=== PATIENT | male | born 1985 | race Caucasian/White ===

== ENCOUNTER 2017-01-14 19:19 | Emergency (ER) | payer OTHER ==
--- NOTE | 2017-01-14 19:32 | ED ---
General Adult HPI - General Chief complaint: Abdominal Pain Stated complaint: abdominal pain Time Seen by Provider: 01/14/17 19:27 Source: patient, family, RN notes reviewed, old records reviewed Mode of arrival: ambulatory Limitations: no limitations - History of Present Illness Initial comments: This is a 31-year-old male to the ER for evaluation. Patient is safe for evaluation of abdominal pain through epigastric right upper quadrant without pain worse with eating. Patient has history of gallbladder surgery. Denies drugs or alcohol. No fevers. No diarrhea. Patient is unable to attribute pain to any specific foods. Patient denies any significant weight the weight loss is severe pain after eating. Patient is that he was taking Tums for quite some time and that was helping but at this time is getting no relief - Related Data Previous Rx's Medication Instructions Recorded Amoxicillin 500 mg PO Q8H #42 capsule 01/14/17 Clarithromycin [Biaxin] 500 mg PO Q12HR #28 tablet 01/14/17 Famotidine [Pepcid] 20 mg PO BID #30 tablet 01/14/17 Omeprazole [PriLOSEC] 20 mg PO AC-BID #60 cap 01/14/17 Allergies Allergy/AdvReac Type Severity Reaction Status Date / Time No Known Allergies Allergy Verified 01/14/17 19:38 Review of Systems ROS Statement: Those systems with pertinent positive or pertinent negative responses have been documented in the HPI. ROS Other: All systems not noted in ROS Statement are negative. Past Medical History Past Medical History: No Reported History, Skin Disorder Additional Past Medical History / Comment(s): WAS BORN PREMATURE NOT SURE HOW EARLY, UTI, PSORIASES ON SCALP. History of Any Multi-Drug Resistant Organisms: None Reported Past Surgical History: Hernia Repair, Orthopedic Surgery Additional Past Surgical History / Comment(s): RT INGUINAL HERNIA SX INFANT, CUT TENDON /MUSCLE LT HAND HAD SX TO REPAIR, RT WRIST SX FOR ABCESS i&D. DENIES MRSA OR VRE Past Anesthesia/Blood Transfusion Reactions: No Reported Reaction Past Psychological History: No Psychological Hx Reported Smoking Status: Current some day smoker Past Alcohol Use History: Occasional Past Drug Use History: None Reported - Past Family History Father Family Medical History: Unable to Obtain Mother Family Medical History: Unable to Obtain General Exam Limitations: no limitations General appearance: alert, in no apparent distress Head exam: Present: atraumatic, normocephalic, normal inspection Eye exam: Present: normal appearance, PERRL, EOMI. Absent: scleral icterus, conjunctival injection, periorbital swelling ENT exam: Present: normal exam, mucous membranes moist Neck exam: Present: normal inspection. Absent: tenderness, meningismus, lymphadenopathy Respiratory exam: Present: normal lung sounds bilaterally. Absent: respiratory distress, wheezes, rales, rhonchi, stridor Cardiovascular Exam: Present: regular rate, normal rhythm, normal heart sounds. Absent: systolic murmur, diastolic murmur, rubs, gallop, clicks GI/Abdominal exam: Present: soft, normal bowel sounds. Absent: distended, tenderness, guarding, rebound, rigid Extremities exam: Present: normal inspection, full ROM, normal capillary refill. Absent: tenderness, pedal edema, joint swelling, calf tenderness Back exam: Present: normal inspection Neurological exam: Present: alert, oriented X3, CN II-XII intact Psychiatric exam: Present: normal affect, normal mood Skin exam: Present: warm, dry, intact, normal color. Absent: rash Course Vital Signs 01/14/17 01/14/17 01/14/17 19:20 20:58 21:34 Temperature 98 F 98.0 F Pulse Rate 90 80 85 Respiratory 18 16 18 Rate Blood Pressure 140/86 132/70 152/89 O2 Sat by Pulse 98 99 97 Oximetry Medical Decision Making - Medical Decision Making 31 male ER for evaluation. Patient's is here today for evaluation of abdominal pain. Pain occurs after Eating, likely also, CT and pelvis level within normal. Patient will be discharged home - Lab Data Result diagrams: 01/14/17 20:10 01/14/17 20:10 Lab Results 01/14/17 01/14/17 01/14/17 Range/Units 20:10 20:10 20:10 WBC (3.8-10.6) k/uL RBC (4.30-5.90) m/uL Hgb (13.0-17.5) gm/dL Hct (39.0-53.0) % MCV (80.0-100.0) fL MCH (25.0-35.0) pg MCHC (31.0-37.0) g/dL RDW (11.5-15.5) % Plt Count (150-450) k/uL Neutrophils % % Lymphocytes % % Monocytes % % Eosinophils % % Basophils % % Neutrophils # (1.3-7.7) k/uL Lymphocytes # (1.0-4.8) k/uL Monocytes # (0-1.0) k/uL Eosinophils # (0-0.7) k/uL Basophils # (0-0.2) k/uL Sodium 141 (137-145) mmol/L Potassium 3.9 (3.5-5.1) mmol/L Chloride 107 (98-107) mmol/L Carbon Dioxide 23 (22-30) mmol/L Anion Gap 11 mmol/L BUN 17 (9-20) mg/dL Creatinine 0.96 (0.66-1.25) mg/dL Est GFR (MDRD) Af Amer >60 (>60 ml/min/1.73 sqM) Est GFR (MDRD) Non-Af >60 (>60 ml/min/1.73 sqM) Glucose 108 H (74-99) mg/dL Plasma Lactic Acid [place] 1.4 (0.7-2.0) mmol/L Calcium 9.4 (8.4-10.2) mg/dL Total Bilirubin 0.4 (0.2-1.3) mg/dL AST 45 (17-59) U/L ALT 82 H (21-72) U/L Alkaline Phosphatase 86 (38-126) U/L Total Creatine Kinase 206 H (55-170) U/L CK-MB (CK-2) 0.8 (0.0-2.4) ng/mL CK-MB (CK-2) Rel Index 0.4 Total Protein 7.3 (6.3-8.2) g/dL Albumin 4.6 (3.5-5.0) g/dL Amylase 46 (30-110) U/L Lipase 159 (23-300) U/L 01/14/17 Range/Units 20:10 WBC 10.6 (3.8-10.6) k/uL RBC 4.79 (4.30-5.90) m/uL Hgb 15.1 (13.0-17.5) gm/dL Hct 42.6 (39.0-53.0) % MCV 88.9 (80.0-100.0) fL MCH 31.6 (25.0-35.0) pg MCHC 35.5 (31.0-37.0) g/dL RDW 12.9 (11.5-15.5) % Plt Count 244 (150-450) k/uL Neutrophils % 71 % Lymphocytes % 20 % Monocytes % 5 % Eosinophils % 2 % Basophils % 0 % Neutrophils # 7.6 (1.3-7.7) k/uL Lymphocytes # 2.1 (1.0-4.8) k/uL Monocytes # 0.5 (0-1.0) k/uL Eosinophils # 0.2 (0-0.7) k/uL Basophils # 0.0 (0-0.2) k/uL Sodium (137-145) mmol/L Potassium (3.5-5.1) mmol/L Chloride (98-107) mmol/L Carbon Dioxide (22-30) mmol/L Anion Gap mmol/L BUN (9-20) mg/dL Creatinine (0.66-1.25) mg/dL Est GFR (MDRD) Af Amer (>60 ml/min/1.73 sqM) Est GFR (MDRD) Non-Af (>60 ml/min/1.73 sqM) Glucose (74-99) mg/dL Plasma Lactic Acid Eugene (0.7-2.0) mmol/L Calcium (8.4-10.2) mg/dL Total Bilirubin (0.2-1.3) mg/dL AST (17-59) U/L ALT (21-72) U/L Alkaline Phosphatase (38-126) U/L Total Creatine Kinase (55-170) U/L CK-MB (CK-2) (0.0-2.4) ng/mL CK-MB (CK-2) Rel Index Total Protein (6.3-8.2) g/dL Albumin (3.5-5.0) g/dL Amylase (30-110) U/L Lipase (23-300) U/L - Radiology Data Radiology results: report reviewed (CT abdomen and pelvis is negative for acute disease), image reviewed Disposition Clinical Impression: Abdominal pain, GERD (gastroesophageal reflux disease), Ulcer Disposition: HOME SELF-CARE Condition: Good Instructions: Peptic Ulcer (ED), Gastritis (ED) Prescriptions: Amoxicillin 500 mg PO Q8H #42 capsule Clarithromycin [Biaxin] 500 mg PO Q12HR #28 tablet Famotidine [Pepcid] 20 mg PO BID #30 tablet Omeprazole [PriLOSEC] 20 mg PO AC-BID #60 cap Referrals: None,Stated [Primary Care Provider] - 1-2 days
[2017-01-14] MEDS ORDERED: PANTOPRAZOLE 40 MG/10 ML VIAL IVP STA (19:37)
[2017-01-14] MEDS ORDERED: SODIUM CHLORIDE 0.9% 1,000 ML IV STA ×2 (19:37)
[2017-01-14] MEDS ORDERED: DICYCLOMINE 10 MG/ML 2 ML AMP IM STA (19:37)
[2017-01-14] MEDS ORDERED: MORPHINE SULFATE 4 MG/ML SYRINGE IV STA (19:37)
[2017-01-14] MEDS ORDERED: ONDANSETRON 4 MG/2 ML VIAL IVP STA (19:37)
[2017-01-14] MEDS ORDERED: RX INFO: IV CONTRAST WAS GIVEN 1 EACH MISC MISCELLANE PRN (19:37)
[2017-01-14 20:22] LABS: Basophils % (A) 0 %; CH 31.7; CHCM 35.7; Eosinophils # (A) 0.2 k/uL (0-0.7); Eosinophils % (A) 2 %; HCT 42.6 % (39.0-53.0); HDW 2.63; HGB 15.1 gm/dL (13.0-17.5); Luc # (Auto) 0.23; Luc % (Auto) 2; Lymphocytes # (A) 2.1 k/uL (1.0-4.8); Lymphocytes % (A) 20 %; MCH 31.6 pg (25.0-35.0); MCHC 35.5 g/dL (31.0-37.0); MCV 88.9 fL (80.0-100.0); Mean Platelet Volume 7.1; Monocytes # (A) 0.5 k/uL (0-1.0); Monocytes % (A) 5 %; Neutrophils # (A) 7.6 k/uL (1.3-7.7); Neutrophils % (A) 71 %; RBC 4.79 m/uL (4.30-5.90); RDW 12.9 % (11.5-15.5); WBC 10.6 k/uL (3.8-10.6); WBC (Perox) 10.12
[2017-01-14 20:40] LABS: ALT 82 U/L (21-72); AST 45 U/L (17-59); Alkaline Phosphatase 86 U/L (38-126); Amylase 46 U/L (30-110); Anion Gap 11 mmol/L; Blood Urea Nitrogen 17 mg/dL (9-20); Calcium 9.4 mg/dL (8.4-10.2); Carbon Dioxide 23 mmol/L (22-30); Chloride 107 mmol/L (98-107); Glucose 108 mg/dL (74-99); Non-African American GFR(MDRD) >60 (>60 ml/min/1.73 sqM); Potassium 3.9 mmol/L (3.5-5.1); Sodium 141 mmol/L (137-145); Total Bilirubin 0.4 mg/dL (0.2-1.3); Total Protein 7.3 g/dL (6.3-8.2)
--- NOTE | 2017-01-14 20:42 | CT ---
EXAMINATION TYPE: CT abdomen pelvis w con DATE OF EXAM: 01/14/2017 COMPARISON: NONE HISTORY: Mid to right upper quadrant pain after eating x months with nausea and vomiting. CT DLP: 923.10 mGycm Automated exposure control for dose reduction was used. TECHNIQUE: Helical acquisition of images was performed from the lung bases through the pelvis. CONTRAST: Performed without Oral Contrast and with IV Contrast, patient injected with 100 mL of Omnipaque 300. FINDINGS: The lung bases are clear. There is no pleural effusion. Heart size is normal. spleen pancreas appear normal. There are clips from cholecystectomy. Bile ducts are not dilated. The re is no adrenal mass. There is a 3 cm area of enhancement in the lateral right lobe of the liver con sistent with hemangioma. There is no adrenal mass. Kidneys show satisfactory contrast opacification. There is no hydronephrosi s. There is a possible 3 mm calcification in the left kidney. There is no retroperitoneal adenopathy. There is no ascites. I see no intestinal wall thickening. There are no dilated loops. Appendix appea rs normal. Bladder distends smoothly. There is no sign of a pelvic mass. Bony structures are intact. IMPRESSION: SMALL HEMANGIOMA IN THE LIVER. THERE IS PROBABLY A SMALL LEFT RENAL NONOBSTRUCTING CALCULUS. NO SIGN OF ACUTE ABDOMEN AND PELVIS.
[2017-01-14 20:57] LABS: Creatine Kinase MB 0.8 ng/mL (0.0-2.4)
[2017-01-14] MEDS ORDERED: MAG HYDROX/AL HYDROX/SIMETH 30 ML, HYOSCYAMINE ELIXIR 10 ML, CIMETIDINE HCL 300 MG, LID... PO STA ×4 (20:57)
[2017-01-14 21:35] VITALS: BP 152/89; PULSE 85; RESP 18; TEMP 98
== END 2017-01-14 21:35 | disposition home or self-care (01) ==
LOC: EC 19:19
DX: K21.9 Gastro-esophageal reflux disease without esophagitis (principal); K25.9 Gastric ulcer, unspecified as acute or chronic, without hemorrhage or perforation; F17.200 Nicotine dependence, unspecified, uncomplicated
CPT/HCPCS: 36415; 80053; 82150; 82550; 82553; 83605; 83690; 85025; 74177; 99284; 96374; 96375 ×2; 96361 ×2; 96372; J2270; J0500; J2405; Q9967; C9113

== ENCOUNTER 2018-04-14 15:39 | Emergency (ER) | payer OTHER ==
[2018-04-14 16:12] VITALS: RESP 18
[2018-04-14 16:38] LABS: Basophils % (A) 1 %; Eosinophils # (A) 0.1 k/uL (0-0.7); Eosinophils % (A) 2 %; HCT 45.7 % (39.0-53.0); HGB 15.6 gm/dL (13.0-17.5); Lymphocytes # (A) 1.9 k/uL (1.0-4.8); Lymphocytes % (A) 26 %; MCH 30.6 pg (25.0-35.0); MCHC 34.2 g/dL (31.0-37.0); MCV 89.5 fL (80.0-100.0); Mean Platelet Volume 7.1; Monocytes # (A) 0.4 k/uL (0-1.0); Monocytes % (A) 5 %; Neutrophils # (A) 4.8 k/uL (1.3-7.7); Neutrophils % (A) 65 %; Platelet Count 224 k/uL (150-450); RDW 12.7 % (11.5-15.5); WBC 7.4 k/uL (3.8-10.6)
[2018-04-14 16:38] LABS: Appearance,Urine Clear (Clear); Bilirubin,Urine Negative (Negative); Blood,Urine Negative (Negative); Color,Urine Yellow; Glucose,Urine (UA) Negative (Negative); Ketones,Urine 1+ (Negative); Leukocyte Esterase,Urine Negative (Negative); Nitrite,Urine Negative (Negative); Protein,Urine Negative (Negative); Specific Gravity,Urine 1.013 (1.001-1.035); Urobilinogen,Urine <2.0 mg/dL (<2.0)
[2018-04-14] MEDS ORDERED: MAG HYDROX/AL HYDROX/SIMETH 30 ML, HYOSCYAMINE ELIXIR 10 ML, CIMETIDINE HCL 300 MG, LID... PO STA ×4 (16:51)
[2018-04-14 16:56] LABS: ALT 70 U/L (21-72); AST 49 U/L (17-59); Albumin 4.8 g/dL (3.5-5.0); Alkaline Phosphatase 71 U/L (38-126); Amylase 75 U/L (30-110); Anion Gap 11 mmol/L; Blood Urea Nitrogen 16 mg/dL (9-20); Calcium 10.6 mg/dL (8.4-10.2); Carbon Dioxide 23 mmol/L (22-30); Chloride 107 mmol/L (98-107); Glucose 96 mg/dL (74-99); Lipase 235 U/L (23-300); Potassium 4.2 mmol/L (3.5-5.1); Sodium 141 mmol/L (137-145); Total Bilirubin 0.4 mg/dL (0.2-1.3); Total Protein 7.8 g/dL (6.3-8.2)
--- NOTE | 2018-04-14 16:57 | ED ---
General Adult HPI - General Chief complaint: Abdominal Pain Stated complaint: Abd Pain Time Seen by Provider: 04/14/18 16:40 Source: patient, RN notes reviewed Mode of arrival: ambulatory Limitations: no limitations - History of Present Illness Initial comments: 32-year-old male presented to the emergency room today with chief complaint abdominal pain. Patient states that he's been having symptoms for the past few years. He states anytime he eats or drinks he gets abdominal pain. He states at times he becomes nauseated and has vomiting. Other times he has diarrhea. Patient states that symptoms seem to be getting worse. He states to come to the hospital once approximate year ago believes he had a CAT scan. Patient states never followed up. He states he does take Tums occasionally but they do not seem to help his symptoms. Patient denies any other complaints or symptoms. Patient denies any recent fever, chills, shortness of breath, chest pain, back pain, numbness or tingling, dysuria or hematuria, constipation, headaches or visual changes, or any other complaints. - Related Data Previous Rx's Medication Instructions Recorded Omeprazole [PriLOSEC] 20 mg PO AC-BRKFST 14 Days cap 04/14/18 Ondansetron Odt [Zofran ODT] 4 mg PO Q8HR PRN #20 tab 04/14/18 Allergies Allergy/AdvReac Type Severity Reaction Status Date / Time No Known Allergies Allergy Verified 04/14/18 17:01 Review of Systems ROS Statement: Those systems with pertinent positive or pertinent negative responses have been documented in the HPI. ROS Other: All systems not noted in ROS Statement are negative. Past Medical History Past Medical History: No Reported History, Skin Disorder Additional Past Medical History / Comment(s): WAS BORN PREMATURE NOT SURE HOW EARLY, UTI, PSORIASES ON SCALP. History of Any Multi-Drug Resistant Organisms: None Reported Past Surgical History: Cholecystectomy, Hernia Repair, Orthopedic Surgery Additional Past Surgical History / Comment(s): RT INGUINAL HERNIA SX INFANT, CUT TENDON /MUSCLE LT HAND HAD SX TO REPAIR, RT WRIST SX FOR ABCESS i&D. DENIES MRSA OR VRE Past Anesthesia/Blood Transfusion Reactions: No Reported Reaction Past Psychological History: No Psychological Hx Reported Smoking Status: Current some day smoker Past Alcohol Use History: Occasional Past Drug Use History: None Reported - Past Family History Father Family Medical History: Unable to Obtain Mother Family Medical History: Unable to Obtain General Exam - General Exam Comments Initial Comments: General: The patient is awake and alert, in no distress, and does not appear acutely ill. Eye: Pupils are equal, round and reactive to light. Extra-ocular movements are intact. No nystagmus. There is normal conjunctiva bilaterally. No signs of icterus. Ears, nose, mouth and throat: There are moist mucous membranes and no oral lesions. Neck: The neck is supple, there is no tenderness or JVD. Cardiovascular: There is a regular rate and rhythm. No murmur, rub or gallop is appreciated. Respiratory: Lungs are clear to auscultation, respirations are non-labored, breath sounds are equal. No wheezes, stridor, rales, or rhonchi. Gastrointestinal: Soft on palpation. Patient does have mild tenderness in the upper quadrants and epigastric. No rebound, guarding or CVA tenderness. Musculoskeletal: Normal ROM, no tenderness. Sensation intact. Strength 5/5. Pulses equal bilaterally 2+. Neurological: A&O x 3. CN II-XII intact, There are no obvious motor or sensory deficits. Coordination appears grossly intact. Speech is normal. Skin: Skin is warm and dry and no rashes or lesions are noted. Psychiatric: Cooperative, appropriate mood & affect, normal judgment. Limitations: no limitations Course Vital Signs 04/14/18 16:09 Temperature 98.5 F Pulse Rate 93 Respiratory 18 Rate Blood Pressure 136/84 O2 Sat by Pulse 95 Oximetry Medical Decision Making - Medical Decision Making Patient reexamined at this time shows no signs of chest was given GI cocktail which he does state did help his symptoms but he did become nauseous. Given nausea medication here in emergency room. His labs been reviewed are unremarkable. Patient was seen here in the emergency room in January 2017. Patient had a CT of the abdomen and pelvis performed at that time which was unremarkable. He states these are the same symptoms that he's been dealing with for the last several years. At this time is felt the patient may be discharged to follow-up with GI. His abdomen soft on palpation. Was discussed about CT risk and benefits at this time. He will be given nausea medication along with Prilosec for his symptoms. He is advised trying follow-up over the next 2 days returning if symptoms increase worsen. He states understanding and is in agreement with this plan. - Lab Data Result diagrams: 04/14/18 16:20 04/14/18 16:20 Lab Results 04/14/18 04/14/18 04/14/18 Range/Units 16:13 16:20 16:20 WBC 7.4 (3.8-10.6) k/uL RBC 5.10 (4.30-5.90) m/uL Hgb 15.6 (13.0-17.5) gm/dL Hct 45.7 (39.0-53.0) % MCV 89.5 (80.0-100.0) fL MCH 30.6 (25.0-35.0) pg MCHC 34.2 (31.0-37.0) g/dL RDW 12.7 (11.5-15.5) % Plt Count 224 (150-450) k/uL Neutrophils % 65 % Lymphocytes % 26 % Monocytes % 5 % Eosinophils % 2 % Basophils % 1 % Neutrophils # 4.8 (1.3-7.7) k/uL Lymphocytes # 1.9 (1.0-4.8) k/uL Monocytes # 0.4 (0-1.0) k/uL Eosinophils # 0.1 (0-0.7) k/uL Basophils # 0.0 (0-0.2) k/uL Sodium 141 (137-145) mmol/L Potassium 4.2 (3.5-5.1) mmol/L Chloride 107 (98-107) mmol/L Carbon Dioxide 23 (22-30) mmol/L Anion Gap 11 mmol/L BUN 16 (9-20) mg/dL Creatinine 0.73 (0.66-1.25) mg/dL Est GFR (CKD-EPI)AfAm >90 (>60 ml/min/1.73 sqM) Est GFR (CKD-EPI)NonAf >90 (>60 ml/min/1.73 sqM) Glucose 96 (74-99) mg/dL Calcium 10.6 H (8.4-10.2) mg/dL Total Bilirubin 0.4 (0.2-1.3) mg/dL AST 49 (17-59) U/L ALT 70 (21-72) U/L Alkaline Phosphatase 71 (38-126) U/L Total Protein 7.8 (6.3-8.2) g/dL Albumin 4.8 (3.5-5.0) g/dL Amylase 75 (30-110) U/L Lipase 235 (23-300) U/L Urine Color Yellow Urine Appearance Clear (Clear) Urine pH 7.0 (5.0-8.0) Ur Specific [place] 1.013 (1.001-1.035) Urine Protein Negative (Negative) Urine Glucose (UA) Negative (Negative) Urine Ketones 1+ H (Negative) Urine Blood Negative (Negative) Urine Nitrite Negative (Negative) Urine Bilirubin Negative (Negative) Urine Urobilinogen <2.0 (<2.0) mg/dL Ur Leukocyte Esterase Negative (Negative) Disposition Clinical Impression: Abdominal pain Disposition: HOME SELF-CARE Condition: Good Instructions: Abdominal Pain (ED) Additional Instructions: Please use medication as discussed. Please follow-up with gastrointestinal doctor as discussed. Please return to emergency room if the symptoms increase or worsen or for any other concerns. Prescriptions: Omeprazole [PriLOSEC] 20 mg PO AC-BRKFST 14 Days cap Ondansetron Odt [Zofran ODT] 4 mg PO Q8HR PRN #20 tab PRN Reason: Nausea Is patient prescribed a controlled substance at d/c from ED?: No Referrals: None,Stated [Primary Care Provider] - 1-2 days Elisha Whatley MD [STAFF PHYSICIAN] - 1-2 days Tyrone Scott MD [STAFF PHYSICIAN] - 1-2 days Time of Disposition: 17:38
[2018-04-14] MEDS ORDERED: ONDANSETRON ODT 4 MG TAB PO STA (17:28)
[2018-04-14 17:54] VITALS: BP 137/92; PULSE 62; TEMP 98.1
== END 2018-04-14 17:51 | disposition home or self-care (01) ==
LOC: EC 15:39
DX: R10.9 Unspecified abdominal pain (principal); R11.2 Nausea with vomiting, unspecified; R19.7 Diarrhea, unspecified; F17.200 Nicotine dependence, unspecified, uncomplicated; Z87.19 Personal history of other diseases of the digestive system; Z90.49 Acquired absence of other specified parts of digestive tract; Z98.890 Other specified postprocedural states
CPT/HCPCS: 36415; 80053; 81003; 82150; 83690; 85025; 99284

== ENCOUNTER 2018-05-13 09:08 | Day surgery (SDC) | payer OTHER ==
[2018-05-10 15:16] VITALS: BMI 28.0
[~2018-05-13 09:08] MED LIST: LACTATED RINGERS 1,000 ML IV SCH
[2018-05-13 09:53] VITALS: RESP 16; TEMP 97.3
[2018-05-13] MEDS ORDERED: ONDANSETRON 4 MG/2 ML VIAL IVP STA (10:00)
[2018-05-13] MEDS ORDERED: LIDOCAINE 1% INJ 10MG/ML (20 ML MDV) ONE (10:12)
[2018-05-13] MEDS ORDERED: PROPOFOL 10 MG/ML 20 ML VIAL IV ONE (10:12)
--- NOTE | 2018-05-13 11:00 | P.PCN ---
Date of Procedure: 05/13/18 Procedure(s) Performed: Procedures: 1. Esophagogastroduodenoscopy and biopsy. 2. Total colonoscopy and biopsy. Preoperative diagnosis: Abdominal pain, nausea and vomiting. Postoperative diagnosis: 1. Small sliding hiatal hernia with no obvious esophagitis or complicated reflux disease. 2. Mild gastritis with no ulcers or active bleeding. 3. Biopsies obtained from the duodenum, antrum and esophagus. 4. Colon exam essentially within normal limits. 5. Biopsies obtained from the right colon and then biopsy was obtained from the terminal ileum. Preparation: HalfLytely prep. Sedation: Was provided by anesthesia. Brief clinical history: The patient is a 32-year-old male who is scheduled for this evaluation because of history of abdominal pain, nausea and vomiting. The symptoms are chronic and they may have started following his gallbladder surgery around 3 years ago. He was in the emergency room around 1 month ago. He was scheduled for this evaluation following failure of a trial with antispasmodics. The purposes to rule out peptic ulcer disease, complicated reflux disease, celiac disease or inflammatory bowel disease or other pathology.. Procedure: With the patient on his left lateral decubitus position and after informed consent and adequate sedation, I passed the Olympus-GIF 160 video upper endoscope through the cricopharyngeus down the esophagus. GE junction was around 40-41 cm from the incisors and there was a small sliding hiatal hernia with no obvious esophagitis or complicated reflux disease. The endoscope was then passed into the stomach which was insufflated with air and inspected in detail including the retroflex view in the cardia. There was some erythema and mottling most obvious in the antrum and prepyloric area. There were no ulcers or active bleeding. Pyloric channel did not show any ulcers. Duodenal bulb, post bulbar area and descending duodenum appeared within normal limits. I obtained biopsies from the duodenum, antrum and esophagus then the endoscope was withdrawn and I proceeded with the colonoscopy. Perianal area did not show any fissures or fistulas. There were no masses felt on digital rectal examination. The Olympus CFQ 160L video colonoscope was then inserted in the rectum in the usual fashion and advanced to the cecum. I was not able to intubate the ileocecal valve to examine the terminal ileum, however , I was able to obtain colorblind biopsies from the terminal ileum. The colon appeared healthy. I obtained a right colon biopsies then I retroflexed endoscope in the rectum before the endoscope was withdrawn. The patient tolerated the procedure well. Plan: The patient was reassured. I will see him in follow-up and make further plans based on his course and biopsy results.
[2018-05-13 11:06] VITALS: BP 128/62; PULSE 76
== END 2018-05-13 11:19 | disposition home or self-care (01) ==
LOC: ORWHC2ENDO 09:08
DX: K29.50 Unspecified chronic gastritis without bleeding (principal); K44.9 Diaphragmatic hernia without obstruction or gangrene; K21.0 Gastro-esophageal reflux disease with esophagitis; Z79.899 Other long term (current) drug therapy
CPT/HCPCS: 88305; 45380; 43239; J2405; J2001; J2704

== ENCOUNTER 2018-10-23 18:03 | Emergency (ER) | payer OTHER ==
[2018-10-23] MEDS ORDERED: ONDANSETRON 4 MG/2 ML VIAL IVP STA (18:17)
[2018-10-23] MEDS ORDERED: SODIUM CHLORIDE 0.9% 2,000 ML IV STA (18:17)
[2018-10-23 18:40] LABS: Basophils % (A) 1 %; Eosinophils # (A) 0.1 k/uL (0-0.7); Eosinophils % (A) 1 %; HCT 50.1 % (39.0-53.0); HGB 16.5 gm/dL (13.0-17.5); Lymphocytes # (A) 1.2 k/uL (1.0-4.8); Lymphocytes % (A) 19 %; MCH 32.2 pg (25.0-35.0); MCHC 32.9 g/dL (31.0-37.0); MCV 97.8 fL (80.0-100.0); Mean Platelet Volume 6.6; Monocytes # (A) 0.4 k/uL (0-1.0); Monocytes % (A) 6 %; Neutrophils # (A) 4.5 k/uL (1.3-7.7); Neutrophils % (A) 72 %; Platelet Count 222 k/uL (150-450); RBC 5.12 m/uL (4.30-5.90); RDW 12.3 % (11.5-15.5); WBC 6.2 k/uL (3.8-10.6)
[2018-10-23] MEDS ORDERED: PANTOPRAZOLE 40 MG/10 ML VIAL IVP STA (18:53)
[2018-10-23] MEDS ORDERED: KETOROLAC 30 MG/ML 1 ML VIAL IVP STA (18:53)
[2018-10-23 18:54] LABS: Appearance,Urine Clear (Clear); Bilirubin,Urine Negative (Negative); Blood,Urine Negative (Negative); Color,Urine Yellow; Glucose,Urine (UA) Negative (Negative); Hyaline Casts,Urine 1 /lpf (0-2); Ketones,Urine 1+ (Negative); Leukocyte Esterase,Urine Moderate (Negative); Mucus,Urine Many /hpf; Nitrite,Urine Negative (Negative); PH, Urine 6.5 (5.0-8.0); Protein,Urine 1+ (Negative); Specific Gravity,Urine 1.028 (1.001-1.035); Urobilinogen,Urine <2.0 mg/dL (<2.0); WBC,Urine 16 /hpf (0-5)
[2018-10-23 19:05] LABS: ALT 254 U/L (21-72); AST 281 U/L (17-59); Albumin 5.3 g/dL (3.5-5.0); Alkaline Phosphatase 105 U/L (38-126); Amylase 56 U/L (30-110); Anion Gap 15 mmol/L; Blood Urea Nitrogen 15 mg/dL (9-20); Calcium 10.1 mg/dL (8.4-10.2); Carbon Dioxide 21 mmol/L (22-30); Chloride 104 mmol/L (98-107); Glucose 111 mg/dL (74-99); Lipase 203 U/L (23-300); Potassium 4.2 mmol/L (3.5-5.1); Sodium 140 mmol/L (137-145); Total Bilirubin 1.2 mg/dL (0.2-1.3); Total Protein 8.1 g/dL (6.3-8.2)
--- NOTE | 2018-10-23 19:07 | ED ---
Nausea/Vomiting/Diarrhea HPI - General Source: patient, RN notes reviewed, old records reviewed Mode of arrival: ambulatory Limitations: no limitations <Marilia Tay - Last Filed: 10/23/18 19:56> <Jennifer Bojorquez - Last Filed: 10/23/18 21:24> - General Chief complaint: Nausea/Vomiting/Diarrhea Stated complaint: vomiting/not able to eat Time Seen by Provider: 10/23/18 18:16 - History of Present Illness Initial comments: This Patient is a 33-year-old male presents emergency department today complaints of 3 days of nausea and vomiting. He complains of epigastric and right-sided abdominal pain. Patient states that he hasn't told he has had ulcers before. 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 He denies any history of sick contacts. Patient states he's had no diarrhea. Denies any change in urination or bowel habits. (Marilia Tay) - Related Data Previous Rx's Medication Instructions Recorded Famotidine [Pepcid] 20 mg PO BID #30 tablet 10/23/18 Ondansetron Odt [Zofran Odt] 4 mg PO Q8HR PRN #20 tab 10/23/18 Allergies Allergy/AdvReac Type Severity Reaction Status Date / Time No Known Allergies Allergy Verified 10/23/18 18:16 Review of Systems ROS Other: All systems not noted in ROS Statement are negative. <Marilia Tay - Last Filed: 10/23/18 19:56> ROS Other: All systems not noted in ROS Statement are negative. <Jennifer Bojorquez P - Last Filed: 10/23/18 21:24> ROS Statement: Those systems with pertinent positive or pertinent negative responses have been documented in the HPI. Past Medical History Past Medical History: No Reported History Additional Past Medical History / Comment(s): abd. pain, N/V History of Any Multi-Drug Resistant Organisms: None Reported Past Surgical History: Cholecystectomy, Hernia Repair, Orthopedic Surgery Additional Past Surgical History / Comment(s): INGUINAL HERNIA ;tendon in wrist; RT WRIST SX FOR ABCESS; EGD/Colonoscopy 08/2018 Past Anesthesia/Blood Transfusion Reactions: No Reported Reaction Past Psychological History: No Psychological Hx Reported Smoking Status: Never smoker - Past Family History Father Family Medical History: Unable to Obtain Mother Family Medical History: No Reported History <MaggiMarilia - Last Filed: 10/23/18 19:56> General Exam Limitations: no limitations General appearance: alert, in no apparent distress Head exam: Present: atraumatic, normocephalic, normal inspection Eye exam: Present: normal appearance, PERRL, EOMI. Absent: scleral icterus, conjunctival injection, periorbital swelling ENT exam: Present: normal exam, mucous membranes moist Neck exam: Present: normal inspection. Absent: tenderness, meningismus, lymphadenopathy Respiratory exam: Present: normal lung sounds bilaterally. Absent: respiratory distress, wheezes, rales, rhonchi, stridor Cardiovascular Exam: Present: regular rate, normal rhythm, normal heart sounds. Absent: systolic murmur, diastolic murmur, rubs, gallop, clicks GI/Abdominal exam: Present: soft, tenderness (Epigastric and right upper quadrant tenderness.), normal bowel sounds. Absent: distended, guarding, rebound, rigid Extremities exam: Present: normal inspection, full ROM, normal capillary refill. Absent: tenderness, pedal edema, joint swelling, calf tenderness Back exam: Present: normal inspection Neurological exam: Present: alert, oriented X3, CN II-XII intact Psychiatric exam: Present: normal affect, normal mood Skin exam: Present: warm, dry, intact, normal color. Absent: rash <Sissy Tayily - Last Filed: 10/23/18 19:56> - General Exam Comments Initial Comments: 33-year-old male. Alert and oriented. No significant distress. (Marilia Tay) Course Vital Signs 10/23/18 10/23/18 10/23/18 18:08 19:44 20:32 Temperature 98.5 F 98.3 F Pulse Rate 107 H 84 78 Respiratory 20 18 18 Rate Blood Pressure 140/99 132/82 127/82 O2 Sat by Pulse 97 95 96 Oximetry Medical Decision Making - Lab Data Result diagrams: 10/23/18 18:30 10/23/18 18:30 - Radiology Data Radiology results: report reviewed <Marilia Tay - Last Filed: 10/23/18 19:56> - Lab Data Result diagrams: 10/23/18 18:30 10/23/18 18:30 <Jennifer Bojorquez - Last Filed: 10/23/18 21:24> - Medical Decision Making 33-year-old male presents or his partner today for nausea and vomiting for the past 3 days. At this time Patient had no vomiting. Complains of some epiga stric and right upper quadrant tenderness. This time is admission on IV fluids labwork obtained. Patient urinalysis does show 14 white blood cells. On questioning he denies any concern for STDs and denies any symptoms of UTI. Urine culture will be completed. Patient's liver enzymes are markedly elevated from all of his previous lab work. He has history of cholecystectomy. I did add labs concerned for acute hepatitis. Due to patient's current continued tenderness CT abdomen and pelvis was ordered. CT report will be completed and shows evidence of fatty infiltrate of the liver. This time Patient be started on Pepcid and Zofran for possible get of gastritis. Discussed that he needs to decrease alcohol intake and fatty food intake. All questions answered return parameters were discussed. (Marilia Tay) I was available for consultation in the emergency department. The history and physical exam were done by the midlevel provider. I was consulted for this patient's care. I reviewed the case with the midlevel provider and based on their presentation of the patient, I agree with the assessment, medical decision making and plan of care as documented. (Jennifer Bojorquez) - Lab Data Lab Results 10/23/18 10/23/18 10/23/18 Range/Units 18:30 18:30 18:30 WBC 6.2 (3.8-10.6) k/uL RBC 5.12 (4.30-5.90) m/uL Hgb 16.5 (13.0-17.5) gm/dL Hct 50.1 (39.0-53.0) % MCV 97.8 (80.0-100.0) fL MCH 32.2 (25.0-35.0) pg MCHC 32.9 (31.0-37.0) g/dL RDW 12.3 (11.5-15.5) % Plt Count 222 (150-450) k/uL Neutrophils % 72 % Lymphocytes % 19 % Monocytes % 6 % Eosinophils % 1 % Basophils % 1 % Neutrophils # 4.5 (1.3-7.7) k/uL Lymphocytes # 1.2 (1.0-4.8) k/uL Monocytes # 0.4 (0-1.0) k/uL Eosinophils # 0.1 (0-0.7) k/uL Basophils # 0.0 (0-0.2) k/uL Sodium 140 (137-145) mmol/L Potassium 4.2 (3.5-5.1) mmol/L Chloride 104 (98-107) mmol/L Carbon Dioxide 21 L (22-30) mmol/L Anion Gap 15 mmol/L BUN 15 (9-20) mg/dL Creatinine 0.83 (0.66-1.25) mg/dL Est GFR (CKD-EPI)AfAm >90 (>60 ml/min/1.73 sqM) Est GFR (CKD-EPI)NonAf >90 (>60 ml/min/1.73 sqM) Glucose 111 H (74-99) mg/dL Calcium 10.1 (8.4-10.2) mg/dL Total Bilirubin 1.2 (0.2-1.3) mg/dL AST 281 H (17-59) U/L ALT 254 H (21-72) U/L Alkaline Phosphatase 105 (38-126) U/L Total Protein 8.1 (6.3-8.2) g/dL Albumin 5.3 H (3.5-5.0) g/dL Amylase 56 (30-110) U/L Lipase 203 (23-300) U/L Urine Color Yellow Urine Appearance Clear (Clear) Urine pH 6.5 (5.0-8.0) Ur Specific [place] 1.028 (1.001-1.035) Urine Protein 1+ H (Negative) Urine Glucose (UA) Negative (Negative) Urine Ketones 1+ H (Negative) Urine Blood Negative (Negative) Urine Nitrite Negative (Negative) Urine Bilirubin Negative (Negative) Urine Urobilinogen <2.0 (<2.0) mg/dL Ur Leukocyte Esterase Moderate H (Negative) Urine WBC 16 H (0-5) /hpf Hyaline Casts 1 (0-2) /lpf Urine Mucus Many H (None) /hpf Hepatitis A IgM Ab 10/23/18 Range/Units 19:33 WBC (3.8-10.6) k/uL RBC (4.30-5.90) m/uL Hgb (13.0-17.5) gm/dL Hct (39.0-53.0) % MCV (80.0-100.0) fL MCH (25.0-35.0) pg MCHC (31.0-37.0) g/dL RDW (11.5-15.5) % Plt Count (150-450) k/uL Neutrophils % % Lymphocytes % % Monocytes % % Eosinophils % % Basophils % % Neutrophils # (1.3-7.7) k/uL Lymphocytes # (1.0-4.8) k/uL Monocytes # (0-1.0) k/uL Eosinophils # (0-0.7) k/uL Basophils # (0-0.2) k/uL Sodium (137-145) mmol/L Potassium (3.5-5.1) mmol/L Chloride (98-107) mmol/L Carbon Dioxide (22-30) mmol/L Anion Gap mmol/L BUN (9-20) mg/dL Creatinine (0.66-1.25) mg/dL Est GFR (CKD-EPI)AfAm (>60 ml/min/1.73 sqM) Est GFR (CKD-EPI)NonAf (>60 ml/min/1.73 sqM) Glucose (74-99) mg/dL Calcium (8.4-10.2) mg/dL Total Bilirubin (0.2-1.3) mg/dL AST (17-59) U/L ALT (21-72) U/L Alkaline Phosphatase (38-126) U/L Total Protein (6.3-8.2) g/dL Albumin (3.5-5.0) g/dL Amylase (30-110) U/L Lipase (23-300) U/L Urine Color Urine Appearance (Clear) Urine pH (5.0-8.0) Ur Specific [place] (1.001-1.035) Urine Protein (Negative) Urine Glucose (UA) (Negative) Urine Ketones (Negative) Urine Blood (Negative) Urine Nitrite (Negative) Urine Bilirubin (Negative) Urine Urobilinogen (<2.0) mg/dL Ur Leukocyte Esterase (Negative) Urine WBC (0-5) /hpf Hyaline Casts (0-2) /lpf Urine Mucus (None) /hpf Hepatitis A IgM Ab NEGATIVE - Radiology Data CT on pelvis shows evidence of fatty infiltrate of the liver new compared old exam. (Marilia Tay) Disposition Is patient prescribed a controlled substance at d/c from ED?: No Time of Disposition: 20:00 <Marilia Tay - Last Filed: 10/23/18 19:56> <Jennifer Bojorquez - Last Filed: 10/23/18 21:24> Clinical Impression: Nausea & vomiting, Elevated liver enzymes, Fatty infiltration of liver Disposition: HOME SELF-CARE Condition: Good Instructions (If sedation given, give patient instructions): Acute Nausea and Vomiting (ED) Additional Instructions: Patient advised to take medication as prescribed. Follow-up with PCP. Return to emergency department if any alarming signs or symptoms occur. Clear liquid diet. Prescriptions: Famotidine [Pepcid] 20 mg PO BID #30 tablet Ondansetron Odt [Zofran Odt] 4 mg PO Q8HR PRN #20 tab PRN Reason: Nausea Referrals: None,Stated [Primary Care Provider] - 1-2 days Mikel Green MD [STAFF PHYSICIAN] - 1-2 days
[2018-10-23 19:45] VITALS: RESP 18
--- NOTE | 2018-10-23 19:54 | CT ---
EXAMINATION TYPE: CT abdomen pelvis w con DATE OF EXAM: 10/23/2018 COMPARISON: 01/14/2017 HISTORY: Vomiting x3 days. Hx inguinal hernia, sx hx juma/hernia repair CT DLP: 966.7 mGycm Automated exposure control for dose reduction was used. TECHNIQUE: Helical acquisition of images was performed from the lung bases through the pelvis. CONTRAST: Performed without Oral Contrast and with IV Contrast, patient injected with 100 mL of Isovue 300. FINDINGS: Lung bases are clear but there is no pleural effusion. There is decreased density throughout the live r related to fatty infiltration. There are clips from cholecystectomy. Bile ducts are not dilated. St omach appears normal. Spleen appears normal. There is no pancreatic mass. There is no adrenal mass. There is 2 cm triangular-shaped area of enhancement lateral right lobe of t he liver consistent with hemangioma. Kidneys show satisfactory contrast opacification. There is no hydronephrosis. Bladder distends smooth ly. There is no inguinal hernia. There is no free fluid in the pelvis. There is no evidence of a karla l obstruction. There is no free air. Appendix appears normal. There is no mesenteric edema. There is no free air. There is no ascites. Bony structures are intact. IMPRESSION: THERE IS DIFFUSE FATTY INFILTRATION OF THE LIVER THAT IS A SIGNIFICANT CHANGE COMPARED TO OLD EXAM. HEMANGIOMA RIGHT LOBE OF THE LIVER UNCHANGED. NO ACUTE ABNORMALITY.
[2018-10-23] MEDS ORDERED: AZITHROMYCIN 500 MG TAB PO STA (19:58)
[2018-10-23] MEDS ORDERED: cefTRIAXone 250 MG VIAL IM STA (19:58)
[2018-10-23 20:24] LABS: Hepatitis A AB IgM Index 0.02; Hepatitis A Antibody IgM NEGATIVE
[2018-10-23 20:33] VITALS: BP 127/82; PULSE 78; TEMP 98.3
[2018-10-25 11:05] LABS: Hepatitis B Core IgM Non-Reactive (Non-Reactive)
== END 2018-10-23 20:32 | disposition home or self-care (01) ==
LOC: EC 18:03
DX: K76.0 Fatty (change of) liver, not elsewhere classified (principal); R74.8 Abnormal levels of other serum enzymes; R11.2 Nausea with vomiting, unspecified; Z90.49 Acquired absence of other specified parts of digestive tract
CPT/HCPCS: 36415; 80053; 80074; 82150; 83690; 85025; 81001; 87086; 74177; 99285; 96374; 96375 ×2; 96361 ×2; 96372; J2405; J0696; J1885; C9113; Q9967; 87661

== ENCOUNTER 2019-01-21 22:37 | Inpatient (IN) | payer OTHER ==
[2019-01-21 23:18] LABS: Basophils % (A) 0 %; Eosinophils # (A) 0.1 k/uL (0-0.7); Eosinophils % (A) 1 %; HCT 53.6 % (39.0-53.0); HGB 18.7 gm/dL (13.0-17.5); Lymphocytes # (A) 1.2 k/uL (1.0-4.8); Lymphocytes % (A) 7 %; MCH 33.6 pg (25.0-35.0); MCV 96.1 fL (80.0-100.0); Mean Platelet Volume 6.7; Monocytes # (A) 0.6 k/uL (0-1.0); Monocytes % (A) 4 %; Neutrophils # (A) 15.1 k/uL (1.3-7.7); Neutrophils % (A) 88 %; Platelet Count 296 k/uL (150-450); RBC 5.58 m/uL (4.30-5.90); RDW 12.4 % (11.5-15.5); WBC 17.2 k/uL (3.8-10.6)
[2019-01-21 23:34] LABS: African American GFR (CKD) >90 (>60 ml/min/1.73 sqM); Albumin 5.6 g/dL (3.5-5.0); Amylase 112 U/L (30-110); Anion Gap 23 mmol/L; Blood Urea Nitrogen 19 mg/dL (9-20); Calcium 9.9 mg/dL (8.4-10.2); Carbon Dioxide 18 mmol/L (22-30); Chloride 100 mmol/L (98-107); Glucose 123 mg/dL (74-99); Lipase 1730 U/L (23-300); Sodium 141 mmol/L (137-145); Total Bilirubin 1.1 mg/dL (0.2-1.3); Total Protein 8.9 g/dL (6.3-8.2)
[2019-01-21 23:35] LABS: Appearance,Urine Clear (Clear); Bilirubin,Urine Negative (Negative); Blood,Urine Negative (Negative); Color,Urine Yellow; Glucose,Urine (UA) Negative (Negative); Hyaline Casts,Urine 11 /lpf (0-2); INR 1.1 (<1.2); Ketones,Urine 2+ (Negative); Leukocyte Esterase,Urine Negative (Negative); Mucus,Urine Many /hpf; Nitrite,Urine Negative (Negative); PH, Urine 5.5 (5.0-8.0); Partial Thromboplastin Time 22.9 sec (22.0-30.0); Protein,Urine 2+ (Negative); Prothrombin Time 11.2 sec (9.0-12.0); RBC,Urine 3 /hpf (0-5); Specific Gravity,Urine 1.038 (1.001-1.035); Urobilinogen,Urine <2.0 mg/dL (<2.0); WBC,Urine 4 /hpf (0-5)
[2019-01-21 23:43] LABS: D-Dimer 0.93 mg/L FEU (<0.60)
[2019-01-21 23:46] LABS: ALT 212 U/L (21-72); AST 306 U/L (17-59); Alkaline Phosphatase 126 U/L (38-126); Potassium 4.9 mmol/L (3.5-5.1)
[2019-01-21] MEDS ORDERED: ONDANSETRON 4 MG/2 ML VIAL IVP STA (23:53)
[2019-01-21] MEDS ORDERED: HYDROmorphone 1 MG/ML 1 ML SYRINGE IVP STA (23:53)
[2019-01-21] MEDS ORDERED: SODIUM CHLORIDE 0.9% 1,000 ML IV STA (23:55)
[2019-01-21] MEDS ORDERED: cefTRIAXone IN SWFI 1,000 MG/10 ML SYRINGE IVP STA (23:56)
[2019-01-21] MEDS: SODIUM CHLORIDE 0.9% 1,000 ML IV STA (23:58)
[2019-01-22] MEDS: SODIUM CHLORIDE 0.9% 1,000 ML IV STA (00:42)
[2019-01-22] MEDS ORDERED: HYDROmorphone 1 MG/ML 1 ML SYRINGE IVP STA (00:55)
--- NOTE | 2019-01-22 01:05 | CT ---
EXAM: CT Angiography Chest With Intravenous Contrast CLINICAL HISTORY: Pain TECHNIQUE: Axial computed tomographic angiography images of the chest with intravenous contrast using pulmonary embolism protocol. CTDI is 0.242, 0. 242, 3.9 3.9, 3.9, 93, 9 mGy and DLP is 1363.4 mGy-cm. This CT exam was performed using one or more of the following dose reduction techniques: automated exposure control, adjustment of the mA and/or kV according to patient size, and/or use of iterative reconstruction technique. MIP reconstructed images were created and reviewed. COMPARISON: No relevant prior studies available. FINDINGS: Pulmonary arteries: No evidence of pulmonary embolus. Aorta: No thoracic aortic dissection or aneurysm. Lungs: Unremarkable. No mass. No consolidation. Pleural space: Unremarkable. No significant effusion. No pneumothorax. Heart: Unremarkable. No cardiomegaly. No significant pericardial effusion. No evidence of RV dysfunction. Bones/joints: No acute fracture. No dislocation. Soft tissues: Unremarkable. Lymph nodes: Unremarkable. No enlarged lymph nodes. IMPRESSION: No evidence of pulmonary embolus.
--- NOTE | 2019-01-22 01:07 | CT ---
EXAM: CT Abdomen and Pelvis With Intravenous Contrast CLINICAL HISTORY: Pain TECHNIQUE: Axial computed tomography images of the abdomen and pelvis with intravenous contrast. CTDI is 0.242, 0.242, 3.9 3.9, 3.9, 93, 9 mGy and DLP is 1363.4 mGy-cm. This CT exam was performed using one or more of the following dose reduction techniques: automated exposure control, adjustment of the mA and/or kV according to patient size, and/or use of iterative reconstruction technique. COMPARISON: No relevant prior studies available. FINDINGS: Lung bases: Unremarkable. No mass. No consolidation. ABDOMEN: Liver: Decreased attenuation of the liver suggesting hepatic steatosis. Question flash filling hemangioma within the right hepatic lobe. Liver is enlarged measuring 23.3 simmers suggesting hepatomegaly. Gallbladder and bile ducts: Gallbladder is surgically absent. Pancreas: Stranding noted about the uncinate process and head of the pancreas suggesting acute pancreatitis. Spleen: Unremarkable. Adrenals: Unremarkable. Kidneys and ureters: Unremarkable. Stomach and bowel: Unremarkable. PELVIS: Appendix: Appendix is unremarkable. Bladder: Unremarkable. Reproductive: Unremarkable as visualized. ABDOMEN and PELVIS: Intraperitoneal space: Unremarkable. Bones/joints: No acute fracture. No dislocation. Soft tissues: Unremarkable. Vasculature: Unremarkable. No abdominal aortic aneurysm. Lymph nodes: Unremarkable. IMPRESSION: Stranding noted about the uncinate process and head of the pancreas suggesting acute pancreatitis. Correlate with serum amylase and lipase.
--- NOTE | 2019-01-22 01:13 | ED ---
Back Pain HPI - General Chief Complaint: Back Pain/Injury Stated Complaint: Back Pain, vomiting Time Seen by Provider: 01/21/19 23:37 Source: patient, RN notes reviewed, old records reviewed Limitations: no limitations - History of Present Illness Initial Comments: Patient is a 33-year-old male with past medical history of cholecystectomy. He presents today with complaints of back pain, multiple episodes of vomiting, episodes of diarrhea and shortness of breath. Patient reports that he's been having fever and chills and complaining of severe pain. Patient states that he had a surgery done by Dr. Mcguire. Patient reports he is a daily alcohol use - Related Data Home Medications Medication Instructions Recorded Confirmed No Known Home Medications 01/21/19 01/21/19 Allergies Allergy/AdvReac Type Severity Reaction Status Date / Time No Known Allergies Allergy Verified 01/21/19 23:18 Review of Systems ROS Statement: Those systems with pertinent positive or pertinent negative responses have been documented in the HPI. ROS Other: All systems not noted in ROS Statement are negative. Past Medical History Past Medical History: No Reported History Additional Past Medical History / Comment(s): abd. pain, N/V History of Any Multi-Drug Resistant Organisms: None Reported Past Surgical History: Cholecystectomy, Hernia Repair, Orthopedic Surgery Additional Past Surgical History / Comment(s): INGUINAL HERNIA ;tendon in wrist; RT WRIST SX FOR ABCESS; EGD/Colonoscopy 08/2018, Past Anesthesia/Blood Transfusion Reactions: No Reported Reaction Past Psychological History: No Psychological Hx Reported Smoking Status: Never smoker Past Alcohol Use History: Daily Past Drug Use History: None Reported - Past Family History Father Family Medical History: Unable to Obtain Mother Family Medical History: No Reported History General Exam - General Exam Comments Initial Comments: This is a 33-year-old female. Alert and oriented. No significant distress. Limitations: no limitations General appearance: alert, in no apparent distress Head exam: Present: atraumatic, normocephalic, normal inspection Eye exam: Present: normal appearance, PERRL, EOMI. Absent: scleral icterus, conjunctival injection, periorbital swelling ENT exam: Present: normal exam, mucous membranes moist Neck exam: Present: normal inspection. Absent: tenderness, meningismus, lymphadenopathy Respiratory exam: Present: normal lung sounds bilaterally. Absent: respiratory distress, wheezes, rales, rhonchi, stridor Cardiovascular Exam: Present: regular rate, normal rhythm, normal heart sounds. Absent: systolic murmur, diastolic murmur, rubs, gallop, clicks GI/Abdominal exam: Present: soft, tenderness (Diffuse tenderness.), normal bowel sounds. Absent: distended, guarding, rebound, rigid Extremities exam: Present: normal inspection, full ROM, normal capillary refill. Absent: tenderness, pedal edema, joint swelling, calf tenderness Back exam: Present: normal inspection Neurological exam: Present: alert, oriented X3, CN II-XII intact Psychiatric exam: Present: normal affect, normal mood Skin exam: Present: warm, dry, intact, normal color. Absent: rash Course Vital Signs 01/21/19 01/21/19 01/22/19 22:42 23:35 00:03 Temperature 98.7 F Pulse Rate 156 H 125 H 129 H Respiratory 18 16 21 Rate Blood Pressure 139/92 142/95 159/106 O2 Sat by Pulse 95 97 97 Oximetry 01/22/19 01/22/19 01/22/19 01:09 03:00 03:28 Temperature 98.5 F 98.3 F Pulse Rate 118 H 112 H 111 H Respiratory 16 16 15 Rate Blood Pressure 145/92 131/78 131/78 O2 Sat by Pulse 98 96 96 Oximetry Medical Decision Making - Medical Decision Making Patient is a 33-year-old male with a history of daily alcohol use presents rinse from today with diffuse abdominal pain, vomiting, episodes of diarrhea. He also complains some chest pain. Blood work was reviewed. Patient had a elevated d- dimer and blood work shows significant elevation of amylase and lipase as well as his liver enzymes. He has had some chronic elevation of his liver enzymes left him he was seen. Months ago. At this time CT abdomen and pelvis and CT angios chest is completed. There is evidence of trauma pancreas. Patient's CT injury chest is negative for PE. Patient's case discussed with Dr. Bojorquez discusses Dr. Morejon. Patient will be written for acute pancreatitis. He has a significant elevated lactic acid of 6.4 likely due to nausea and dehydration. His leukocytosis is noted as well which is likely inflammatory response. We did obtain blood cultures and Patient was given 2 g of Rocephin initially. - Lab Data Result diagrams: 01/22/19 03:18 01/21/19 23:04 Lab Results 01/21/19 01/21/19 01/21/19 Range/Units 23:04 23:04 23:04 WBC 17.2 H (3.8-10.6) k/uL RBC 5.58 (4.30-5.90) m/uL Hgb 18.7 H (13.0-17.5) gm/dL Hct 53.6 H (39.0-53.0) % MCV 96.1 (80.0-100.0) fL MCH 33.6 (25.0-35.0) pg MCHC 35.0 (31.0-37.0) g/dL RDW 12.4 (11.5-15.5) % Plt Count 296 (150-450) k/uL Neutrophils % 88 % Lymphocytes % 7 % Monocytes % 4 % Eosinophils % 1 % Basophils % 0 % Neutrophils # 15.1 H (1.3-7.7) k/uL Lymphocytes # 1.2 (1.0-4.8) k/uL Monocytes # 0.6 (0-1.0) k/uL Eosinophils # 0.1 (0-0.7) k/uL Basophils # 0.0 (0-0.2) k/uL PT 11.2 (9.0-12.0) sec INR 1.1 (<1.2) APTT 22.9 (22.0-30.0) sec D-Dimer 0.93 H (<0.60) mg/L FEU Sodium 141 (137-145) mmol/L Potassium 4.9 (3.5-5.1) mmol/L Chloride 100 (98-107) mmol/L Carbon Dioxide 18 L (22-30) mmol/L Anion Gap 23 mmol/L BUN 19 (9-20) mg/dL Creatinine 0.86 (0.66-1.25) mg/dL Est GFR (CKD-EPI)AfAm >90 (>60 ml/min/1.73 sqM) Est GFR (CKD-EPI)NonAf >90 (>60 ml/min/1.73 sqM) Glucose 123 H (74-99) mg/dL Lactic Ac Sepsis Rflx Plasma Lactic Acid [place] (0.7-2.0) mmol/L Calcium 9.9 (8.4-10.2) mg/dL Total Bilirubin 1.1 (0.2-1.3) mg/dL AST 306 H (17-59) U/L ALT 212 H (21-72) U/L Alkaline Phosphatase 126 (38-126) U/L Total Protein 8.9 H (6.3-8.2) g/dL Albumin 5.6 H (3.5-5.0) g/dL Amylase 112 H (30-110) U/L Lipase 1730 H (23-300) U/L Urine Color Urine Appearance (Clear) Urine pH (5.0-8.0) Ur Specific [place] (1.001-1.035) Urine Protein (Negative) Urine Glucose (UA) (Negative) Urine Ketones (Negative) Urine Blood (Negative) Urine Nitrite (Negative) Urine Bilirubin (Negative) Urine Urobilinogen (<2.0) mg/dL Ur Leukocyte Esterase (Negative) Urine RBC (0-5) /hpf Urine WBC (0-5) /hpf Hyaline Casts (0-2) /lpf Urine Mucus (None) /hpf 01/21/19 01/21/19 01/21/19 Range/Units 23:04 23:04 23:48 WBC (3.8-10.6) k/uL RBC (4.30-5.90) m/uL Hgb (13.0-17.5) gm/dL Hct (39.0-53.0) % MCV (80.0-100.0) fL MCH (25.0-35.0) pg MCHC (31.0-37.0) g/dL RDW (11.5-15.5) % Plt Count (150-450) k/uL Neutrophils % % Lymphocytes % % Monocytes % % Eosinophils % % Basophils % % Neutrophils # (1.3-7.7) k/uL Lymphocytes # (1.0-4.8) k/uL Monocytes # (0-1.0) k/uL Eosinophils # (0-0.7) k/uL Basophils # (0-0.2) k/uL PT (9.0-12.0) sec INR (<1.2) APTT (22.0-30.0) sec D-Dimer (<0.60) mg/L FEU Sodium (137-145) mmol/L Potassium (3.5-5.1) mmol/L Chloride (98-107) mmol/L Carbon Dioxide (22-30) mmol/L Anion Gap mmol/L BUN (9-20) mg/dL Creatinine (0.66-1.25) mg/dL Est GFR (CKD-EPI)AfAm (>60 ml/min/1.73 sqM) Est GFR (CKD-EPI)NonAf (>60 ml/min/1.73 sqM) Glucose (74-99) mg/dL Lactic Ac Sepsis Rflx Y Plasma Lactic Acid [place] 6.1 H* (0.7-2.0) mmol/L Calcium (8.4-10.2) mg/dL Total Bilirubin (0.2-1.3) mg/dL AST (17-59) U/L ALT (21-72) U/L Alkaline Phosphatase (38-126) U/L Total Protein (6.3-8.2) g/dL Albumin (3.5-5.0) g/dL Amylase (30-110) U/L Lipase (23-300) U/L Urine Color Yellow Urine Appearance Clear (Clear) Urine pH 5.5 (5.0-8.0) Ur Specific [place] 1.038 H (1.001-1.035) Urine Protein 2+ H (Negative) Urine Glucose (UA) Negative (Negative) Urine Ketones 2+ H (Negative) Urine Blood Negative (Negative) Urine Nitrite Negative (Negative) Urine Bilirubin Negative (Negative) Urine Urobilinogen <2.0 (<2.0) mg/dL Ur Leukocyte Esterase Negative (Negative) Urine RBC 3 (0-5) /hpf Urine WBC 4 (0-5) /hpf Hyaline Casts 11 H (0-2) /lpf Urine Mucus Many H (None) /hpf 01/22/19 03:45 EKG performed at 2300 shows sinus tachycardia, nonspecific ST abnormality. Ventricular rate of 142 bpm. Was 1:30 milliseconds. QRS yazdanism 78 ms. QT QTc is 276/424 ms. - Radiology Data Radiology results: report reviewed Stranding noted at the unicarte process and had a pancreas suggesting acute pancreatitis. Correlating with amylase and lipase. TMJ chest is negative for PE. Disposition Clinical Impression: Pancreatitis, Dehydration, Lactic acidosis Disposition: ADMITTED IP TO THIS HOSP Condition: Stable Is patient prescribed a controlled substance at d/c from ED?: No Time of Disposition: 02:21
[2019-01-22] MEDS ORDERED: SODIUM CHLORIDE 0.9% 1,000 ML IV ONE (01:33)
[2019-01-22] MEDS ORDERED: NALOXONE 0.4 MG/ML 1 ML VIAL IV PRN (01:49)
[2019-01-22] MEDS: SODIUM CHLORIDE 0.9% 1,000 ML IV SCH ×7 (02:15→23:23)
[2019-01-22] MEDS ORDERED: HYDROmorphone 1 MG/ML 1 ML SYRINGE IVP PRN (03:06)
[2019-01-22] MEDS ORDERED: LORazepam 2 MG/ML INJ IV PRN (03:10)
--- NOTE | 2019-01-22 03:10 | P.HPIM ---
History of Present Illness H&P Date: 01/22/19 The patient is a 33 yo M with no significant PMH who presented to the ED for pain and shakiness. The patient notes that he woke up this morning with abdominal and back pain with nausea and vomiting. He has never had this before. 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 He drinks upwards of 1-2 pints of hard liquor daily though never had any problems up until now. He states having numerous episodes of non-bloody non- billious vomiting earlier today and being unable to keep anything down. At time of interview, he notes that his pain is a 7/10, in the abdomen w/ radiation to the back. He endorsed feeling shaky, which is also something new for him. Denied chest pain, or SOB. Denied fever, chills, diarrhea, or headaches. Underwent an extensive evaluation in the ED w/ CT Abd/Pelvis which revealed findings suspicious for pancreatitis. CTA Chest was negative for PE. Laboratory evaluation revealed WBC 17.2, Hgb 18.7, platelets 296, Lipase 1730, AST 306, and ALT 212. He was admitted to the medicine service for acute pancreatitis. Review of Systems Pertinent positives and negatives as discussed in HPI, a complete review of sys tems was performed and all other systems are negative. Past Medical History Past Medical History: No Reported History Additional Past Medical History / Comment(s): abd. pain, N/V History of Any Multi-Drug Resistant Organisms: None Reported Past Surgical History: Cholecystectomy, Hernia Repair, Orthopedic Surgery Additional Past Surgical History / Comment(s): INGUINAL HERNIA ;tendon in wrist; RT WRIST SX FOR ABCESS; EGD/Colonoscopy 08/2018, Past Anesthesia/Blood Transfusion Reactions: No Reported Reaction Past Psychological History: No Psychological Hx Reported Smoking Status: Never smoker Past Alcohol Use History: Daily Past Drug Use History: None Reported - Past Family History Father Family Medical History: Unable to Obtain Mother Family Medical History: No Reported History, Hyperlipidemia Medications and Allergies Home Medications Medication Instructions Recorded Confirmed Type No Known Home Medications 01/21/19 01/21/19 History Allergies Allergy/AdvReac Type Severity Reaction Status Date / Time No Known Allergies Allergy Verified 01/21/19 23:18 Physical Exam Vitals: Vital Signs Temp Pulse Resp BP Pulse Ox 01/22/19 01:09 98.5 F 118 H 16 145/92 98 01/22/19 00:03 129 H 21 159/106 97 01/21/19 23:35 125 H 16 142/95 97 01/21/19 22:42 98.7 F 156 H 18 139/92 95 Intake and Output 01/21/19 01/21/19 01/22/19 14:59 22:59 06:59 Other: Weight 90.718 kg General: Tremulous M, no distress, appears at stated age, overweight Derm: no unusual rashes/lesions no unusual ecchymoses, warm, dry Head: atraumatic, normocephalic, symmetric Eyes: EOMI, no lid lag, anicteric sclera, pupils equal round reactive to light ENT: Nose and ears atraumatic, no thrush, no pharyngeal erythema Neck: No thyromegaly, no cervical lymphadenopathy, trachea midline, supple Mouth: no lip lesion, mucus membranes moist Cardiovascular: S1S2 reg, tachycardic, no murmur, positive posterior tibial pulse bilateral, no edema, capillary refill less than 2 seconds Lungs: CTA bilateral, no rhonchi, no rales , no accessory muscle use Abdominal: soft, epigastric tenderness to palpation, no guarding, no appreciable organomegaly, normal bowel sounds Ext: no gross muscle atrophy, muscle strength 5 out of 5 in all 4 extremities grossly, no contractures, outstretched hand tremors, tongue fasciculations Neuro: CN II-XI grossly intact, light touch intact all 4 extremities Psych: Alert, oriented, appropriate affect Results CBC & Chem 7: 01/21/19 23:04 01/21/19 23:04 Labs: Abnormal Lab Results - Last 24 Hours (Table) 01/21/19 01/21/19 01/21/19 Range/Units 23:04 23:04 23:04 WBC 17.2 H (3.8-10.6) k/uL Hgb 18.7 H (13.0-17.5) gm/dL Hct 53.6 H (39.0-53.0) % Neutrophils # 15.1 H (1.3-7.7) k/uL D-Dimer 0.93 H (<0.60) mg/L FEU Carbon Dioxide 18 L (22-30) mmol/L Glucose 123 H (74-99) mg/dL Plasma Lactic Acid [place] (0.7-2.0) mmol/L AST 306 H (17-59) U/L ALT 212 H (21-72) U/L Total Protein 8.9 H (6.3-8.2) g/dL Albumin 5.6 H (3.5-5.0) g/dL Amylase 112 H (30-110) U/L Lipase 1730 H (23-300) U/L Ur Specific [place] (1.001-1.035) Urine Protein (Negative) Urine Ketones (Negative) Hyaline Casts (0-2) /lpf Urine Mucus (None) /hpf 01/21/19 01/21/19 Range/Units 23:04 23:04 WBC (3.8-10.6) k/uL Hgb (13.0-17.5) gm/dL Hct (39.0-53.0) % Neutrophils # (1.3-7.7) k/uL D-Dimer (<0.60) mg/L FEU Carbon Dioxide (22-30) mmol/L Glucose (74-99) mg/dL Plasma Lactic Acid [place] 6.1 H* (0.7-2.0) mmol/L AST (17-59) U/L ALT (21-72) U/L Total Protein (6.3-8.2) g/dL Albumin (3.5-5.0) g/dL Amylase (30-110) U/L Lipase (23-300) U/L Ur Specific [place] 1.038 H (1.001-1.035) Urine Protein 2+ H (Negative) Urine Ketones 2+ H (Negative) Hyaline Casts 11 H (0-2) /lpf Urine Mucus Many H (None) /hpf Assessment and Plan Plan: Acute alcoholic pancreatitis -C/w IVFs -Pain control w/ Dilaudid -Monitor lipase -NPO for now Lactic acidosis -Secondary to pancreatitis and EtOH withdrawal -C/w IVFs and monitor to resolution Alcohol abuse w/ withdrawal -Advised on importance of cessation from alcohol -CIWA protocol -Thiamine, Folate -Seizure, aspiration, fall precautions -Monitor electrolytes and replace accordingly -Cardiac monitoring Leukocytosis, Hyperalbuminemia -Secondary to dehydration -Monitor for now -No signs of infection DVT prophylaxis -Heparin The patient is admitted with an anticipated greater than 2 midnight stay for evaluation of pancreatitis. CODE STATUS:Full Code Discussed with: Patient Anticipated discharge date: 01/25/[address]: Home A total of 45 minutes was spent on the care of this complex patient more than 50% of the time was spent in counseling and care coordination.
[2019-01-22] MEDS ORDERED: THIAMINE 100 MG/ML 2 ML VIAL IM ONE (03:30)
[2019-01-22 03:41] LABS: HCT 47.2 % (39.0-53.0); HGB 16.3 gm/dL (13.0-17.5); MCH 33.6 pg (25.0-35.0); MCHC 34.5 g/dL (31.0-37.0); MCV 97.5 fL (80.0-100.0); Mean Platelet Volume 6.5; Platelet Count 200 k/uL (150-450); RBC 4.84 m/uL (4.30-5.90); RDW 12.5 % (11.5-15.5); WBC 15.7 k/uL (3.8-10.6)
[2019-01-22 03:57] LABS: ALT 161 U/L (21-72); AST 203 U/L (17-59); African American GFR (CKD) >90 (>60 ml/min/1.73 sqM); Albumin 4.4 g/dL (3.5-5.0); Alkaline Phosphatase 97 U/L (38-126); Anion Gap 16 mmol/L; Blood Urea Nitrogen 15 mg/dL (9-20); Calcium 7.8 mg/dL (8.4-10.2); Carbon Dioxide 19 mmol/L (22-30); Chloride 104 mmol/L (98-107); Glucose 107 mg/dL (74-99); Lipase 1526 U/L (23-300); Potassium 3.8 mmol/L (3.5-5.1); Sodium 139 mmol/L (137-145); Total Protein 6.9 g/dL (6.3-8.2)
[2019-01-22] MEDS: LORazepam 2 MG/ML INJ IV PRN ×4 (04:57→21:51)
[2019-01-22] MEDS: HEPARIN SODIUM,PORCINE 5,000 UNIT/ML 1 ML VIAL SQ SCH ×3 (08:36→21:43)
[2019-01-22] MEDS: FOLIC ACID 1 MG TAB PO SCH (08:36)
[2019-01-22] MEDS: THIAMINE 100 MG TAB PO SCH (08:36)
[2019-01-22 10:22] VITALS: BMI 28.8
[2019-01-22] MEDS: ONDANSETRON 4 MG/2 ML VIAL IVP PRN ×3 (10:31→21:42)
[2019-01-22] MEDS: HYDROmorphone 1 MG/ML 1 ML SYRINGE IVP PRN ×4 (10:32→23:49)
--- NOTE | 2019-01-22 12:46 | P.PN ---
Subjective Progress Note Date: 01/22/19 Patient is seen and examined at bedside. Complaining of abdominal pain and Dilaudid 1 mg working but not for very long also reporting some nausea. Reports history of a pint of liquor daily for the last 6 months. Last drink was yesterday morning. Patient continues to be tachycardic and afebrile white count is down lipase trending down slightly to 1526. Objective - Vital Signs Vital signs: Vital Signs Temp 98.2 F 01/22/19 12:21 Pulse 114 H 01/22/19 12:21 Resp 18 01/22/19 12:21 BP 148/94 01/22/19 12:21 Pulse Ox 92 L 01/22/19 12:21 Intake & Output 01/21/19 01/22/19 01/22/19 18:59 06:59 18:59 Weight 90.718 kg - Exam Constitutional: Mild distress secondary to pain, conversant, pleasant Eyes: Anicteric sclerae, moist conjunctiva, no lid-lag, PERRLA ENMT: NC/AT,Oropharynx clear, no erythema, exudates Neck:Supple, FROM, no masses, or JVD, No carotid bruits; No thyromegaly Lungs: Clear to auscultation, Clear to percussion, Normal respiratory effort, no accessory muscle use Cardiovascular: Tachycardic, No murmurs, gallops, or rubs no peripheral edema Abdominal: Soft tender to palpation, no distended, hypoactive bowel sounds Skin: Normal temperature, tone, texture, turgor, No induration No subcutaneous nodules, No rash, lesions, No ulcers Extremities:No digital cyanosis No clubbing, Pedal pulses intact and symmetrical Radial pulses intact and symmetrical Normal gait and station, No calf tenderness Psychiatric: Alert and oriented to person, place and time, Appropriate affect Intact judgement Neuro: Muscles Strength 5/5 in all 4 extremities, Sensation to light touch grossly present throughout, Cranial nerves II-XII grossly intact. No focal sensory deficits - Labs CBC & Chem 7: 01/22/19 03:18 01/22/19 03:18 Labs: Abnormal Lab Results - Last 24 Hours (Table) 01/21/19 01/21/19 01/21/19 Range/Units 23:04 23:04 23:04 WBC 17.2 H (3.8-10.6) k/uL Hgb 18.7 H (13.0-17.5) gm/dL Hct 53.6 H (39.0-53.0) % Neutrophils # 15.1 H (1.3-7.7) k/uL D-Dimer 0.93 H (<0.60) mg/L FEU Carbon Dioxide 18 L (22-30) mmol/L Creatinine (0.66-1.25) mg/dL Glucose 123 H (74-99) mg/dL Plasma Lactic Acid [place] (0.7-2.0) mmol/L Calcium (8.4-10.2) mg/dL AST 306 H (17-59) U/L ALT 212 H (21-72) U/L Total Protein 8.9 H (6.3-8.2) g/dL Albumin 5.6 H (3.5-5.0) g/dL Amylase 112 H (30-110) U/L Lipase 1730 H (23-300) U/L Ur Specific [place] (1.001-1.035) Urine Protein (Negative) Urine Ketones (Negative) Hyaline Casts (0-2) /lpf Urine Mucus (None) /hpf 01/21/19 01/21/19 01/22/19 Range/Units 23:04 23:04 03:18 WBC (3.8-10.6) k/uL Hgb (13.0-17.5) gm/dL Hct (39.0-53.0) % Neutrophils # (1.3-7.7) k/uL D-Dimer (<0.60) mg/L FEU Carbon Dioxide 19 L (22-30) mmol/L Creatinine 0.65 L (0.66-1.25) mg/dL Glucose 107 H (74-99) mg/dL Plasma Lactic Acid [place] 6.1 H* (0.7-2.0) mmol/L Calcium 7.8 L (8.4-10.2) mg/dL AST 203 H (17-59) U/L ALT 161 H (21-72) U/L Total Protein (6.3-8.2) g/dL Albumin (3.5-5.0) g/dL Amylase (30-110) U/L Lipase 1526 H (23-300) U/L Ur Specific [place] 1.038 H (1.001-1.035) Urine Protein 2+ H (Negative) Urine Ketones 2+ H (Negative) Hyaline Casts 11 H (0-2) /lpf Urine Mucus Many H (None) /hpf 01/22/19 Range/Units 03:18 WBC 15.7 H (3.8-10.6) k/uL Hgb (13.0-17.5) gm/dL Hct (39.0-53.0) % Neutrophils # (1.3-7.7) k/uL D-Dimer (<0.60) mg/L FEU Carbon Dioxide (22-30) mmol/L Creatinine (0.66-1.25) mg/dL Glucose (74-99) mg/dL Plasma Lactic Acid [place] (0.7-2.0) mmol/L Calcium (8.4-10.2) mg/dL AST (17-59) U/L ALT (21-72) U/L Total Protein (6.3-8.2) g/dL Albumin (3.5-5.0) g/dL Amylase (30-110) U/L Lipase (23-300) U/L Ur Specific [place] (1.001-1.035) Urine Protein (Negative) Urine Ketones (Negative) Hyaline Casts (0-2) /lpf Urine Mucus (None) /hpf Assessment and Plan (1) Alcohol-induced pancreatitis Narrative/Plan: * CT abdomen and pelvis consistent with acute pancreatitis showing stranding in the head of the pancreas and uncinate process * Lipase slightly down to 1576 * Continue IV fluids normal saline at 300 mL an hour, continue supportive therapy patient resumed on Zofran, increase Dilaudid to 2 mg IV every 4 hours when necessary * Continue to follow electrolytes and labs Current Visit: Yes Status: Acute Code(s): K85.20 - ALCOHOL INDUCED ACUTE PANCREATITIS WITHOUT NECROSIS OR INFCT SNOMED Code(s): 820903956 (2) Leukocytosis Narrative/Plan: * Patient afebrile * Secondary to acute pancreatitis * Urinalysis negative blood cultures are pending, CTA was negative for PE Current Visit: Yes Status: Acute Code(s): D72.829 - ELEVATED WHITE BLOOD CELL COUNT, UNSPECIFIED SNOMED Code(s): 586815924 (3) Chronic alcohol dependence, continuous Narrative/Plan: * Continue with alcohol symptom triggered withdrawal protocol CIWA Current Visit: Yes Status: Acute Code(s): F10.20 - ALCOHOL DEPENDENCE, UNCOMPLICATED SNOMED Code(s): 163512701 Plan: * Patient with sirs secondary to severe pancreatitis * Continue to monitor closely * Repeat chest x-ray in the a.m. initiated on heparin/ scds for DVT prophylaxis
[2019-01-23] MEDS: SODIUM CHLORIDE 0.9% 1,000 ML IV SCH ×7 (01:07→21:44)
[2019-01-23] MEDS: HYDROmorphone 1 MG/ML 1 ML SYRINGE IVP PRN ×4 (04:39→19:55)
[2019-01-23] MEDS: ONDANSETRON 4 MG/2 ML VIAL IVP PRN ×3 (07:52→23:08)
[2019-01-23] MEDS: LORazepam 2 MG/ML INJ IV PRN ×4 (07:53→23:20)
[2019-01-23] MEDS: THIAMINE 100 MG TAB PO SCH (07:53)
[2019-01-23] MEDS: HEPARIN SODIUM,PORCINE 5,000 UNIT/ML 1 ML VIAL SQ SCH ×3 (07:53→15:51)
[2019-01-23] MEDS: FOLIC ACID 1 MG TAB PO SCH (07:53)
[2019-01-23 08:29] LABS: Basophils % (A) 0 %; Eosinophils # (A) 0.2 k/uL (0-0.7); Eosinophils % (A) 2 %; HCT 41.2 % (39.0-53.0); HGB 13.6 gm/dL (13.0-17.5); Lymphocytes # (A) 0.8 k/uL (1.0-4.8); Lymphocytes % (A) 10 %; MCH 33.3 pg (25.0-35.0); MCHC 33.1 g/dL (31.0-37.0); MCV 100.5 fL (80.0-100.0); Mean Platelet Volume 6.8; Monocytes # (A) 0.4 k/uL (0-1.0); Monocytes % (A) 5 %; Neutrophils # (A) 6.4 k/uL (1.3-7.7); Neutrophils % (A) 81 %; Platelet Count 145 k/uL (150-450); RDW 12.4 % (11.5-15.5); WBC 7.9 k/uL (3.8-10.6)
[2019-01-23 08:42] LABS: African American GFR (CKD) >90 (>60 ml/min/1.73 sqM); Albumin 3.7 g/dL (3.5-5.0); Anion Gap 12 mmol/L; Blood Urea Nitrogen 4 mg/dL (9-20); Calcium 7.1 mg/dL (8.4-10.2); Carbon Dioxide 21 mmol/L (22-30); Chloride 105 mmol/L (98-107); Glucose 94 mg/dL (74-99); Lipase 606 U/L (23-300); Sodium 138 mmol/L (137-145); Total Bilirubin 1.1 mg/dL (0.2-1.3); Total Protein 6.1 g/dL (6.3-8.2)
--- NOTE | 2019-01-23 08:42 | XR ---
EXAMINATION TYPE: XR chest 2V DATE OF EXAM: 01/23/2019 COMPARISON: None INDICATION: Pancreatitis, SIRS TECHNIQUE: Frontal and lateral views of the chest are obtained. FINDINGS: The heart size is normal. The pulmonary vasculature is normal. Minimal linear opacities at the left base likely some plate atelectasis. Lungs otherwise are clear. IMPRESSION: 1. Minimal plate atelectasis left lung base
[2019-01-23 08:46] LABS: ALT 96 U/L (21-72); AST 119 U/L (17-59); Alkaline Phosphatase 79 U/L (38-126); Potassium 3.9 mmol/L (3.5-5.1)
--- NOTE | 2019-01-23 10:35 | P.PN ---
Subjective Progress Note Date: 01/23/19 the patient doing a little bit better today reports that his pain is still present but is controlled with current analgesic regimen, still having nausea at times but that too has improved. Lipase down to 606 from 1526, patient denies any shortness of breath and reports good urine output. Patient's blood pressure is elevated likely secondary to pain and continues to be tachycardic, patient is afebrile and his leukocytosis has resolved Objective - Vital Signs Vital signs: Vital Signs Temp 98.2 F 01/23/19 05:00 Pulse 112 H 01/23/19 05:00 Resp 18 01/23/19 05:00 BP 148/98 01/23/19 05:00 Pulse Ox 92 L 01/23/19 05:00 Intake & Output 01/22/19 01/23/19 01/23/19 18:59 06:59 18:59 Intake Total 2400 2700 Balance 2400 2700 Intake: Intake, IV Titration 2400 2700 Amount Sodium Chloride 0.9% 1, 2400 2700 000 ml @ 300 mls/hr IV . Q3H20M [facility] Rx#:[id number] Oral 0 Other: # Voids 4 - Exam Constitutional: Mild distress secondary to pain, conversant, pleasant Eyes: Anicteric sclerae, moist conjunctiva, no lid-lag, PERRLA ENMT: NC/AT,Oropharynx clear, no erythema, exudates Neck:Supple, FROM, no masses, or JVD, No carotid bruits; No thyromegaly Lungs: Clear to auscultation, Clear to percussion, Normal respiratory effort, no accessory muscle use Cardiovascular: Tachycardic, No murmurs, gallops, or rubs no peripheral edema Abdominal: Soft tender to palpation, no distended, hypoactive bowel sounds Skin: Normal temperature, tone, texture, turgor, No induration No subcutaneous nodules, No rash, lesions, No ulcers Extremities:No digital cyanosis No clubbing, Pedal pulses intact and symmetrical Radial pulses intact and symmetrical Normal gait and station, No calf tenderness Psychiatric: Alert and oriented to person, place and time, Appropriate affect Intact judgement Neuro: Muscles Strength 5/5 in all 4 extremities, Sensation to light touch grossly present throughout, Cranial nerves II-XII grossly intact. No focal sensory deficits - Labs CBC & Chem 7: 01/23/19 07:49 01/23/19 07:49 Labs: Abnormal Lab Results - Last 24 Hours (Table) 01/23/19 01/23/19 Range/Units 07:49 07:49 RBC 4.10 L (4.30-5.90) m/uL MCV 100.5 H (80.0-100.0) fL Plt Count 145 L (150-450) k/uL Lymphocytes # 0.8 L (1.0-4.8) k/uL Carbon Dioxide 21 L (22-30) mmol/L BUN 4 L (9-20) mg/dL Creatinine 0.57 L (0.66-1.25) mg/dL Calcium 7.1 L (8.4-10.2) mg/dL AST 119 H (17-59) U/L ALT 96 H (21-72) U/L Total Protein 6.1 L (6.3-8.2) g/dL Lipase 606 H (23-300) U/L Microbiology - Last 24 Hours (Table) 01/22/19 00:51 Blood Culture - Preliminary Blood No Growth after 24 hours Assessment and Plan (1) Alcohol-induced pancreatitis Narrative/Plan: * CT abdomen and pelvis consistent with acute pancreatitis showing stranding in the head of the pancreas and uncinate process * Lipase slightly down to 606 from 1576 * Continue IV fluids normal saline at 300 mL an hour, continue supportive ther apy patient resumed on Zofran, continue Dilaudid to 2 mg IV every 4 hours when necessary * Continue to follow electrolytes and labs Current Visit: Yes Status: Acute Code(s): K85.20 - ALCOHOL INDUCED ACUTE PANCREATITIS WITHOUT NECROSIS OR INFCT SNOMED Code(s): 630181793 (2) Leukocytosis Narrative/Plan: * Patient afebrile * Secondary to acute pancreatitis * Urinalysis negative blood cultures are pending, CTA was negative for PE Current Visit: Yes Status: Resolved Code(s): D72.829 - ELEVATED WHITE BLOOD CELL COUNT, UNSPECIFIED SNOMED Code(s): 334536012 (3) Chronic alcohol dependence, continuous Narrative/Plan: * Continue with alcohol symptom triggered withdrawal protocol CIWA Current Visit: Yes Status: Acute Code(s): F10.20 - ALCOHOL DEPENDENCE, UNCOMPLICATED SNOMED Code(s): 534216051 (4) Alcoholic hepatitis Narrative/Plan: * Transaminitis improving with IV fluids * CT abdomen and pelvis suggesting hepatic steatosis alcohol-induced fatty liver Current Visit: Yes Status: Acute Code(s): K70.10 - ALCOHOLIC HEPATITIS WITHOUT ASCITES SNOMED Code(s): 279014679 Plan: * Patient with sirs secondary to severe pancreatitis * Continue to monitor closely * Repeat chest x-ray in the a.m. initiated on heparin/ scds for DVT prophylaxis
[2019-01-24] MEDS: HYDROmorphone 1 MG/ML 1 ML SYRINGE IVP PRN ×5 (00:05→19:42)
[2019-01-24] MEDS: HEPARIN SODIUM,PORCINE 5,000 UNIT/ML 1 ML VIAL SQ SCH ×3 (01:56→16:31)
[2019-01-24] MEDS: SODIUM CHLORIDE 0.9% 1,000 ML IV SCH ×7 (03:39→22:45)
[2019-01-24] MEDS: LORazepam 2 MG/ML INJ IV PRN ×3 (03:40→16:32)
[2019-01-24] MEDS: FOLIC ACID 1 MG TAB PO SCH (07:54)
[2019-01-24] MEDS: THIAMINE 100 MG TAB PO SCH (07:54)
[2019-01-24 09:56] LABS: Basophils % (A) 0 %; Eosinophils # (A) 0.2 k/uL (0-0.7); Eosinophils % (A) 2 %; HGB 13.8 gm/dL (13.0-17.5); Lymphocytes # (A) 0.9 k/uL (1.0-4.8); Lymphocytes % (A) 11 %; MCH 32.8 pg (25.0-35.0); MCHC 32.8 g/dL (31.0-37.0); Mean Platelet Volume 6.9; Monocytes # (A) 0.4 k/uL (0-1.0); Monocytes % (A) 5 %; Neutrophils # (A) 6.3 k/uL (1.3-7.7); Neutrophils % (A) 79 %; Platelet Count 161 k/uL (150-450); RDW 12.3 % (11.5-15.5)
[2019-01-24 10:13] LABS: ALT 74 U/L (21-72); AST 88 U/L (17-59); African American GFR (CKD) >90 (>60 ml/min/1.73 sqM); Alkaline Phosphatase 101 U/L (38-126); Anion Gap 14 mmol/L; Blood Urea Nitrogen 4 mg/dL (9-20); Calcium 7.4 mg/dL (8.4-10.2); Carbon Dioxide 21 mmol/L (22-30); Chloride 105 mmol/L (98-107); Glucose 76 mg/dL (74-99); Lipase 896 U/L (23-300); Potassium 3.7 mmol/L (3.5-5.1); Sodium 140 mmol/L (137-145); Total Protein 6.4 g/dL (6.3-8.2)
[2019-01-24] MEDS: ONDANSETRON 4 MG/2 ML VIAL IVP PRN ×2 (12:24→19:44)
--- NOTE | 2019-01-24 18:40 | P.PN ---
Subjective Progress Note Date: 01/24/19 Principal diagnosis: Pancreatitis Patient was seen and examined. No acute events overnight. Patient reports improvement in his abdominal pain well-controlled with IV Dilaudid. He complains of some nausea but no vomiting. States that he is hungry, wanting to eat. He denies any fever or chills. He denies any chest pain, shortness of breath or palpitations. Objective - Vital Signs Vital signs: Vital Signs Temp 98.2 F 01/24/19 11:18 Pulse 102 H 01/24/19 11:18 Resp 18 01/24/19 11:18 BP 155/93 01/24/19 11:18 Pulse Ox 92 L 01/24/19 11:18 Intake & Output 01/23/19 01/24/19 01/24/19 18:59 06:59 18:59 Intake Total 3450 2400 Output Total 1 Balance -1 3450 2400 Intake: Intake, IV Titration 3450 2400 Amount Sodium Chloride 0.9% 1, 3450 2400 000 ml @ 300 mls/hr IV . Q3H20M [facility] Rx#:[id number] Output: Emesis 1 Other: Voiding Method Toilet Toilet Toilet # Voids 2 - Exam General: [non toxic], [no distress], [appears at stated age] Derm: [warm], [dry] Head: [atraumatic], [normocephalic], [symmetric] Eyes: [EOMI], [no lid lag], [anicteric sclera] Mouth: [no lip lesion], [mucus membranes moist] Cardiovascular: [S1S2 reg], [tachycardia], [positive posterior tibial pulse bilateral], Lungs: [CTA bilateral], [no rhonchi, no rales] , [no accessory muscle use] Abdominal: [soft], [tenderness to deep palpation in the umbilical area], [no guarding], [no appreciable organomegaly] Ext: [no gross muscle atrophy], [no edema], [no contractures] Neuro: [ CN II-XI grossly intact], [no focal neuro deficits] Psych: [Alert], [oriented], [appropriate affect] - Labs CBC & Chem 7: 01/24/19 08:53 01/24/19 08:53 Labs: Abnormal Lab Results - Last 24 Hours (Table) 01/24/19 01/24/19 Range/Units 08:53 08:53 RBC 4.20 L (4.30-5.90) m/uL Lymphocytes # 0.9 L (1.0-4.8) k/uL Carbon Dioxide 21 L (22-30) mmol/L BUN 4 L (9-20) mg/dL Creatinine 0.56 L (0.66-1.25) mg/dL Calcium 7.4 L (8.4-10.2) mg/dL AST 88 H (17-59) U/L ALT 74 H (21-72) U/L Lipase 896 H (23-300) U/L Microbiology - Last 24 Hours (Table) 01/22/19 00:51 Blood Culture - Preliminary Blood No Growth after 48 hours Assessment and Plan Assessment: Acute pancreatitis Leukocytosis Alcohol abuse Transaminitis Lactic acidosis with metabolic acidosis non-anion gap Elevated d-dimer Lipase 896, improved from [address] of the abdomen and pelvis shows finding suggestive of acute pancreatitis. Plans: Pain management with Dilaudid. Clear liquid diet and advance. Continue normal saline at 100 mL per hour. Zofran as needed for nausea or vomiting. Leukocytosis on admission, resolved now. No signs of infection. Plans: Daily CBC. Plans: Ativan as needed for alcohol withdrawal. Continue folic acid and thiamine. Seizure precautions. Aspiration precautions. Telemetry monitoring. Likely related to alcohol abuse. Plans: Daily CMP. Lactic acid 6.12 within normal limits. Bicarb slowly improving from 18-21. Likely secondary to dehydration. Plans: Continue IVF CTA PE negative for PE.
[2019-01-25] MEDS: HEPARIN SODIUM,PORCINE 5,000 UNIT/ML 1 ML VIAL SQ SCH ×4 (00:23→21:48)
[2019-01-25] MEDS: HYDROmorphone 1 MG/ML 1 ML SYRINGE IVP PRN ×2 (01:54→08:45)
[2019-01-25] MEDS: LORazepam 2 MG/ML INJ IV PRN ×2 (04:14→10:44)
[2019-01-25 08:19] LABS: Basophils % (A) 0 %; Eosinophils # (A) 0.3 k/uL (0-0.7); Eosinophils % (A) 3 %; HCT 43.4 % (39.0-53.0); HGB 14.8 gm/dL (13.0-17.5); Lymphocytes # (A) 1.3 k/uL (1.0-4.8); Lymphocytes % (A) 14 %; MCH 33.8 pg (25.0-35.0); MCHC 34.2 g/dL (31.0-37.0); Mean Platelet Volume 6.7; Monocytes # (A) 0.5 k/uL (0-1.0); Monocytes % (A) 5 %; Neutrophils # (A) 7.1 k/uL (1.3-7.7); Neutrophils % (A) 76 %; Platelet Count 200 k/uL (150-450); RBC 4.39 m/uL (4.30-5.90); RDW 12.3 % (11.5-15.5); WBC 9.3 k/uL (3.8-10.6)
[2019-01-25 08:35] LABS: ALT 71 U/L (21-72); AST 81 U/L (17-59); African American GFR (CKD) >90 (>60 ml/min/1.73 sqM); Albumin 4.2 g/dL (3.5-5.0); Alkaline Phosphatase 111 U/L (38-126); Amylase 102 U/L (30-110); Anion Gap 16 mmol/L; Blood Urea Nitrogen 4 mg/dL (9-20); Calcium 8.3 mg/dL (8.4-10.2); Carbon Dioxide 16 mmol/L (22-30); Chloride 106 mmol/L (98-107); Glucose 73 mg/dL (74-99); Lipase 1532 U/L (23-300); Potassium 3.9 mmol/L (3.5-5.1); Sodium 138 mmol/L (137-145); Total Bilirubin 1.2 mg/dL (0.2-1.3); Total Protein 6.9 g/dL (6.3-8.2)
[2019-01-25] MEDS: SODIUM CHLORIDE 0.9% 1,000 ML IV SCH (08:44)
[2019-01-25] MEDS: ONDANSETRON 4 MG/2 ML VIAL IVP PRN (08:45)
[2019-01-25] MEDS: FOLIC ACID 1 MG TAB PO SCH (08:51)
[2019-01-25] MEDS: THIAMINE 100 MG TAB PO SCH (08:51)
--- NOTE | 2019-01-25 10:46 | P.PN ---
Subjective Progress Note Date: 01/25/19 Principal diagnosis: Pancreatitis Patient was seen and examined. No acute events overnight. Patient reports significant improvement in his abdominal pain. Currently not complaining of pain. He denies any nausea or vomiting. No fever or chills. Tolerating clear liquid diet well. He denies any chest pain, shortness of breath or palpitations. Objective - Vital Signs Vital signs: Vital Signs Temp 98.0 F 01/25/19 05:00 Pulse 100 01/25/19 05:00 Resp 18 01/25/19 07:11 BP 160/100 01/25/19 05:00 Pulse Ox 98 01/25/19 05:00 Intake & Output 01/24/19 01/25/19 01/25/19 18:59 06:59 18:59 Intake Total 2400 940 Balance 2400 940 Intake: Intake, IV Titration 2400 350 Amount Sodium Chloride 0.9% 1, 2400 350 000 ml @ 100 mls/hr IV . Q10H [facility] Rx#:[id number] Oral 590 Other: Voiding Method Toilet Toilet Toilet - Exam General: [non toxic], [no distress], [appears at stated age] Derm: [warm], [dry] Head: [atraumatic], [normocephalic], [symmetric] Eyes: [EOMI], [no lid lag], [anicteric sclera] Mouth: [no lip lesion], [mucus membranes moist] Cardiovascular: [S1S2 reg], [tachycardia], [positive posterior tibial pulse bilateral], Lungs: [CTA bilateral], [no rhonchi, no rales] , [no accessory muscle use] Abdominal: [soft], [nontender to palpation], [no guarding], [no appreciable organomegaly] Ext: [no gross muscle atrophy], [no edema], [no contractures] Neuro: [no focal neuro deficits] Psych: [Alert], [oriented], [appropriate affect] - Labs CBC & Chem 7: 01/25/19 07:45 01/25/19 07:45 Labs: Abnormal Lab Results - Last 24 Hours (Table) 01/25/19 Range/Units 07:45 Carbon Dioxide 16 L (22-30) mmol/L BUN 4 L (9-20) mg/dL Creatinine 0.60 L (0.66-1.25) mg/dL Glucose 73 L (74-99) mg/dL Calcium 8.3 L (8.4-10.2) mg/dL AST 81 H (17-59) U/L Lipase 1532 H (23-300) U/L Microbiology - Last 24 Hours (Table) 01/22/19 00:51 Blood Culture - Preliminary Blood No Growth after 72 hours Assessment and Plan Assessment: Acute pancreatitis Non-anion gap metabolic acidosis Leukocytosis Alcohol abuse Transaminitis Lactic acidosis Elevated d-dimer Lipase 896 to 1532, improved from [address] of the abdomen and pelvis shows finding suggestive of acute pancreatitis. Plans: Discontinue Dilaudid and start [place]. Clear liquid diet and advance to regular diet. Continue normal saline at 100 mL per hour. Zofran as needed for nausea or vomiting. Bicarbonate of 16. Non-anion gap. Patient not complaining of diarrhea or vomiting. Chloride is within normal limits. Lactic acidosis is resolved. Patient has no respiratory distress. Plans: Unknown etiology. Worsened since yesterday. Daily BMP. Follow nephrology consultation. Leukocytosis on admission, resolved now. No signs of infection. Plans: Daily CBC. Plans: Ativan as needed for alcohol withdrawal. Continue folic acid and thiamine. Seizure precautions. Aspiration precautions. Telemetry monitoring. Likely related to alcohol abuse. Plans: Daily CMP. Lactic acid 6.12 within normal limits. Likely secondary to dehydration. Plans: Continue IVF CTA PE negative for PE. Patient is improving. Will discontinue IV pain medication and start oral. Advance diet. Consult nephrology for non-anion gap metabolic acidosis. Likely DC today or tomorrow.
[2019-01-25 12:30] VITALS: RESP 16
--- NOTE | 2019-01-25 14:48 | P.NPCON ---
History of Present Illness - Reason for Consult metabolic acidosis - History of Present Illness Reason for consultation: Metabolic acidosis History of present illness: Patient is a 33-year-old male seen in renal consultation for metabolic acidosis. Patient presented to the hospital with abdominal pain along with vomiting and diarrhea. He's currently being treated for acute pancreatitis. Lipase level was 1532 this morning. He is on a clear liquid diet. No abdominal pain. He denies any active vomiting or diarrhea at this time. Renal function is at baseline. Patient's bicarb was 18 on admission and it did improve to 21 but is down to 16 today. Patient has been maintained on normal saline at 300 mL an hour and was decreased to 100 mL an hour last night. He admits to good urine output. No hematuria or dysuria. Denies chest pain or shortness of breath. Denies use of nonsteroidals. Patient does have history of alcohol abuse. Patient's lactic acid level was also high on admission but has improved with IV hydration. No history of diabetes. Blood sugars are controlled. No history of short bowel syndrome. Vital signs are stable. General: The patient appeared well nourished and normally developed. HEENT: Head exam is unremarkable. Neck is without jugular venous distension. LUNGS: Lungs are clear to auscultation and percussion. Breath sounds decreased. HEART: Rate and Rhythm are regular. First and second heart sounds normal. No murmurs, rubs or gallops. ABDOMEN: Abdominal exam reveals normal bowel sounds. Non-tender and non- distended. No evidence of peritonitis. EXTREMITITES: No clubbing, cyanosis, or edema. Past Medical History Past Medical History: No Reported History Additional Past Medical History / Comment(s): abd. pain, N/V History of Any Multi-Drug Resistant Organisms: None Reported Past Surgical History: Cholecystectomy, Hernia Repair, Orthopedic Surgery Additional Past Surgical History / Comment(s): INGUINAL HERNIA ;tendon in wrist; RT WRIST SX FOR ABCESS; EGD/Colonoscopy 08/2018, Past Anesthesia/Blood Transfusion Reactions: No Reported Reaction Past Psychological History: No Psychological Hx Reported Smoking Status: Never smoker Past Alcohol Use History: Daily Additional Past Alcohol Use History / Comment(s): MAYBE 1 CIG PER WEEK, SMOKING CESSATION BOOKLET GIVEN TO PT. Pt reports drinking a pint daily. Past Drug Use History: None Reported - Past Family History Father Family Medical History: Unable to Obtain Mother Family Medical History: No Reported History Medications and Allergies Home Medications Medication Instructions Recorded Confirmed Type No Known Home Medications 01/21/19 01/21/19 History Allergies Allergy/AdvReac Type Severity Reaction Status Date / Time No Known Allergies Allergy Verified 01/21/19 23:18 Physical Exam Vitals: Vital Signs Temp Pulse Resp BP Pulse Ox 01/25/19 12:29 96 16 138/94 96 01/25/19 07:11 18 01/25/19 05:00 98.0 F 100 22 160/100 98 01/24/19 20:40 98.2 F 101 H 22 164/98 93 L Intake and Output 01/24/19 01/25/19 01/25/19 22:59 06:59 14:59 Intake Total 428 948 9336 Balance 338 777 5096 Intake: Intake, IV Titration 350 700 Amount Sodium Chloride 0.9% 1, 350 700 000 ml @ 100 mls/hr IV . Q10H SARAH Rx#:[id number] Oral 590 950 Other: Voiding Method Toilet Toilet # Voids 3 Results - Lab Results Most recent lab results Calcium 8.3 mg/dL (8.4-10.2) L 01/25/19 07:45 01/25/19 07:45 01/25/19 07:45 Assessment and Plan Plan: Assessment: 1. Non-gap metabolic acidosis secondary to dilutional acidosis secondary to large amounts of IV fluids given. Bicarb level 16 today. Lactic acidosis has improved since admission. Blood sugars controlled. GFR at baseline. No diarrhea. Doubt toxic alcohol poisoning as well as aspirin and acetaminophen poisoning which will cause elevated anion gap metabolic acidosis. 2. Acute pancreatitis. 3. Alcohol abuse. Plan: Discontinue normal saline. Start lactated Ringer's at 75 mL an hour as it is a low chloride solution. Add oral sodium bicarbonate. Repeat electrolytes in the morning. Thank you for the consultation. I will continue to follow patient with you during his hospital stay.
[2019-01-25] MEDS ORDERED: LACTATED RINGERS 1,000 ML IV SCH (15:00)
[2019-01-25] MEDS: HYDROcodone/APAP 5-325MG 1 EACH TAB PO PRN ×2 (17:24→22:10)
[2019-01-25 22:03] VITALS: BP 155/101; PULSE 100; TEMP 98.1
== END 2019-01-26 00:56 | disposition left against medical advice (07) | DRG 439 ==
LOC: EC 22:37 → 3NMEDONC 01-22 01:49
PROVIDERS: ADMIT Internal Medicine; ATTEND Internal Medicine
DX: K85.20 Alcohol induced acute pancreatitis without necrosis or infection (principal); E87.2 Acidosis; F10.239 Alcohol dependence with withdrawal, unspecified; K70.10 Alcoholic hepatitis without ascites; E86.0 Dehydration; Y90.0 Blood alcohol level of less than 20 mg/100 ml; Z90.49 Acquired absence of other specified parts of digestive tract; Z98.890 Other specified postprocedural states
CPT/HCPCS: 36415; 71046; 71275; 74177; 80053; 80320; 81001; 82150; 83605; 83690; 85025; 85027; 85379; 85610; 85730; 87040; 93005; 96361; 96374; 96375; 96376; 99285

== ENCOUNTER 2019-04-29 18:43 | Emergency (ER) | payer OTHER ==
[2019-04-29] MEDS ORDERED: NITROGLYCERIN OINT 1 INCH/GM PACKET TOPICAL STA (19:14)
[2019-04-29] MEDS ORDERED: ASPIRIN 81 MG PO STA (19:14)
--- NOTE | 2019-04-29 19:27 | ED ---
Chest Pain HPI - General Chief Complaint: Chest Pain Stated Complaint: rib pain with SOB Time Seen by Provider: 04/29/19 19:13 Source: patient Mode of arrival: ambulatory Limitations: no limitations - History of Present Illness Initial Comments: 33-year-old male presenting for sharp left-sided chest pain 3 days. Patient states that he has had sharp chest pain in the left lateral ribs with inspiration for the past 3 days. Patient states has been gradually getting worse. Denies any chest pressure but states he does have some radiation into the left shoulder. She denies jaw pain syncope. Patient denies any hemoptysis history of cancer or recent surgeries or fevers. Patient states he has had a cough as well for the past 4-5 days. Patient denies any leg swelling or calf pain. Patient denies a fall trauma to the chest. Patient denies sudden onset of pain denies it being ripping and tearing. Patient denies any history of connective tissue disorders. Denies any history of coronary artery disease or sudden and a feeling number less than age of 39. Patient states when the pain persisted and was worsening today he felt is appropriate to presents emergency room for further evaluation. Patient denies any other complaints. Patient denies any history of diabetes, high blood pressure patient denies smoking. Patient denies any drug use. Upon arrival blood pressure within normal limits. Patient oxygen saturation within acceptable limits. Patient's heart rate noted to be elevated. - Related Data Previous Rx's Medication Instructions Recorded Ibuprofen 800 mg PO Q8H 7 Days #21 tablet 04/29/19 predniSONE 50 mg PO DAILY 4 Days #4 tablet 04/29/19 Allergies Allergy/AdvReac Type Severity Reaction Status Date / Time No Known Allergies Allergy Verified 04/29/19 20:08 Review of Systems ROS Statement: Those systems with pertinent positive or pertinent negative responses have been documented in the HPI. ROS Other: All systems not noted in ROS Statement are negative. Past Medical History Past Medical History: No Reported History Additional Past Medical History / Comment(s): abd. pain, N/V History of Any Multi-Drug Resistant Organisms: None Reported Past Surgical History: Cholecystectomy, Hernia Repair, Orthopedic Surgery Additional Past Surgical History / Comment(s): INGUINAL HERNIA ;tendon in wrist; RT WRIST SX FOR ABCESS; EGD/Colonoscopy 08/2018, Past Anesthesia/Blood Transfusion Reactions: No Reported Reaction Past Psychological History: No Psychological Hx Reported Smoking Status: Current some day smoker Past Alcohol Use History: None Reported, Daily Past Drug Use History: Marijuana - Past Family History Father Family Medical History: Unable to Obtain Mother Family Medical History: No Reported History General Exam - General Exam Comments Initial Comments: General: The patient is awake and alert, in no distress, and does not appear acutely ill. Eye: +3 mm pupils are equal, round and reactive to light, extra-ocular movements are intact. No nystagmus. There is normal conjunctiva bilaterally. No signs of icterus. Ears, nose, mouth and throat: There are moist mucous membranes and no oral lesions. Neck: The neck is supple, there is no tenderness or JVD. Cardiovascular: There is a regular rate and rhythm. No murmur, rub or gallop is appreciated. Respiratory: Lungs are clear to auscultation, respirations are non-labored, breath sounds are equal. No wheezes, stridor, rales, or rhonchi. I feel that lung sounds are present in all lion. No retractions or abdominal breathing. Gastrointestinal: Soft, non-distended, non-tender abdomen without masses or organomegaly noted. There is no rebound or guarding present. No CVA tenderness. Bowel sounds are unremarkable. Musculoskeletal: Normal ROM, no tenderness. Strength 5/5. Sensation intact. Pulses equal bilaterally 2+. Neurological: A&O x 3. CN II-XII intact grossly, There are no obvious motor or sensory deficits. Coordination appears grossly intact. Speech is normal. Skin: Skin is warm and dry and no rashes or lesions are noted. No lower extremity edema. Negative Homans. No calf swelling. Psychiatric: Cooperative, appropriate mood & affect, normal judgment. Limitations: no limitations Course Vital Signs 04/29/19 04/29/19 04/29/19 18:54 19:30 21:08 Temperature 98.4 F 98.9 F Pulse Rate 108 H 102 H Pulse Rate [ 98 [employer] ] Respiratory 18 17 Rate Blood Pressure 119/78 139/76 O2 Sat by Pulse 98 94 L Oximetry Chest Pain MDM - MDM 33-year-old male with no significant past medical history presents emergency R for sharp left-sided chest pain. Patient is recent upper respiratory symptoms. Chest x-ray negative for focal consolidations. Patient's pain is reproducible patient of the chest. Patient d-dimer within normal limits. EKG no findings of ischemia. Initial troponin negative. Symptoms ongoing for greater than 2 days. Patient is no heart murmur. No lower extremity edema. No history of IV drug use. Patient appears well and nontoxic. I discussed the case maintained provider Dr. Pizano who evaluated patient in person, performing physical examination. At this time feel this is most likely pleurisy or costochondritis. Patient is to take prednisone and anti-inflammatories. Return parameters importance of primary care follow-up was discussed. Patient is to return immediately for persistent or worsening pain. Patient verbalizes understanding. Patient was discharged appearing well agreeable care plan at discharge at this time. Ventricular rate 103 bpm, AZ interval 160 ms, QRS ration 82 ms, QT/QTC 3:30/432 ms sinus tachycardia. No ST elevation or depression noted. EKG per se interpreted no need attending provider Dr. Pizano. Disposition Clinical Impression: Costochondritis Disposition: HOME SELF-CARE Condition: Good Instructions (If sedation given, give patient instructions): Chest Pain (ED), Costochondritis (ED) Additional Instructions: Please use medication as discussed. Please follow-up with family doctor in the next 24-48 hours. Please return to emergency room if the symptoms increase or worsen or for any other concerns. Prescriptions: Ibuprofen 800 mg PO Q8H 7 Days #21 tablet predniSONE 50 mg PO DAILY 4 Days #4 tablet Is patient prescribed a controlled substance at d/c from ED?: No Referrals: None,Stated [Primary Care Provider] - 1-2 days Time of Disposition: 20:53
--- NOTE | 2019-04-29 19:49 | XR ---
EXAMINATION TYPE: XR chest 2V DATE OF EXAM: 04/29/2019 COMPARISON: 01/23/2019 HISTORY: Left-sided rib pain TECHNIQUE: Frontal and lateral views of the chest are obtained. FINDINGS: Heart and mediastinum are normal. Lungs are clear. Diaphragm is normal. There is suboptima l inspiration. Bony thorax appears intact. IMPRESSION: Suboptimal inspiration. No acute lung disease. There is clearing of the minimal atelecta sis left lung base compared to old exam.
[2019-04-29 19:55] LABS: Basophils # (A) 0.2 k/uL (0-0.2); Basophils % (A) 1 %; Eosinophils # (A) 0.4 k/uL (0-0.7); Eosinophils % (A) 3 %; HCT 50.2 % (39.0-53.0); HGB 16.9 gm/dL (13.0-17.5); Lymphocytes # (A) 0.9 k/uL (1.0-4.8); Lymphocytes % (A) 6 %; MCH 30.6 pg (25.0-35.0); MCHC 33.6 g/dL (31.0-37.0); MCV 91.2 fL (80.0-100.0); Mean Platelet Volume 7.3; Monocytes # (A) 0.6 k/uL (0-1.0); Monocytes % (A) 4 %; Neutrophils # (A) 12.2 k/uL (1.3-7.7); Neutrophils % (A) 85 %; Platelet Count 245 k/uL (150-450); RDW 12.5 % (11.5-15.5); WBC 14.4 k/uL (3.8-10.6)
[2019-04-29 20:05] LABS: D-Dimer 0.28 mg/L FEU (<0.60); INR 0.9 (<1.2); Partial Thromboplastin Time 27.1 sec (22.0-30.0); Prothrombin Time 9.8 sec (9.0-12.0)
[2019-04-29 20:06] LABS: ALT 53 U/L (21-72); AST 42 U/L (17-59); African American GFR (CKD) >90 (>60 ml/min/1.73 sqM); Albumin 4.9 g/dL (3.5-5.0); Alkaline Phosphatase 95 U/L (38-126); Anion Gap 13 mmol/L; Blood Urea Nitrogen 13 mg/dL (9-20); Calcium 9.7 mg/dL (8.4-10.2); Carbon Dioxide 19 mmol/L (22-30); Chloride 109 mmol/L (98-107); Glucose 137 mg/dL (74-99); Magnesium 2.1 mg/dL (1.6-2.3); Non-African American GFR(CKD) >90 (>60 ml/min/1.73 sqM); Potassium 3.9 mmol/L (3.5-5.1); Sodium 141 mmol/L (137-145); Total Bilirubin 0.5 mg/dL (0.2-1.3); Total Protein 7.9 g/dL (6.3-8.2)
[2019-04-29] MEDS ORDERED: KETOROLAC 30 MG/ML 1 ML VIAL IVP STA (20:52)
[2019-04-29 21:10] VITALS: BP 139/76; PULSE 102; RESP 17; TEMP 98.9
== END 2019-04-29 21:14 | disposition home or self-care (01) ==
LOC: EC 18:43
DX: M94.0 Chondrocostal junction syndrome [Tietze] (principal); F17.200 Nicotine dependence, unspecified, uncomplicated
CPT/HCPCS: 99285 ×2; 96374 ×2; 99283; 36415; 93005; 85379; 80053; 83735; 84484; 85025; 85610; 85730; 71046; J1885

== ENCOUNTER 2019-08-22 11:11 | Emergency (ER) | payer OTHER ==
[2019-08-22 11:37] VITALS: RESP 18; TEMP 97.9
[2019-08-22] MEDS ORDERED: SODIUM CHLORIDE 0.9% 1,000 ML IV STA ×2 (12:39)
[2019-08-22] MEDS ORDERED: MORPHINE SULFATE 4 MG/ML SYRINGE IV STA (12:39)
[2019-08-22] MEDS ORDERED: PANTOPRAZOLE 40 MG/10 ML VIAL IVP STA (12:39)
[2019-08-22] MEDS ORDERED: ONDANSETRON 4 MG/2 ML VIAL IVP STA ×2 (12:39→14:52)
[2019-08-22] MEDS ORDERED: KETOROLAC 30 MG/ML 1 ML VIAL IVP STA (12:39)
--- NOTE | 2019-08-22 13:06 | ED ---
Abdominal Pain HPI - General Chief Complaint: Abdominal Pain Stated Complaint: Sinus problems/vomiting Time Seen by Provider: 08/22/19 11:48 Source: patient, RN notes reviewed, old records reviewed Mode of arrival: ambulatory Limitations: no limitations - History of Present Illness Initial Comments: Patient 34-year-old male history of pancreatitis who presents today with 1 day of nausea vomiting and diffuse abdominal pain. He reports he also has had some dark stool. He reports that his history of alcoholism. - Related Data Previous Rx's Medication Instructions Recorded Ibuprofen 800 mg PO Q8H 7 Days #21 tablet 04/29/19 predniSONE 50 mg PO DAILY 4 Days #4 tablet 04/29/19 Ondansetron Odt [Zofran Odt] 4 mg PO Q8HR PRN #12 tab 08/22/19 Pantoprazole [Protonix] 40 mg PO DAILY #20 tablet. 08/22/19 chlordiazePOXIDE HCl [Librium] 25 mg PO QID 3 Days #12 capsule 08/22/19 Allergies Allergy/AdvReac Type Severity Reaction Status Date / Time No Known Allergies Allergy Verified 08/22/19 11:35 Review of Systems ROS Statement: Those systems with pertinent positive or pertinent negative responses have been documented in the HPI. ROS Other: All systems not noted in ROS Statement are negative. Past Medical History Past Medical History: No Reported History Additional Past Medical History / Comment(s): abd. pain, N/V, pancreatitis History of Any Multi-Drug Resistant Organisms: None Reported Past Surgical History: Cholecystectomy, Hernia Repair, Orthopedic Surgery Additional Past Surgical History / Comment(s): INGUINAL HERNIA ;tendon in wrist; RT WRIST SX FOR ABCESS; EGD/Colonoscopy 08/2018, Past Anesthesia/Blood Transfusion Reactions: No Reported Reaction Past Psychological History: No Psychological Hx Reported Smoking Status: Current some day smoker Past Alcohol Use History: Occasional Past Drug Use History: None Reported, Marijuana - Past Family History Father Family Medical History: Unable to Obtain Mother Family Medical History: No Reported History General Exam - General Exam Comments Initial Comments: 34 year old male, moderate discomfort. Limitations: no limitations General appearance: alert, in no apparent distress Head exam: Present: atraumatic, normocephalic, normal inspection Eye exam: Present: normal appearance, PERRL, EOMI. Absent: scleral icterus, conjunctival injection, periorbital swelling ENT exam: Present: normal exam, mucous membranes moist Neck exam: Present: normal inspection. Absent: tenderness, meningismus, lymphadenopathy Respiratory exam: Present: normal lung sounds bilaterally. Absent: respiratory distress, wheezes, rales, rhonchi, stridor Cardiovascular Exam: Present: regular rate, normal rhythm, normal heart sounds. Absent: systolic murmur, diastolic murmur, rubs, gallop, clicks GI/Abdominal exam: Present: soft, tenderness (epigastric and Left uppper quadrant pain. ), normal bowel sounds. Absent: distended, guarding, rebound, rigid Extremities exam: Present: normal inspection, full ROM, normal capillary refill. Absent: tenderness, pedal edema, joint swelling, calf tenderness Back exam: Present: normal inspection Neurological exam: Present: alert, oriented X3, CN II-XII intact Psychiatric exam: Present: normal affect, normal mood Skin exam: Present: warm, dry, intact, normal color. Absent: rash Course Vital Signs 08/22/19 08/22/19 11:35 15:46 Temperature 97.9 F Pulse Rate 108 H 102 H Respiratory 18 18 Rate Blood Pressure 127/82 139/91 O2 Sat by Pulse 97 96 Oximetry Medical Decision Making - Medical Decision Making 34 year old male with CC of upper abdominal pain and nausea and vomiting. Patient admits to drinking last night, etoh was 58. Patient has elevated tansaminase and lipase is 700. Patient at this time has US gallbladder, showing hepatic steatosis. - Lab Data Result diagrams: 08/22/19 12:47 08/22/19 12:47 Lab Results 08/22/19 08/22/19 08/22/19 Range/Units 12:47 12:47 12:47 WBC 16.2 H (3.8-10.6) k/uL RBC 5.65 (4.30-5.90) m/uL Hgb 17.9 H (13.0-17.5) gm/dL Hct 51.5 (39.0-53.0) % MCV 91.1 (80.0-100.0) fL MCH 31.6 (25.0-35.0) pg MCHC 34.7 (31.0-37.0) g/dL RDW 13.0 (11.5-15.5) % Plt Count 341 (150-450) k/uL Neutrophils % 89 % Lymphocytes % 6 % Monocytes % 4 % Eosinophils % 0 % Basophils % 1 % Neutrophils # 14.3 H (1.3-7.7) k/uL Lymphocytes # 0.9 L (1.0-4.8) k/uL Monocytes # 0.7 (0-1.0) k/uL Eosinophils # 0.0 (0-0.7) k/uL Basophils # 0.1 (0-0.2) k/uL PT 10.7 (9.0-12.0) sec INR 1.0 (<1.2) APTT 22.4 (22.0-30.0) sec Sodium 140 (137-145) mmol/L Potassium 4.1 (3.5-5.1) mmol/L Chloride 97 L (98-107) mmol/L Carbon Dioxide 20 L (22-30) mmol/L Anion Gap 23 mmol/L BUN 14 (9-20) mg/dL Creatinine 0.88 (0.66-1.25) mg/dL Est GFR (CKD-EPI)AfAm >90 (>60 ml/min/1.73 sqM) Est GFR (CKD-EPI)NonAf >90 (>60 ml/min/1.73 sqM) Glucose 92 (74-99) mg/dL Calcium 10.1 (8.4-10.2) mg/dL Total Bilirubin 1.1 (0.2-1.3) mg/dL AST 129 H (17-59) U/L ALT 136 H (4-49) U/L Alkaline Phosphatase 135 H (38-126) U/L Total Protein 8.5 H (6.3-8.2) g/dL Albumin 5.4 H (3.5-5.0) g/dL Amylase 95 (30-110) U/L Lipase 767 H (23-300) U/L Serum Alcohol 58 mg/dL - Radiology Data Radiology results: report reviewed Sonographic findings commonly related to hepatic steatosis and 2.2cm right hepatic liver lesion previously described as a stable hemangioma vs possible focal fatty sparing. Obscuration of the pancreas by overlying bowel gas. Non obstruction 4mm right renal calculus. Disposition Clinical Impression: Alcoholic hepatitis, Alcohol-induced pancreatitis Disposition: HOME SELF-CARE Condition: Stable Instructions (If sedation given, give patient instructions): Pancreatitis (ED) Prescriptions: chlordiazePOXIDE HCl [Librium] 25 mg PO QID 3 Days #12 capsule Pantoprazole [Protonix] 40 mg PO DAILY #20 tablet. Ondansetron Odt [Zofran Odt] 4 mg PO Q8HR PRN #12 tab PRN Reason: Nausea Is patient prescribed a controlled substance at d/c from ED?: No Referrals: None,Stated [Primary Care Provider] - 1-2 days Time of Disposition: 12:57
[2019-08-22 13:09] LABS: Basophils # (A) 0.1 k/uL (0-0.2); Basophils % (A) 1 %; Eosinophils % (A) 0 %; HCT 51.5 % (39.0-53.0); HGB 17.9 gm/dL (13.0-17.5); Lymphocytes # (A) 0.9 k/uL (1.0-4.8); Lymphocytes % (A) 6 %; MCH 31.6 pg (25.0-35.0); MCHC 34.7 g/dL (31.0-37.0); MCV 91.1 fL (80.0-100.0); Mean Platelet Volume 7.1; Monocytes # (A) 0.7 k/uL (0-1.0); Monocytes % (A) 4 %; Neutrophils # (A) 14.3 k/uL (1.3-7.7); Neutrophils % (A) 89 %; Platelet Count 341 k/uL (150-450); RBC 5.65 m/uL (4.30-5.90); WBC 16.2 k/uL (3.8-10.6)
[2019-08-22 13:17] LABS: ALT 136 U/L (4-49); AST 129 U/L (17-59); African American GFR (CKD) >90 (>60 ml/min/1.73 sqM); Albumin 5.4 g/dL (3.5-5.0); Alcohol 58 mg/dL; Alkaline Phosphatase 135 U/L (38-126); Amylase 95 U/L (30-110); Anion Gap 23 mmol/L; Blood Urea Nitrogen 14 mg/dL (9-20); Calcium 10.1 mg/dL (8.4-10.2); Carbon Dioxide 20 mmol/L (22-30); Chloride 97 mmol/L (98-107); Glucose 92 mg/dL (74-99); Non-African American GFR(CKD) >90 (>60 ml/min/1.73 sqM); Potassium 4.1 mmol/L (3.5-5.1); Sodium 140 mmol/L (137-145); Total Bilirubin 1.1 mg/dL (0.2-1.3); Total Protein 8.5 g/dL (6.3-8.2)
[2019-08-22 13:20] LABS: Partial Thromboplastin Time 22.4 sec (22.0-30.0); Prothrombin Time 10.7 sec (9.0-12.0)
--- NOTE | 2019-08-22 13:26 | XR ---
EXAMINATION TYPE: XR KUB DATE OF EXAM: 08/22/2019 COMPARISON: 08/29/2014 HISTORY: Pain TECHNIQUE: One view abdominal series FINDINGS: The osseous structures are intact. The bowel gas pattern is nonspecific. Lung bases are clear. Surg ical clips right upper quadrant. There is a paucity of bowel gas with questionable surgical change in the right lower quadrant. Calcification the pelvis noted. IMPRESSION: 1. Nonspecific abdomen. There is a paucity of bowel gas which can be seen with an enteritis, ileus o r partial obstruction.
--- NOTE | 2019-08-22 15:14 | US ---
EXAMINATION TYPE: US gallbladder DATE OF EXAM: 08/22/2019 COMPARISON: CT 2018, US 2014 CLINICAL HISTORY: ruq pain. Abdomen pain and nausea, elevated enzymes, history of cholecystectomy EXAM MEASUREMENTS: Liver Length: 16.1 cm CBD: 0.5 cm Right Kidney: 10.7 x 4.8 x 4.8 cm Pancreas: obscured by overlying midline bowel gas Liver: scanned intercostally, attenuating, heterogeneous, decreased visualization of vessels, 2.2 x 1.7 x 1.9cm hypoechoic lesion right lobe Gallbladder: surgically absent Evidence for sonographic Krause's sign: no CBD: visualized portions wnl, limited by overlying bowel gas Right Kidney: 4 mm nonobstructing right renal calculus. IMPRESSION: 1. Sonographic findings most commonly related to hepatic steatosis and 2.2 cm right hepatic liver les ion, previously described as a stable hemangioma versus possible focal fatty sparing. 2. Obscuration of the pancreas by overlying bowel gas. 3. Nonobstructing 4 mm right renal calculus.
[2019-08-22 15:48] VITALS: BP 139/91; PULSE 102
[2019-08-22] MEDS ORDERED: MORPHINE SULFATE 4 MG/ML SYRINGE IVP STA (15:56)
[2019-08-22] MEDS ORDERED: chlordiazePOXIDE 25 MG CAP PO STA (15:59)
== END 2019-08-22 16:33 | disposition home or self-care (01) ==
LOC: EC 11:11
DX: K85.90 Acute pancreatitis without necrosis or infection, unspecified (principal); K70.10 Alcoholic hepatitis without ascites; K76.0 Fatty (change of) liver, not elsewhere classified; F17.200 Nicotine dependence, unspecified, uncomplicated; Z90.49 Acquired absence of other specified parts of digestive tract
CPT/HCPCS: 36415; 80053; 82150; 83690; 85025; 85610; 85730; 74018; 76705; 99285; 96374; 96375 ×3; 96376 ×2; 96361 ×4; G0480; J2270; J2405; J1885; C9113; 80320

== ENCOUNTER 2019-09-18 20:23 | Emergency (ER) | payer OTHER ==
[2019-09-18] MEDS ORDERED: SODIUM CHLORIDE 0.9% 500 ML 500 ML IV STA (21:04)
[2019-09-18] MEDS ORDERED: HYDROmorphone 0.5 MG/0.5 ML SYRINGE IVP STA ×2 (21:04→23:20)
[2019-09-18] MEDS ORDERED: SODIUM CHLORIDE 0.9% 1,000 ML IV STA (21:04)
[2019-09-18] MEDS ORDERED: ONDANSETRON 4 MG/2 ML VIAL IVP STA (21:04)
[2019-09-18] MEDS ORDERED: ACETAMINOPHEN TAB 500 MG TAB PO STA (21:05)
[2019-09-18 22:09] LABS: Appearance,Urine Clear (Clear); Bacteria,Urine Rare /hpf; Bilirubin,Urine Negative (Negative); Blood,Urine Negative (Negative); Color,Urine Yellow; Glucose,Urine (UA) Negative (Negative); Hyaline Casts,Urine 1 /lpf (0-2); Ketones,Urine 1+ (Negative); Leukocyte Esterase,Urine Small (Negative); Mucus,Urine Few /hpf; Nitrite,Urine Negative (Negative); Protein,Urine Trace (Negative); RBC,Urine 1 /hpf (0-5); Specific Gravity,Urine 1.023 (1.001-1.035); Urobilinogen,Urine <2.0 mg/dL (<2.0); WBC,Urine 1 /hpf (0-5)
[2019-09-18 22:10] LABS: HCT 46.6 % (39.0-53.0); HGB 16.4 gm/dL (13.0-17.5); MCH 31.9 pg (25.0-35.0); MCHC 35.2 g/dL (31.0-37.0); MCV 90.7 fL (80.0-100.0); Mean Platelet Volume 7.3; Platelet Count 174 k/uL (150-450); RBC 5.14 m/uL (4.30-5.90); RDW 12.9 % (11.5-15.5); WBC 5.6 k/uL (3.8-10.6)
[2019-09-18 22:12] LABS: ALT 142 U/L (4-49); African American GFR (CKD) >90 (>60 ml/min/1.73 sqM); Albumin 4.9 g/dL (3.5-5.0); Amylase 54 U/L (30-110); Anion Gap 13 mmol/L; Blood Urea Nitrogen 14 mg/dL (9-20); Calcium 9.3 mg/dL (8.4-10.2); Carbon Dioxide 22 mmol/L (22-30); Chloride 101 mmol/L (98-107); Glucose 86 mg/dL (74-99); Non-African American GFR(CKD) >90 (>60 ml/min/1.73 sqM); Sodium 136 mmol/L (137-145); Total Bilirubin 0.6 mg/dL (0.2-1.3); Total Protein 7.8 g/dL (6.3-8.2)
--- NOTE | 2019-09-18 22:12 | XR ---
EXAMINATION TYPE: XR KUB DATE OF EXAM: 09/18/2019 COMPARISON: 08/29/2014 HISTORY: Abdominal pain TECHNIQUE: FINDINGS: 2 views upright were obtained and show no sign of intestinal obstruction or pneumoperitoneu m. Fecal pattern is normal. There are a few distended gas filled small bowel loops in the left upper quadrant that could relate to mild ileus. There are clips from cholecystectomy. Lung bases are clear. IMPRESSION: Possible mild small bowel ileus left upper quadrant. No free air.
[2019-09-18 22:14] LABS: AST 239 U/L (17-59); Alkaline Phosphatase 123 U/L (38-126); Potassium 4.3 mmol/L (3.5-5.1)
[2019-09-18 22:41] LABS: Band Neutrophils % 11 %; Eosinophils # (M) 0.11 k/uL (0-0.7); Lymphocytes # (M) 0.84 k/uL (1.0-4.8); Monocytes # (M) 0.56 k/uL (0-1.0); Neutrophils % (M) 62 %; Nucleated Red Blood Cells 0 /100 WBC (0-0); Total Cells Counted 100
--- NOTE | 2019-09-18 23:15 | ED ---
Abdominal Pain HPI - General Chief Complaint: Abdominal Pain Stated Complaint: Fever/abd pain Time Seen by Provider: 09/18/19 20:49 Source: patient Mode of arrival: ambulatory Limitations: no limitations - History of Present Illness Initial Comments: 34-year-old male patient presents to the emergency department today for evaluation of upper respiratory symptoms and abdominal pain. Patient states the last 2 days he has been sick with cough, congestion, sore throat, and fever. States that he has had shaking chills. States that today he developed upper abdominal pain radiating through to the back. States he has been nauseated and has vomited several times. Patient states that he does have history of pancreatitis and is concerned this may have returned. States he did take a Tylenol earlier in the day. Patient denies any alcohol use today but states he does have a history of heavy use on a daily basis. Denies any recent travel or sick contacts. Denies any constipation, did have one loose bowel movement this morning. Denies hematochezia, melena, or hematemesis. Patient denies any recent rash, shortness breath, chest pain, abdominal pain, numbness, tingling, dizziness, weakness, hematuria, dysuria, urinary urgency, urinary frequency, headache, visual changes, or any other complaints. - Related Data Previous Rx's Medication Instructions Recorded Ibuprofen 800 mg PO Q8H 7 Days #21 tablet 04/29/19 predniSONE 50 mg PO DAILY 4 Days #4 tablet 04/29/19 Ondansetron Odt [Zofran Odt] 4 mg PO Q8HR PRN #12 tab 08/22/19 Pantoprazole [Protonix] 40 mg PO DAILY #20 tablet. 08/22/19 chlordiazePOXIDE HCl [Librium] 25 mg PO QID 3 Days #12 capsule 08/22/19 Ibuprofen [Motrin] 600 mg PO Q8HR PRN #30 tab 09/18/19 guaiFENesin-DM 600/30MG [Mucinex 2 each PO Q12HR PRN #20 tab.er.12h 09/18/19 Dm] Allergies Allergy/AdvReac Type Severity Reaction Status Date / Time No Known Allergies Allergy Verified 09/18/19 20:34 Review of Systems ROS Statement: Those systems with pertinent positive or pertinent negative responses have been documented in the HPI. ROS Other: All systems not noted in ROS Statement are negative. Past Medical History Past Medical History: No Reported History Additional Past Medical History / Comment(s): abd. pain, N/V, pancreatitis History of Any Multi-Drug Resistant Organisms: None Reported Past Surgical History: Cholecystectomy, Hernia Repair, Orthopedic Surgery Additional Past Surgical History / Comment(s): INGUINAL HERNIA ;tendon in wrist; RT WRIST SX FOR ABCESS; EGD/Colonoscopy 08/2018, Past Anesthesia/Blood Transfusion Reactions: No Reported Reaction Past Psychological History: No Psychological Hx Reported Smoking Status: Current some day smoker Past Alcohol Use History: Occasional Past Drug Use History: None Reported, Marijuana - Past Family History Father Family Medical History: Unable to Obtain Mother Family Medical History: No Reported History General Exam Limitations: no limitations General appearance: alert, in no apparent distress, other (This is a well- developed, well-nourished adult male patient in no acute distress.) ENT exam: Present: normal exam, normal oropharynx, mucous membranes moist Respiratory exam: Present: normal lung sounds bilaterally. Absent: respiratory distress, wheezes, rales, rhonchi, stridor Cardiovascular Exam: Present: normal rhythm, tachycardia, normal heart sounds. Absent: systolic murmur, diastolic murmur, rubs, gallop, clicks GI/Abdominal exam: Present: soft, tenderness (Midepigastric), normal bowel sounds. Absent: distended, guarding, rebound, rigid Neurological exam: Present: alert, oriented X3, CN II-XII intact Psychiatric exam: Present: normal affect, normal mood Skin exam: Present: warm, dry, intact, normal color. Absent: rash Course Vital Signs 09/18/19 09/18/19 09/18/19 20:32 21:00 23:29 Temperature 100.3 F H 101.1 F H 97.6 F Pulse Rate 122 H 100 Respiratory 22 18 Rate Blood Pressure 138/95 141/90 O2 Sat by Pulse 96 95 Oximetry Medical Decision Making - Medical Decision Making 34-year-old male patient presents to the emergency department today for hamzah luation of upper abdominal pain, upper respiratory symptoms, and fever. Physical examination does reveal some tenderness over the midepigastric region there is pharyngeal erythema. No evidence for otitis media. Labs reviewed and patient did test positive for influenza B. Lipase was normal. He did have elevated liver enzymes which is consistent with his past labs. This is most likely from chronic alcohol abuse. He will be discharged with prescription for ibuprofen and Mucinex DM. Is instructed to follow up with his primary care physician for recheck in 1-2 days. Return parameters were discussed in detail. He verbalizes understanding and agrees with this plan. - Lab Data Result diagrams: 09/18/19 21:31 09/18/19 21:31 Lab Results 09/18/19 09/18/19 09/18/19 Range/Units 21:31 21:31 21:31 WBC 5.6 (3.8-10.6) k/uL RBC 5.14 (4.30-5.90) m/uL Hgb 16.4 (13.0-17.5) gm/dL Hct 46.6 (39.0-53.0) % MCV 90.7 (80.0-100.0) fL MCH 31.9 (25.0-35.0) pg MCHC 35.2 (31.0-37.0) g/dL RDW 12.9 (11.5-15.5) % Plt Count 174 (150-450) k/uL Neutrophils % (Manual) 62 % Band Neutrophils % 11 % Lymphocytes % (Manual) 15 % Monocytes % (Manual) 10 % Eosinophils % (Manual) 2 % Neutrophils # (Manual) 4.00 (1.3-7.7) k/uL Lymphocytes # (Manual) 0.84 L (1.0-4.8) k/uL Monocytes # (Manual) 0.56 (0-1.0) k/uL Eosinophils # (Manual) 0.11 (0-0.7) k/uL Nucleated RBCs 0 (0-0) /100 WBC Manual Slide Review Performed Sodium 136 L (137-145) mmol/L Potassium 4.3 (3.5-5.1) mmol/L Chloride 101 (98-107) mmol/L Carbon Dioxide 22 (22-30) mmol/L Anion Gap 13 mmol/L BUN 14 (9-20) mg/dL Creatinine 0.85 (0.66-1.25) mg/dL Est GFR (CKD-EPI)AfAm >90 (>60 ml/min/1.73 sqM) Est GFR (CKD-EPI)NonAf >90 (>60 ml/min/1.73 sqM) Glucose 86 (74-99) mg/dL Calcium 9.3 (8.4-10.2) mg/dL Total Bilirubin 0.6 (0.2-1.3) mg/dL AST 239 H (17-59) U/L ALT 142 H (4-49) U/L Alkaline Phosphatase 123 (38-126) U/L Total Protein 7.8 (6.3-8.2) g/dL Albumin 4.9 (3.5-5.0) g/dL Amylase 54 (30-110) U/L Lipase 215 (23-300) U/L Urine Color Urine Appearance (Clear) Urine pH (5.0-8.0) Ur Specific [place] (1.001-1.035) Urine Protein (Negative) Urine Glucose (UA) (Negative) Urine Ketones (Negative) Urine Blood (Negative) Urine Nitrite (Negative) Urine Bilirubin (Negative) Urine Urobilinogen (<2.0) mg/dL Ur Leukocyte Esterase (Negative) Urine RBC (0-5) /hpf Urine WBC (0-5) /hpf Urine Bacteria (None) /hpf Hyaline Casts (0-2) /lpf Urine Mucus (None) /hpf Influenza Type A RNA Not Detected (Not Detectd) Influenza Type B (PCR) Detected H (Not Detectd) 09/18/19 Range/Units 21:34 WBC (3.8-10.6) k/uL RBC (4.30-5.90) m/uL Hgb (13.0-17.5) gm/dL Hct (39.0-53.0) % MCV (80.0-100.0) fL MCH (25.0-35.0) pg MCHC (31.0-37.0) g/dL RDW (11.5-15.5) % Plt Count (150-450) k/uL Neutrophils % (Manual) % Band Neutrophils % % Lymphocytes % (Manual) % Monocytes % (Manual) % Eosinophils % (Manual) % Neutrophils # (Manual) (1.3-7.7) k/uL Lymphocytes # (Manual) (1.0-4.8) k/uL Monocytes # (Manual) (0-1.0) k/uL Eosinophils # (Manual) (0-0.7) k/uL Nucleated RBCs (0-0) /100 WBC Manual Slide Review Sodium (137-145) mmol/L Potassium (3.5-5.1) mmol/L Chloride (98-107) mmol/L Carbon Dioxide (22-30) mmol/L Anion Gap mmol/L BUN (9-20) mg/dL Creatinine (0.66-1.25) mg/dL Est GFR (CKD-EPI)AfAm (>60 ml/min/1.73 sqM) Est GFR (CKD-EPI)NonAf (>60 ml/min/1.73 sqM) Glucose (74-99) mg/dL Calcium (8.4-10.2) mg/dL Total Bilirubin (0.2-1.3) mg/dL AST (17-59) U/L ALT (4-49) U/L Alkaline Phosphatase (38-126) U/L Total Protein (6.3-8.2) g/dL Albumin (3.5-5.0) g/dL Amylase (30-110) U/L Lipase (23-300) U/L Urine Color Yellow Urine Appearance Clear (Clear) Urine pH 6.0 (5.0-8.0) Ur Specific [place] 1.023 (1.001-1.035) Urine Protein Trace H (Negative) Urine Glucose (UA) Negative (Negative) Urine Ketones 1+ H (Negative) Urine Blood Negative (Negative) Urine Nitrite Negative (Negative) Urine Bilirubin Negative (Negative) Urine Urobilinogen <2.0 (<2.0) mg/dL Ur Leukocyte Esterase Small H (Negative) Urine RBC 1 (0-5) /hpf Urine WBC 1 (0-5) /hpf Urine Bacteria Rare H (None) /hpf Hyaline Casts 1 (0-2) /lpf Urine Mucus Few H (None) /hpf Influenza Type A RNA (Not Detectd) Influenza Type B (PCR) (Not Detectd) - Radiology Data Radiology results: report reviewed, image reviewed KUB x-ray was obtained. Report reviewed in its entirety. Impression by Dr. Mcguire shows possible mild small bowel ileus left upper quadrant. No free air. Disposition Clinical Impression: Influenza B, Abdominal pain Disposition: HOME SELF-CARE Condition: Good Instructions (If sedation given, give patient instructions): Influenza (ED), Abdominal Pain (ED) Additional Instructions: Increase fluids. Rest. Take Tylenol Motrin every 6 hours as needed for pain and fever control. Follow-up with your primary care physician for recheck in 1- 2 days. Return to the emergency department immediately for any new, worsening, or concerning symptoms. Prescriptions: Ibuprofen [Motrin] 600 mg PO Q8HR PRN #30 tab PRN Reason: Pain guaiFENesin-DM 600/30MG [Mucinex Dm] 2 each PO Q12HR PRN #20 tab.er.12h PRN Reason: Cough Is patient prescribed a controlled substance at d/c from ED?: No Referrals: None,Stated [Primary Care Provider] - 1-2 days Time of Disposition: 23:15
[2019-09-18 23:34] VITALS: BP 141/90; PULSE 100; RESP 18; TEMP 97.6
[2019-09-20 16:11] LABS: C. trachomatis,PCR Negative (Neg,Equiv); Chlamydia trachomatis Source Urine; N. gonorrhoeae,PCR Negative (Neg,Equiv); Neisseria Source Urine
== END 2019-09-18 23:35 | disposition home or self-care (01) ==
LOC: EC 20:23
DX: J10.1 Influenza due to other identified influenza virus with other respiratory manifestations (principal); R10.10 Upper abdominal pain, unspecified; R10.816 Epigastric abdominal tenderness; R74.8 Abnormal levels of other serum enzymes; R00.0 Tachycardia, unspecified; R11.2 Nausea with vomiting, unspecified; F17.200 Nicotine dependence, unspecified, uncomplicated; Z87.19 Personal history of other diseases of the digestive system; Z90.49 Acquired absence of other specified parts of digestive tract; Z98.890 Other specified postprocedural states
CPT/HCPCS: 36415; 80053; 82150; 83690; 85025; 81001; 87491; 87591; 87086; 87502; 74018; 99284; 96374; 96375; 96376; 96361 ×2; J2405; J1170

== ENCOUNTER 2020-02-17 07:12 | Inpatient (IN) | payer OTHER ==
[2020-02-17] MEDS ORDERED: KETOROLAC 30 MG/ML 1 ML VIAL IVP STA (07:33)
[2020-02-17] MEDS ORDERED: HYDROmorphone 0.5 MG/0.5 ML SYRINGE IVP STA (07:33)
[2020-02-17] MEDS ORDERED: SODIUM CHLORIDE 0.9% 2,000 ML IV STA (07:33)
--- NOTE | 2020-02-17 07:45 | ED ---
Abdominal Pain HPI - General Chief Complaint: Abdominal Pain Stated Complaint: abd pain Time Seen by Provider: 02/17/20 07:22 Source: patient, RN notes reviewed Mode of arrival: wheelchair Limitations: no limitations - History of Present Illness Initial Comments: This a 34-year-old male presents emergency Department chief complaint of severe epigastric pain. Patient states that this started this morning. Patient's had excessive vomiting which is been bilious. Patient denies any fevers or chills. Patient denies any diarrhea constipation. Does have a history of pancreatitis and has had a prior cholecystectomy. Denies any chest pain or shortness breath no headache no dizziness no sick contacts. - Related Data Home Medications Medication Instructions Recorded Confirmed No Known Home Medications 02/17/20 02/17/20 Allergies Allergy/AdvReac Type Severity Reaction Status Date / Time No Known Allergies Allergy Verified 02/17/20 08:00 Review of Systems ROS Statement: Those systems with pertinent positive or pertinent negative responses have been documented in the HPI. ROS Other: All systems not noted in ROS Statement are negative. Past Medical History Past Medical History: No Reported History Additional Past Medical History / Comment(s): abd. pain, N/V, pancreatitis History of Any Multi-Drug Resistant Organisms: None Reported Past Surgical History: Cholecystectomy, Hernia Repair, Orthopedic Surgery Additional Past Surgical History / Comment(s): INGUINAL HERNIA ;tendon in wrist; RT WRIST SX FOR ABCESS; EGD/Colonoscopy 08/2018, Past Anesthesia/Blood Transfusion Reactions: No Reported Reaction Past Psychological History: No Psychological Hx Reported Smoking Status: Never smoker Past Alcohol Use History: Occasional Past Drug Use History: None Reported, Marijuana - Past Family History Father Family Medical History: Unable to Obtain Mother Family Medical History: No Reported History General Exam Limitations: no limitations General appearance: alert, in no apparent distress Head exam: Present: atraumatic, normocephalic, normal inspection Neck exam: Present: normal inspection. Absent: tenderness, meningismus, lymphadenopathy Respiratory exam: Present: normal lung sounds bilaterally. Absent: respiratory distress, wheezes, rales, rhonchi, stridor Cardiovascular Exam: Present: normal rhythm, tachycardia, normal heart sounds. Absent: systolic murmur, diastolic murmur, rubs, gallop, clicks GI/Abdominal exam: Present: soft, tenderness, guarding, normal bowel sounds. Absent: distended, rebound, rigid Back exam: Absent: CVA tenderness (R), CVA tenderness (L) Neurological exam: Present: alert, oriented X3 Skin exam: Present: warm, dry, intact, normal color. Absent: rash Course Vital Signs 02/17/20 07:15 Temperature 97.5 F L Pulse Rate 117 H Respiratory 22 Rate Blood Pressure 132/83 O2 Sat by Pulse 98 Oximetry Medical Decision Making - Medical Decision Making 34-year-old presented for abdominal pain. Patient has acute pancreatitis. Rhiannon ent admitted for IV fluids pain control alcohol withdrawal protocol. Patient does admit that he is a drinker. - Lab Data Result diagrams: 02/17/20 07:57 02/17/20 07:57 Lab Results 02/17/20 02/17/20 02/17/20 Range/Units 07:57 07:57 08:30 WBC 10.6 (3.8-10.6) k/uL RBC 4.81 (4.30-5.90) m/uL Hgb 15.8 (13.0-17.5) gm/dL Hct 47.0 (39.0-53.0) % MCV 97.7 (80.0-100.0) fL MCH 32.9 (25.0-35.0) pg MCHC 33.7 (31.0-37.0) g/dL RDW 13.1 (11.5-15.5) % Plt Count 315 (150-450) k/uL Neutrophils % 53 % Lymphocytes % 38 % Monocytes % 4 % Eosinophils % 1 % Basophils % 1 % Neutrophils # 5.6 (1.3-7.7) k/uL Lymphocytes # 4.0 (1.0-4.8) k/uL Monocytes # 0.4 (0-1.0) k/uL Eosinophils # 0.1 (0-0.7) k/uL Basophils # 0.1 (0-0.2) k/uL Sodium 140 (137-145) mmol/L Potassium 3.5 (3.5-5.1) mmol/L Chloride 105 (98-107) mmol/L Carbon Dioxide 12 L (22-30) mmol/L Anion Gap 23 mmol/L BUN 14 (9-20) mg/dL Creatinine 0.95 (0.66-1.25) mg/dL Est GFR (CKD-EPI)AfAm >90 (>60 ml/min/1.73 sqM) Est GFR (CKD-EPI)NonAf >90 (>60 ml/min/1.73 sqM) Glucose 188 H (74-99) mg/dL Calcium 9.9 (8.4-10.2) mg/dL Total Bilirubin 0.7 (0.2-1.3) mg/dL AST 182 H (17-59) U/L ALT 170 H (4-49) U/L Alkaline Phosphatase 106 (38-126) U/L Total Protein 8.2 (6.3-8.2) g/dL Albumin 5.3 H (3.5-5.0) g/dL Amylase 368 H* (30-110) U/L Urine Color Yellow Urine Appearance Clear (Clear) Urine pH 5.5 (5.0-8.0) Ur Specific [place] 1.020 (1.001-1.035) Urine Protein Trace H (Negative) Urine Glucose (UA) Negative (Negative) Urine Ketones 1+ H (Negative) Urine Blood Negative (Negative) Urine Nitrite Negative (Negative) Urine Bilirubin Negative (Negative) Urine Urobilinogen <2.0 (<2.0) mg/dL Ur Leukocyte Esterase Negative (Negative) Disposition Clinical Impression: Acute pancreatitis, Alcoholic hepatitis Disposition: ADMITTED IP TO THIS [facility] Condition: Fair Referrals: None,Stated [Primary Care Provider] - 1-2 days
[2020-02-17 08:08] LABS: Basophils # (A) 0.1 k/uL (0-0.2); Basophils % (A) 1 %; Eosinophils # (A) 0.1 k/uL (0-0.7); Eosinophils % (A) 1 %; HGB 15.8 gm/dL (13.0-17.5); Lymphocytes % (A) 38 %; MCH 32.9 pg (25.0-35.0); MCHC 33.7 g/dL (31.0-37.0); MCV 97.7 fL (80.0-100.0); Mean Platelet Volume 7.5; Monocytes # (A) 0.4 k/uL (0-1.0); Monocytes % (A) 4 %; Neutrophils # (A) 5.6 k/uL (1.3-7.7); Neutrophils % (A) 53 %; Platelet Count 315 k/uL (150-450); RBC 4.81 m/uL (4.30-5.90); RDW 13.1 % (11.5-15.5); WBC 10.6 k/uL (3.8-10.6)
[2020-02-17] MEDS ORDERED: HYDROmorphone 1 MG/ML 1 ML SYRINGE IVP STA (08:23)
[2020-02-17 08:27] LABS: AST 182 U/L (17-59); African American GFR (CKD) >90 (>60 ml/min/1.73 sqM); Albumin 5.3 g/dL (3.5-5.0); Alkaline Phosphatase 106 U/L (38-126); Anion Gap 23 mmol/L; Blood Urea Nitrogen 14 mg/dL (9-20); Calcium 9.9 mg/dL (8.4-10.2); Carbon Dioxide 12 mmol/L (22-30); Chloride 105 mmol/L (98-107); Glucose 188 mg/dL (74-99); Non-African American GFR(CKD) >90 (>60 ml/min/1.73 sqM); Potassium 3.5 mmol/L (3.5-5.1); Sodium 140 mmol/L (137-145); Total Bilirubin 0.7 mg/dL (0.2-1.3); Total Protein 8.2 g/dL (6.3-8.2)
[2020-02-17 08:37] LABS: ALT 170 U/L (4-49); Amylase 368 U/L (30-110)
[2020-02-17 08:37] LABS: Appearance,Urine Clear (Clear); Bilirubin,Urine Negative (Negative); Blood,Urine Negative (Negative); Color,Urine Yellow; Glucose,Urine (UA) Negative (Negative); Ketones,Urine 1+ (Negative); Leukocyte Esterase,Urine Negative (Negative); Nitrite,Urine Negative (Negative); PH, Urine 5.5 (5.0-8.0); Protein,Urine Trace (Negative); Urobilinogen,Urine <2.0 mg/dL (<2.0)
[2020-02-17] MEDS ORDERED: ONDANSETRON 4 MG/2 ML VIAL IVP PRN (08:49)
[2020-02-17] MEDS ORDERED: NALOXONE 0.4 MG/ML 1 ML VIAL IV PRN (08:49)
[2020-02-17] MEDS ORDERED: LORazepam 2 MG/ML INJ IV PRN ×3 (08:49)
[2020-02-17] MEDS ORDERED: KETOROLAC 30 MG/ML 1 ML VIAL IVP PRN (08:49)
[2020-02-17] MEDS ORDERED: HYDROmorphone 0.5 MG/0.5 ML SYRINGE IVP PRN (08:49)
[2020-02-17 08:51] LABS: Lipase 12796 U/L (23-300)
[2020-02-17] MEDS: SODIUM CHLORIDE 0.9% 1,000 ML IV SCH ×3 (09:39→23:53)
[2020-02-17] MEDS: HYDROmorphone 1 MG/ML 1 ML SYRINGE IVP PRN ×4 (10:09→23:49)
--- NOTE | 2020-02-17 13:29 | US ---
EXAMINATION TYPE: US gallbladder DATE OF EXAM: 02/17/2020 COMPARISON: US/ CT CLINICAL HISTORY: pancreatitis. Pain EXAM MEASUREMENTS: Liver Length: 20.9 cm CBD: 0.6 cm Right Kidney: 11.1 x 5.0 x 5.6 cm Pancreas: Obscured by bowel gas Liver: Very limited views due to overlying bowel gas, pt unable to take a breath in and hold it/ isabela y difficult to penetrate, enlarged Gallbladder: Surgically absent Evidence for sonographic Krause's sign: No CBD: wnl Right Kidney: wnl IMPRESSION: 1. With Limited exam demonstrates postcholecystectomy changes. 2. The pancreas is obscured by bowel gas. 3. Hepatomegaly. There is limited assessment of the liver but appears to be increased in echogenicity correlate for hepatitis versus hepatic steatosis.
--- NOTE | 2020-02-17 15:09 | P.HPIM ---
History of Present Illness 34-year-old male came in severity epigastric abdominal pain nausea and bilious vomiting. Patient had any fever chills. Patient denied any diarrhea. Patient is found to have pancreatitis patient's abdominal pain was severe. Patient the admits to drinking alcohol about 3-4 days ago denies drinking alcohol on daily basis patient used to drink alcohol on daily basis which she is trying to cut it down. Although patient overall clinical picture appears to be be chronic alcoholism. Review of Systems REVIEW OF SYSTEMS: CONSTITUTIONAL: No fever, no malaise, no fatigue. HEENT: No recent visual problems or hearing problems. Denied any sore throat. CARDIOVASCULAR: No chest pain, orthopnea, PND, no palpitations, no syncope. PULMONARY: No shortness of breath, no cough, no hemoptysis. GASTROINTESTINAL: As mentioned in HPI NEUROLOGICAL: No headaches, no weakness, no numbness. HEMATOLOGICAL: Denies any bleeding or petechiae. GENITOURINARY: Denies any burning micturition, frequency, or urgency. MUSCULOSKELETAL/RHEUMATOLOGICAL: Denies any joint pain, swelling, or any muscle pain. ENDOCRINE: Denies any polyuria or polydipsia. The rest of the 14-point review of systems is negative. Past Medical History Past Medical History: No Reported History Additional Past Medical History / Comment(s): 2019 pancreatitis, abdominal pain, occasional nausea/vomiting. History of Any Multi-Drug Resistant Organisms: None Reported Past Surgical History: Cholecystectomy, Hernia Repair, Orthopedic Surgery Additional Past Surgical History / Comment(s): 2019 EGD/colonoscopy, r inguinal hernia repair, R wrist surgery for abscess, L wrist surgery for tendon repair. Past Anesthesia/Blood Transfusion Reactions: No Reported Reaction Past Psychological History: No Psychological Hx Reported Additional Psychological History / Comment(s): Pt resides with his [facility]. He is independent. Smoking Status: Never smoker Past Alcohol Use History: Occasional Additional Past Alcohol Use History / Comment(s): Pt states he drinks a couple shots twice a week but no more than that. Past Drug Use History: None Reported, Marijuana - Past Family History Father Family Medical History: No Reported History Mother Family Medical History: No Reported History Medications and Allergies Home Medications Medication Instructions Recorded Confirmed Type No Known Home Medications 02/17/20 02/17/20 History Allergies Allergy/AdvReac Type Severity Reaction Status Date / Time No Known Allergies Allergy Verified 02/17/20 08:00 Physical Exam Vitals: Vital Signs Temp Pulse Pulse Resp BP BP Pulse Ox 02/17/20 11:25 97.7 F 103 H 18 148/90 97 02/17/20 09:21 97.8 F 91 16 149/89 100 02/17/20 07:15 97.5 F L 117 H 22 132/83 98 Intake and Output 02/17/20 02/17/20 02/17/20 06:59 14:59 22:59 Other: Weight 77.111 kg PHYSICAL EXAMINATION: GENERAL: The patient is alert and oriented x3, not in any acute distress. Well developed, well nourished. HEENT: Pupils are round and equally reacting to light. EOMI. No scleral icterus. No conjunctival pallor. Normocephalic, atraumatic. No pharyngeal erythema. No thyromegaly. CARDIOVASCULAR: S1 and S2 present. No murmurs, rubs, or gallops. PULMONARY: Chest is clear to auscultation, no wheezing or crackles. ABDOMEN: Soft, minimal epigastric abdominal tenderness, nondistended, normoactive bowel sounds. No palpable organomegaly. MUSCULOSKELETAL: No joint swelling or deformity. EXTREMITIES: No cyanosis, clubbing, or pedal edema. NEUROLOGICAL: Gross neurological examination did not reveal any focal deficits. SKIN: No rashes. Results CBC & Chem 7: 02/17/20 07:57 02/17/20 07:57 Labs: Abnormal Lab Results - Last 24 Hours (Table) 02/17/20 02/17/20 02/17/20 Range/Units 07:57 07:57 08:30 Carbon Dioxide 12 L (22-30) mmol/L Glucose 188 H (74-99) mg/dL Plasma Lactic Acid [place] 10.2 H* (0.7-2.0) mmol/L AST 182 H (17-59) U/L ALT 170 H (4-49) U/L Albumin 5.3 H (3.5-5.0) g/dL Amylase 368 H* (30-110) U/L Lipase 86602 H (23-300) U/L Urine Protein Trace H (Negative) Urine Ketones 1+ H (Negative) 02/17/20 02/17/20 Range/Units 10:50 13:55 Carbon Dioxide (22-30) mmol/L Glucose (74-99) mg/dL Plasma Lactic Acid [place] 6.4 H* 4.2 H* (0.7-2.0) mmol/L AST (17-59) U/L ALT (4-49) U/L Albumin (3.5-5.0) g/dL Amylase (30-110) U/L Lipase (23-300) U/L Urine Protein (Negative) Urine Ketones (Negative) Thrombosis Risk Factor Assmnt - Choose All That Apply Any of the Below Risk Factors Present?: No Other Risk Factors: No Other congenital or acquired thrombophilia - If yes, enter type in comment: No Thrombosis Risk Factor Assessment Level: Very Low Risk Assessment and Plan Plan: -Acute alcoholic pancreatitis: Patient will be nothing by mouth can you with IV fluids. -Acute alcoholic hepatitis: Counseling was provided regarding alcohol cessation liver enzymes are expected to improve with the on-call cessation -Tachycardia seconded all call withdrawal patient is on Ativan serially protocol. Patient is also on GI prophylaxis with the Protonix -Ruled out gallbladder pathology on the ultrasound did show hepatitis -DVT prophylaxis: With Lovenox
[2020-02-17] MEDS: THIAMINE 100 MG TAB PO SCH (15:15)
[2020-02-17] MEDS: KETOROLAC 30 MG/ML 1 ML VIAL IVP PRN (18:44)
[2020-02-18] MEDS: KETOROLAC 30 MG/ML 1 ML VIAL IVP PRN ×2 (02:38→19:56)
[2020-02-18 03:19] LABS: HCT 41.3 % (39.0-53.0); HGB 13.9 gm/dL (13.0-17.5); MCH 33.7 pg (25.0-35.0); MCHC 33.6 g/dL (31.0-37.0); MCV 100.3 fL (80.0-100.0); Mean Platelet Volume 7.5; Platelet Count 179 k/uL (150-450); RBC 4.12 m/uL (4.30-5.90); WBC 10.3 k/uL (3.8-10.6)
[2020-02-18 03:32] LABS: ALT 102 U/L (4-49); AST 101 U/L (17-59); African American GFR (CKD) >90 (>60 ml/min/1.73 sqM); Albumin 3.9 g/dL (3.5-5.0); Alkaline Phosphatase 72 U/L (38-126); Anion Gap 9 mmol/L; Blood Urea Nitrogen 12 mg/dL (9-20); Calcium 7.8 mg/dL (8.4-10.2); Carbon Dioxide 20 mmol/L (22-30); Chloride 106 mmol/L (98-107); Glucose 125 mg/dL (74-99); Lipase 1812 U/L (23-300); Non-African American GFR(CKD) >90 (>60 ml/min/1.73 sqM); Potassium 3.4 mmol/L (3.5-5.1); Sodium 135 mmol/L (137-145); Total Bilirubin 1.2 mg/dL (0.2-1.3)
[2020-02-18] MEDS: HYDROmorphone 1 MG/ML 1 ML SYRINGE IVP PRN ×4 (05:20→15:40)
[2020-02-18] MEDS: THIAMINE 100 MG TAB PO SCH ×2 (08:30→17:47)
[2020-02-18] MEDS: PANTOPRAZOLE 40 MG/10 ML VIAL IVP SCH (08:31)
[2020-02-18] MEDS: SODIUM CHLORIDE 0.9% 1,000 ML IV SCH ×3 (08:31→23:46)
[2020-02-18 12:44] VITALS: BMI 25.1
[2020-02-18] MEDS ORDERED: POTASSIUM CHLORIDE ER 20 MEQ TAB.ER PO STA (15:54)
--- NOTE | 2020-02-18 16:42 | P.PN ---
Subjective 34-year-old male came in severity epigastric abdominal pain nausea and bilious vomiting. Patient had any fever chills. Patient denied any diarrhea. Patient is found to have pancreatitis patient's abdominal pain was severe. Patient the admits to drinking alcohol about 3-4 days ago denies drinking alcohol on daily basis patient used to drink alcohol on daily basis which she is trying to cut it down. Although patient overall clinical picture appears to be be chronic alcoholism. 02/18/2020 Patient's abdominal pain improved patient's Dilaudid will be discontinued, patient will be monitored for alcohol withdrawals and the patient was started on clear liquid diet and advance it as tolerated. Patient had some crackles on lung exam because of which I'm obtaining a chest x-ray potassium is low which will be replaced. IV fluids will be cut down to 75 mL/h. Liver enzymes are coming down. Constitutional: Denied any fatigue denied any fever. Cardio vascular: denied any chest pain, palpitations Gastrointestinal improved abdominal pain Pulmonary: Denied any shortness of breath cough Neurologic denied any new focal deficits All inpatient medications were reviewed and appropriate changes in these medications as dictated in the interval history and assessment and plan. Objective - Vital Signs Vital signs: Vital Signs Temp 98.0 F 02/18/20 12:26 Pulse 109 H 02/18/20 12:26 Resp 18 02/18/20 12:26 BP 148/94 02/18/20 12:26 Pulse Ox 92 L 02/18/20 12:26 Intake & Output 02/17/20 02/18/20 02/18/20 18:59 06:59 18:59 Intake Total 1040 Balance 1040 Weight 77.111 kg 77.111 kg Intake: Intake, IV Titration 1040 Amount Sodium Chloride 0.9% 1, 1040 000 ml @ 130 mls/hr IV . [id number] [facility] Rx#:[id number] Other: # Voids 1 1 2 - Exam PHYSICAL EXAMINATION: GENERAL: The patient is alert and oriented x3, not in any acute distress. Well developed, well nourished. HEENT: Pupils are round and equally reacting to light. EOMI. No scleral icterus. No conjunctival pallor. Normocephalic, atraumatic. No pharyngeal erythema. No thyromegaly. CARDIOVASCULAR: S1 and S2 present. No murmurs, rubs, or gallops. PULMONARY: Chest is clear to auscultation, no wheezing or crackles. ABDOMEN: Soft, nontender, nondistended, normoactive bowel sounds. No palpable organomegaly. MUSCULOSKELETAL: No joint swelling or deformity. EXTREMITIES: No cyanosis, clubbing, or pedal edema. NEUROLOGICAL: Gross neurological examination did not reveal any focal deficits. SKIN: No rashes. - Labs CBC & Chem 7: 02/18/20 02:54 02/18/20 02:54 Labs: Abnormal Lab Results - Last 24 Hours (Table) 02/17/20 02/17/20 02/17/20 Range/Units 16:54 20:02 23:49 RBC (4.30-5.90) m/uL MCV (80.0-100.0) fL Sodium (137-145) mmol/L Potassium (3.5-5.1) mmol/L Carbon Dioxide (22-30) mmol/L Glucose (74-99) mg/dL Plasma Lactic Acid Eugene 3.3 H* 2.8 H* 2.1 H* (0.7-2.0) mmol/L Calcium (8.4-10.2) mg/dL AST (17-59) U/L ALT (4-49) U/L Total Protein (6.3-8.2) g/dL Lipase (23-300) U/L 02/18/20 02/18/20 02/18/20 Range/Units 02:54 02:54 02:54 RBC 4.12 L (4.30-5.90) m/uL MCV 100.3 H (80.0-100.0) fL Sodium 135 L (137-145) mmol/L Potassium 3.4 L (3.5-5.1) mmol/L Carbon Dioxide 20 L (22-30) mmol/L Glucose 125 H (74-99) mg/dL Plasma Lactic Acid Eugene 2.2 H* (0.7-2.0) mmol/L Calcium 7.8 L (8.4-10.2) mg/dL AST 101 H (17-59) U/L ALT 102 H (4-49) U/L Total Protein 6.0 L (6.3-8.2) g/dL Lipase 1812 H (23-300) U/L Assessment and Plan Plan: -Acute alcoholic pancreatitis: Improving now patient will be started on clear liquid diet advance as tolerated cut down the IV fluids -Crackles on lung exam I'll obtain a chest x-ray probably atelectasis make sure patient doesn't have any pulmonary edema due to aggressive hydration. -Acute alcoholic hepatitis: -Tachycardia secondary to alcohol withdrawal patient is on Ativan serially protocol. Patient is also on GI prophylaxis with the Protonix -Ruled out gallbladder pathology on the ultrasound did show hepatitis -DVT prophylaxis: With Lovenox
--- NOTE | 2020-02-18 17:42 | XR ---
EXAMINATION TYPE: XR chest 2V DATE OF EXAM: 02/18/2020 COMPARISON: NONE HISTORY: Chest pain. Cough TECHNIQUE: FINDINGS: There is some patchy atelectasis left lung base. There is poor inspiration. Heart and media stinum are normal. There are no hilar masses. Bony thorax is intact. IMPRESSION: Inspiration decreased compared to old exam. There is some infiltrate and atelectasis left lung base that appears new compared to old exam. No heart failure.
[2020-02-19] MEDS: KETOROLAC 30 MG/ML 1 ML VIAL IVP PRN ×3 (01:43→13:18)
[2020-02-19] MEDS: PANTOPRAZOLE 40 MG/10 ML VIAL IVP SCH (07:48)
[2020-02-19] MEDS: THIAMINE 100 MG TAB PO SCH ×2 (07:48→17:29)
[2020-02-19] MEDS: ENOXAPARIN 40 MG/0.4 ML SYRINGE SQ SCH (07:48)
[2020-02-19 08:00] LABS: ALT 83 U/L (4-49); AST 78 U/L (17-59); African American GFR (CKD) >90 (>60 ml/min/1.73 sqM); Albumin 3.5 g/dL (3.5-5.0); Alkaline Phosphatase 104 U/L (38-126); Anion Gap 8 mmol/L; Blood Urea Nitrogen 8 mg/dL (9-20); Calcium 7.3 mg/dL (8.4-10.2); Carbon Dioxide 23 mmol/L (22-30); Chloride 106 mmol/L (98-107); Glucose 104 mg/dL (74-99); Lipase 758 U/L (23-300); Non-African American GFR(CKD) >90 (>60 ml/min/1.73 sqM); Potassium 3.2 mmol/L (3.5-5.1); Sodium 137 mmol/L (137-145); Total Bilirubin 1.2 mg/dL (0.2-1.3); Total Protein 5.7 g/dL (6.3-8.2)
[2020-02-19] MEDS ORDERED: POTASSIUM CHLORIDE ER 20 MEQ TAB.ER PO ONE (08:06)
--- NOTE | 2020-02-19 15:49 | XR ---
EXAMINATION TYPE: XR chest 2V DATE OF EXAM: 02/19/2020 COMPARISON: 02/18/2020 HISTORY: Short of breath TECHNIQUE: 2 views FINDINGS: There is some infiltrate and atelectasis at the left lung base. There is no heart failure. There is poor inspiration. Heart size is probably normal. There is slight blunting right costophrenic angle. IMPRESSION: Small bilateral pleural effusions unchanged. Infiltrate and atelectasis left posterior kristin ng base unchanged. No heart failure.
--- NOTE | 2020-02-19 16:28 | P.PN ---
Subjective 34-year-old male came in severity epigastric abdominal pain nausea and bilious vomiting. Patient had any fever chills. Patient denied any diarrhea. Patient is found to have pancreatitis patient's abdominal pain was severe. Patient the admits to drinking alcohol about 3-4 days ago denies drinking alcohol on daily basis patient used to drink alcohol on daily basis which she is trying to cut it down. Although patient overall clinical picture appears to be be chronic alcoholism. 02/18/2020 Patient's abdominal pain improved patient's Dilaudid will be discontinued, patient will be monitored for alcohol withdrawals and the patient was started on clear liquid diet and advance it as tolerated. Patient had some crackles on lung exam because of which I'm obtaining a chest x-ray potassium is low which will be replaced. IV fluids will be cut down to 75 mL/h. Liver enzymes are coming down. 02/19/2020 Patient had a low-grade fever because of which I'll obtain a chest x-ray and the blood cultures as well. My suspicion is low for infection this is mainly probably related to acute pancreatitis or atelectasis patient is still complaining of pain we'll advance her diet and will patient was started on [place] Toradol will be discontinued with concerns of peptic ulcer disease or gastritis causing his pain in the abdomen. Chest x-ray did show to lactic acidosis will order incentive spirometry Constitutional: Denied any fatigue denied any fever. Cardio vascular: denied any chest pain, palpitations Gastrointestinal improved abdominal pain Pulmonary: Denied any shortness of breath cough Neurologic denied any new focal deficits All inpatient medications were reviewed and appropriate changes in these medications as dictated in the interval history and assessment and plan. Objective - Vital Signs Vital signs: Vital Signs Temp 98.6 F 02/19/20 11:40 Pulse 105 H 02/19/20 11:40 Resp 18 02/19/20 11:40 BP 155/96 02/19/20 11:40 Pulse Ox 95 02/19/20 11:40 Intake & Output 02/18/20 02/19/20 02/19/20 18:59 06:59 18:59 Intake Total 1040 525 Output Total 2 Balance 1040 -2 525 Weight 77.111 kg Intake: Intake, IV Titration 1040 525 Amount Sodium Chloride 0.9% 1, 1040 525 000 ml @ 75 mls/hr IV . [id number] [facility] Rx#:[id number] Output: Urine 2 Other: # Voids 2 2 - Exam PHYSICAL EXAMINATION: GENERAL: The patient is alert and oriented x3, not in any acute distress. Well developed, well nourished. HEENT: Pupils are round and equally reacting to light. EOMI. No scleral icterus. No conjunctival pallor. Normocephalic, atraumatic. No pharyngeal erythema. No thyromegaly. CARDIOVASCULAR: S1 and S2 present. No murmurs, rubs, or gallops. PULMONARY: Chest is clear to auscultation, no wheezing or crackles. ABDOMEN: Soft, nontender, nondistended, normoactive bowel sounds. No palpable organomegaly. MUSCULOSKELETAL: No joint swelling or deformity. EXTREMITIES: No cyanosis, clubbing, or pedal edema. NEUROLOGICAL: Gross neurological examination did not reveal any focal deficits. SKIN: No rashes. - Labs CBC & Chem 7: 02/18/20 02:54 02/19/20 06:46 Labs: Abnormal Lab Results - Last 24 Hours (Table) 02/19/20 Range/Units 06:46 Potassium 3.2 L (3.5-5.1) mmol/L BUN 8 L (9-20) mg/dL Glucose 104 H (74-99) mg/dL Calcium 7.3 L (8.4-10.2) mg/dL AST 78 H (17-59) U/L ALT 83 H (4-49) U/L Total Protein 5.7 L (6.3-8.2) g/dL Lipase 758 H (23-300) U/L Assessment and Plan Plan: -Acute alcoholic pancreatitis: Improving now patient will be started on clear liquid diet advance as tolerated cut down the IV fluids -Low-grade fever workup as mentioned above secondary to atelectasis ordered incentive spirometry -Acute alcoholic hepatitis: -Tachycardia secondary to alcohol withdrawal patient is on Ativan CIWA protocol. Patient is not requiring much of Ativan at this time. Patient can use to be tachycardic hoping he will not require any metoprolol or any other beta fili by tomorrow. Patient is also on GI prophylaxis with the Protonix -Ruled out gallbladder pathology on the ultrasound did show hepatitis -DVT prophylaxis: With Lovenox
[2020-02-19] MEDS: HYDROcodone/APAP 7.5-325MG 1 EACH TAB PO PRN ×2 (17:28→23:05)
[2020-02-19] MEDS: SODIUM CHLORIDE 0.9% 1,000 ML IV SCH (17:29)
[2020-02-20] MEDS: SODIUM CHLORIDE 0.9% 1,000 ML IV SCH ×2 (03:18→16:05)
[2020-02-20] MEDS: HYDROcodone/APAP 7.5-325MG 1 EACH TAB PO PRN ×2 (05:03→11:46)
[2020-02-20] MEDS: PANTOPRAZOLE 40 MG/10 ML VIAL IVP SCH (07:40)
[2020-02-20] MEDS: ENOXAPARIN 40 MG/0.4 ML SYRINGE SQ SCH (07:41)
[2020-02-20] MEDS: THIAMINE 100 MG TAB PO SCH (07:42)
[2020-02-20 08:04] LABS: ALT 62 U/L (4-49); AST 49 U/L (17-59); African American GFR (CKD) >90 (>60 ml/min/1.73 sqM); Albumin 3.3 g/dL (3.5-5.0); Alkaline Phosphatase 120 U/L (38-126); Anion Gap 10 mmol/L; Blood Urea Nitrogen 5 mg/dL (9-20); Calcium 7.5 mg/dL (8.4-10.2); Carbon Dioxide 21 mmol/L (22-30); Chloride 106 mmol/L (98-107); Glucose 100 mg/dL (74-99); Non-African American GFR(CKD) >90 (>60 ml/min/1.73 sqM); Potassium 3.1 mmol/L (3.5-5.1); Sodium 137 mmol/L (137-145); Total Bilirubin 0.9 mg/dL (0.2-1.3); Total Protein 5.6 g/dL (6.3-8.2)
[2020-02-20] MEDS ORDERED: POTASSIUM CHLORIDE ER 20 MEQ TAB.ER PO STA (11:19)
[2020-02-20] MEDS: POTASSIUM CHLORIDE ER 20 MEQ TAB.ER PO SCH ×2 (11:42→13:16)
[2020-02-20 12:05] VITALS: BP 158/104; PULSE 95; RESP 16; TEMP 97.9
--- NOTE | 2020-02-20 12:08 | P.DS ---
Providers Date of admission: 02/17/20 09:40 Attending physician: Carlos Roth Primary care physician: Stated None Hospital Course: 34-year-old male came in severity epigastric abdominal pain nausea and bilious vomiting. Patient had any fever chills. Patient denied any diarrhea. Patient is found to have pancreatitis patient's abdominal pain was severe. Patient the admits to drinking alcohol about 3-4 days ago denies drinking alcohol on daily basis patient used to drink alcohol on daily basis which she is trying to cut it down. Although patient overall clinical picture appears to be be chronic alcoholism. 02/18/2020 Patient's abdominal pain improved patient's Dilaudid will be discontinued, patient will be monitored for alcohol withdrawals and the patient was started on clear liquid diet and advance it as tolerated. Patient had some crackles on lung exam because of which I'm obtaining a chest x-ray potassium is low which will be replaced. IV fluids will be cut down to 75 mL/h. Liver enzymes are coming down. 02/19/2020 Patient had a low-grade fever because of which I'll obtain a chest x-ray and the blood cultures as well. My suspicion is low for infection this is mainly probably related to acute pancreatitis or atelectasis patient is still complaining of pain we'll advance her diet and will patient was started on [place] Toradol will be discontinued with concerns of peptic ulcer disease or gastritis causing his pain in the abdomen. Chest x-ray did show to lactic acidosis will order incentive spirometry 02/20/2020 Patient is clinically doing well no more fevers. Patient will be discharged today pancreatitis resolved patient is able to tolerate diet well alcohol cessation counseling was provided and the bilingual social worker will evaluate the patient for substance abuse and will provide resources. PHYSICAL EXAMINATION: GENERAL: The patient is alert and oriented x3, not in any acute distress. Well developed, well nourished. HEENT: Pupils are round and equally reacting to light. EOMI. No scleral icterus. No conjunctival pallor. Normocephalic, atraumatic. No pharyngeal erythema. No thyromegaly. CARDIOVASCULAR: S1 and S2 present. No murmurs, rubs, or gallops. PULMONARY: Chest is clear to auscultation, no wheezing or crackles. ABDOMEN: Soft, nontender, nondistended, normoactive bowel sounds. No palpable organomegaly. MUSCULOSKELETAL: No joint swelling or deformity. EXTREMITIES: No cyanosis, clubbing, or pedal edema. NEUROLOGICAL: Gross neurological examination did not reveal any focal deficits. SKIN: No rashes. Assessment and Plan Plan: -Acute alcoholic pancreatitis: Improved -Low-grade fever workup as mentioned above secondary to atelectasis ordered incentive spirometry improved -Acute alcoholic hepatitis: Improving liver enzymes -Tachycardia secondary to alcohol withdrawal patient is on Ativan [facility] protocol. Patient is not requiring much of Ativan at this time. Patient can use to be tachycardic hoping he will not require any metoprolol or any other beta fili by tomorrow. Tachycardia improved -Ruled out gallbladder pathology on the ultrasound did show hepatitis Patient Condition at Discharge: Fair Plan - Discharge Summary Discharge Rx Participant: No New Discharge Prescriptions: New Thiamine [Vitamin B-1] 100 mg PO BID-W/MEALS #30 tab Famotidine [Pepcid] 20 mg PO BID #20 tablet Discharge Medication List Famotidine [Pepcid] 20 mg PO BID #20 tablet 02/20/20 [Rx] Thiamine [Vitamin B-1] 100 mg PO BID-W/MEALS #30 tab 02/20/20 [Rx] Follow up Appointment(s)/Referral(s): Lisy Mercer MD [STAFF PHYSICIAN] - 1 Week (please call office to set up appt.) Discharge Disposition: HOME SELF-CARE
== END 2020-02-20 16:10 | disposition home or self-care (01) | DRG 439 ==
LOC: EC 07:12 → 5NMEDONC 09:40
PROVIDERS: ADMIT Hospitalist; ATTEND Hospitalist
DX: K85.20 Alcohol induced acute pancreatitis without necrosis or infection (principal); E87.2 Acidosis; J98.11 Atelectasis; F10.239 Alcohol dependence with withdrawal, unspecified; K70.10 Alcoholic hepatitis without ascites; R00.0 Tachycardia, unspecified; E86.0 Dehydration; R50.9 Fever, unspecified; Z90.49 Acquired absence of other specified parts of digestive tract; Z98.890 Other specified postprocedural states; Z71.41 Alcohol abuse counseling and surveillance of alcoholic
CPT/HCPCS: 36415; 71046; 76705; 80053; 81003; 82150; 83605; 83690; 83735; 85025; 85027; 87040; 96361; 96374; 96375; 96376; 99284

== ENCOUNTER 2020-06-22 17:32 | Inpatient (IN) | payer OTHER ==
[2020-06-22] MEDS ORDERED: ONDANSETRON 4 MG/2 ML VIAL IVP STA (17:52)
[2020-06-22] MEDS ORDERED: SODIUM CHLORIDE 0.9% 1,000 ML IV STA ×2 (17:52→20:23)
[2020-06-22] MEDS ORDERED: MORPHINE SULFATE 4 MG/ML SYRINGE IV STA (18:08)
--- NOTE | 2020-06-22 18:11 | ED ---
General Adult HPI - General Chief complaint: Abdominal Pain Stated complaint: vomiting, abd pain Time Seen by Provider: 06/22/20 17:52 Source: patient Mode of arrival: ambulatory Limitations: no limitations - History of Present Illness Initial comments: Dictation was produced using [employer] dictation software. please excuse any grammatical, word or spelling errors. This patient was cared for during a federal and state declared state of emergency secondary to Covid 19 Chief Complaint: 35-year-old male past physical history of pancreatitis presents today with abdominal pain History of Present Illness: Since the emergency department for one day of abdominal pain. Patient has history of pancreatitis several months ago. Patient states that he woke up this morning when he began experiencing epigastric abdominal pain that was severe. Patient has previous history of alcohol abuse. He was admitted for acute alcoholic pancreatitis 4 months ago. Does have a history of cholecystectomy. Patient has a constitution of symptoms. No fever. He states he does have bilious and lack emesis. The ROS documented in this emergency department record has been reviewed and confirmed by me. Those systems with pertinent positive or negative responses have been documented in the HPI. All other systems are other negative and/or noncontributory. PHYSICAL EXAM: General Impression: Alert and oriented x3, acute distress secondary to pain HEENT: Normocephalic atraumatic, extra-ocular movements intact, pupils equal and reactive to light bilaterally, mucous membranes moist. Cardiovascular: Heart regular rate and rhythm Chest: Able to complete full sentences, no retractions, no tachypnea Abdomen: abdomen soft, voluntary guarding, diffuse abdominal tenderness with palpation, non-distended, no organomegaly Musculoskeletal: Pulses present and equal in all extremities, no peripheral edema Motor: no focal deficits noted Neurological: CN II-XII grossly intact, no focal motor or sensory deficits noted Skin: Intact with no visualized rashes Psych: Anxious ED course: 35 yo male presents with acute abdominal pain. Vital signs upon a rrival shows heart rate of 144, rest of vital signs within acceptable limits. Laboratory evaluation obtained. Mild leukocytosis of 13.6. Coag panel is negative. Metabolic panel is negative. There is elevation of his liver enzymes that are mild. Urinalysis is negative. X-ray does not show any free air in abdomen. Possible left renal calculi. Computed tomography scan of the abdomen and pelvis was obtained due to patient's degree of symptoms. CT shows no acute processes. There is fatty infiltration of the left. Patient reevaluated at bedside. Patient given GI cocktail for concerns of possible acute gastritis versus symptomatic peptic ulcer disease. Check ocular did not improve his symptoms. Patient given Ativan and some mild6 with slight improvement of symptoms. He still remains tachycardic. At this point is unclear what is causing the majority of patient symptoms and was causing him to be tachycardic. There is some concern that patient is experiencing EtOH withdrawals because he did improve with benzodiazepine administration. Patient be made observation for persistent tachycardia, intractable abdominal pain, lactic acidosis. Case discussed with on-call sound physician was willing to accept patients care. EKG interpretation: Ventricular rate 25, sinus tachycardia,. Interval 152, QRS 80, QTc 433. No WI prolongation, no QTC prolongation, no ST or T-wave changes noted. EKG compared to 04/29/2019 showing no changes. Overall, this EKG is unremarkable - Related Data Home Medications Medication Instructions Recorded Confirmed Acetaminophen/Diphenhydramine 2 tab PO HS PRN 06/22/20 06/22/20 [Tylenol PM 500-25mg] Allergies Allergy/AdvReac Type Severity Reaction Status Date / Time No Known Allergies Allergy Verified 06/22/20 17:49 Review of Systems ROS Statement: Those systems with pertinent positive or pertinent negative responses have been documented in the HPI. ROS Other: All systems not noted in ROS Statement are negative. Past Medical History Past Medical History: No Reported History Additional Past Medical History / Comment(s): 2019 pancreatitis, abdominal pain, occasional nausea/vomiting. History of Any Multi-Drug Resistant Organisms: None Reported Past Surgical History: Cholecystectomy, Hernia Repair, Orthopedic Surgery Additional Past Surgical History / Comment(s): 2019 EGD/colonoscopy, r inguinal hernia repair, R wrist surgery for abscess, L wrist surgery for tendon repair. Past Anesthesia/Blood Transfusion Reactions: No Reported Reaction Past Psychological History: No Psychological Hx Reported Smoking Status: Never smoker Past Alcohol Use History: Occasional Past Drug Use History: None Reported, Marijuana - Past Family History Father Family Medical History: No Reported History Mother Family Medical History: No Reported History General Exam Limitations: no limitations Course Vital Signs 06/22/20 06/22/20 06/22/20 17:45 19:27 20:41 Temperature 98.5 F 98.8 F Pulse Rate 144 H 129 H 114 H Respiratory 20 18 18 Rate Blood Pressure 131/76 151/104 145/99 O2 Sat by Pulse 97 96 95 Oximetry Medical Decision Making - Lab Data Result diagrams: 06/22/20 18:09 06/22/20 18:09 Lab Results 06/22/20 06/22/20 06/22/20 Range/Units 18:09 18:09 18:09 WBC 13.6 H (3.8-10.6) k/uL RBC 5.03 (4.30-5.90) m/uL Hgb 17.4 (13.0-17.5) gm/dL Hct 48.7 (39.0-53.0) % MCV 96.7 (80.0-100.0) fL MCH 34.7 (25.0-35.0) pg MCHC 35.9 (31.0-37.0) g/dL RDW 12.9 (11.5-15.5) % Plt Count 350 (150-450) k/uL MPV 7.5 Neutrophils % 82 % Lymphocytes % 11 % Monocytes % 4 % Eosinophils % 0 % Basophils % 1 % Neutrophils # 11.1 H (1.3-7.7) k/uL Lymphocytes # 1.5 (1.0-4.8) k/uL Monocytes # 0.6 (0-1.0) k/uL Eosinophils # 0.1 (0-0.7) k/uL Basophils # 0.1 (0-0.2) k/uL PT 10.6 (9.0-12.0) sec INR 1.0 (<1.2) APTT 22.4 (22.0-30.0) sec Sodium (137-145) mmol/L Potassium (3.5-5.1) mmol/L Chloride (98-107) mmol/L Carbon Dioxide (22-30) mmol/L Anion Gap mmol/L BUN (9-20) mg/dL Creatinine (0.66-1.25) mg/dL Est GFR (CKD-EPI)AfAm (>60 ml/min/1.73 sqM) Est GFR (CKD-EPI)NonAf (>60 ml/min/1.73 sqM) Glucose (74-99) mg/dL Plasma Lactic Acid Eugene (0.7-2.0) mmol/L Calcium (8.4-10.2) mg/dL Total Bilirubin (0.2-1.3) mg/dL AST (17-59) U/L ALT (4-49) U/L Alkaline Phosphatase (38-126) U/L Total Protein (6.3-8.2) g/dL Albumin (3.5-5.0) g/dL Lipase (23-300) U/L Urine Color Yellow Urine Appearance Clear (Clear) Urine pH 5.5 (5.0-8.0) Ur Specific [place] 1.036 H (1.001-1.035) Urine Protein 1+ H (Negative) Urine Glucose (UA) Negative (Negative) Urine Ketones 3+ H (Negative) Urine Blood Negative (Negative) Urine Nitrite Negative (Negative) Urine Bilirubin 1+ H (Negative) Urine Urobilinogen 2.0 (<2.0) mg/dL Ur Leukocyte Esterase Negative (Negative) Urine RBC 1 (0-5) /hpf Urine WBC 2 (0-5) /hpf Amorphous Sediment Rare H (None) /hpf Hyaline Casts 29 H (0-2) /lpf Urine Mucus Moderate H (None) /hpf 06/22/20 06/22/20 Range/Units 18:09 19:59 WBC (3.8-10.6) k/uL RBC (4.30-5.90) m/uL Hgb (13.0-17.5) gm/dL Hct (39.0-53.0) % MCV (80.0-100.0) fL MCH (25.0-35.0) pg MCHC (31.0-37.0) g/dL RDW (11.5-15.5) % Plt Count (150-450) k/uL MPV Neutrophils % % Lymphocytes % % Monocytes % % Eosinophils % % Basophils % % Neutrophils # (1.3-7.7) k/uL Lymphocytes # (1.0-4.8) k/uL Monocytes # (0-1.0) k/uL Eosinophils # (0-0.7) k/uL Basophils # (0-0.2) k/uL PT (9.0-12.0) sec INR (<1.2) APTT (22.0-30.0) sec Sodium 137 (137-145) mmol/L Potassium 4.2 (3.5-5.1) mmol/L Chloride 100 (98-107) mmol/L Carbon Dioxide 17 L (22-30) mmol/L Anion Gap 20 mmol/L BUN 18 (9-20) mg/dL Creatinine 1.11 (0.66-1.25) mg/dL Est GFR (CKD-EPI)AfAm >90 (>60 ml/min/1.73 sqM) Est GFR (CKD-EPI)NonAf 85 (>60 ml/min/1.73 sqM) Glucose 133 H (74-99) mg/dL Plasma Lactic Acid Eugene 4.3 H* (0.7-2.0) mmol/L Calcium 10.4 H (8.4-10.2) mg/dL Total Bilirubin 1.4 H (0.2-1.3) mg/dL AST 350 H (17-59) U/L ALT 219 H (4-49) U/L Alkaline Phosphatase 141 H (38-126) U/L Total Protein 9.0 H (6.3-8.2) g/dL Albumin 5.7 H (3.5-5.0) g/dL Lipase 253 (23-300) U/L Urine Color Urine Appearance (Clear) Urine pH (5.0-8.0) Ur Specific [place] (1.001-1.035) Urine Protein (Negative) Urine Glucose (UA) (Negative) Urine Ketones (Negative) Urine Blood (Negative) Urine Nitrite (Negative) Urine Bilirubin (Negative) Urine Urobilinogen (<2.0) mg/dL Ur Leukocyte Esterase (Negative) Urine RBC (0-5) /hpf Urine WBC (0-5) /hpf Amorphous Sediment (None) /hpf Hyaline Casts (0-2) /lpf Urine Mucus (None) /hpf Disposition Clinical Impression: Abdominal pain Disposition: ADMITTED IP TO THIS [facility] Condition: Fair Referrals: None,Stated [Primary Care Provider] - 1-2 days Decision Time: 21:02
[2020-06-22 18:29] LABS: Basophils # (A) 0.1 k/uL (0-0.2); Basophils % (A) 1 %; Eosinophils # (A) 0.1 k/uL (0-0.7); Eosinophils % (A) 0 %; HCT 48.7 % (39.0-53.0); HGB 17.4 gm/dL (13.0-17.5); Lymphocytes # (A) 1.5 k/uL (1.0-4.8); Lymphocytes % (A) 11 %; MCH 34.7 pg (25.0-35.0); MCHC 35.9 g/dL (31.0-37.0); MCV 96.7 fL (80.0-100.0); Mean Platelet Volume 7.5; Monocytes # (A) 0.6 k/uL (0-1.0); Monocytes % (A) 4 %; Neutrophils # (A) 11.1 k/uL (1.3-7.7); Neutrophils % (A) 82 %; Platelet Count 350 k/uL (150-450); RBC 5.03 m/uL (4.30-5.90); RDW 12.9 % (11.5-15.5); WBC 13.6 k/uL (3.8-10.6)
[2020-06-22 18:30] LABS: ALT 219 U/L (4-49); AST 350 U/L (17-59); African American GFR (CKD) >90 (>60 ml/min/1.73 sqM); Albumin 5.7 g/dL (3.5-5.0); Alkaline Phosphatase 141 U/L (38-126); Anion Gap 20 mmol/L; Blood Urea Nitrogen 18 mg/dL (9-20); Calcium 10.4 mg/dL (8.4-10.2); Carbon Dioxide 17 mmol/L (22-30); Chloride 100 mmol/L (98-107); Glucose 133 mg/dL (74-99); Lipase 253 U/L (23-300); Non-African American GFR(CKD) 85 (>60 ml/min/1.73 sqM); Potassium 4.2 mmol/L (3.5-5.1); Sodium 137 mmol/L (137-145); Total Bilirubin 1.4 mg/dL (0.2-1.3)
[2020-06-22 18:32] LABS: Partial Thromboplastin Time 22.4 sec (22.0-30.0); Prothrombin Time 10.6 sec (9.0-12.0)
--- NOTE | 2020-06-22 18:44 | XR ---
EXAMINATION TYPE: XR abdomen 1V DATE OF EXAM: 06/22/2020 COMPARISON: 09/18/2019 HISTORY: Abdominal pain TECHNIQUE: 2 views upright FINDINGS: There is no sign of intestinal obstruction or pneumoperitoneum. There are possible tiny pito culi over the left kidney. There are clips from cholecystectomy. There is no evidence of a mass. Lung bases are clear. There are chest leads. There is normal fecal pattern. IMPRESSION: Nonacute abdomen. No adverse change. Possible left renal calculi.
[2020-06-22] MEDS ORDERED: HYDROmorphone 1 MG/ML 1 ML SYRINGE IVP STA (19:32)
--- NOTE | 2020-06-22 19:49 | CT ---
EXAMINATION TYPE: CT abdomen pelvis w con DATE OF EXAM: 06/22/2020 COMPARISON: 01/22/2019 HISTORY: Epigastric abdominal pain and nausea since this morning. CT DLP: 1097.2 mGycm Automated exposure control for dose reduction was used. CONTRAST: Performed with IV Contrast, patient injected with 100ml mL of Isovue 300. Heart size is normal. There is no pericardial effusion. There are no hilar masses. There is no pleura l effusion. Lung bases are clear. There is diffuse fatty infiltration of the liver. There are clips from cholecystectomy. Stomach is in tact. Spleen is intact. There is no pancreatic mass. There is 3 cm area of vascular enhancement in th e lateral right lobe of the liver that could be a hemangioma. Unchanged. There is no adrenal mass. Kidneys show satisfactory contrast opacification. There is no hydronephrosi s. There is 3 mm calculus posterior left kidney. Ureters are not dilated. There is no retroperitoneal adenopathy. Bladder distends smoothly. There is no inguinal hernia. Appendix is posterior and appear s normal. There is no mesenteric edema. There is no ascites or free air. There is no bowel obstructio n. Lumbar vertebra have normal alignment. Disc spaces are normal. Bony pelvis is intact. There is no carina dence of a fracture. IMPRESSION: No acute abnormality CT scan abdomen and pelvis. Fatty infiltration of the liver.
[2020-06-22 19:57] LABS: Amorphous Sediment,Urine Rare /hpf; Appearance,Urine Clear (Clear); Bilirubin,Urine 1+ (Negative); Blood,Urine Negative (Negative); Color,Urine Yellow; Glucose,Urine (UA) Negative (Negative); Hyaline Casts,Urine 29 /lpf (0-2); Ketones,Urine 3+ (Negative); Leukocyte Esterase,Urine Negative (Negative); Mucus,Urine Moderate /hpf; Nitrite,Urine Negative (Negative); PH, Urine 5.5 (5.0-8.0); Protein,Urine 1+ (Negative); RBC,Urine 1 /hpf (0-5); Specific Gravity,Urine 1.036 (1.001-1.035); WBC,Urine 2 /hpf (0-5)
[2020-06-22] MEDS ORDERED: MAG HYDROX/AL HYDROX/SIMETH 30 ML, HYOSCYAMINE ELIXIR 10 ML, LIDOCAINE VISCOUS 2% 10 ML PO STA ×3 (20:09)
[2020-06-22] MEDS ORDERED: LORazepam 2 MG/ML INJ IV STA (20:28)
[2020-06-22] MEDS ORDERED: NALOXONE 0.4 MG/ML 1 ML VIAL IV PRN (21:00)
[2020-06-22] MEDS ORDERED: ACETAMINOPHEN TAB 325 MG TAB PO PRN (21:00)
[2020-06-22] MEDS: SODIUM CHLORIDE 0.9% 1,000 ML IV SCH (22:29)
[2020-06-22] MEDS: MORPHINE SULFATE 4 MG/ML SYRINGE IV PRN (22:33)
[2020-06-22] MEDS ORDERED: LORazepam 2 MG/ML INJ IV PRN ×3 (23:30)
--- NOTE | 2020-06-22 23:30 | P.HPIM ---
History of Present Illness H&P Date: 06/22/20 Patient is a 35-year-old male with a PMH of EtOH abuse and pancreatitis who presents to the ED with complaints of abdominal pain with nausea and vomiting. The patient notes that he has cut down his drinking significantly, though still had 2 shots of whiskey last night. He reports that he suddenly developed an epigastric abdominal pain at around 11 AM today, sharp and cramping in nature, nonradiating, non-out of 10 at maximal intensity, currently at a 6 out of 10 after having received IV narcotics, with no clear alleviating or exacerbating features. Reports associated intractable nausea and vomiting with pulmonary episodes to count and inability to tolerate anything orally. The patient notes that this is similar in nature to his previous episodes of pancreatitis. The patient denied hematemesis or melena. Denied fever, chills, cough, chest pain, shortness of breath. Patient underwent an extensive evaluation in the emergency room with laboratory evaluation remarkable for WC count of 13.6, lactic acid 4.3, CO2 17, glucose 133, calcium 10.4, total bilirubin 1.4, AST 350, ALT 2019, alk phos 141. CT abdomen and pelvis revealed fatty infiltration of the liver. Review of Systems Pertinent positives and negatives as discussed in HPI, a complete review of systems was performed and all other systems are negative. Past Medical History Past Medical History: No Reported History Additional Past Medical History / Comment(s): 2019 pancreatitis, abdominal pain, occasional nausea/vomiting. History of Any Multi-Drug Resistant Organisms: None Reported Past Surgical History: Cholecystectomy, Hernia Repair, Orthopedic Surgery Additional Past Surgical History / Comment(s): 2019 EGD/colonoscopy, r inguinal hernia repair, R wrist surgery for abscess, L wrist surgery for tendon repair. Past Anesthesia/Blood Transfusion Reactions: No Reported Reaction Past Psychological History: No Psychological Hx Reported Smoking Status: Never smoker Past Alcohol Use History: Occasional Past Drug Use History: None Reported, Marijuana - Past Family History Father Family Medical History: No Reported History Mother Family Medical History: No Reported History Medications and Allergies Home Medications Medication Instructions Recorded Confirmed Type Acetaminophen/Diphenhydramine 2 tab PO HS PRN 06/22/20 06/22/20 History [Tylenol PM 500-25mg] Allergies Allergy/AdvReac Type Severity Reaction Status Date / Time No Known Allergies Allergy Verified 06/22/20 17:49 Physical Exam Vitals: Vital Signs Temp Pulse Resp BP Pulse Ox 06/22/20 22:13 98.8 F 106 H 16 124/74 97 06/22/20 20:41 114 H 18 145/99 95 06/22/20 19:27 98.8 F 129 H 18 151/104 96 06/22/20 17:45 98.5 F 144 H 20 131/76 97 Intake and Output 06/22/20 06/22/20 06/23/20 14:59 22:59 06:59 Other: Weight 86.183 kg General: non toxic, in mild distress due to pain, appears at stated age, overweight Derm: no unusual rashes/lesions no unusual ecchymoses, warm, dry Head: atraumatic, normocephalic, symmetric Eyes: EOMI, no lid lag, anicteric sclera, pupils equal round reactive to light ENT: Nose and ears atraumatic, no thrush, no pharyngeal erythema, minimal tongue fasciculations Neck: No thyromegaly, no cervical lymphadenopathy, trachea midline, supple Mouth: no lip lesion, mucus membranes moist Cardiovascular: S1S2 reg, no murmur, positive posterior tibial pulse bilateral, no edema, capillary refill less than 2 seconds Lungs: CTA bilateral, no rhonchi, no rales , no accessory muscle use Abdominal: soft, diffuse abdominal tenderness to palpation most notably in the upper quadrants, no guarding, normal bowel sounds Ext: no gross muscle atrophy, muscle strength 5 out of 5 in all 4 extremities grossly, no contractures, mild outstretched hand tremor Neuro: CN II-XI grossly intact, light touch intact all 4 extremities, finger to nose within normal limits, Psych: Alert, oriented, appropriate affect Results CBC & Chem 7: 06/22/20 18:09 06/22/20 18:09 Labs: Abnormal Lab Results - Last 24 Hours (Table) 06/22/20 06/22/20 06/22/20 Range/Units 18:09 18:09 18:09 WBC 13.6 H (3.8-10.6) k/uL Neutrophils # 11.1 H (1.3-7.7) k/uL Carbon Dioxide 17 L (22-30) mmol/L Glucose 133 H (74-99) mg/dL Plasma Lactic Acid Eugene (0.7-2.0) mmol/L Calcium 10.4 H (8.4-10.2) mg/dL Total Bilirubin 1.4 H (0.2-1.3) mg/dL AST 350 H (17-59) U/L ALT 219 H (4-49) U/L Alkaline Phosphatase 141 H (38-126) U/L Total Protein 9.0 H (6.3-8.2) g/dL Albumin 5.7 H (3.5-5.0) g/dL Ur Specific [place] 1.036 H (1.001-1.035) Urine Protein 1+ H (Negative) Urine Ketones 3+ H (Negative) Urine Bilirubin 1+ H (Negative) Amorphous Sediment Rare H (None) /hpf Hyaline Casts 29 H (0-2) /lpf Urine Mucus Moderate H (None) /hpf 06/22/20 Range/Units 19:59 WBC (3.8-10.6) k/uL Neutrophils # (1.3-7.7) k/uL Carbon Dioxide (22-30) mmol/L Glucose (74-99) mg/dL Plasma Lactic Acid Eugene 4.3 H* (0.7-2.0) mmol/L Calcium (8.4-10.2) mg/dL Total Bilirubin (0.2-1.3) mg/dL AST (17-59) U/L ALT (4-49) U/L Alkaline Phosphatase (38-126) U/L Total Protein (6.3-8.2) g/dL Albumin (3.5-5.0) g/dL Ur Specific [place] (1.001-1.035) Urine Protein (Negative) Urine Ketones (Negative) Urine Bilirubin (Negative) Amorphous Sediment (None) /hpf Hyaline Casts (0-2) /lpf Urine Mucus (None) /hpf Assessment and Plan Plan: Acute alcoholic hepatitis in setting of chronic EtOH abuse -Continue with IV fluids -Thiamine, folic acid -CIWA protocol -Clear liquid diet -Monitor liver function tests -Antiemetics Lactic acidosis, likely due to dehydration in setting of intractable nausea and vomiting -Monitor to resolution Leukocytosis -Likely due to acute stressor -Monitor for now DVT prophylaxis -Heparin subq The patient is admitted with an anticipated less than 2 midnight stay for evaluation of abdominal pain CODE STATUS: Full code Discussed with: Patient Anticipated discharge date: in am Anticipated discharge place: home A total of 35 minutes was spent on the care of this complex patient more than 50% of the time was spent in counseling and care coordination.
[2020-06-23] MEDS: HEPARIN SODIUM,PORCINE 5,000 UNIT/ML 1 ML VIAL SQ SCH ×4 (00:07→23:40)
[2020-06-23] MEDS: MORPHINE SULFATE 4 MG/ML SYRINGE IV PRN ×5 (02:34→20:15)
[2020-06-23] MEDS: SODIUM CHLORIDE 0.9% 1,000 ML IV SCH ×3 (06:50→23:41)
[2020-06-23] MEDS: ONDANSETRON 4 MG/2 ML VIAL IVP PRN ×2 (06:51→19:25)
[2020-06-23] MEDS: FOLIC ACID 1 MG TAB PO SCH (09:50)
[2020-06-23] MEDS: THIAMINE 100 MG TAB PO SCH (09:50)
[2020-06-23] MEDS ORDERED: bisacodyL 5 MG TABLET.DR PO PRN (10:15)
[2020-06-23] MEDS: PANTOPRAZOLE 40 MG/10 ML VIAL IVP SCH (10:43)
[2020-06-23] MEDS ORDERED: MAG HYDROX/AL HYDROX/SIMETH 30 ML, HYOSCYAMINE ELIXIR 10 ML, LIDOCAINE VISCOUS 2% 10 ML PO ONE ×3 (10:45)
[2020-06-23 11:13] LABS: HCT 37.7 % (39.0-53.0); MCH 35.3 pg (25.0-35.0); MCHC 35.1 g/dL (31.0-37.0); MCV 100.7 fL (80.0-100.0); Mean Platelet Volume 7.2; Platelet Count 191 k/uL (150-450); RBC 3.75 m/uL (4.30-5.90); WBC 6.1 k/uL (3.8-10.6)
[2020-06-23 11:23] LABS: ALT 142 U/L (4-49); AST 162 U/L (17-59); African American GFR (CKD) >90 (>60 ml/min/1.73 sqM); Albumin 4.1 g/dL (3.5-5.0); Alkaline Phosphatase 81 U/L (38-126); Anion Gap 10 mmol/L; Blood Urea Nitrogen 11 mg/dL (9-20); Carbon Dioxide 20 mmol/L (22-30); Chloride 107 mmol/L (98-107); Glucose 125 mg/dL (74-99); Non-African American GFR(CKD) >90 (>60 ml/min/1.73 sqM); Potassium 3.7 mmol/L (3.5-5.1); Sodium 137 mmol/L (137-145); Total Bilirubin 1.2 mg/dL (0.2-1.3); Total Protein 6.5 g/dL (6.3-8.2)
[2020-06-23 12:06] LABS: HGB 13.2 gm/dL (13.0-17.5)
--- NOTE | 2020-06-23 16:47 | P.PN ---
Subjective Progress Note Date: 06/23/20 (delayed charting seen at 0930) Principal diagnosis: abdominal pain Patient is a 35 yo CM with a hx of pancreatitis, abdominal pain, prior gastritis, and ETOH abuse who presented to the hospital with complaints of Abdominal pain. He thought it was due to recurrent pancreatitis as it occurred after having alcohol whcih he had been trying to abstain from. However his CT abdomen and pelvis and lipase were normal. He was admitted for ETOH hepatitis and lactic acidosis. He was started on IV fluids and pain control. Patient seen and examined at bedside. He continues to have abdominal pain. He states the morphine is not fully taking away. He also complains of headache with a bump that he can feel on his left forehead. He denies any nausea or vomiting. He reports feeling anxious. He states that he has been cut down alcohol and had not had some quite some time but then had 2 shots and developed abdominal pain. General: non toxic, mild distress secondary to pain, appears at stated age Derm: warm, dry, diaphoretic Head: atraumatic, normocephalic, symmetric Eyes: EOMI, no lid lag, anicteric sclera Mouth: no lip lesion, mucus membranes dry Cardiovascular: S1S2 reg, no murmur, positive posterior tibial pulse bilateral, Lungs: CTA bilateral, no rhonchi, no rales , no accessory muscle use Abdominal: soft, tender to palpation. Epigastric, no guarding, no appreciable organomegaly Ext: no gross muscle atrophy, no edema, no contractures Neuro: CN II-XI grossly intact, no focal neuro deficits Psych: Alert, oriented, appropriate affect Alcoholic hepatitis - improving -Abstain from alcohol -Follow liver enzymes -Counseling on importance of abstaining from alcohol Abdominal pain suspect secondary to alcoholic gastritis with negative computed tomography scan -GI cocktail 1, start IV PPI -Morphine as needed for breakthrough pain Chronic ETOH abuse, has been cutting down - [facility] protocol - Thiamine, folic acid Lactic acidosis, resolved Leukocytosis, resolved DVT prophylaxis: SCDs Discussed with: patient, nursing Anticipated discharge date: in 1-[address]: home A total of 35 minutes was spent on the care of this complex patient more than 50% of the time was spent in counseling and care coordination. Objective - Vital Signs Vital signs: Vital Signs Temp 96.8 F L 06/23/20 14:52 Pulse 75 06/23/20 14:52 Resp 16 06/23/20 14:52 BP 119/79 06/23/20 14:52 Pulse Ox 95 06/23/20 14:52 Intake & Output 06/22/20 06/23/20 06/23/20 18:59 06:59 18:59 Intake Total 1200 Balance 1200 Weight 86.183 kg 86.183 kg Intake: Intake, IV Titration 960 Amount Sodium Chloride 0.9% 1, 960 000 ml @ 120 mls/hr IV . Q8H20M [facility] Rx#:[id number] Oral 240 Other: # Voids 1 1 - Labs CBC & Chem 7: 06/23/20 10:52 06/23/20 10:52 Labs: Abnormal Lab Results - Last 24 Hours (Table) 06/22/20 06/22/20 06/22/20 Range/Units 18:09 18:09 18:09 WBC 13.6 H (3.8-10.6) k/uL RBC (4.30-5.90) m/uL Hct (39.0-53.0) % MCV (80.0-100.0) fL MCH (25.0-35.0) pg Neutrophils # 11.1 H (1.3-7.7) k/uL Carbon Dioxide 17 L (22-30) mmol/L Glucose 133 H (74-99) mg/dL Plasma Lactic Acid Eugene (0.7-2.0) mmol/L Calcium 10.4 H (8.4-10.2) mg/dL Total Bilirubin 1.4 H (0.2-1.3) mg/dL AST 350 H (17-59) U/L ALT 219 H (4-49) U/L Alkaline Phosphatase 141 H (38-126) U/L Total Protein 9.0 H (6.3-8.2) g/dL Albumin 5.7 H (3.5-5.0) g/dL Ur Specific [place] 1.036 H (1.001-1.035) Urine Protein 1+ H (Negative) Urine Ketones 3+ H (Negative) Urine Bilirubin 1+ H (Negative) Amorphous Sediment Rare H (None) /hpf Hyaline Casts 29 H (0-2) /lpf Urine Mucus Moderate H (None) /hpf 06/22/20 06/23/20 06/23/20 Range/Units 19:59 10:52 10:52 WBC (3.8-10.6) k/uL RBC 3.75 L (4.30-5.90) m/uL Hct 37.7 L (39.0-53.0) % MCV 100.7 H (80.0-100.0) fL MCH 35.3 H (25.0-35.0) pg Neutrophils # (1.3-7.7) k/uL Carbon Dioxide 20 L (22-30) mmol/L Glucose 125 H (74-99) mg/dL Plasma Lactic Acid Eugene 4.3 H* (0.7-2.0) mmol/L Calcium 8.0 L (8.4-10.2) mg/dL Total Bilirubin (0.2-1.3) mg/dL AST 162 H (17-59) U/L ALT 142 H (4-49) U/L Alkaline Phosphatase (38-126) U/L Total Protein (6.3-8.2) g/dL Albumin (3.5-5.0) g/dL Ur Specific [place] (1.001-1.035) Urine Protein (Negative) Urine Ketones (Negative) Urine Bilirubin (Negative) Amorphous Sediment (None) /hpf Hyaline Casts (0-2) /lpf Urine Mucus (None) /hpf
[2020-06-24] MEDS: MORPHINE SULFATE 4 MG/ML SYRINGE IV PRN ×6 (00:52→22:34)
[2020-06-24] MEDS: SODIUM CHLORIDE 0.9% 1,000 ML IV SCH ×2 (05:21→13:45)
[2020-06-24] MEDS: HEPARIN SODIUM,PORCINE 5,000 UNIT/ML 1 ML VIAL SQ SCH ×3 (06:40→22:34)
[2020-06-24 08:20] LABS: HGB 13.1 gm/dL (13.0-17.5); MCH 35.6 pg (25.0-35.0); MCHC 35.5 g/dL (31.0-37.0); MCV 100.2 fL (80.0-100.0); Mean Platelet Volume 7.2; Platelet Count 183 k/uL (150-450); RBC 3.69 m/uL (4.30-5.90); WBC 5.7 k/uL (3.8-10.6)
[2020-06-24 08:26] LABS: ALT 121 U/L (4-49); AST 130 U/L (17-59); African American GFR (CKD) >90 (>60 ml/min/1.73 sqM); Albumin 4.1 g/dL (3.5-5.0); Alkaline Phosphatase 83 U/L (38-126); Anion Gap 6 mmol/L; Blood Urea Nitrogen 5 mg/dL (9-20); Calcium 8.2 mg/dL (8.4-10.2); Carbon Dioxide 25 mmol/L (22-30); Chloride 107 mmol/L (98-107); Glucose 112 mg/dL (74-99); Magnesium 2.2 mg/dL (1.6-2.3); Non-African American GFR(CKD) >90 (>60 ml/min/1.73 sqM); Potassium 3.9 mmol/L (3.5-5.1); Sodium 138 mmol/L (137-145); Total Bilirubin 0.9 mg/dL (0.2-1.3); Total Protein 6.5 g/dL (6.3-8.2)
[2020-06-24] MEDS ORDERED: polyethylene glycoL 3350 17 GM POWD.PACK PO STA (09:26)
[2020-06-24] MEDS: PANTOPRAZOLE 40 MG/10 ML VIAL IVP SCH (09:59)
[2020-06-24] MEDS: FOLIC ACID 1 MG TAB PO SCH (10:00)
[2020-06-24] MEDS: FAMOTIDINE 20 MG TAB PO SCH (10:00)
[2020-06-24] MEDS: THIAMINE 100 MG TAB PO SCH (10:00)
[2020-06-24] MEDS: SUCRALFATE 1 GM TAB PO SCH ×2 (12:18→17:45)
[2020-06-24 16:54] LABS: Hepatitis A Antibody IgM Non-Reactive (Non-Reactive); Hepatitis B Core IgM Non-Reactive (Non-Reactive); Hepatitis B Surface Antigen Non-Reactive (Non-Reactive); Hepatitis C IgG Antibody Non-Reactive (Non-Reactive)
--- NOTE | 2020-06-24 17:37 | P.CONS ---
History of Present Illness - Reason for Consult Consult date: 06/24/20 Abdominal pain Requesting physician: Abiola Ortez - Chief Complaint Abdominal pain - History of Present Illness 35-year-old male with a past medical history significant for EtOH abuse, prior hospitalizations for pancreatitis and a reported history of gastritis who pres ented to the hospital due to complaints of abdominal pain. The patient has been hospitalized for pancreatitis secondary to alcohol abuse. The patient had been trying to abstain from alcohol but has been drinking recently. He reports developing pain described as sharp and constant in the epigastric region of his abdomen. No radiation of the pain and it is not made worse by eating. He does report that he's been somewhat constipated recently and generally has bowel movements every day or every other day but has gone 3-4 days without a bowel movement. Last bowel movement was normal in color with no melena or hematochezia reported. He is status post cholecystectomy in 2014. On presentation lipase was normal at 233 with WBC 5.7, hemoglobin 13.1, platelet count 183,000 and mild elevation in liver enzymes with a total bilirubin of 0.9, alkaline phosphatase 83, AST 130 and MALT 121 which have improved after admission. Computed tomography scan of the abdomen with evidence of prior juma cystectomy and a fatty liver noted. Patient has continued to have pain during his hospitalization. He has been started on PPI therapy and been given a bowel regimen. The patient is does report use of nighttime ibuprofen fairly regularly. Review of Systems REVIEW OF SYSTEMS: CONSTITUTIONAL: Denies any fevers, chills, weight change or fatigue. CARDIOVASCULAR: Denies any chest pain, palpitations high or low blood pressures RESPIRATORY: Denies any shortness of breath, hemoptysis or cough. GENITOURINARY: No dysuria or hematuria. MUSCULOSKELETAL: No weakness reported. SKIN: Denies any new rashes or lesions, jaundice or pallor. PSYCHIATRIC: Denies any depression or anxiety, history of alcohol abuse. NEUROLOGY: Denies headache, denies any new focal deficits. EARS/NOSE/THROAT: No recent hearing change, congestion, nasal discharge or sore throat. EYES: No pain in eyes, discharge or change in vision. GASTROINTESTINAL: As per HPI. Past Medical History Past Medical History: No Reported History Additional Past Medical History / Comment(s): 2019 pancreatitis, abdominal pain, occasional nausea/vomiting. History of Any Multi-Drug Resistant Organisms: None Reported Past Surgical History: Cholecystectomy, Hernia Repair, Orthopedic Surgery Additional Past Surgical History / Comment(s): 2019 EGD/colonoscopy, r inguinal hernia repair, R wrist surgery for abscess, L wrist surgery for tendon repair. Past Anesthesia/Blood Transfusion Reactions: No Reported Reaction Past Psychological History: No Psychological Hx Reported Additional Psychological History / Comment(s): Pt resides with his fiancee. He is independent. Smoking Status: Never smoker Past Alcohol Use History: Occasional Additional Past Alcohol Use History / Comment(s): Pt states he drinks a couple shots twice a week but no more than that. Past Drug Use History: None Reported, Marijuana - Past Family History Father Family Medical History: No Reported History Mother Family Medical History: No Reported History Medications and Allergies Home Medications Medication Instructions Recorded Confirmed Type Acetaminophen/Diphenhydramine 2 tab PO HS PRN 06/22/20 06/22/20 History [Tylenol PM 500-25mg] Allergies Allergy/AdvReac Type Severity Reaction Status Date / Time No Known Allergies Allergy Verified 06/22/20 17:49 Physical Exam Vitals: Vital Signs Temp Pulse Resp BP Pulse Ox 06/24/20 08:27 97.8 F 66 18 154/90 98 06/24/20 03:00 98 F 81 18 144/81 97 06/23/20 21:00 98 F 78 18 144/91 96 06/23/20 14:52 96.8 F L 75 16 119/79 95 Intake and Output 06/23/20 06/24/20 06/24/20 22:59 06:59 14:59 Intake Total 540 Balance 540 Intake: Oral 540 Other: # Voids 1 On physical examination, patient appears comfortable in no apparent distress. HEAD: Normocephalic, atraumatic. EYES: No scleral icterus. No conjunctival injection. MOUTH: No lesions, tongue midline. NECK: Trachea midline, no gross abnormalities. CHEST: Clear to auscultation with no wheezing or rhonchi appreciated. HEART: Regular rate and rhythm. ABDOMEN: Soft, mildly tender to palpation in the epigastric region of the abdomen. Bowel sounds are positive. No organomegaly. No guarding or rigidity. EXTREMITIES: No pedal edema. SKIN: No rashes, no jaundice. NEUROLOGIC: Alert and oriented x3. No focal deficits. Results CBC & Chem 7: 06/24/20 07:58 06/24/20 07:58 Labs: Abnormal Lab Results - Last 24 Hours (Table) 06/23/20 06/23/20 06/24/20 Range/Units 10:52 10:52 07:58 RBC 3.75 L 3.69 L (4.30-5.90) m/uL Hct 37.7 L 37.0 L (39.0-53.0) % MCV 100.7 H 100.2 H (80.0-100.0) fL MCH 35.3 H 35.6 H (25.0-35.0) pg Carbon Dioxide 20 L (22-30) mmol/L BUN (9-20) mg/dL Glucose 125 H (74-99) mg/dL Calcium 8.0 L (8.4-10.2) mg/dL AST 162 H (17-59) U/L ALT 142 H (4-49) U/L 06/24/20 Range/Units 07:58 RBC (4.30-5.90) m/uL Hct (39.0-53.0) % MCV (80.0-100.0) fL MCH (25.0-35.0) pg Carbon Dioxide (22-30) mmol/L BUN 5 L (9-20) mg/dL Glucose 112 H (74-99) mg/dL Calcium 8.2 L (8.4-10.2) mg/dL AST 130 H (17-59) U/L ALT 121 H (4-49) U/L CT scan - abdomen: report reviewed (Computed tomography scan of the abdomen with findings of fatty liver and prior cholecystectomy) Assessment and Plan (1) Abdominal pain Narrative/Plan: 35-year-old male with a medical history significant for prior cholecystectomy, pancreatitis and alcohol abuse who presented to the hospital for abdominal pain. He describes the pain as constant in the epigastric region of his abdomen and without radiation. He felt that this may be an episode of pancreatitis as he is been drinking recently however lipase was normal and no evidence of pancreatitis on computed tomography scan of the abdomen which was significant only for prior cholecystectomy as well as fatty infiltration of the liver. Previously had an EGD 3-4 years ago for evaluation of nausea and vomiting and reports gastritis at that time. He does report frequent use of NSAID medications with ibuprofen taken nightly. Unclear etiology, may be related to alcoholic gastritis, esophagitis, GERD, recent constipation or other etiology. Current Visit: Yes Status: Acute Code(s): R10.9 - UNSPECIFIED ABDOMINAL PAIN SNOMED Code(s): 02421560 (2) Elevated liver enzymes Current Visit: Yes Status: Acute Code(s): R74.8 - ABNORMAL LEVELS OF OTHER SERUM ENZYMES SNOMED Code(s): 503213979 Plan: Supportive care Clear liquid diet Nothing by mouth after midnight Continue Protonix daily Dicyclomine added [id number] for abdominal pain Bowel regimen including MiraLAX and Colace ordered by primary team Continue to monitor CBC, BMP, LFTs Continue to monitor clinically Plan for EGD tomorrow for further evaluation Thank you for allowing us to participate in the care of the patient we will continue to follow
[2020-06-24] MEDS: DICYCLOMINE 20 MG TAB PO SCH ×2 (18:29→22:34)
--- NOTE | 2020-06-24 19:04 | P.PN ---
Subjective Progress Note Date: 06/24/20 (abdominal pain) Principal diagnosis: abdominal pain Patient is a 35 yo CM with a hx of pancreatitis, abdominal pain, prior gastritis, and ETOH abuse who presented to the hospital with complaints of Abdominal pain. He thought it was due to recurrent pancreatitis as it occurred after having alcohol whcih he had been trying to abstain from. However his CT abdomen and pelvis and lipase were normal. He was admitted for ETOH hepatitis and lactic acidosis. He was started on IV fluids and pain control. He continued to have abdominal pain. He was started on protonix and given a GI cocktail which did improve his pain, how every it came back after an episode of vomiting. Patient seen and examined at bedside. GI cocktail helped for a few hours then pain came back, increased pain with eating, no nausea now, still having a headache. General: non toxic, no distress, appears at stated age Derm: warm, dry, diaphoretic Head: atraumatic, normocephalic, symmetric Eyes: EOMI, no lid lag, anicteric sclera Mouth: no lip lesion, mucus membranes dry Cardiovascular: S1S2 reg, no murmur, positive posterior tibial pulse bilateral, Lungs: CTA bilateral, no rhonchi, no rales , no accessory muscle use Abdominal: soft, tender to palpation epigastric, no guarding, no appreciable organomegaly Ext: no gross muscle atrophy, no edema, no contractures Neuro: CN II-XI grossly intact, no focal neuro deficits Psych: Alert, oriented, appropriate affect Alcoholic hepatitis - improving -Abstain from alcohol -Follow liver enzymes -Counseling on importance of abstaining from alcohol Abdominal pain suspect secondary to alcoholic gastritis vs esophagitis vs gastric ulcer - pancreatitis ruled out with negative CT abdomen and pelvis and normal lipase -IV PPI, add pepcid and carafate - consult GI: plans for EGD in AM -Morphine as needed for breakthrough pain Constipation - miralax Chronic ETOH abuse, has been cutting down - [facility] protocol - Thiamine, folic acid Lactic acidosis, resolved Leukocytosis, resolved Transition to inpatient as patient failed observation treatment for his abdominal pain. Discharge at this time could worsen condition if related to severe ulcer, ileus, obstruction. DVT prophylaxis: SCDs Discussed with: patient, nursing Anticipated discharge date: in 1-[address]: home A total of 35 minutes was spent on the care of this complex patient more than 50% of the time was spent in counseling and care coordination. Objective - Vital Signs Vital signs: Vital Signs Temp 97.6 F 06/24/20 15:00 Pulse 77 06/24/20 15:00 Resp 16 06/24/20 15:00 BP 129/86 06/24/20 15:00 Pulse Ox 96 06/24/20 15:00 Intake & Output 06/23/20 06/24/20 06/24/20 18:59 06:59 18:59 Intake Total 1200 540 Balance 1200 540 Intake: Intake, IV Titration 960 Amount Sodium Chloride 0.9% 1, 960 000 ml @ 120 mls/hr IV . Q8H20M [facility] Rx#:[id number] Oral 240 540 Other: # Voids 1 1 # Bowel Movements 1 - Labs CBC & Chem 7: 06/24/20 07:58 06/24/20 07:58 Labs: Abnormal Lab Results - Last 24 Hours (Table) 06/24/20 06/24/20 Range/Units 07:58 07:58 RBC 3.69 L (4.30-5.90) m/uL Hct 37.0 L (39.0-53.0) % MCV 100.2 H (80.0-100.0) fL MCH 35.6 H (25.0-35.0) pg BUN 5 L (9-20) mg/dL Glucose 112 H (74-99) mg/dL Calcium 8.2 L (8.4-10.2) mg/dL AST 130 H (17-59) U/L ALT 121 H (4-49) U/L
[2020-06-25] MEDS: SODIUM CHLORIDE 0.9% 1,000 ML IV SCH ×3 (00:31→20:04)
[2020-06-25] MEDS: MORPHINE SULFATE 4 MG/ML SYRINGE IV PRN ×3 (02:40→10:46)
[2020-06-25] MEDS: HEPARIN SODIUM,PORCINE 5,000 UNIT/ML 1 ML VIAL SQ SCH ×2 (07:03→16:59)
[2020-06-25 08:30] LABS: HCT 38.5 % (39.0-53.0); HGB 13.5 gm/dL (13.0-17.5); MCH 35.4 pg (25.0-35.0); MCHC 35.1 g/dL (31.0-37.0); MCV 100.7 fL (80.0-100.0); Mean Platelet Volume 7.4; Platelet Count 193 k/uL (150-450); RBC 3.83 m/uL (4.30-5.90); RDW 12.9 % (11.5-15.5); WBC 6.9 k/uL (3.8-10.6)
[2020-06-25 08:49] LABS: ALT 99 U/L (4-49); AST 91 U/L (17-59); African American GFR (CKD) >90 (>60 ml/min/1.73 sqM); Alkaline Phosphatase 88 U/L (38-126); Anion Gap 7 mmol/L; Blood Urea Nitrogen 5 mg/dL (9-20); Calcium 8.5 mg/dL (8.4-10.2); Carbon Dioxide 24 mmol/L (22-30); Chloride 106 mmol/L (98-107); Glucose 92 mg/dL (74-99); Non-African American GFR(CKD) >90 (>60 ml/min/1.73 sqM); Sodium 137 mmol/L (137-145); Total Protein 6.4 g/dL (6.3-8.2)
[2020-06-25] MEDS: DICYCLOMINE 20 MG TAB PO SCH ×4 (09:04→22:47)
[2020-06-25] MEDS: THIAMINE 100 MG TAB PO SCH (09:04)
[2020-06-25] MEDS: FOLIC ACID 1 MG TAB PO SCH (09:04)
[2020-06-25] MEDS: SUCRALFATE 1 GM TAB PO SCH ×2 (09:04→14:02)
[2020-06-25] MEDS: FAMOTIDINE 20 MG TAB PO SCH (09:04)
[2020-06-25] MEDS: PANTOPRAZOLE 40 MG/10 ML VIAL IVP SCH (09:06)
[2020-06-25] MEDS ORDERED: LIDOCAINE 1% INJ 10MG/ML (20 ML MDV) ONE (13:01)
[2020-06-25] MEDS ORDERED: PROPOFOL 10 MG/ML 20 ML VIAL IV ONE (13:01)
[2020-06-25] MEDS ORDERED: fentaNYL (PF) 50 MCG/ML 2 ML AMP ONE (13:01)
[2020-06-25] MEDS ORDERED: MIDAZOLAM 2 MG/2 ML VIAL ONE (13:01)
[2020-06-25] MEDS ORDERED: IV FLUID CONTINUATION 1,000 ML IV ONE (13:05)
--- NOTE | 2020-06-25 13:13 | P.PCN ---
Date of Procedure: 06/25/20 Procedure(s) Performed: BRIEF HISTORY: Patient is a 35-year-old, pleasant, male admitted hospital with severe epigastric pain for the last few days duration.. PROCEDURE PERFORMED: Esophagogastroduodenoscopy with biopsy. PREOPERATIVE DIAGNOSIS: Epigastric pain. IV sedation per anesthesia. PROCEDURE: After informed consent was obtained, the patient was brought into the endoscopy unit. IV sedation was administered by Anesthesia under continuous monitoring. Initially the Olympus GIF-140 video endoscope was inserted into the mouth. Esophagus intubated without any difficulty. It was gradually advanced into the stomach and duodenum and carefully examined. The bulb had mild duodenitis and the second part of the duodenum appeared normal. Abscesses were done from the bulb of the duodenum. The scope at this time was withdrawn to the stomach, adequately insufflated with air, and upon careful examination, mucosa of the antrum, had multiple linear areas of erythema consistent with gastritis and biopsies were done from this area. The body, cardia and the fundus appeared normal. The scope was then withdrawn into the esophagus. The GE junction was located at 39 cm from the incisors. The esophagus appeared normal. There were no erosions or ulcerations seen and biopsies were done from the distal esophagus and the patient tolerated the procedure well. IMPRESSION: 1. Mild antral gastritis and duodenitis. 2. No evidence of esophagitis or peptic ulcer disease. RECOMMENDATIONS: The findings of this examination were discussed with the patient . At this time will await the biopsy results. Diet will be advanced as tolerated. Continue Protonix 40 mg daily..
--- NOTE | 2020-06-25 14:10 | P.PN ---
Subjective Progress Note Date: 06/25/20 (delayed charting seen at 1030) Principal diagnosis: abdominal pain Patient is a 35 yo CM with a hx of pancreatitis, abdominal pain, prior gastritis, and ETOH abuse who presented to the hospital with complaints of Abdominal pain. He thought it was due to recurrent pancreatitis as it occurred after having alcohol whcih he had been trying to abstain from. However his CT abdomen and pelvis and lipase were normal. He was admitted for ETOH hepatitis and lactic acidosis. He was started on IV fluids and pain control. He continued to have abdominal pain. He was started on protonix and given a GI cocktail which did improve his pain, how every it came back after an episode of vomiting. He was seen by GI and underwent EGD on 06/25 which showed mild gastritis and duodenitis. Patient seen and examined at bedside. ABD pain is better than at admission but still significant, no nausea, wanting to eat real food, + liquid BM yesterday after laxative. General: non toxic, no distress, appears at stated age Derm: warm, dry, diaphoretic Head: atraumatic, normocephalic, symmetric Eyes: EOMI, no lid lag, anicteric sclera Mouth: no lip lesion, mucus membranes dry Cardiovascular: S1S2 reg, no murmur, positive posterior tibial pulse bilateral, Lungs: CTA bilateral, no rhonchi, no rales , no accessory muscle use Abdominal: soft, tender to palpation epigastric ad LLQ, no guarding, no appreciable organomegaly Ext: no gross muscle atrophy, no edema, no contractures Neuro: CN II-XI grossly intact, no focal neuro deficits Psych: Alert, oriented, appropriate affect Alcoholic hepatitis - improving -Abstain from alcohol -Follow liver enzymes -Counseling on importance of abstaining from alcohol Abdominal pain secondary to gastritis and duodenitis - pancreatitis ruled out with negative CT abdomen and pelvis and normal lipase - COntinue PPI, S/p EGD - Bentyl - GI recs appreciated -Morphine as needed for breakthrough pain - Avoid NSAIDS and ETOH Constipation, improved - miralax Chronic ETOH abuse, has been cutting down - [facility] protocol - Thiamine, folic acid Lactic acidosis, resolved Leukocytosis, resolved Transition to inpatient as patient failed observation treatment for his abdominal pain. Discharge at this time could worsen condition if related to severe ulcer, ileus, obstruction. DVT prophylaxis: SCDs Discussed with: patient, nursing Anticipated discharge date: in AM Anticipated discharge place: home A total of 35 minutes was spent on the care of this complex patient more than 50% of the time was spent in counseling and care coordination. Objective - Vital Signs Vital signs: Vital Signs Temp 97.1 F L 06/25/20 09:00 Pulse 66 06/25/20 09:00 Resp 18 06/25/20 09:00 BP 130/79 06/25/20 09:00 Pulse Ox 96 06/25/20 09:00 Intake & Output 06/24/20 06/25/20 06/25/20 18:59 06:59 18:59 Intake Total 100 Balance 100 Intake: IV 100 Other: # Voids 2 # Bowel Movements 1 1 - Labs CBC & Chem 7: 06/25/20 08:08 06/25/20 08:08 Labs: Abnormal Lab Results - Last 24 Hours (Table) 06/25/20 06/25/20 Range/Units 08:08 08:08 RBC 3.83 L (4.30-5.90) m/uL Hct 38.5 L (39.0-53.0) % MCV 100.7 H (80.0-100.0) fL MCH 35.4 H (25.0-35.0) pg BUN 5 L (9-20) mg/dL AST 91 H (17-59) U/L ALT 99 H (4-49) U/L
[2020-06-25] MEDS: HYDROcodone/APAP 5-325MG 1 EACH TAB PO PRN ×2 (14:44→20:42)
[2020-06-25 23:11] VITALS: RESP 16
[2020-06-26] MEDS: HEPARIN SODIUM,PORCINE 5,000 UNIT/ML 1 ML VIAL SQ SCH ×2 (00:23→09:44)
[2020-06-26] MEDS: HYDROcodone/APAP 5-325MG 1 EACH TAB PO PRN ×2 (03:06→09:54)
--- NOTE | 2020-06-26 08:33 | P.DS ---
Providers Date of admission: 06/24/20 11:17 Expected date of discharge: 06/26/20 Attending physician: Kyle Jerry MD Consults: 06/24/20 09:26 Consult Physician Routine Consulting Provider: Rory Colon Consult Reason/Comments: abdominal pain Do you want consulting provider notified?: Yes Primary care physician: Stated None Hospital Course: Discharge Diagnosis: Gastritis and doudenitis Alcoholic hepatitis Constipation Abdominal pain secondary to above Chronic ETOH abuse Lactic acidosis Leukocytosis Hospital Course: Patient is a 35 yo CM with a hx of pancreatitis, abdominal pain, prior gastritis, and ETOH abuse who presented to the hospital with complaints of Abdominal pain. He thought it was due to recurrent pancreatitis as it occurred after having alcohol whcih he had been trying to abstain from. However his CT abdomen and pelvis and lipase were normal. He was admitted for ETOH hepatitis and lactic acidosis. He was started on IV fluids and pain control. He continued to have abdominal pain. He was started on protonix and given a GI cocktail which did improve his pain, how every it came back after an episode of vomiting. He was seen by GI and underwent EGD on 06/25 which showed mild gastritis and duodenitis. He tolerated a regular diet after his procedure and was determined stable for discharge home. He will take a BID PPI X 6 weeks. He will establish with a PCP and follow-up with Dr. Colon. Patient seen and examined at bedside. Still having some pain but improving, No vomiting, No nausea, still with some abdominal pain improving since admission. Vital signs reviewed and stable. General: non toxic, no distress, appears at stated age Derm: warm, dry Head: atraumatic, normocephalic, symmetric Eyes: EOMI, no lid lag, anicteric sclera Mouth: no lip lesion, mucus membranes moist Cardiovascular: S1S2 reg, no murmur, positive posterior tibial pulse bilateral, Lungs: CTA bilateral, no rhonchi, no rales , no accessory muscle use Abdominal: soft, Tender to palpation epigastric- less than yesterday, no guarding, no appreciable organomegaly Ext: no gross muscle atrophy, no edema, no contractures Neuro: CN II-XI grossly intact, no focal neuro deficits Psych: Alert, oriented, appropriate affect A total of 25 minutes of time were spent preparing this complex discharge summary . Patient Condition at Discharge: Fair Plan - Discharge Summary Discharge Rx Participant: No New Discharge Prescriptions: New HYDROcodone/APAP 5-325MG [[place] 5-325] 1 each PO Q6HR PRN #12 tab PRN Reason: Pain Pantoprazole [Protonix] 40 mg PO BID #90 tablet. Continue Acetaminophen/Diphenhydramine [Tylenol PM 500-25mg] 2 tab PO HS PRN PRN Reason: pain/insomnia Discharge Medication List Acetaminophen/Diphenhydramine [Tylenol PM 500-25mg] 2 tab PO HS PRN 06/22/20 [History] HYDROcodone/APAP 5-325MG [Var[place] 5-325] 1 each PO Q6HR PRN #12 tab 06/26/20 [Rx] Pantoprazole [Protonix] 40 mg PO BID #90 tablet. 06/26/20 [Rx] Follow up Appointment(s)/Referral(s): Rory Colon MD [STAFF PHYSICIAN] - 2 Weeks Forrest Saldana MD [STAFF PHYSICIAN] - 1-2 Days Patient Instructions/Handouts: Gastritis (DC) Discharge Disposition: HOME SELF-CARE
[2020-06-26] MEDS: FOLIC ACID 1 MG TAB PO SCH (09:44)
[2020-06-26] MEDS: DICYCLOMINE 20 MG TAB PO SCH (09:44)
[2020-06-26] MEDS: FAMOTIDINE 20 MG TAB PO SCH (09:44)
[2020-06-26] MEDS: PANTOPRAZOLE 40 MG/10 ML VIAL IVP SCH (09:44)
[2020-06-26] MEDS: THIAMINE 100 MG TAB PO SCH (09:44)
[2020-06-26 09:52] VITALS: BP 121/79; PULSE 68; TEMP 97.8
== END 2020-06-26 11:12 | disposition home or self-care (01) | DRG 392 ==
LOC: EC 17:32 → 1SOBS 21:00 → OBSVTOIN 06-24 11:17
PROVIDERS: ADMIT Internal Medicine; ATTEND Internal Medicine
PROC: 0DB58ZX Excision of Esophagus, Via Natural or Artificial Opening Endoscopic, Diagnostic (ICD-10-PCS; principal; 2020-06-25 08:40)
PROC: 0DB98ZX Excision of Duodenum, Via Natural or Artificial Opening Endoscopic, Diagnostic (ICD-10-PCS; principal; 2020-06-25 08:40)
PROC: 0DB68ZX Excision of Stomach, Via Natural or Artificial Opening Endoscopic, Diagnostic (ICD-10-PCS; principal; 2020-06-25 08:40)
DX: K29.80 Duodenitis without bleeding (principal); E87.2 Acidosis; K59.00 Constipation, unspecified; K70.10 Alcoholic hepatitis without ascites; K29.20 Alcoholic gastritis without bleeding; F10.10 Alcohol abuse, uncomplicated; K76.0 Fatty (change of) liver, not elsewhere classified; D72.829 Elevated white blood cell count, unspecified; E86.0 Dehydration; Z90.49 Acquired absence of other specified parts of digestive tract; Z98.890 Other specified postprocedural states
CPT/HCPCS: 36415; 43239; 74018; 74177; 80053; 80074; 81001; 83605; 83690; 83735; 85025; 85027; 85610; 85730; 88305; 93005; 96361; 96374; 96375; 96376; 99285

== ENCOUNTER 2020-07-13 21:26 | Emergency (ER) | payer OTHER ==
[2020-07-13 21:33] VITALS: TEMP 98.7
[2020-07-13] MEDS: HYDROmorphone 1 MG/ML 1 ML SYRINGE IVP STA ×2 (22:13→23:22)
[2020-07-13] MEDS: ONDANSETRON 4 MG/2 ML VIAL IVP STA (22:13)
[2020-07-13] MEDS: diphenhydrAMINE 50 MG/ML 1 ML VIAL IVP STA (22:13)
[2020-07-13] MEDS: SODIUM CHLORIDE 0.9% 1,000 ML IV STA (22:14)
[2020-07-13] MEDS: SODIUM CHLORIDE 0.9% 500 ML 500 ML IV STA (22:14)
[2020-07-13 22:26] LABS: Basophils # (A) 0.1 k/uL (0-0.2); Basophils % (A) 2 %; Eosinophils # (A) 0.1 k/uL (0-0.7); Eosinophils % (A) 1 %; HCT 49.3 % (39.0-53.0); Lymphocytes # (A) 1.8 k/uL (1.0-4.8); Lymphocytes % (A) 22 %; MCH 34.1 pg (25.0-35.0); MCHC 35.4 g/dL (31.0-37.0); MCV 96.4 fL (80.0-100.0); Monocytes # (A) 0.5 k/uL (0-1.0); Monocytes % (A) 6 %; Neutrophils # (A) 5.5 k/uL (1.3-7.7); Neutrophils % (A) 68 %; Platelet Count 358 k/uL (150-450); RBC 5.11 m/uL (4.30-5.90); RDW 12.4 % (11.5-15.5)
[2020-07-13 22:34] LABS: Appearance,Urine Clear (Clear); Bacteria,Urine Rare /hpf; Bilirubin,Urine Negative (Negative); Blood,Urine Negative (Negative); Color,Urine Yellow; Glucose,Urine (UA) Negative (Negative); Hyaline Casts,Urine 20 /lpf (0-2); Ketones,Urine 1+ (Negative); Leukocyte Esterase,Urine Negative (Negative); Mucus,Urine Occasional /hpf; Nitrite,Urine Negative (Negative); PH, Urine 6.5 (5.0-8.0); Protein,Urine 1+ (Negative); RBC,Urine 1 /hpf (0-5); Specific Gravity,Urine 1.029 (1.001-1.035); Squamous Epithelial Cell,Urine <1 /hpf (0-4); Urobilinogen,Urine <2.0 mg/dL (<2.0); WBC,Urine 1 /hpf (0-5)
[2020-07-13 22:38] LABS: ALT 219 U/L (4-49); AST 254 U/L (17-59); African American GFR (CKD) >90 (>60 ml/min/1.73 sqM); Albumin 5.4 g/dL (3.5-5.0); Alkaline Phosphatase 135 U/L (38-126); Amylase 75 U/L (30-110); Anion Gap 17 mmol/L; Blood Urea Nitrogen 16 mg/dL (9-20); Calcium 10.1 mg/dL (8.4-10.2); Carbon Dioxide 25 mmol/L (22-30); Chloride 100 mmol/L (98-107); Glucose 127 mg/dL (74-99); Lipase 253 U/L (23-300); Non-African American GFR(CKD) >90 (>60 ml/min/1.73 sqM); Potassium 3.8 mmol/L (3.5-5.1); Sodium 142 mmol/L (137-145); Total Bilirubin 0.9 mg/dL (0.2-1.3); Total Protein 8.7 g/dL (6.3-8.2)
[2020-07-13 22:45] LABS: HGB 17.4 gm/dL (13.0-17.5)
--- NOTE | 2020-07-13 22:45 | ED ---
Abdominal Pain HPI - General Chief Complaint: Abdominal Pain Stated Complaint: ABD pain,nausea Time Seen by Provider: 07/13/20 21:36 Source: patient Mode of arrival: ambulatory Limitations: no limitations - History of Present Illness Initial Comments: 35-year-old male patient with past medical history significant for pancreatitis, abdominal pain, prior gastritis, and EtOH abuse presents to the emergency department today for evaluation of midepigastric abdominal pain and vomiting. States symptoms have been present throughout the day today. He is unable to keep down any food or fluids. Denies any radiation of the pain through to his back. Denies fever or chills. States he did have one episode of diarrhea this morning. Patient was admitted at the beginning of June for similar symptoms where he underwent EGD with Dr. Colon which showed mild gastritis and duodenitis. They started on PPI for 6 weeks and was discharged. Patient states he has been abstaining from alcohol. States symptoms feel similar to when his had pancreatitis and gastritis in the past. Patient denies any recent rash, cough, shortness of breath, chest pain, back pain, numbness, tingling, dizziness, weakness, hematuria, dysuria, urinary urgency, urinary frequency, headache, visual changes, or any other complaints. - Related Data Previous Rx's Medication Instructions Recorded Ondansetron [Zofran ODT] 4 mg PO Q8HR PRN #20 tab 07/14/20 Allergies Allergy/AdvReac Type Severity Reaction Status Date / Time No Known Allergies Allergy Verified 07/13/20 22:48 Review of Systems ROS Statement: Those systems with pertinent positive or pertinent negative responses have been documented in the HPI. ROS Other: All systems not noted in ROS Statement are negative. Past Medical History Past Medical History: No Reported History Additional Past Medical History / Comment(s): 2019 pancreatitis, abdominal pain, occasional nausea/vomiting. History of Any Multi-Drug Resistant Organisms: None Reported Past Surgical History: Cholecystectomy, Hernia Repair, Orthopedic Surgery Additional Past Surgical History / Comment(s): 2019 EGD/colonoscopy, r inguinal hernia repair, R wrist surgery for abscess, L wrist surgery for tendon repair. Past Anesthesia/Blood Transfusion Reactions: No Reported Reaction Past Psychological History: No Psychological Hx Reported Smoking Status: Never smoker Past Alcohol Use History: Occasional Past Drug Use History: None Reported - Past Family History Father Family Medical History: No Reported History Mother Family Medical History: No Reported History General Exam Limitations: no limitations General appearance: alert, in no apparent distress, other (Physical well-dev eloped, well-nourished adult male patient in mild distress related to pain. Vital signs upon presentation were temperature 98.7F, pulse 145, respirations 18, blood pressure 133/92, pulse ox 95% on room air.) Eye exam: Present: normal appearance, PERRL, EOMI. Absent: scleral icterus, conjunctival injection, periorbital swelling ENT exam: Present: normal exam, normal oropharynx, mucous membranes moist Respiratory exam: Present: normal lung sounds bilaterally. Absent: respiratory distress, wheezes, rales, rhonchi, stridor Cardiovascular Exam: Present: normal rhythm, tachycardia, normal heart sounds. Absent: systolic murmur, diastolic murmur, rubs, gallop, clicks GI/Abdominal exam: Present: soft, tenderness (Midepigastric), normal bowel sounds. Absent: distended, guarding, rebound, rigid Neurological exam: Present: alert, oriented X3, CN II-XII intact Psychiatric exam: Present: normal affect, normal mood Skin exam: Present: warm, dry, intact, normal color. Absent: rash Course Vital Signs 07/13/20 07/13/20 21:30 22:32 Temperature 98.7 F Pulse Rate 145 H 99 Respiratory 18 18 Rate Blood Pressure 133/92 148/106 O2 Sat by Pulse 95 96 Oximetry Medical Decision Making - Medical Decision Making 35 year-old male patient passed medical history significant for gastritis, pancreatitis, EtOH abuse presents to the emergency department today for evaluation of midepigastric abdominal pain and vomiting. Denies any hematemesis. No fever or chills. Labs reviewed and showed elevated liver enzymes consistent with previous labs. Lipase is normal. He has no white blood cell count. He is given several medications for pain and nausea. Upon reevaluation still reports mild nausea and pain. I did give option for attempting outpatient management with oral medications and clear liquid diet versus admission for observation for pain and nausea control. Patient would like to try outpatient treatment at this time. We'll discharge follow-up with his GI specialist and primary care physician one to 2 days. Return parameters were discussed in detail. He verbalizes understanding and agrees with this plan. - Lab Data Result diagrams: 07/13/20 22:19 07/13/20 22:19 Lab Results 07/13/20 07/13/20 07/13/20 Range/Units 22:19 22:19 22:19 WBC 8.0 (3.8-10.6) k/uL RBC 5.11 (4.30-5.90) m/uL Hgb 17.4 D (13.0-17.5) gm/dL Hct 49.3 (39.0-53.0) % MCV 96.4 (80.0-100.0) fL MCH 34.1 (25.0-35.0) pg MCHC 35.4 (31.0-37.0) g/dL RDW 12.4 (11.5-15.5) % Plt Count 358 (150-450) k/uL MPV 7.0 Neutrophils % 68 % Lymphocytes % 22 % Monocytes % 6 % Eosinophils % 1 % Basophils % 2 % Neutrophils # 5.5 (1.3-7.7) k/uL Lymphocytes # 1.8 (1.0-4.8) k/uL Monocytes # 0.5 (0-1.0) k/uL Eosinophils # 0.1 (0-0.7) k/uL Basophils # 0.1 (0-0.2) k/uL Sodium 142 (137-145) mmol/L Potassium 3.8 (3.5-5.1) mmol/L Chloride 100 (98-107) mmol/L Carbon Dioxide 25 (22-30) mmol/L Anion Gap 17 mmol/L BUN 16 (9-20) mg/dL Creatinine 0.90 (0.66-1.25) mg/dL Est GFR (CKD-EPI)AfAm >90 (>60 ml/min/1.73 sqM) Est GFR (CKD-EPI)NonAf >90 (>60 ml/min/1.73 sqM) Glucose 127 H (74-99) mg/dL Calcium 10.1 (8.4-10.2) mg/dL Total Bilirubin 0.9 (0.2-1.3) mg/dL AST 254 H (17-59) U/L ALT 219 H (4-49) U/L Alkaline Phosphatase 135 H (38-126) U/L Total Protein 8.7 H (6.3-8.2) g/dL Albumin 5.4 H (3.5-5.0) g/dL Amylase 75 (30-110) U/L Lipase 253 (23-300) U/L Urine Color Yellow Urine Appearance Clear (Clear) Urine pH 6.5 (5.0-8.0) Ur Specific [place] 1.029 (1.001-1.035) Urine Protein 1+ H (Negative) Urine Glucose (UA) Negative (Negative) Urine Ketones 1+ H (Negative) Urine Blood Negative (Negative) Urine Nitrite Negative (Negative) Urine Bilirubin Negative (Negative) Urine Urobilinogen <2.0 (<2.0) mg/dL Ur Leukocyte Esterase Negative (Negative) Urine RBC 1 (0-5) /hpf Urine WBC 1 (0-5) /hpf Ur Squamous Epith Cells <1 (0-4) /hpf Urine Bacteria Rare H (None) /hpf Hyaline Casts 20 H (0-2) /lpf Urine Mucus Occasional H (None) /hpf Disposition Clinical Impression: Abdominal pain, Vomiting Disposition: HOME SELF-CARE Condition: Good Instructions (If sedation given, give patient instructions): Acute Nausea and Vomiting (ED), Abdominal Pain (ED) Additional Instructions: Start with clear liquid diet and advance as tolerated. Take medications as directed for pain and nausea control. Follow-up through primary care physician GI specialist as soon as possible. Try calling on Thursday. Return to the emergency department immediately for any new, worsening, or concerning symptoms. Prescriptions: Ondansetron [Zofran ODT] 4 mg PO Q8HR PRN #20 tab PRN Reason: Nausea Is patient prescribed a controlled substance at d/c from ED?: No Referrals: None,Stated [Primary Care Provider] - 1-2 days Time of Disposition: 00:14
[2020-07-13 23:14] VITALS: PULSE 99
[2020-07-13] MEDS: PANTOPRAZOLE 40 MG/10 ML VIAL IVP STA (23:24)
[2020-07-14] MEDS: traMADol 50 MG STARTER PACK 3 TAB BTL PO STA (00:28)
[2020-07-14] MEDS: ONDANSETRON 4 MG ODT STARTER PACK 2 TAB BTL PO STA (00:29)
[2020-07-14 00:35] VITALS: BP 147/108; RESP 16
== END 2020-07-14 00:35 | disposition home or self-care (01) ==
LOC: EC 21:26
DX: R10.13 Epigastric pain (principal); R11.2 Nausea with vomiting, unspecified; F10.10 Alcohol abuse, uncomplicated; R74.8 Abnormal levels of other serum enzymes; R19.7 Diarrhea, unspecified; Z87.19 Personal history of other diseases of the digestive system; Z90.49 Acquired absence of other specified parts of digestive tract; Z98.890 Other specified postprocedural states
CPT/HCPCS: 36415; 80053; 82150; 83690; 85025; 81001; 99284; 96374; 96375 ×3; 96376; 96361; J1200; J2405; J1170; S0119; C9113

== ENCOUNTER 2020-07-25 18:22 | Emergency (ER) | payer OTHER ==
[2020-07-25] MEDS ORDERED: MORPHINE SULFATE 4 MG/ML SYRINGE IV STA (19:00)
[2020-07-25] MEDS ORDERED: PANTOPRAZOLE 40 MG/10 ML VIAL IVP STA (19:00)
[2020-07-25] MEDS ORDERED: ONDANSETRON 4 MG/2 ML VIAL IVP STA ×2 (19:00→20:24)
[2020-07-25] MEDS ORDERED: SODIUM CHLORIDE 0.9% 1,000 ML IV STA (19:00)
--- NOTE | 2020-07-25 19:06 | ED ---
General Adult HPI - General Chief complaint: Abdominal Pain Stated complaint: vomiting Time Seen by Provider: 07/25/20 18:39 Source: patient, RN notes reviewed, old records reviewed Mode of arrival: ambulatory Limitations: no limitations - History of Present Illness Initial comments: 35-year-old male presenting for evaluation of abdominal pain. Patient states he has a previous history of both gastritis and pancreatitis. He denies any alcohol consumption. He states his pain is predominantly in the epigastrium. He states he had multiple episodes of vomiting over the past 24 hours. And a small amount of diarrhea. He denies fever. Denies chest pain. - Related Data Previous Rx's Medication Instructions Recorded Omeprazole [PriLOSEC] 20 mg PO AC-BID #60 cap 07/25/20 Allergies Allergy/AdvReac Type Severity Reaction Status Date / Time No Known Allergies Allergy Verified 07/25/20 19:27 Review of Systems ROS Statement: Those systems with pertinent positive or pertinent negative responses have been documented in the HPI. ROS Other: All systems not noted in ROS Statement are negative. Past Medical History Past Medical History: No Reported History Additional Past Medical History / Comment(s): 2019 pancreatitis and gastritis, History of Any Multi-Drug Resistant Organisms: None Reported Past Surgical History: Cholecystectomy, Hernia Repair, Orthopedic Surgery Additional Past Surgical History / Comment(s): 2019 EGD/colonoscopy, r inguinal hernia repair, R wrist surgery for abscess, L wrist surgery for tendon repair, Past Anesthesia/Blood Transfusion Reactions: No Reported Reaction Past Psychological History: No Psychological Hx Reported Smoking Status: Never smoker Past Alcohol Use History: Occasional Past Drug Use History: None Reported - Past Family History Father Family Medical History: No Reported History Mother Family Medical History: No Reported History General Exam Limitations: no limitations General appearance: alert, in no apparent distress Head exam: Present: atraumatic, normocephalic Eye exam: Present: normal appearance ENT exam: Present: mucous membranes dry Neck exam: Present: normal inspection. Absent: tenderness, meningismus Respiratory exam: Present: normal lung sounds bilaterally. Absent: respiratory distress Cardiovascular Exam: Present: regular rate, normal rhythm GI/Abdominal exam: Present: soft, tenderness (Epigastric tenderness). Absent: distended, guarding, rebound Extremities exam: Present: normal inspection, normal capillary refill. Absent: pedal edema Neurological exam: Present: alert, oriented X3, CN II-XII intact. Absent: motor sensory deficit Psychiatric exam: Present: normal affect, normal mood Skin exam: Present: warm, dry, intact. Absent: cyanosis, diaphoretic Course Vital Signs 07/25/20 07/25/20 18:30 20:38 Temperature 98.1 F Pulse Rate 118 H 101 H Respiratory 16 19 Rate Blood Pressure 152/96 153/112 O2 Sat by Pulse 95 100 Oximetry Medical Decision Making - Medical Decision Making 29 sexual male presenting with epigastric pain. Initially denying alcohol however later he does admit to drinking heavily up to approximately one week ago. He has a history of a cholecystectomy. Workup reveals normal CBC, no leukocytosis, he has normal white lites, normal kidney function, negative lipase, he has a transaminitis consistent with alcoholic hepatitis. He has a lactic acidosis 2.06 consistent with dehydration. His CT is negative for any acute findings. - Lab Data Result diagrams: 07/25/20 19:22 07/25/20 19:22 Lab Results 07/25/20 07/25/20 07/25/20 Range/Units 19:22 19:22 19:22 WBC 5.6 (3.8-10.6) k/uL RBC 4.96 (4.30-5.90) m/uL Hgb 16.6 (13.0-17.5) gm/dL Hct 48.6 (39.0-53.0) % MCV 98.0 (80.0-100.0) fL MCH 33.5 (25.0-35.0) pg MCHC 34.2 (31.0-37.0) g/dL RDW 12.6 (11.5-15.5) % Plt Count 256 (150-450) k/uL MPV 7.1 Neutrophils % 48 % Lymphocytes % 41 % Monocytes % 6 % Eosinophils % 2 % Basophils % 1 % Neutrophils # 2.7 (1.3-7.7) k/uL Lymphocytes # 2.3 (1.0-4.8) k/uL Monocytes # 0.4 (0-1.0) k/uL Eosinophils # 0.1 (0-0.7) k/uL Basophils # 0.1 (0-0.2) k/uL PT 11.6 (9.0-12.0) sec INR 1.1 (<1.2) APTT 22.0 (22.0-30.0) sec Sodium (137-145) mmol/L Potassium (3.5-5.1) mmol/L Chloride (98-107) mmol/L Carbon Dioxide (22-30) mmol/L Anion Gap mmol/L BUN (9-20) mg/dL Creatinine (0.66-1.25) mg/dL Est GFR (CKD-EPI)AfAm (>60 ml/min/1.73 sqM) Est GFR (CKD-EPI)NonAf (>60 ml/min/1.73 sqM) Glucose (74-99) mg/dL Plasma Lactic Acid [place] (0.7-2.0) mmol/L Calcium (8.4-10.2) mg/dL Total Bilirubin (0.2-1.3) mg/dL AST (17-59) U/L ALT (4-49) U/L Alkaline Phosphatase (38-126) U/L Total Protein (6.3-8.2) g/dL Albumin (3.5-5.0) g/dL Amylase (30-110) U/L Lipase (23-300) U/L Urine Color Yellow Urine Appearance Clear (Clear) Urine pH 6.5 (5.0-8.0) Ur Specific [place] 1.021 (1.001-1.035) Urine Protein Trace H (Negative) Urine Glucose (UA) Negative (Negative) Urine Ketones Trace H (Negative) Urine Blood Negative (Negative) Urine Nitrite Negative (Negative) Urine Bilirubin Negative (Negative) Urine Urobilinogen <2.0 (<2.0) mg/dL Ur Leukocyte Esterase Moderate H (Negative) Urine RBC 2 (0-5) /hpf Urine WBC 5 (0-5) /hpf Ur Squamous Epith Cells <1 (0-4) /hpf Urine Mucus Many H (None) /hpf 07/25/20 07/25/20 Range/Units 19:22 19:22 WBC (3.8-10.6) k/uL RBC (4.30-5.90) m/uL Hgb (13.0-17.5) gm/dL Hct (39.0-53.0) % MCV (80.0-100.0) fL MCH (25.0-35.0) pg MCHC (31.0-37.0) g/dL RDW (11.5-15.5) % Plt Count (150-450) k/uL MPV Neutrophils % % Lymphocytes % % Monocytes % % Eosinophils % % Basophils % % Neutrophils # (1.3-7.7) k/uL Lymphocytes # (1.0-4.8) k/uL Monocytes # (0-1.0) k/uL Eosinophils # (0-0.7) k/uL Basophils # (0-0.2) k/uL PT (9.0-12.0) sec INR (<1.2) APTT (22.0-30.0) sec Sodium 144 (137-145) mmol/L Potassium 4.3 (3.5-5.1) mmol/L Chloride 106 (98-107) mmol/L Carbon Dioxide 27 (22-30) mmol/L Anion Gap 11 mmol/L BUN 17 (9-20) mg/dL Creatinine 0.80 (0.66-1.25) mg/dL Est GFR (CKD-EPI)AfAm >90 (>60 ml/min/1.73 sqM) Est GFR (CKD-EPI)NonAf >90 (>60 ml/min/1.73 sqM) Glucose 126 H (74-99) mg/dL Plasma Lactic Acid [place] 3.0 H* (0.7-2.0) mmol/L Calcium 9.3 (8.4-10.2) mg/dL Total Bilirubin 0.7 (0.2-1.3) mg/dL AST 261 H (17-59) U/L ALT 187 H (4-49) U/L Alkaline Phosphatase 112 (38-126) U/L Total Protein 7.9 (6.3-8.2) g/dL Albumin 4.9 (3.5-5.0) g/dL Amylase 56 (30-110) U/L Lipase 291 (23-300) U/L Urine Color Urine Appearance (Clear) Urine pH (5.0-8.0) Ur Specific [place] (1.001-1.035) Urine Protein (Negative) Urine Glucose (UA) (Negative) Urine Ketones (Negative) Urine Blood (Negative) Urine Nitrite (Negative) Urine Bilirubin (Negative) Urine Urobilinogen (<2.0) mg/dL Ur Leukocyte Esterase (Negative) Urine RBC (0-5) /hpf Urine WBC (0-5) /hpf Ur Squamous Epith Cells (0-4) /hpf Urine Mucus (None) /hpf Disposition Clinical Impression: Lactic acidosis, Dehydration, Alcoholic hepatitis Disposition: HOME SELF-CARE Condition: Fair Instructions (If sedation given, give patient instructions): Gastritis (ED), Abdominal Pain (ED), Dehydration (ED) Prescriptions: Omeprazole [PriLOSEC] 20 mg PO AC-BID #60 cap Is patient prescribed a controlled substance at d/c from ED?: No Referrals: None,Stated [Primary Care Provider] - 1-2 days Rory Colon MD [STAFF PHYSICIAN] - 1-2 days Time of Disposition: 20:52
[2020-07-25 19:38] LABS: Basophils # (A) 0.1 k/uL (0-0.2); Basophils % (A) 1 %; Eosinophils # (A) 0.1 k/uL (0-0.7); Eosinophils % (A) 2 %; HCT 48.6 % (39.0-53.0); HGB 16.6 gm/dL (13.0-17.5); Lymphocytes # (A) 2.3 k/uL (1.0-4.8); Lymphocytes % (A) 41 %; MCH 33.5 pg (25.0-35.0); MCHC 34.2 g/dL (31.0-37.0); Mean Platelet Volume 7.1; Monocytes # (A) 0.4 k/uL (0-1.0); Monocytes % (A) 6 %; Neutrophils # (A) 2.7 k/uL (1.3-7.7); Neutrophils % (A) 48 %; Platelet Count 256 k/uL (150-450); RBC 4.96 m/uL (4.30-5.90); RDW 12.6 % (11.5-15.5); WBC 5.6 k/uL (3.8-10.6)
[2020-07-25 19:46] LABS: Appearance,Urine Clear (Clear); Bilirubin,Urine Negative (Negative); Blood,Urine Negative (Negative); Color,Urine Yellow; Glucose,Urine (UA) Negative (Negative); Ketones,Urine Trace (Negative); Leukocyte Esterase,Urine Moderate (Negative); Mucus,Urine Many /hpf; Nitrite,Urine Negative (Negative); PH, Urine 6.5 (5.0-8.0); Protein,Urine Trace (Negative); RBC,Urine 2 /hpf (0-5); Specific Gravity,Urine 1.021 (1.001-1.035); Squamous Epithelial Cell,Urine <1 /hpf (0-4); Urobilinogen,Urine <2.0 mg/dL (<2.0); WBC,Urine 5 /hpf (0-5)
[2020-07-25 19:55] LABS: INR 1.1 (<1.2); Prothrombin Time 11.6 sec (9.0-12.0)
[2020-07-25 19:58] LABS: ALT 187 U/L (4-49); AST 261 U/L (17-59); African American GFR (CKD) >90 (>60 ml/min/1.73 sqM); Albumin 4.9 g/dL (3.5-5.0); Alkaline Phosphatase 112 U/L (38-126); Amylase 56 U/L (30-110); Anion Gap 11 mmol/L; Blood Urea Nitrogen 17 mg/dL (9-20); Calcium 9.3 mg/dL (8.4-10.2); Carbon Dioxide 27 mmol/L (22-30); Chloride 106 mmol/L (98-107); Glucose 126 mg/dL (74-99); Lipase 291 U/L (23-300); Non-African American GFR(CKD) >90 (>60 ml/min/1.73 sqM); Potassium 4.3 mmol/L (3.5-5.1); Sodium 144 mmol/L (137-145); Total Bilirubin 0.7 mg/dL (0.2-1.3); Total Protein 7.9 g/dL (6.3-8.2)
[2020-07-25] MEDS ORDERED: HYDROmorphone 0.5 MG/0.5 ML SYRINGE IVP STA ×2 (20:24→21:09)
--- NOTE | 2020-07-25 20:38 | CT ---
EXAMINATION TYPE: CT abdomen pelvis w con DATE OF EXAM: 07/25/2020 COMPARISON: 06/22/2020. HISTORY: abd pain and vomiting for [address] DLP: 1031.4 mGycm Automated exposure control for dose reduction was used. TECHNIQUE: Helical acquisition of images was performed from the lung bases through the pelvis. CONTRAST: Performed without Oral Contrast and with IV Contrast, patient injected with 100 mL of Isovue 300. FINDINGS: LUNG BASES: No significant abnormality is appreciated. LIVER/GB: No acute abnormality is appreciated. Stable diffuse hepatic steatosis and a 2.2 cm hyperatt enuating right hepatic lesion, suggestive of hemangioma. Cholecystectomy. PANCREAS: No significant abnormality is seen. SPLEEN: No significant abnormality is seen. ADRENALS: No significant abnormality is seen. KIDNEYS: 2 mm nonobstructing left renal calculus. No bilateral hydronephrosis or right nephrolithiasi s. FREE AIR: No free air is visualized. RETROPERITONEAL ADENOPATHY: None visualized REPRODUCTIVE ORGANS: No significant abnormality is seen URINARY BLADDER: No significant abnormality is seen. PELVIC ADENOPATHY: None visualized. OSSEOUS STRUCTURES: No significant abnormality is seen. BOWEL: No significant abnormality is seen. OTHER: None IMPRESSION: NO ACUTE ABNORMALITY. CHRONIC FINDINGS ABOVE.
[2020-07-25 21:43] VITALS: BP 134/96; PULSE 100; RESP 18; TEMP 98.2
== END 2020-07-25 21:30 | disposition home or self-care (01) ==
LOC: EC 18:22
DX: K70.10 Alcoholic hepatitis without ascites (principal); E86.0 Dehydration; E87.2 Acidosis; R74.01 Elevation of levels of liver transaminase levels; Z90.49 Acquired absence of other specified parts of digestive tract
CPT/HCPCS: 36415; 80053; 82150; 83605; 83690; 85025; 85610; 85730; 81001; 74177; 99284; 96374; 96375 ×3; 96376 ×2; 96361 ×2; J2270; J2405; C9113; J1170; Q9967

== ENCOUNTER 2020-08-12 18:53 | Emergency (ER) | payer OTHER ==
[2020-08-12 18:57] VITALS: TEMP 98.4
[2020-08-12] MEDS ORDERED: SODIUM CHLORIDE 0.9% 500 ML 500 ML IV STA (19:09)
[2020-08-12] MEDS ORDERED: ONDANSETRON 4 MG/2 ML VIAL IVP STA (19:09)
[2020-08-12] MEDS ORDERED: SODIUM CHLORIDE 0.9% 1,000 ML IV STA (19:09)
[2020-08-12] MEDS ORDERED: MORPHINE SULFATE 4 MG/ML SYRINGE IV STA (19:09)
--- NOTE | 2020-08-12 19:12 | ED ---
Abdominal Pain HPI - General Chief Complaint: Abdominal Pain Stated Complaint: abd pain, N/V/D Time Seen by Provider: 08/12/20 19:01 Source: patient Mode of arrival: ambulatory Limitations: no limitations - History of Present Illness Initial Comments: 35 year-old male patient presents to the emergency department today for evaluation of upper abdominal pain. Patient states symptoms started a couple days ago. States he has been vomiting unable to keep down any food or fluids. Denies any hematochezia, melena, hematemesis. States he has been having some intermittent diarrhea. Denies fever or chills. States that he has had pancreatitis and gastritis in the past. States he has had cholecystectomy but no other abdominal surgeries. States he drinks alcohol socially. Denies any street drug use. States he does take a medication for his stomach, but cannot recall what it is. Patient denies any recent rash, cough, shortness of breath, chest pain, back pain, numbness, tingling, dizziness, weakness, hematuria, dysuria, urinary urgency, urinary frequency, headache, visual changes, or any other complaints. - Related Data Previous Rx's Medication Instructions Recorded Omeprazole [PriLOSEC] 20 mg PO AC-BID #60 cap 07/25/20 Famotidine [Pepcid] 20 mg PO BID #60 tablet 08/12/20 Ondansetron [Zofran ODT] 4 mg PO Q8HR PRN #20 tab 08/12/20 Allergies Allergy/AdvReac Type Severity Reaction Status Date / Time No Known Allergies Allergy Verified 08/12/20 18:57 Review of Systems ROS Statement: Those systems with pertinent positive or pertinent negative responses have been documented in the HPI. ROS Other: All systems not noted in ROS Statement are negative. Past Medical History Past Medical History: No Reported History Additional Past Medical History / Comment(s): 2019 pancreatitis and gastritis, History of Any Multi-Drug Resistant Organisms: None Reported Past Surgical History: Cholecystectomy, Hernia Repair, Orthopedic Surgery Additional Past Surgical History / Comment(s): 2019 EGD/colonoscopy, r inguinal hernia repair, R wrist surgery for abscess, L wrist surgery for tendon repair, Past Anesthesia/Blood Transfusion Reactions: No Reported Reaction Past Psychological History: No Psychological Hx Reported Smoking Status: Never smoker Past Alcohol Use History: Occasional Past Drug Use History: None Reported - Past Family History Father Family Medical History: No Reported History Mother Family Medical History: No Reported History General Exam Limitations: no limitations General appearance: alert, in no apparent distress, other (This is a well- developed, well-nourished adult male patient in no acute distress.) Respiratory exam: Present: normal lung sounds bilaterally. Absent: respiratory distress, wheezes, rales, rhonchi, stridor Cardiovascular Exam: Present: regular rate, normal rhythm, normal heart sounds. Absent: systolic murmur, diastolic murmur, rubs, gallop, clicks GI/Abdominal exam: Present: soft, tenderness (Generalized, worse over the midepigastric region.), normal bowel sounds. Absent: distended, guarding, rebound, rigid Neurological exam: Present: alert, oriented X3, CN II-XII intact Psychiatric exam: Present: normal affect, normal mood Skin exam: Present: warm, dry, intact, normal color. Absent: rash Course Vital Signs 08/12/20 08/12/20 08/12/20 18:55 20:17 21:36 Temperature 98.4 F Pulse Rate 125 H 102 H 101 H Respiratory 20 18 18 Rate Blood Pressure 147/93 139/102 140/103 O2 Sat by Pulse 99 98 97 Oximetry Medical Decision Making - Medical Decision Making 35 year-old male patient who does have past history significant for heavy alcohol use presents to the emergency department today for evaluation of midepigastric pain and vomiting for the last 2 days. Physical examination did reveal midepigastric tenderness. Labs reviewed and did reveal elevated ALT and AST. Normal lipase. Normal white blood cell count. Patient has had transaminitis in the past. Patient has also had gastritis in the past. We did give him IV Pepcid here. He does take Protonix and Pepcid at home. States he needs a refill on his Pepcid. He is given a GI cocktail prior to discharge. He is instructed to follow-up with the GI specialist as soon as possible for fu rther evaluation, he is instructed to call the morning for an appointment. He is instructed follow up his primary care physician for recheck in 1-2 days. Return parameters were discussed in detail. He verbalizes understanding and agrees with this plan. Case discussed with Dr. Ludwig. - Lab Data Result diagrams: 08/12/20 19:15 08/12/20 19:15 Lab Results 08/12/20 08/12/20 08/12/20 Range/Units 19:15 19:15 19:15 WBC 7.2 (3.8-10.6) k/uL RBC 4.75 (4.30-5.90) m/uL Hgb 15.8 (13.0-17.5) gm/dL Hct 45.9 (39.0-53.0) % MCV 96.7 (80.0-100.0) fL MCH 33.3 (25.0-35.0) pg MCHC 34.4 (31.0-37.0) g/dL RDW 12.9 (11.5-15.5) % Plt Count 299 (150-450) k/uL MPV 7.1 Neutrophils % 48 % Lymphocytes % 42 % Monocytes % 6 % Eosinophils % 1 % Basophils % 1 % Neutrophils # 3.4 (1.3-7.7) k/uL Lymphocytes # 3.0 (1.0-4.8) k/uL Monocytes # 0.4 (0-1.0) k/uL Eosinophils # 0.1 (0-0.7) k/uL Basophils # 0.1 (0-0.2) k/uL Sodium 142 (137-145) mmol/L Potassium 3.9 (3.5-5.1) mmol/L Chloride 105 (98-107) mmol/L Carbon Dioxide 23 (22-30) mmol/L Anion Gap 14 mmol/L BUN 14 (9-20) mg/dL Creatinine 0.82 (0.66-1.25) mg/dL Est GFR (CKD-EPI)AfAm >90 (>60 ml/min/1.73 sqM) Est GFR (CKD-EPI)NonAf >90 (>60 ml/min/1.73 sqM) Glucose 125 H (74-99) mg/dL Lactic Ac Sepsis Rflx Plasma Lactic Acid Eugene (0.7-2.0) mmol/L Calcium 9.6 (8.4-10.2) mg/dL Total Bilirubin 0.6 (0.2-1.3) mg/dL AST 298 H (17-59) U/L ALT 275 H (4-49) U/L Alkaline Phosphatase 143 H (38-126) U/L Total Protein 7.5 (6.3-8.2) g/dL Albumin 4.7 (3.5-5.0) g/dL Lipase 255 (23-300) U/L Urine Color Yellow Urine Appearance Clear (Clear) Urine pH 6.0 (5.0-8.0) Ur Specific [place] 1.024 (1.001-1.035) Urine Protein Trace H (Negative) Urine Glucose (UA) Negative (Negative) Urine Ketones Trace H (Negative) Urine Blood Negative (Negative) Urine Nitrite Negative (Negative) Urine Bilirubin Negative (Negative) Urine Urobilinogen <2.0 (<2.0) mg/dL Ur Leukocyte Esterase Negative (Negative) 08/12/20 08/12/20 Range/Units 19:15 19:46 WBC (3.8-10.6) k/uL RBC (4.30-5.90) m/uL Hgb (13.0-17.5) gm/dL Hct (39.0-53.0) % MCV (80.0-100.0) fL MCH (25.0-35.0) pg MCHC (31.0-37.0) g/dL RDW (11.5-15.5) % Plt Count (150-450) k/uL MPV Neutrophils % % Lymphocytes % % Monocytes % % Eosinophils % % Basophils % % Neutrophils # (1.3-7.7) k/uL Lymphocytes # (1.0-4.8) k/uL Monocytes # (0-1.0) k/uL Eosinophils # (0-0.7) k/uL Basophils # (0-0.2) k/uL Sodium (137-145) mmol/L Potassium (3.5-5.1) mmol/L Chloride (98-107) mmol/L Carbon Dioxide (22-30) mmol/L Anion Gap mmol/L BUN (9-20) mg/dL Creatinine (0.66-1.25) mg/dL Est GFR (CKD-EPI)AfAm (>60 ml/min/1.73 sqM) Est GFR (CKD-EPI)NonAf (>60 ml/min/1.73 sqM) Glucose (74-99) mg/dL Lactic Ac Sepsis Rflx Y Plasma Lactic Acid Eugene 2.9 H* (0.7-2.0) mmol/L Calcium (8.4-10.2) mg/dL Total Bilirubin (0.2-1.3) mg/dL AST (17-59) U/L ALT (4-49) U/L Alkaline Phosphatase (38-126) U/L Total Protein (6.3-8.2) g/dL Albumin (3.5-5.0) g/dL Lipase (23-300) U/L Urine Color Urine Appearance (Clear) Urine pH (5.0-8.0) Ur Specific [place] (1.001-1.035) Urine Protein (Negative) Urine Glucose (UA) (Negative) Urine Ketones (Negative) Urine Blood (Negative) Urine Nitrite (Negative) Urine Bilirubin (Negative) Urine Urobilinogen (<2.0) mg/dL Ur Leukocyte Esterase (Negative) Disposition Clinical Impression: Abdominal pain, Transaminitis Disposition: HOME SELF-CARE Condition: Good Instructions (If sedation given, give patient instructions): Diet for Stomach Ulcers and Gastritis (ED), Abdominal Pain (ED) Additional Instructions: Follow-up with the GI specialist as soon as possible. Call in the morning to an appointment. Take medications as directed. Return to the emergency department for any new, worsening, or concerning symptoms. Prescriptions: Famotidine [Pepcid] 20 mg PO BID #60 tablet Ondansetron [Zofran ODT] 4 mg PO Q8HR PRN #20 tab PRN Reason: Nausea Is patient prescribed a controlled substance at d/c from ED?: No Referrals: Rory Colon MD [STAFF PHYSICIAN] - 1-2 days Time of Disposition: 21:18
[2020-08-12 19:56] LABS: Basophils # (A) 0.1 k/uL (0-0.2); Basophils % (A) 1 %; Eosinophils # (A) 0.1 k/uL (0-0.7); Eosinophils % (A) 1 %; HCT 45.9 % (39.0-53.0); HGB 15.8 gm/dL (13.0-17.5); Lymphocytes % (A) 42 %; MCH 33.3 pg (25.0-35.0); MCHC 34.4 g/dL (31.0-37.0); MCV 96.7 fL (80.0-100.0); Mean Platelet Volume 7.1; Monocytes # (A) 0.4 k/uL (0-1.0); Monocytes % (A) 6 %; Neutrophils # (A) 3.4 k/uL (1.3-7.7); Neutrophils % (A) 48 %; Platelet Count 299 k/uL (150-450); RBC 4.75 m/uL (4.30-5.90); RDW 12.9 % (11.5-15.5); WBC 7.2 k/uL (3.8-10.6)
[2020-08-12 20:01] LABS: Appearance,Urine Clear (Clear); Bilirubin,Urine Negative (Negative); Blood,Urine Negative (Negative); Color,Urine Yellow; Glucose,Urine (UA) Negative (Negative); Ketones,Urine Trace (Negative); Leukocyte Esterase,Urine Negative (Negative); Nitrite,Urine Negative (Negative); Protein,Urine Trace (Negative); Specific Gravity,Urine 1.024 (1.001-1.035); Urobilinogen,Urine <2.0 mg/dL (<2.0)
[2020-08-12 20:16] LABS: ALT 275 U/L (4-49); AST 298 U/L (17-59); African American GFR (CKD) >90 (>60 ml/min/1.73 sqM); Albumin 4.7 g/dL (3.5-5.0); Alkaline Phosphatase 143 U/L (38-126); Anion Gap 14 mmol/L; Blood Urea Nitrogen 14 mg/dL (9-20); Calcium 9.6 mg/dL (8.4-10.2); Carbon Dioxide 23 mmol/L (22-30); Chloride 105 mmol/L (98-107); Glucose 125 mg/dL (74-99); Lipase 255 U/L (23-300); Non-African American GFR(CKD) >90 (>60 ml/min/1.73 sqM); Potassium 3.9 mmol/L (3.5-5.1); Sodium 142 mmol/L (137-145); Total Bilirubin 0.6 mg/dL (0.2-1.3); Total Protein 7.5 g/dL (6.3-8.2)
[2020-08-12 20:18] VITALS: RESP 18
[2020-08-12] MEDS ORDERED: HYDROmorphone 1 MG/ML 1 ML SYRINGE IVP STA (20:20)
[2020-08-12] MEDS ORDERED: FAMOTIDINE 20 MG/2 ML VIAL IV STA (20:21)
[2020-08-12] MEDS ORDERED: SODIUM CHLORIDE 0.9% 500 ML 500 ML IV ONE (20:21)
[2020-08-12] MEDS ORDERED: MAG HYDROX/AL HYDROX/SIMETH 30 ML, HYOSCYAMINE ELIXIR 10 ML, LIDOCAINE VISCOUS 2% 10 ML PO STA ×3 (21:09)
[2020-08-12 21:37] VITALS: BP 140/103; PULSE 101
== END 2020-08-12 21:37 | disposition home or self-care (01) ==
LOC: EC 18:53
DX: R10.13 Epigastric pain (principal); R74.01 Elevation of levels of liver transaminase levels; R10.816 Epigastric abdominal tenderness; R11.10 Vomiting, unspecified; Z90.49 Acquired absence of other specified parts of digestive tract
CPT/HCPCS: 36415; 80053; 83605; 83690; 85025; 81003; 99284; 96374; 96375 ×3; 96361; J2270; J2405; J1170

== ENCOUNTER 2020-08-20 13:12 | Emergency (ER) | payer OTHER ==
[2020-08-20 13:21] VITALS: RESP 18; TEMP 98.6
[2020-08-20] MEDS ORDERED: SODIUM CHLORIDE 0.9% 1,000 ML IV STA ×2 (13:49)
[2020-08-20] MEDS ORDERED: ONDANSETRON 4 MG/2 ML VIAL IVP STA (14:06)
[2020-08-20] MEDS ORDERED: HYDROmorphone 0.5 MG/0.5 ML SYRINGE IVP STA ×2 (14:06→17:13)
[2020-08-20] MEDS ORDERED: PANTOPRAZOLE 40 MG/10 ML VIAL IVP STA (14:06)
[2020-08-20 14:53] LABS: ALT 293 U/L (4-49); AST 347 U/L (17-59); African American GFR (CKD) >90 (>60 ml/min/1.73 sqM); Albumin 5.1 g/dL (3.5-5.0); Alkaline Phosphatase 118 U/L (38-126); Amylase 60 U/L (30-110); Anion Gap 15 mmol/L; Blood Urea Nitrogen 13 mg/dL (9-20); Calcium 9.8 mg/dL (8.4-10.2); Carbon Dioxide 22 mmol/L (22-30); Chloride 106 mmol/L (98-107); Glucose 135 mg/dL (74-99); Lipase 235 U/L (23-300); Non-African American GFR(CKD) >90 (>60 ml/min/1.73 sqM); Potassium 4.5 mmol/L (3.5-5.1); Sodium 143 mmol/L (137-145); Total Bilirubin 0.5 mg/dL (0.2-1.3); Total Protein 8.2 g/dL (6.3-8.2)
[2020-08-20] MEDS ORDERED: SODIUM CHLORIDE 0.9% 1,000 ML IV ONE (15:51)
[2020-08-20 16:14] LABS: Basophils # (A) 0.1 k/uL (0-0.2); Basophils % (A) 1 %; Eosinophils # (A) 0.1 k/uL (0-0.7); Eosinophils % (A) 1 %; HCT 45.6 % (39.0-53.0); Lymphocytes # (A) 1.6 k/uL (1.0-4.8); Lymphocytes % (A) 30 %; MCH 34.7 pg (25.0-35.0); MCHC 35.2 g/dL (31.0-37.0); MCV 98.6 fL (80.0-100.0); Mean Platelet Volume 7.4; Monocytes # (A) 0.4 k/uL (0-1.0); Monocytes % (A) 6 %; Neutrophils # (A) 3.3 k/uL (1.3-7.7); Neutrophils % (A) 60 %; Platelet Count 194 k/uL (150-450); RBC 4.62 m/uL (4.30-5.90); RDW 12.4 % (11.5-15.5); WBC 5.5 k/uL (3.8-10.6)
--- NOTE | 2020-08-20 16:15 | US ---
EXAMINATION TYPE: US abdomen limited DATE OF EXAM: 08/20/2020 COMPARISON: NONE CLINICAL HISTORY: EPigastric pain. n/v/d ongoing issue, cholecystectomy 4 years ago EXAM MEASUREMENTS: Liver Length: 20.5 cm Gallbladder Wall: Surgically absent CBD: 0.8 cm Right Kidney: 10.4 x 3.8 x 4.5 cm *bowel gas limits exam Pancreas: unable to see due to bowel gas Liver: enlarged and very difficult to penetrate Gallbladder: Surgically absent Evidence for sonographic Krause's sign: no CBD: wnl Right Kidney: wnl IMPRESSION: Hepatomegaly with underlying fatty infiltration suggested.
[2020-08-20 16:36] VITALS: BP 121/95; PULSE 86
--- NOTE | 2020-08-20 17:10 | ED ---
Abdominal Pain HPI - General Chief Complaint: Abdominal Pain Stated Complaint: N/V/D Time Seen by Provider: 08/20/20 13:43 Source: patient Mode of arrival: ambulatory Limitations: no limitations - History of Present Illness Initial Comments: 35-year-old male with history of pancreatitis presenting today for chief complaint of nausea vomiting epigastric pain. Patient states he has had epigastric pain for the past day he states he has some associated nausea vomiting. Patient states he thought his stool slightly darker today than usual. He states it was loose. He denies bright red blood. Patient states there was a slight amount of blood in his vomit today. He denies additional episodes of one in the vomit. He denies any chest pain shortness of breath. Patient denies any fevers. Patient denies recent travel. Patient denies lower abdominal pain. Patient states he has had previous episodes which are very similar in the past. Remaining review of system negative upon arrival patient appears well nontoxic no acute distress patient does have history of alcohol use. denies NSAID abuse or hx of PUD - Related Data Home Medications Medication Instructions Recorded Confirmed Pantoprazole Sodium [Protonix] 40 mg PO DAILY 08/20/20 08/20/20 Previous Rx's Medication Instructions Recorded Famotidine [Pepcid] 20 mg PO BID #60 tablet 08/12/20 Allergies Allergy/AdvReac Type Severity Reaction Status Date / Time No Known Allergies Allergy Verified 08/20/20 15:16 Review of Systems ROS Statement: Those systems with pertinent positive or pertinent negative responses have been documented in the HPI. ROS Other: All systems not noted in ROS Statement are negative. Past Medical History Past Medical History: No Reported History Additional Past Medical History / Comment(s): 2019 pancreatitis and gastritis, History of Any Multi-Drug Resistant Organisms: None Reported Past Surgical History: Cholecystectomy, Hernia Repair, Orthopedic Surgery Additional Past Surgical History / Comment(s): 2019 EGD/colonoscopy, r inguinal hernia repair, R wrist surgery for abscess, L wrist surgery for tendon repair, Past Anesthesia/Blood Transfusion Reactions: No Reported Reaction Past Psychological History: No Psychological Hx Reported Smoking Status: Never smoker Past Alcohol Use History: Occasional Past Drug Use History: None Reported - Past Family History Father Family Medical History: No Reported History Mother Family Medical History: No Reported History General Exam - General Exam Comments Initial Comments: General: The patient is awake and alert, in no distress Eye: Pupils are equal, round and reactive to light, extra-ocular movements are intact. No nystagmus. There is normal conjunctiva bilaterally. No signs of icterus. Ears, nose, mouth and throat: There are moist mucous membranes and no oral lesions. Neck: The neck is supple, there is no tenderness or JVD. Cardiovascular: There is a regular rate and rhythm. No murmur, rub or gallop is appreciated. Respiratory: Lungs are clear to auscultation, respirations are non-labored, breath sounds are equal. No wheezes, stridor, rales, or rhonchi. Gastrointestinal: Soft, non-distended, epigastric tendernses to palpation, mild. Abdomen is without masses or organomegaly noted. There is no rebound or guarding present. Rectal: light brown stool.no bright red blood Musculoskeletal: Normal ROM, no tenderness. Strength 5/5. Sensation intact. Radial and DP pulses equal bilaterally 2+. Neurological: A&O x 3. CN II-XII intact grossly, There are no obvious motor or sensory deficits. Coordination appears grossly intact. Speech is normal. Skin: Skin is warm and dry and no rashes or lesions are noted. Psychiatric: Cooperative, appropriate mood & affect, normal judgment. Limitations: no limitations Course Vital Signs 08/20/20 08/20/20 13:17 16:35 Temperature 98.6 F Pulse Rate 117 H 86 Respiratory 18 18 Rate Blood Pressure 158/98 121/95 O2 Sat by Pulse 94 L 99 Oximetry Procedures - [place] Protocol (Time Out) Nurse: Wilbur Encarnacion Medical Decision Making - Medical Decision Making Lasb stable. AST/ALT/Lipase similar with previous values. US no signs of pancreas inflammation/cysts. patient occult (-). no bright red or dark stools per rectum. Patient does not appears peritoneal. Patient pain improved. pt hydrated. will be discharged with GI f/u. Instruction to take protonix at home and zofran. Patient attending Dr. Mariscal - Lab Data Result diagrams: 08/20/20 15:50 08/20/20 14:31 Lab Results 08/20/20 08/20/20 08/20/20 Range/Units 14:31 14:31 14:31 WBC (3.8-10.6) k/uL RBC (4.30-5.90) m/uL Hgb (13.0-17.5) gm/dL Hct (39.0-53.0) % MCV (80.0-100.0) fL MCH (25.0-35.0) pg MCHC (31.0-37.0) g/dL RDW (11.5-15.5) % Plt Count (150-450) k/uL MPV Neutrophils % % Lymphocytes % % Monocytes % % Eosinophils % % Basophils % % Neutrophils # (1.3-7.7) k/uL Lymphocytes # (1.0-4.8) k/uL Monocytes # (0-1.0) k/uL Eosinophils # (0-0.7) k/uL Basophils # (0-0.2) k/uL Sodium 143 (137-145) mmol/L Potassium 4.5 (3.5-5.1) mmol/L Chloride 106 (98-107) mmol/L Carbon Dioxide 22 (22-30) mmol/L Anion Gap 15 mmol/L BUN 13 (9-20) mg/dL Creatinine 0.67 (0.66-1.25) mg/dL Est GFR (CKD-EPI)AfAm >90 (>60 ml/min/1.73 sqM) Est GFR (CKD-EPI)NonAf >90 (>60 ml/min/1.73 sqM) Glucose 135 H (74-99) mg/dL Lactic Ac Sepsis Rflx Plasma Lactic Acid [place] 2.4 H* (0.7-2.0) mmol/L Calcium 9.8 (8.4-10.2) mg/dL Total Bilirubin 0.5 (0.2-1.3) mg/dL AST 347 H (17-59) U/L ALT 293 H (4-49) U/L Alkaline Phosphatase 118 (38-126) U/L Troponin I <0.012 (0.000-0.034) ng/mL Total Protein 8.2 (6.3-8.2) g/dL Albumin 5.1 H (3.5-5.0) g/dL Amylase 60 (30-110) U/L Lipase 235 (23-300) U/L Stool Occult Blood (Negative) 08/20/20 08/20/20 08/20/20 Range/Units 14:55 15:50 17:38 WBC 5.5 (3.8-10.6) k/uL RBC 4.62 (4.30-5.90) m/uL Hgb 16.0 (13.0-17.5) gm/dL Hct 45.6 (39.0-53.0) % MCV 98.6 (80.0-100.0) fL MCH 34.7 (25.0-35.0) pg MCHC 35.2 (31.0-37.0) g/dL RDW 12.4 (11.5-15.5) % Plt Count 194 (150-450) k/uL MPV 7.4 Neutrophils % 60 % Lymphocytes % 30 % Monocytes % 6 % Eosinophils % 1 % Basophils % 1 % Neutrophils # 3.3 (1.3-7.7) k/uL Lymphocytes # 1.6 (1.0-4.8) k/uL Monocytes # 0.4 (0-1.0) k/uL Eosinophils # 0.1 (0-0.7) k/uL Basophils # 0.1 (0-0.2) k/uL Sodium (137-145) mmol/L Potassium (3.5-5.1) mmol/L Chloride (98-107) mmol/L Carbon Dioxide (22-30) mmol/L Anion Gap mmol/L BUN (9-20) mg/dL Creatinine (0.66-1.25) mg/dL Est GFR (CKD-EPI)AfAm (>60 ml/min/1.73 sqM) Est GFR (CKD-EPI)NonAf (>60 ml/min/1.73 sqM) Glucose (74-99) mg/dL Lactic Ac Sepsis Rflx Y Plasma Lactic Acid [place] (0.7-2.0) mmol/L Calcium (8.4-10.2) mg/dL Total Bilirubin (0.2-1.3) mg/dL AST (17-59) U/L ALT (4-49) U/L Alkaline Phosphatase (38-126) U/L Troponin I (0.000-0.034) ng/mL Total Protein (6.3-8.2) g/dL Albumin (3.5-5.0) g/dL Amylase (30-110) U/L Lipase (23-300) U/L Stool Occult Blood Negative (Negative) Disposition Clinical Impression: Nausea & vomiting, Epigastric pain determined by examination Disposition: HOME SELF-CARE Instructions (If sedation given, give patient instructions): Abdominal Pain (ED) Additional Instructions: Please use medication as discussed. Please follow-up with family doctor in the next 2 days, follow-up with GI in next week as discussed (Dr. Colon). Please return to emergency room if the symptoms increase or worsen or for any other concerns. Is patient prescribed a controlled substance at d/c from ED?: No Referrals: None,Stated [Primary Care Provider] - 1-2 days Rory Colon MD [STAFF PHYSICIAN] - 1-2 days Time of Disposition: 17:15
[2020-08-20] MEDS ORDERED: ACET/COD 300 MG/30 MG STARTER PACK 6 TAB BTL PO STA (17:13)
== END 2020-08-20 18:12 | disposition home or self-care (01) ==
LOC: EC 13:12
DX: R10.13 Epigastric pain (principal); R11.2 Nausea with vomiting, unspecified; Z79.899 Other long term (current) drug therapy; Z90.49 Acquired absence of other specified parts of digestive tract
CPT/HCPCS: 80053; 82150; 83605; 83690; 84484; 85025; 82272; 76705; 99284; 96374; 96375 ×2; 96376; 96361 ×3; J2405; C9113; J1170

== ENCOUNTER 2020-08-25 17:44 | Emergency (ER) | payer OTHER ==
--- NOTE | 2020-08-25 18:10 | ED ---
General Adult HPI - General Chief complaint: Abdominal Pain Stated complaint: Abd pain, vomiting Time Seen by Provider: 08/25/20 17:50 Source: patient Mode of arrival: ambulatory Limitations: no limitations - History of Present Illness Initial comments: Patient presents the ED complaining of having intermittent epigastric abdominal pain, nausea and vomiting over the past couple of months or so. Patient states that he was seen in the ED for the symptoms a few days ago, and he states that his symptoms continue. Patient states that he is scheduled to see a GI doctor next week, and he states that he has been taking both famotidine and pantoprazole without any relief or change in his symptoms. Patient states that his abdominal pain is diffuse in his abdomen today. Patient denies trauma or injury, fever or chills, headache, chest pain, dyspnea, dizziness, back pain, diarrhea or constipation, bloody or melanotic stool, hematemesis, dysuria/jane turia/urinary frequency/urinary symptoms, decreased urine output, or any other symptoms or complaints. Patient admits to occasional alcohol use. Patient denies any illicit drug use. Patient states that he has had his gallbladder removed. - Related Data Home Medications Medication Instructions Recorded Confirmed Pantoprazole Sodium [Protonix] 40 mg PO DAILY 08/20/20 08/25/20 Previous Rx's Medication Instructions Recorded Famotidine [Pepcid] 20 mg PO BID #60 tablet 08/12/20 Ondansetron Odt [Zofran Odt] 4 mg PO Q8HR PRN #10 tab 08/25/20 Allergies Allergy/AdvReac Type Severity Reaction Status Date / Time No Known Allergies Allergy Verified 08/25/20 19:07 Review of Systems ROS Statement: Those systems with pertinent positive or pertinent negative responses have been documented in the HPI. ROS Other: All systems not noted in ROS Statement are negative. Past Medical History Past Medical History: No Reported History Additional Past Medical History / Comment(s): 2019 pancreatitis and gastritis, History of Any Multi-Drug Resistant Organisms: None Reported Past Surgical History: Cholecystectomy, Hernia Repair, Orthopedic Surgery Additional Past Surgical History / Comment(s): 2019 EGD/colonoscopy, r inguinal hernia repair, R wrist surgery for abscess, L wrist surgery for tendon repair, Past Anesthesia/Blood Transfusion Reactions: No Reported Reaction Past Psychological History: No Psychological Hx Reported Smoking Status: Never smoker Past Alcohol Use History: Occasional Past Drug Use History: None Reported - Past Family History Father Family Medical History: No Reported History Mother Family Medical History: No Reported History General Exam Limitations: no limitations General appearance: alert, in no apparent distress Head exam: Present: atraumatic, normocephalic Eye exam: Present: normal appearance, EOMI ENT exam: Present: mucous membranes moist Neck exam: Present: other (Trachea is in midline) Respiratory exam: Present: normal lung sounds bilaterally. Absent: respiratory distress, wheezes, rales, rhonchi, stridor Cardiovascular Exam: Present: normal rhythm, tachycardia, normal heart sounds, other (Normal radial pulses bilaterally) GI/Abdominal exam: Present: soft, normal bowel sounds, other (Moderate diffuse abdominal tenderness). Absent: distended, guarding, rebound Back exam: Absent: CVA tenderness (R), CVA tenderness (L) Neurological exam: Present: alert, oriented X3. Absent: motor sensory deficit Psychiatric exam: Present: normal affect, normal mood Skin exam: Present: warm, dry, intact, normal color Course Vital Signs 08/25/20 08/25/20 17:46 18:52 Temperature 98.8 F Pulse Rate 120 H 98 Respiratory 20 18 Rate Blood Pressure 144/92 153/109 O2 Sat by Pulse 96 98 Oximetry - Reevaluation(s) Reevaluation #1: 08/25/20 19:56 Patient has not had any vomiting while in the ED. Patient denies development of any new symptoms while in the ED. Patient's abdomen remains soft and without any surgical signs on exam. Patient is aware of his test results, and he feels comfortable going home at this time. Patient was counseled about abdominal pain, vomiting and alcohol abuse. Patient was instructed to avoid alcohol use. Patient was also instructed to follow up closely with his primary care provider, as well as the GI doctor that he states he is scheduled to see next week. Patient was clearly explained return and follow-up instructions, and he feels comfortable with this plan. Patient to get a ride home from the ED today. Medical Decision Making - Medical Decision Making Patient has a nonsurgical abdominal exam. Patient is afebrile and without leukocytosis. Patient's CT abdomen/pelvis with IV contrast shows no acute abnormality. Patient was hydrated with 2 L of normal saline while in the ED. I suspect that the patient's elevated LFTs are likely secondary to hepatic steatosis and/or alcohol abuse. Patient is status post cholecystectomy. I suspect that alcohol abuse is a contributing factor to the patient's symptoms. Patient was instructed to abstain from alcohol use. Patient states that he is s cheduled to see a GI doctor next week. Patient was clearly explained return and follow-up instructions. Will discharge patient home at this time. Patient feels comfortable with this plan. - Lab Data Result diagrams: 08/25/20 18:28 08/25/20 18:28 Lab Results 08/25/20 08/25/20 08/25/20 Range/Units 18:28 18:28 18:28 WBC 5.5 (3.8-10.6) k/uL RBC 4.94 (4.30-5.90) m/uL Hgb 16.5 (13.0-17.5) gm/dL Hct 47.8 (39.0-53.0) % MCV 96.9 (80.0-100.0) fL MCH 33.5 (25.0-35.0) pg MCHC 34.6 (31.0-37.0) g/dL RDW 12.4 (11.5-15.5) % Plt Count 209 (150-450) k/uL MPV 6.9 Neutrophils % 49 % Lymphocytes % 40 % Monocytes % 7 % Eosinophils % 1 % Basophils % 1 % Neutrophils # 2.7 (1.3-7.7) k/uL Lymphocytes # 2.2 (1.0-4.8) k/uL Monocytes # 0.4 (0-1.0) k/uL Eosinophils # 0.0 (0-0.7) k/uL Basophils # 0.1 (0-0.2) k/uL Sodium 142 (137-145) mmol/L Potassium 3.9 (3.5-5.1) mmol/L Chloride 104 (98-107) mmol/L Carbon Dioxide 25 (22-30) mmol/L Anion Gap 13 mmol/L BUN 14 (9-20) mg/dL Creatinine 0.78 (0.66-1.25) mg/dL Est GFR (CKD-EPI)AfAm >90 (>60 ml/min/1.73 sqM) Est GFR (CKD-EPI)NonAf >90 (>60 ml/min/1.73 sqM) Glucose 129 H (74-99) mg/dL Plasma Lactic Acid Eugene 2.3 H* (0.7-2.0) mmol/L Calcium 9.8 (8.4-10.2) mg/dL Total Bilirubin 0.6 (0.2-1.3) mg/dL AST 441 H (17-59) U/L ALT 338 H (4-49) U/L Alkaline Phosphatase 124 (38-126) U/L Total Protein 8.1 (6.3-8.2) g/dL Albumin 5.0 (3.5-5.0) g/dL Amylase 58 (30-110) U/L Lipase 307 H (23-300) U/L Urine Color Urine Appearance (Clear) Urine pH (5.0-8.0) Ur Specific [place] (1.001-1.035) Urine Protein (Negative) Urine Glucose (UA) (Negative) Urine Ketones (Negative) Urine Blood (Negative) Urine Nitrite (Negative) Urine Bilirubin (Negative) Urine Urobilinogen (<2.0) mg/dL Ur Leukocyte Esterase (Negative) Urine RBC (0-5) /hpf Urine WBC (0-5) /hpf Urine Mucus (None) /hpf Serum Alcohol 223 H* mg/dL 08/25/20 Range/Units 18:32 WBC (3.8-10.6) k/uL RBC (4.30-5.90) m/uL Hgb (13.0-17.5) gm/dL Hct (39.0-53.0) % MCV (80.0-100.0) fL MCH (25.0-35.0) pg MCHC (31.0-37.0) g/dL RDW (11.5-15.5) % Plt Count (150-450) k/uL MPV Neutrophils % % Lymphocytes % % Monocytes % % Eosinophils % % Basophils % % Neutrophils # (1.3-7.7) k/uL Lymphocytes # (1.0-4.8) k/uL Monocytes # (0-1.0) k/uL Eosinophils # (0-0.7) k/uL Basophils # (0-0.2) k/uL Sodium (137-145) mmol/L Potassium (3.5-5.1) mmol/L Chloride (98-107) mmol/L Carbon Dioxide (22-30) mmol/L Anion Gap mmol/L BUN (9-20) mg/dL Creatinine (0.66-1.25) mg/dL Est GFR (CKD-EPI)AfAm (>60 ml/min/1.73 sqM) Est GFR (CKD-EPI)NonAf (>60 ml/min/1.73 sqM) Glucose (74-99) mg/dL Plasma Lactic Acid [place] (0.7-2.0) mmol/L Calcium (8.4-10.2) mg/dL Total Bilirubin (0.2-1.3) mg/dL AST (17-59) U/L ALT (4-49) U/L Alkaline Phosphatase (38-126) U/L Total Protein (6.3-8.2) g/dL Albumin (3.5-5.0) g/dL Amylase (30-110) U/L Lipase (23-300) U/L Urine Color Yellow Urine Appearance Clear (Clear) Urine pH 6.0 (5.0-8.0) Ur Specific [place] 1.020 (1.001-1.035) Urine Protein Trace H (Negative) Urine Glucose (UA) Negative (Negative) Urine Ketones Negative (Negative) Urine Blood Trace H (Negative) Urine Nitrite Negative (Negative) Urine Bilirubin Negative (Negative) Urine Urobilinogen <2.0 (<2.0) mg/dL Ur Leukocyte Esterase Negative (Negative) Urine RBC <1 (0-5) /hpf Urine WBC 1 (0-5) /hpf Urine Mucus Moderate H (None) /hpf Serum Alcohol mg/dL - Radiology Data Radiology results: report reviewed (CT abdomen/pelvis with IV contrast: No acute abnormality) Disposition Clinical Impression: Abdominal pain, Vomiting, Alcohol abuse Disposition: HOME SELF-CARE Condition: Stable Instructions (If sedation given, give patient instructions): Abuse of Alcohol (ED), Acute Nausea and Vomiting (ED), Abdominal Pain (ED) Additional Instructions: Return to the ER immediately should you develop new or worsening pain, increased or persistent vomiting, a fever, shortness of breath, feeling dizzy or faint, or new or worsening symptoms. Follow up closely with your primary care provider. Prescriptions: Ondansetron Odt [Zofran Odt] 4 mg PO Q8HR PRN #10 tab PRN Reason: Nausea Is patient prescribed a controlled substance at d/c from ED?: No Referrals: None,Stated [Primary Care Provider] - 1-2 days Meme Ramsey MD [REFERRING] - 1-2 days Time of Disposition: 20:00
[2020-08-25] MEDS ORDERED: SODIUM CHLORIDE 0.9% 1,000 ML IV STA (18:14)
[2020-08-25] MEDS ORDERED: ONDANSETRON 4 MG/2 ML VIAL IVP STA (18:14)
[2020-08-25 18:34] LABS: Basophils # (A) 0.1 k/uL (0-0.2); Basophils % (A) 1 %; Eosinophils % (A) 1 %; HCT 47.8 % (39.0-53.0); HGB 16.5 gm/dL (13.0-17.5); Lymphocytes # (A) 2.2 k/uL (1.0-4.8); Lymphocytes % (A) 40 %; MCH 33.5 pg (25.0-35.0); MCHC 34.6 g/dL (31.0-37.0); MCV 96.9 fL (80.0-100.0); Mean Platelet Volume 6.9; Monocytes # (A) 0.4 k/uL (0-1.0); Monocytes % (A) 7 %; Neutrophils # (A) 2.7 k/uL (1.3-7.7); Neutrophils % (A) 49 %; Platelet Count 209 k/uL (150-450); RBC 4.94 m/uL (4.30-5.90); RDW 12.4 % (11.5-15.5); WBC 5.5 k/uL (3.8-10.6)
[2020-08-25 18:42] LABS: Appearance,Urine Clear (Clear); Bilirubin,Urine Negative (Negative); Blood,Urine Trace (Negative); Color,Urine Yellow; Glucose,Urine (UA) Negative (Negative); Ketones,Urine Negative (Negative); Leukocyte Esterase,Urine Negative (Negative); Mucus,Urine Moderate /hpf; Nitrite,Urine Negative (Negative); Protein,Urine Trace (Negative); RBC,Urine <1 /hpf (0-5); Urobilinogen,Urine <2.0 mg/dL (<2.0); WBC,Urine 1 /hpf (0-5)
[2020-08-25 18:46] LABS: ALT 338 U/L (4-49); AST 441 U/L (17-59); African American GFR (CKD) >90 (>60 ml/min/1.73 sqM); Alkaline Phosphatase 124 U/L (38-126); Amylase 58 U/L (30-110); Anion Gap 13 mmol/L; Blood Urea Nitrogen 14 mg/dL (9-20); Calcium 9.8 mg/dL (8.4-10.2); Carbon Dioxide 25 mmol/L (22-30); Chloride 104 mmol/L (98-107); Glucose 129 mg/dL (74-99); Non-African American GFR(CKD) >90 (>60 ml/min/1.73 sqM); Potassium 3.9 mmol/L (3.5-5.1); Sodium 142 mmol/L (137-145); Total Bilirubin 0.6 mg/dL (0.2-1.3); Total Protein 8.1 g/dL (6.3-8.2)
[2020-08-25 18:52] LABS: Lipase 307 U/L (23-300)
[2020-08-25 18:53] VITALS: RESP 18
[2020-08-25 18:53] LABS: Alcohol 223 mg/dL
--- NOTE | 2020-08-25 18:58 | CT ---
EXAMINATION TYPE: CT abdomen pelvis w con DATE OF EXAM: 08/25/2020 COMPARISON: 07/25/2020. HISTORY: abdominal pain, nausea, vomitting. hx of pancreatitis. CT DLP: 1191.9 mGycm Automated exposure control for dose reduction was used. TECHNIQUE: Helical acquisition of images was performed from the lung bases through the pelvis. CONTRAST: Performed without Oral Contrast and with IV Contrast, patient injected with 100 mL of Isovue 300. FINDINGS: LUNG BASES: No significant abnormality is appreciated. LIVER/GB: No acute abnormality is appreciated. Diffuse hepatic steatosis with 2.1 cm right hepatic [place] with discontinuous and centripetal filling, suggestive of hemangioma. Cholecystectomy. PANCREAS: No significant abnormality is seen. SPLEEN: No significant abnormality is seen. ADRENALS: No significant abnormality is seen. KIDNEYS: No significant abnormality is seen. FREE AIR: No free air is visualized. RETROPERITONEAL ADENOPATHY: None visualized REPRODUCTIVE ORGANS: No significant abnormality is seen URINARY BLADDER: No significant abnormality is seen. PELVIC ADENOPATHY: None visualized. OSSEOUS STRUCTURES: No significant abnormality is seen. BOWEL: No significant abnormality is seen. OTHER: No acute abnormality. IMPRESSION: NO ACUTE ABNORMALITY. CHRONIC FINDINGS ABOVE.
[2020-08-25] MEDS ORDERED: SODIUM CHLORIDE 0.9% 1,000 ML IV ONE (19:02)
[2020-08-25] MEDS ORDERED: MAG HYDROX/AL HYDROX/SIMETH 30 ML, HYOSCYAMINE ELIXIR 10 ML, LIDOCAINE VISCOUS 2% 10 ML PO STA ×3 (19:22)
[2020-08-25 20:28] VITALS: BP 145/100; PULSE 94; TEMP 98.2
== END 2020-08-25 20:27 | disposition home or self-care (01) ==
LOC: EC 17:44
DX: R10.13 Epigastric pain (principal); R11.10 Vomiting, unspecified; F10.10 Alcohol abuse, uncomplicated; R00.0 Tachycardia, unspecified; Y90.7 Blood alcohol level of 200-239 mg/100 ml; Z90.49 Acquired absence of other specified parts of digestive tract
CPT/HCPCS: 36415; 80053; 82150; 83605; 83690; 85025; 81001; 74177; 99284; 96374; 96361 ×2; G0480; J2405; Q9967; 80320

== ENCOUNTER 2020-09-06 07:51 | Emergency (ER) | payer OTHER ==
[2020-09-06 07:57] VITALS: TEMP 98.3
[2020-09-06] MEDS ORDERED: SODIUM CHLORIDE 0.9% 1,000 ML IV STA ×2 (08:15→08:23)
[2020-09-06] MEDS ORDERED: ONDANSETRON 4 MG/2 ML VIAL IVP STA (08:16)
[2020-09-06] MEDS ORDERED: FAMOTIDINE 20 MG/2 ML VIAL IV STA (08:16)
[2020-09-06] MEDS ORDERED: MAG HYDROX/AL HYDROX/SIMETH 30 ML, HYOSCYAMINE ELIXIR 10 ML, LIDOCAINE VISCOUS 2% 10 ML PO STA ×3 (08:16)
--- NOTE | 2020-09-06 08:23 | ED ---
General Adult HPI - General Chief complaint: Abdominal Pain Stated complaint: Abd Pain, Vomiting Time Seen by Provider: 09/06/20 08:00 Source: patient, RN notes reviewed Mode of arrival: ambulatory Limitations: no limitations - History of Present Illness Initial comments: 35-year-old male with a past medical history of pancreatitis, gastritis, cholecystectomy presents to the emergency room for abdominal pain. Patient has had upper abdominal pain for the past couple days however this has been ongoing chronically for months. Patient states he has had pancreatitis in the past that this felt similar. He has also had his gallbladder removed. Patient does admit to drinking alcohol tonight regularly. Patient did see GI about a week ago and they gave him an unknown medicine to try and planned to see him again in a few weeks.patient denies diarrhea. Does admit to nausea. Patient has no other complaints at this time including shortness of breath, chest pain, headache, or visual changes. - Related Data Home Medications Medication Instructions Recorded Confirmed Pantoprazole Sodium [Protonix] 40 mg PO DAILY 08/20/20 09/06/20 Sucralfate [Carafate] 1 gm PO ACHS 09/06/20 09/06/20 Previous Rx's Medication Instructions Recorded Famotidine [Pepcid] 20 mg PO BID #60 tablet 08/12/20 Ondansetron Odt [Zofran Odt] 4 mg PO Q8HR PRN #10 tab 08/25/20 Allergies Allergy/AdvReac Type Severity Reaction Status Date / Time No Known Allergies Allergy Verified 09/06/20 08:38 Review of Systems ROS Statement: Those systems with pertinent positive or pertinent negative responses have been documented in the HPI. ROS Other: All systems not noted in ROS Statement are negative. Past Medical History Past Medical History: No Reported History Additional Past Medical History / Comment(s): 2019 pancreatitis and gastritis, History of Any Multi-Drug Resistant Organisms: None Reported Past Surgical History: Cholecystectomy, Hernia Repair, Orthopedic Surgery Additional Past Surgical History / Comment(s): 2019 EGD/colonoscopy, r inguinal hernia repair, R wrist surgery for abscess, L wrist surgery for tendon repair, Past Anesthesia/Blood Transfusion Reactions: No Reported Reaction Past Psychological History: No Psychological Hx Reported Smoking Status: Never smoker Past Alcohol Use History: Occasional Past Drug Use History: None Reported - Past Family History Father Family Medical History: No Reported History Mother Family Medical History: No Reported History General Exam Limitations: no limitations General appearance: alert, in no apparent distress Head exam: Present: atraumatic, normocephalic, normal inspection Eye exam: Present: normal appearance, PERRL, EOMI. Absent: scleral icterus, conjunctival injection ENT exam: Present: normal exam, mucous membranes moist Neck exam: Present: normal inspection, full ROM. Absent: tenderness Respiratory exam: Present: normal lung sounds bilaterally. Absent: respiratory distress, wheezes Cardiovascular Exam: Present: regular rate, normal rhythm, normal heart sounds GI/Abdominal exam: Present: soft, tenderness (Generalized abdominal tenderness worse near the epigastric region), normal bowel sounds. Absent: distended, guarding, rebound, rigid Back exam: Absent: CVA tenderness (R), CVA tenderness (L) Neurological exam: Present: alert Course Vital Signs 09/06/20 09/06/20 07:55 09:24 Temperature 98.3 F Pulse Rate 136 H 94 Respiratory 18 20 Rate Blood Pressure 165/117 135/89 O2 Sat by Pulse 97 99 Oximetry Medical Decision Making - Medical Decision Making Patient has been seen 7 times for this complaint in the past 3 months patient has had 3 CAT scans showing hepatic steatosis and hemangioma with no other acute abnormalities. The most recent CAT scan was 12 days ago. He also had an EGD performed 2 months ago during an admission which showed mild antral gastritis and duodenitis without esophagitis or peptic ulcer disease. Ultrasound of the right upper quadrant 2 weeks ago showed hepatomegaly with underlying fatty infiltration suggested. CBD was normal. CBC unremarkable. CMP does show chronic transaminitis likely secondary to alcohol use as patient does admit to this. 2+ ketones noted, patient was given 2 L of fluids. No vomiting here in the emergency room. Pain has improved. At this time patient we discharged home to follow up with GI. He'll return here for any worsening symptoms. - Lab Data Result diagrams: 09/06/20 08:19 09/06/20 08:19 Lab Results 09/06/20 09/06/20 09/06/20 Range/Units 08:19 08:19 08:19 WBC 8.5 (3.8-10.6) k/uL RBC 5.01 (4.30-5.90) m/uL Hgb 17.1 (13.0-17.5) gm/dL Hct 48.2 (39.0-53.0) % MCV 96.2 (80.0-100.0) fL MCH 34.2 (25.0-35.0) pg MCHC 35.6 (31.0-37.0) g/dL RDW 12.7 (11.5-15.5) % Plt Count 274 (150-450) k/uL MPV 7.2 Neutrophils % 69 % Lymphocytes % 22 % Monocytes % 6 % Eosinophils % 1 % Basophils % 0 % Neutrophils # 5.9 (1.3-7.7) k/uL Lymphocytes # 1.9 (1.0-4.8) k/uL Monocytes # 0.5 (0-1.0) k/uL Eosinophils # 0.1 (0-0.7) k/uL Basophils # 0.0 (0-0.2) k/uL Sodium 140 (137-145) mmol/L Potassium 3.8 (3.5-5.1) mmol/L Chloride 98 (98-107) mmol/L Carbon Dioxide 21 L (22-30) mmol/L Anion Gap 21 mmol/L BUN 13 (9-20) mg/dL Creatinine 0.90 (0.66-1.25) mg/dL Est GFR (CKD-EPI)AfAm >90 (>60 ml/min/1.73 sqM) Est GFR (CKD-EPI)NonAf >90 (>60 ml/min/1.73 sqM) Glucose 133 H (74-99) mg/dL Calcium 10.3 H (8.4-10.2) mg/dL Total Bilirubin 0.9 (0.2-1.3) mg/dL AST 344 H (17-59) U/L ALT 291 H (4-49) U/L Alkaline Phosphatase 130 H (38-126) U/L Total Protein 8.3 H (6.3-8.2) g/dL Albumin 5.4 H (3.5-5.0) g/dL Amylase 66 (30-110) U/L Lipase 193 (23-300) U/L Urine Color Yellow Urine Appearance Clear (Clear) Urine pH 6.0 (5.0-8.0) Ur Specific [place] 1.027 (1.001-1.035) Urine Protein 1+ H (Negative) Urine Glucose (UA) Negative (Negative) Urine Ketones 2+ H (Negative) Urine Blood Negative (Negative) Urine Nitrite Negative (Negative) Urine Bilirubin Negative (Negative) Urine Urobilinogen <2.0 (<2.0) mg/dL Ur Leukocyte Esterase Negative (Negative) Urine RBC 1 (0-5) /hpf Urine WBC 3 (0-5) /hpf Ur Squamous Epith Cells <1 (0-4) /hpf Urine Mucus Many H (None) /hpf Disposition Clinical Impression: Abdominal pain, Nausea & vomiting Disposition: HOME SELF-CARE Condition: Good Instructions (If sedation given, give patient instructions): Abdominal Pain (ED) Additional Instructions: Please continue your medications from GI. Please follow-up with your doctor and GI in one to 2 days. Return to the emergency room for any worsening symptoms. Is patient prescribed a controlled substance at d/c from ED?: No Referrals: Rory Colon MD [STAFF PHYSICIAN] - 1-2 days Meme Ramsey MD [REFERRING] - 1-2 days Time of Disposition: 09:51
[2020-09-06 08:29] LABS: Basophils % (A) 0 %; Eosinophils # (A) 0.1 k/uL (0-0.7); Eosinophils % (A) 1 %; HCT 48.2 % (39.0-53.0); HGB 17.1 gm/dL (13.0-17.5); Lymphocytes # (A) 1.9 k/uL (1.0-4.8); Lymphocytes % (A) 22 %; MCH 34.2 pg (25.0-35.0); MCHC 35.6 g/dL (31.0-37.0); MCV 96.2 fL (80.0-100.0); Mean Platelet Volume 7.2; Monocytes # (A) 0.5 k/uL (0-1.0); Monocytes % (A) 6 %; Neutrophils # (A) 5.9 k/uL (1.3-7.7); Neutrophils % (A) 69 %; Platelet Count 274 k/uL (150-450); RBC 5.01 m/uL (4.30-5.90); RDW 12.7 % (11.5-15.5); WBC 8.5 k/uL (3.8-10.6)
[2020-09-06 08:36] LABS: Appearance,Urine Clear (Clear); Bilirubin,Urine Negative (Negative); Blood,Urine Negative (Negative); Color,Urine Yellow; Glucose,Urine (UA) Negative (Negative); Ketones,Urine 2+ (Negative); Leukocyte Esterase,Urine Negative (Negative); Mucus,Urine Many /hpf; Nitrite,Urine Negative (Negative); Protein,Urine 1+ (Negative); RBC,Urine 1 /hpf (0-5); Specific Gravity,Urine 1.027 (1.001-1.035); Squamous Epithelial Cell,Urine <1 /hpf (0-4); Urobilinogen,Urine <2.0 mg/dL (<2.0); WBC,Urine 3 /hpf (0-5)
[2020-09-06 08:41] LABS: ALT 291 U/L (4-49); AST 344 U/L (17-59); African American GFR (CKD) >90 (>60 ml/min/1.73 sqM); Albumin 5.4 g/dL (3.5-5.0); Alkaline Phosphatase 130 U/L (38-126); Amylase 66 U/L (30-110); Anion Gap 21 mmol/L; Blood Urea Nitrogen 13 mg/dL (9-20); Calcium 10.3 mg/dL (8.4-10.2); Carbon Dioxide 21 mmol/L (22-30); Chloride 98 mmol/L (98-107); Glucose 133 mg/dL (74-99); Lipase 193 U/L (23-300); Non-African American GFR(CKD) >90 (>60 ml/min/1.73 sqM); Potassium 3.8 mmol/L (3.5-5.1); Sodium 140 mmol/L (137-145); Total Bilirubin 0.9 mg/dL (0.2-1.3); Total Protein 8.3 g/dL (6.3-8.2)
[2020-09-06] MEDS ORDERED: KETOROLAC 15 MG/ML 1 ML VIAL IVP STA (09:04)
[2020-09-06 09:26] VITALS: BP 135/89; PULSE 94; RESP 20
[2020-09-06] MEDS ORDERED: HYDROmorphone 0.5 MG/0.5 ML SYRINGE IVP STA (09:48)
== END 2020-09-06 10:20 | disposition home or self-care (01) ==
LOC: EC 07:51
DX: R11.2 Nausea with vomiting, unspecified (principal); R74.01 Elevation of levels of liver transaminase levels; Z79.899 Other long term (current) drug therapy; Z90.49 Acquired absence of other specified parts of digestive tract; Z87.19 Personal history of other diseases of the digestive system
CPT/HCPCS: 36415; 80053; 82150; 83690; 85025; 81001; 99284; 96374; 96375 ×3; 96361; J2405; J1885; J1170

== ENCOUNTER 2020-09-16 21:14 | Emergency (ER) | payer OTHER ==
[2020-09-16 21:28] VITALS: RESP 18
[2020-09-16] MEDS ORDERED: SODIUM CHLORIDE 0.9% 1,000 ML IV ONE (22:08)
[2020-09-16] MEDS ORDERED: ONDANSETRON 4 MG/2 ML VIAL IVP STA (22:08)
[2020-09-16] MEDS ORDERED: diphenhydrAMINE 50 MG/ML 1 ML VIAL IVP STA (22:08)
[2020-09-16] MEDS ORDERED: HYDROmorphone 1 MG/ML 1 ML SYRINGE IVP STA (22:08)
[2020-09-16] MEDS ORDERED: SODIUM CHLORIDE 0.9% 1,000 ML IV SCH (22:15)
[2020-09-16 23:23] LABS: Basophils % (A) 1 %; Eosinophils % (A) 1 %; HCT 48.6 % (39.0-53.0); HGB 16.7 gm/dL (13.0-17.5); Lymphocytes # (A) 1.7 k/uL (1.0-4.8); Lymphocytes % (A) 34 %; MCH 33.5 pg (25.0-35.0); MCHC 34.4 g/dL (31.0-37.0); MCV 97.3 fL (80.0-100.0); Mean Platelet Volume 6.8; Monocytes # (A) 0.5 k/uL (0-1.0); Monocytes % (A) 9 %; Neutrophils # (A) 2.6 k/uL (1.3-7.7); Neutrophils % (A) 53 %; Platelet Count 230 k/uL (150-450); RBC 4.99 m/uL (4.30-5.90); RDW 12.7 % (11.5-15.5)
[2020-09-16 23:36] LABS: ALT 325 U/L (4-49); AST 379 U/L (17-59); African American GFR (CKD) >90 (>60 ml/min/1.73 sqM); Albumin 4.9 g/dL (3.5-5.0); Alkaline Phosphatase 136 U/L (38-126); Anion Gap 13 mmol/L; Blood Urea Nitrogen 14 mg/dL (9-20); Calcium 9.6 mg/dL (8.4-10.2); Carbon Dioxide 26 mmol/L (22-30); Chloride 103 mmol/L (98-107); Glucose 126 mg/dL (74-99); Non-African American GFR(CKD) >90 (>60 ml/min/1.73 sqM); Potassium 4.4 mmol/L (3.5-5.1); Sodium 142 mmol/L (137-145); Total Bilirubin 0.7 mg/dL (0.2-1.3); Total Protein 7.7 g/dL (6.3-8.2)
[2020-09-16 23:45] LABS: Lipase 281 U/L (23-300)
--- NOTE | 2020-09-16 23:54 | ED ---
General Adult HPI - General Chief complaint: Nausea/Vomiting/Diarrhea Stated complaint: Vomiting Time Seen by Provider: 09/16/20 21:49 Source: patient Mode of arrival: ambulatory Limitations: no limitations - History of Present Illness Initial comments: 36 mL presenting today for chief complaint of nausea vomiting and loose stools. Patient states she's had nausea vomiting a dull pain and loose stools for the past day. He describes a dull pain is diffuse without radiation, and no localizing pain. He states he has experienced this in the past is currently following gastroenterology for this complaint. Patient states figure out what is going on but he does have an upcoming appointment. He denies any fever or upper abdominal pain, chest pain shortness of breath he denies any bloody stools dark stools or blood in the vomit. Patient denies any sick contacts. Patietn denies alcohol abuse or withdrawal, denies tremors or hallucinations. patient has no additional complaints. Upon arrival he appears well nontxic in no acute distress - Related Data Home Medications Medication Instructions Recorded Confirmed Pantoprazole Sodium [Protonix] 40 mg PO DAILY 08/20/20 09/06/20 Sucralfate [Carafate] 1 gm PO ACHS 09/06/20 09/06/20 Previous Rx's Medication Instructions Recorded Famotidine [Pepcid] 20 mg PO BID #60 tablet 08/12/20 Ondansetron Odt [Zofran Odt] 4 mg PO Q8HR PRN #10 tab 08/25/20 Allergies Allergy/AdvReac Type Severity Reaction Status Date / Time No Known Allergies Allergy Verified 09/16/20 21:26 Review of Systems ROS Statement: Those systems with pertinent positive or pertinent negative responses have been documented in the HPI. ROS Other: All systems not noted in ROS Statement are negative. Past Medical History Past Medical History: No Reported History Additional Past Medical History / Comment(s): 2019 pancreatitis and gastritis, History of Any Multi-Drug Resistant Organisms: None Reported Past Surgical History: Cholecystectomy, Hernia Repair, Orthopedic Surgery Additional Past Surgical History / Comment(s): 2019 EGD/colonoscopy, r inguinal hernia repair, R wrist surgery for abscess, L wrist surgery for tendon repair, Past Anesthesia/Blood Transfusion Reactions: No Reported Reaction Past Psychological History: No Psychological Hx Reported Smoking Status: Never smoker Past Alcohol Use History: Occasional Past Drug Use History: None Reported - Past Family History Father Family Medical History: No Reported History Mother Family Medical History: No Reported History General Exam - General Exam Comments Initial Comments: General: The patient is awake and alert, in no distress Eye: +3 mm pupils are equal, round and reactive to light, extra-ocular movements are intact. No nystagmus. There is normal conjunctiva bilaterally. No signs of icterus. Ears, nose, mouth and throat: There are moist mucous membranes and no oral lesions. Neck: The neck is supple, there is no tenderness or JVD. Cardiovascular: There is a regular rate and rhythm. No murmur, rub or gallop is appreciated. Respiratory: Lungs are clear to auscultation, respirations are non-labored, breath sounds are equal. No wheezes, stridor, rales, or rhonchi. Gastrointestinal: Soft, non-distended, non-tender abdomen without masses or organomegaly noted. There is no rebound or guarding present. Musculoskeletal: Normal ROM, no tenderness. Strength 5/5. Sensation intact. Radial and DP pulses equal bilaterally 2+. Neurological: A&O x 3. CN II-XII intact grossly, There are no obvious motor or sensory deficits. Coordination appears grossly intact. Speech is normal. Skin: Skin is warm and dry and no rashes or lesions are noted. Psychiatric: Cooperative, appropriate mood & affect, normal judgment. Limitations: no limitations Course Vital Signs 09/16/20 09/17/20 21:25 00:11 Temperature 99.1 F 97.9 F Pulse Rate 88 90 Respiratory 18 18 Rate Blood Pressure 161/89 141/90 O2 Sat by Pulse 98 95 Oximetry Medical Decision Making - Medical Decision Making 35 year male presenting for abdominal pain nausea vomiting diarrhea. He states this happens frequently and he is currently investigating the cause. Patient appears more comfortable after medications. Patient was hydrated laboratory studies overall unremarkable aside from elevated liver enzymes which appear consistent with previous values. No significant increase. Patient denies any bloody or dark stools or bloody vomit. Hemoglobin stable. Patient does not appear to have an acute abdomen as patient had [address] scans today we opted to avoid radiation. Patient is agreeable to discharge [facility] GI f/u. Disucssed reutnr parameters and patient was discharged appearing well. - Lab Data Result diagrams: 09/16/20 22:26 09/16/20 22:26 Lab Results 09/16/20 09/16/20 Range/Units 22:26 22:26 WBC 5.0 (3.8-10.6) k/uL RBC 4.99 (4.30-5.90) m/uL Hgb 16.7 (13.0-17.5) gm/dL Hct 48.6 (39.0-53.0) % MCV 97.3 (80.0-100.0) fL MCH 33.5 (25.0-35.0) pg MCHC 34.4 (31.0-37.0) g/dL RDW 12.7 (11.5-15.5) % Plt Count 230 (150-450) k/uL MPV 6.8 Neutrophils % 53 % Lymphocytes % 34 % Monocytes % 9 % Eosinophils % 1 % Basophils % 1 % Neutrophils # 2.6 (1.3-7.7) k/uL Lymphocytes # 1.7 (1.0-4.8) k/uL Monocytes # 0.5 (0-1.0) k/uL Eosinophils # 0.0 (0-0.7) k/uL Basophils # 0.0 (0-0.2) k/uL Sodium 142 (137-145) mmol/L Potassium 4.4 (3.5-5.1) mmol/L Chloride 103 (98-107) mmol/L Carbon Dioxide 26 (22-30) mmol/L Anion Gap 13 mmol/L BUN 14 (9-20) mg/dL Creatinine 0.80 (0.66-1.25) mg/dL Est GFR (CKD-EPI)AfAm >90 (>60 ml/min/1.73 sqM) Est GFR (CKD-EPI)NonAf >90 (>60 ml/min/1.73 sqM) Glucose 126 H (74-99) mg/dL Calcium 9.6 (8.4-10.2) mg/dL Total Bilirubin 0.7 (0.2-1.3) mg/dL AST 379 H (17-59) U/L ALT 325 H (4-49) U/L Alkaline Phosphatase 136 H (38-126) U/L Total Protein 7.7 (6.3-8.2) g/dL Albumin 4.9 (3.5-5.0) g/dL Lipase 281 (23-300) U/L Disposition Clinical Impression: Nausea & vomiting, Abdominal pain, Elevated liver enzymes Disposition: HOME SELF-CARE Condition: Good Instructions (If sedation given, give patient instructions): Acute Nausea and Vomiting (ED), Abdominal Pain (ED) Additional Instructions: Please use medication as discussed. Please follow-up with family doctor in the next 2 days. Please return to emergency room if the symptoms increase or worsen or for any other concerns. Is patient prescribed a controlled substance at d/c from ED?: No Referrals: None,Stated [Primary Care Provider] - 1-2 days [facility] Armaan metzger [NON-STAFF] - 1-2 days Time of Disposition: 23:54
[2020-09-17] MEDS ORDERED: METOCLOPRAMIDE 5 MG/ML 2 ML VIAL IVP STA (00:08)
[2020-09-17 00:12] VITALS: BP 141/90; PULSE 90; TEMP 97.9
== END 2020-09-17 00:17 | disposition home or self-care (01) ==
LOC: EC 21:14
DX: R11.2 Nausea with vomiting, unspecified (principal); R10.9 Unspecified abdominal pain; R74.8 Abnormal levels of other serum enzymes
CPT/HCPCS: 96361; 96374; 96375; 99284; 36415; 80053; 83690; 85025; J1200; J2765; J2405; J1170

== ENCOUNTER 2020-09-19 20:23 | Emergency (ER) | payer OTHER ==
[2020-09-19 20:28] VITALS: RESP 18; TEMP 98.1
[2020-09-19] MEDS ORDERED: SODIUM CHLORIDE 0.9% 2,000 ML IV STA (20:56)
[2020-09-19] MEDS ORDERED: diphenhydrAMINE 50 MG/ML 1 ML VIAL IVP STA (21:12)
[2020-09-19] MEDS ORDERED: FAMOTIDINE 20 MG/2 ML VIAL IV STA (21:12)
--- NOTE | 2020-09-19 21:19 | ED ---
Abdominal Pain HPI - General Chief Complaint: Abdominal Pain Stated Complaint: Stomach Pain, Nausea,Vomiting Time Seen by Provider: 09/19/20 20:56 Source: patient, RN notes reviewed Mode of arrival: wheelchair Limitations: no limitations - History of Present Illness Initial Comments: This is a 35-year-old male presents emergency Department chief complaint nausea vomiting abdominal pain. Patient has ongoing GI issues. Patient currently sees Gen. surgery Dr. Moraes and GI. Patient states he has not appointment with a new Physician. Patient states that his symptoms come and go. Patient states he started having abdominal pain and vomiting last night. No fevers chills no chest pain no back pain. Patient has no questions dysuria, hematuria, diarrhea constipation. - Related Data Home Medications Medication Instructions Recorded Confirmed Sucralfate [Carafate] 1 gm PO ACHS 09/06/20 09/19/20 Previous Rx's Medication Instructions Recorded Ondansetron Odt [Zofran Odt] 4 mg PO Q8HR PRN #10 tab 08/25/20 Promethazine [Phenergan] 25 mg PO Q6HR #15 tablet 09/19/20 Allergies Allergy/AdvReac Type Severity Reaction Status Date / Time No Known Allergies Allergy Verified 09/19/20 22:26 Review of Systems ROS Statement: Those systems with pertinent positive or pertinent negative responses have been documented in the HPI. ROS Other: All systems not noted in ROS Statement are negative. Past Medical History Past Medical History: No Reported History Additional Past Medical History / Comment(s): 2019 pancreatitis and gastritis, History of Any Multi-Drug Resistant Organisms: None Reported Past Surgical History: Cholecystectomy, Hernia Repair, Orthopedic Surgery Additional Past Surgical History / Comment(s): 2019 EGD/colonoscopy, r inguinal hernia repair, R wrist surgery for abscess, L wrist surgery for tendon repair, Past Anesthesia/Blood Transfusion Reactions: No Reported Reaction Past Psychological History: No Psychological Hx Reported Smoking Status: Never smoker Past Alcohol Use History: Occasional Past Drug Use History: None Reported - Past Family History Father Family Medical History: No Reported History Mother Family Medical History: No Reported History General Exam Limitations: no limitations General appearance: alert, in no apparent distress Head exam: Present: atraumatic, normocephalic, normal inspection Eye exam: Present: normal appearance, PERRL, EOMI. Absent: scleral icterus, conjunctival injection, periorbital swelling ENT exam: Present: normal exam, normal oropharynx, mucous membranes moist Neck exam: Present: normal inspection, full ROM. Absent: tenderness, meningismus, lymphadenopathy Respiratory exam: Present: normal lung sounds bilaterally. Absent: respiratory distress, wheezes, rales, rhonchi, stridor Cardiovascular Exam: Present: normal rhythm, tachycardia, normal heart sounds. Absent: systolic murmur, diastolic murmur, rubs, gallop, clicks GI/Abdominal exam: Present: soft, tenderness (Moderate upper abdominal tenderness), normal bowel sounds. Absent: distended, guarding, rebound, rigid Back exam: Absent: CVA tenderness (R), CVA tenderness (L) Neurological exam: Present: alert, oriented X3 Skin exam: Present: warm, dry, intact, normal color. Absent: rash Course Vital Signs 09/19/20 09/19/20 20:26 22:32 Temperature 98.1 F Pulse Rate 144 H 103 H Respiratory 18 18 Rate Blood Pressure 143/93 133/92 O2 Sat by Pulse 96 96 Oximetry Medical Decision Making - Medical Decision Making 35-year-old male present emergency from for nausea vomiting abdominal pain. This is been a recurrent issue. He's seen multiple people for this. Patient we given fluids, antiemetics symptoms improved. Upon further investigation patient found that it prior alcohol levels alcohol levels added shows alcohol level CLXII patient denied drinking today. Patient states that he drinks at least a few shots daily. I do believe his hepatitis and pancreatitis is related to alcohol abuse. Patient advised to follow-up for 3 have and return for any worsening change in symptoms. - Lab Data Result diagrams: 09/19/20 21:02 09/19/20 21:02 Lab Results 09/19/20 09/19/20 09/19/20 Range/Units 21:02 21:02 21:02 WBC 8.2 (3.8-10.6) k/uL RBC 5.21 (4.30-5.90) m/uL Hgb 17.1 (13.0-17.5) gm/dL Hct 50.0 (39.0-53.0) % MCV 95.9 (80.0-100.0) fL MCH 32.8 (25.0-35.0) pg MCHC 34.2 (31.0-37.0) g/dL RDW 13.3 (11.5-15.5) % Plt Count 261 (150-450) k/uL MPV 7.2 Neutrophils % 71 % Lymphocytes % 23 % Monocytes % 5 % Eosinophils % 0 % Basophils % 1 % Neutrophils # 5.8 (1.3-7.7) k/uL Lymphocytes # 1.9 (1.0-4.8) k/uL Monocytes # 0.4 (0-1.0) k/uL Eosinophils # 0.0 (0-0.7) k/uL Basophils # 0.1 (0-0.2) k/uL Sodium 141 (137-145) mmol/L Potassium 3.8 (3.5-5.1) mmol/L Chloride 101 (98-107) mmol/L Carbon Dioxide 21 L (22-30) mmol/L Anion Gap 19 mmol/L BUN 17 (9-20) mg/dL Creatinine 0.92 (0.66-1.25) mg/dL Est GFR (CKD-EPI)AfAm >90 (>60 ml/min/1.73 sqM) Est GFR (CKD-EPI)NonAf >90 (>60 ml/min/1.73 sqM) Glucose 127 H (74-99) mg/dL Calcium 9.8 (8.4-10.2) mg/dL Total Bilirubin 1.4 H (0.2-1.3) mg/dL AST 419 H (17-59) U/L ALT 275 H (4-49) U/L Alkaline Phosphatase 167 H (38-126) U/L Total Protein 8.0 (6.3-8.2) g/dL Albumin 5.2 H (3.5-5.0) g/dL Amylase 86 (30-110) U/L Lipase 421 H (23-300) U/L Urine Color Yellow Urine Appearance Clear (Clear) Urine pH 6.0 (5.0-8.0) Ur Specific [place] 1.018 (1.001-1.035) Urine Protein 1+ H (Negative) Urine Glucose (UA) Negative (Negative) Urine Ketones 1+ H (Negative) Urine Blood Negative (Negative) Urine Nitrite Negative (Negative) Urine Bilirubin Negative (Negative) Urine Urobilinogen <2.0 (<2.0) mg/dL Ur Leukocyte Esterase Negative (Negative) Urine RBC 1 (0-5) /hpf Urine WBC 4 (0-5) /hpf Ur Squamous Epith Cells <1 (0-4) /hpf Hyaline Casts 8 H (0-2) /lpf Urine Mucus Rare H (None) /hpf Serum Alcohol mg/dL 09/19/20 Range/Units 21:34 WBC (3.8-10.6) k/uL RBC (4.30-5.90) m/uL Hgb (13.0-17.5) gm/dL Hct (39.0-53.0) % MCV (80.0-100.0) fL MCH (25.0-35.0) pg MCHC (31.0-37.0) g/dL RDW (11.5-15.5) % Plt Count (150-450) k/uL MPV Neutrophils % % Lymphocytes % % Monocytes % % Eosinophils % % Basophils % % Neutrophils # (1.3-7.7) k/uL Lymphocytes # (1.0-4.8) k/uL Monocytes # (0-1.0) k/uL Eosinophils # (0-0.7) k/uL Basophils # (0-0.2) k/uL Sodium (137-145) mmol/L Potassium (3.5-5.1) mmol/L Chloride (98-107) mmol/L Carbon Dioxide (22-30) mmol/L Anion Gap mmol/L BUN (9-20) mg/dL Creatinine (0.66-1.25) mg/dL Est GFR (CKD-EPI)AfAm (>60 ml/min/1.73 sqM) Est GFR (CKD-EPI)NonAf (>60 ml/min/1.73 sqM) Glucose (74-99) mg/dL Calcium (8.4-10.2) mg/dL Total Bilirubin (0.2-1.3) mg/dL AST (17-59) U/L ALT (4-49) U/L Alkaline Phosphatase (38-126) U/L Total Protein (6.3-8.2) g/dL Albumin (3.5-5.0) g/dL Amylase (30-110) U/L Lipase (23-300) U/L Urine Color Urine Appearance (Clear) Urine pH (5.0-8.0) Ur Specific [place] (1.001-1.035) Urine Protein (Negative) Urine Glucose (UA) (Negative) Urine Ketones (Negative) Urine Blood (Negative) Urine Nitrite (Negative) Urine Bilirubin (Negative) Urine Urobilinogen (<2.0) mg/dL Ur Leukocyte Esterase (Negative) Urine RBC (0-5) /hpf Urine WBC (0-5) /hpf Ur Squamous Epith Cells (0-4) /hpf Hyaline Casts (0-2) /lpf Urine Mucus (None) /hpf Serum Alcohol 162 mg/dL Disposition Clinical Impression: Alcoholic hepatitis, Alcohol-induced pancreatitis, Dehydration, Nausea & vomi ting Disposition: HOME SELF-CARE Condition: Stable Instructions (If sedation given, give patient instructions): Alcoholic H epatitis (ED) Additional Instructions: Please return to the Emergency Department if symptoms worsen or any other concerns. Prescriptions: Promethazine [Phenergan] 25 mg PO Q6HR #15 tablet Is patient prescribed a controlled substance at d/c from ED?: No Referrals: None,Stated [Primary Care Provider] - 1-2 days Time of Disposition: 22:47
[2020-09-19 21:20] LABS: ALT 275 U/L (4-49); AST 419 U/L (17-59); African American GFR (CKD) >90 (>60 ml/min/1.73 sqM); Albumin 5.2 g/dL (3.5-5.0); Alkaline Phosphatase 167 U/L (38-126); Amylase 86 U/L (30-110); Anion Gap 19 mmol/L; Basophils # (A) 0.1 k/uL (0-0.2); Basophils % (A) 1 %; Blood Urea Nitrogen 17 mg/dL (9-20); Calcium 9.8 mg/dL (8.4-10.2); Carbon Dioxide 21 mmol/L (22-30); Chloride 101 mmol/L (98-107); Eosinophils % (A) 0 %; Glucose 127 mg/dL (74-99); HGB 17.1 gm/dL (13.0-17.5); Lipase 421 U/L (23-300); Lymphocytes # (A) 1.9 k/uL (1.0-4.8); Lymphocytes % (A) 23 %; MCH 32.8 pg (25.0-35.0); MCHC 34.2 g/dL (31.0-37.0); MCV 95.9 fL (80.0-100.0); Mean Platelet Volume 7.2; Monocytes # (A) 0.4 k/uL (0-1.0); Monocytes % (A) 5 %; Neutrophils # (A) 5.8 k/uL (1.3-7.7); Neutrophils % (A) 71 %; Non-African American GFR(CKD) >90 (>60 ml/min/1.73 sqM); Platelet Count 261 k/uL (150-450); Potassium 3.8 mmol/L (3.5-5.1); RBC 5.21 m/uL (4.30-5.90); RDW 13.3 % (11.5-15.5); Sodium 141 mmol/L (137-145); Total Bilirubin 1.4 mg/dL (0.2-1.3); WBC 8.2 k/uL (3.8-10.6)
[2020-09-19 21:21] LABS: Appearance,Urine Clear (Clear); Bilirubin,Urine Negative (Negative); Blood,Urine Negative (Negative); Color,Urine Yellow; Glucose,Urine (UA) Negative (Negative); Hyaline Casts,Urine 8 /lpf (0-2); Ketones,Urine 1+ (Negative); Leukocyte Esterase,Urine Negative (Negative); Mucus,Urine Rare /hpf; Nitrite,Urine Negative (Negative); Protein,Urine 1+ (Negative); RBC,Urine 1 /hpf (0-5); Specific Gravity,Urine 1.018 (1.001-1.035); Squamous Epithelial Cell,Urine <1 /hpf (0-4); Urobilinogen,Urine <2.0 mg/dL (<2.0); WBC,Urine 4 /hpf (0-5)
[2020-09-19 22:32] VITALS: BP 133/92; PULSE 103
== END 2020-09-19 22:57 | disposition home or self-care (01) ==
LOC: EC 20:23
DX: K70.10 Alcoholic hepatitis without ascites (principal); K85.90 Acute pancreatitis without necrosis or infection, unspecified; E86.0 Dehydration; Z90.49 Acquired absence of other specified parts of digestive tract
CPT/HCPCS: 36415; 80053; 82150; 83690; 85025; 81001; 99284; 96374; 96375; 96361; G0480; J1200; J1790; 80320

== ENCOUNTER 2020-10-14 14:08 | Inpatient (IN) | payer OTHER ==
[2020-10-14] MEDS ORDERED: ONDANSETRON 4 MG/2 ML VIAL IVP STA (14:32)
[2020-10-14] MEDS ORDERED: SODIUM CHLORIDE 0.9% 2,000 ML IV STA (14:32)
[2020-10-14] MEDS ORDERED: HYDROmorphone 1 MG/ML 1 ML SYRINGE IVP STA ×2 (14:58→17:37)
--- NOTE | 2020-10-14 15:31 | ED ---
General Adult HPI - General Chief complaint: Nausea/Vomiting/Diarrhea Stated complaint: Vomiting Time Seen by Provider: 10/14/20 14:32 Source: patient, RN notes reviewed Mode of arrival: ambulatory Limitations: no limitations - History of Present Illness Initial comments: This a 35-year-old male presents emergency Department chief complaint of nausea vomiting abdominal pain. He states it started around 7 AM this morning. Patient has a history of pancreatitis. He does admit to alcohol use yesterday she states that he drank approximate one pint. No chest pain or shortness breath no fevers or chills. Patient does have a history of chronic pancreatitis alcoholic hepatitis. Patient denies any recent drug use. No drug ingestion. - Related Data Home Medications Medication Instructions Recorded Confirmed Sucralfate [Carafate] 1 gm PO ACHS 09/06/20 09/19/20 Previous Rx's Medication Instructions Recorded Ondansetron Odt [Zofran Odt] 4 mg PO Q8HR PRN #10 tab 08/25/20 Promethazine [Phenergan] 25 mg PO Q6HR #15 tablet 09/19/20 Allergies Allergy/AdvReac Type Severity Reaction Status Date / Time No Known Allergies Allergy Verified 10/14/20 14:26 Review of Systems ROS Statement: Those systems with pertinent positive or pertinent negative responses have been documented in the HPI. ROS Other: All systems not noted in ROS Statement are negative. Past Medical History Past Medical History: No Reported History Additional Past Medical History / Comment(s): 2019 pancreatitis and gastritis, History of Any Multi-Drug Resistant Organisms: None Reported Past Surgical History: Cholecystectomy, Hernia Repair, Orthopedic Surgery Additional Past Surgical History / Comment(s): 2019 EGD/colonoscopy, r inguinal hernia repair, R wrist surgery for abscess, L wrist surgery for tendon repair, Past Anesthesia/Blood Transfusion Reactions: No Reported Reaction Past Psychological History: No Psychological Hx Reported Smoking Status: Never smoker Past Alcohol Use History: Occasional Past Drug Use History: None Reported - Past Family History Father Family Medical History: No Reported History Mother Family Medical History: No Reported History General Exam Limitations: no limitations General appearance: alert, in no apparent distress Head exam: Present: atraumatic, normocephalic, normal inspection Eye exam: Present: normal appearance, PERRL, EOMI. Absent: scleral icterus, conjunctival injection, periorbital swelling ENT exam: Present: normal exam, normal oropharynx, mucous membranes moist Neck exam: Present: normal inspection, full ROM. Absent: tenderness, meningismus, lymphadenopathy Respiratory exam: Present: normal lung sounds bilaterally. Absent: respiratory distress, wheezes, rales, rhonchi, stridor Cardiovascular Exam: Present: normal rhythm, tachycardia, normal heart sounds. Absent: systolic murmur, diastolic murmur, rubs, gallop, clicks GI/Abdominal exam: Present: soft, normal bowel sounds. Absent: distended, tenderness, guarding, rebound, rigid Back exam: Absent: CVA tenderness (R), CVA tenderness (L) Course Vital Signs 10/14/20 10/14/20 10/14/20 14:26 15:53 17:26 Temperature 98.2 F 98.6 F Pulse Rate 152 H 130 H 121 H Respiratory 20 18 18 Rate Blood Pressure 113/72 142/94 138/85 O2 Sat by Pulse 100 95 97 Oximetry Medical Decision Making - Medical Decision Making Laboratory reviewed patient has a bicarb of 11, anion gap 35 blood sugar 108 worsening transaminitis with AST 600. Patient case discussed with Dr. yang. Patiently admitted for alcohol withdrawal syndrome, dehydration, alcohol hepatitis alcohol pancreatitis. - Lab Data Result diagrams: 10/14/20 15:42 10/14/20 15:42 Lab Results 10/14/20 10/14/20 10/14/20 Range/Units 15:42 15:42 15:42 WBC 14.1 H (3.8-10.6) k/uL RBC 4.72 (4.30-5.90) m/uL Hgb 16.6 (13.0-17.5) gm/dL Hct 45.9 (39.0-53.0) % MCV 97.3 (80.0-100.0) fL MCH 35.2 H (25.0-35.0) pg MCHC 36.2 (31.0-37.0) g/dL RDW 12.7 (11.5-15.5) % Plt Count 219 (150-450) k/uL MPV 8.0 Neutrophils % 88 % Lymphocytes % 8 % Monocytes % 4 % Eosinophils % 1 % Basophils % 0 % Neutrophils # 12.3 H (1.3-7.7) k/uL Lymphocytes # 1.1 (1.0-4.8) k/uL Monocytes # 0.5 (0-1.0) k/uL Eosinophils # 0.1 (0-0.7) k/uL Basophils # 0.0 (0-0.2) k/uL Sodium 138 (137-145) mmol/L Potassium 3.7 (3.5-5.1) mmol/L Chloride 92 L (98-107) mmol/L Carbon Dioxide 11 L (22-30) mmol/L Anion Gap 35 mmol/L BUN 18 (9-20) mg/dL Creatinine 1.06 (0.66-1.25) mg/dL Est GFR (CKD-EPI)AfAm >90 (>60 ml/min/1.73 sqM) Est GFR (CKD-EPI)NonAf >90 (>60 ml/min/1.73 sqM) Glucose 108 H (74-99) mg/dL Calcium 9.7 (8.4-10.2) mg/dL Total Bilirubin 1.5 H (0.2-1.3) mg/dL AST 598 H (17-59) U/L ALT 240 H (4-49) U/L Alkaline Phosphatase 222 H (38-126) U/L Total Protein 8.5 H (6.3-8.2) g/dL Albumin 5.6 H (3.5-5.0) g/dL Amylase 88 (30-110) U/L Lipase 311 H (23-300) U/L Urine Color Yellow Urine Appearance Clear (Clear) Urine pH 5.0 (5.0-8.0) Ur Specific [place] 1.027 (1.001-1.035) Urine Protein 1+ H (Negative) Urine Glucose (UA) Negative (Negative) Urine Ketones 3+ H (Negative) Urine Blood Negative (Negative) Urine Nitrite Negative (Negative) Urine Bilirubin Negative (Negative) Urine Urobilinogen <2.0 (<2.0) mg/dL Ur Leukocyte Esterase Negative (Negative) Urine RBC <1 (0-5) /hpf Urine WBC 3 (0-5) /hpf Ur Squamous Epith Cells <1 (0-4) /hpf Urine Bacteria Rare H (None) /hpf Hyaline Casts 216 H (0-2) /lpf Urine Mucus Few H (None) /hpf Serum Alcohol 23 mg/dL Disposition Clinical Impression: Alcoholic hepatitis, Alcohol-induced pancreatitis, Dehydration, Metabolic acidosis Disposition: ADMITTED IP TO THIS HOSP Condition: Poor Referrals: None,Stated [Primary Care Provider] - 1-2 days
[2020-10-14 15:53] LABS: Basophils % (A) 0 %; Eosinophils # (A) 0.1 k/uL (0-0.7); Eosinophils % (A) 1 %; HCT 45.9 % (39.0-53.0); HGB 16.6 gm/dL (13.0-17.5); Lymphocytes # (A) 1.1 k/uL (1.0-4.8); Lymphocytes % (A) 8 %; MCH 35.2 pg (25.0-35.0); MCHC 36.2 g/dL (31.0-37.0); MCV 97.3 fL (80.0-100.0); Monocytes # (A) 0.5 k/uL (0-1.0); Monocytes % (A) 4 %; Neutrophils # (A) 12.3 k/uL (1.3-7.7); Neutrophils % (A) 88 %; Platelet Count 219 k/uL (150-450); RBC 4.72 m/uL (4.30-5.90); RDW 12.7 % (11.5-15.5); WBC 14.1 k/uL (3.8-10.6)
[2020-10-14 16:02] LABS: ALT 240 U/L (4-49); AST 598 U/L (17-59); African American GFR (CKD) >90 (>60 ml/min/1.73 sqM); Albumin 5.6 g/dL (3.5-5.0); Alcohol 23 mg/dL; Alkaline Phosphatase 222 U/L (38-126); Amylase 88 U/L (30-110); Anion Gap 35 mmol/L; Blood Urea Nitrogen 18 mg/dL (9-20); Calcium 9.7 mg/dL (8.4-10.2); Carbon Dioxide 11 mmol/L (22-30); Chloride 92 mmol/L (98-107); Glucose 108 mg/dL (74-99); Lipase 311 U/L (23-300); Non-African American GFR(CKD) >90 (>60 ml/min/1.73 sqM); Potassium 3.7 mmol/L (3.5-5.1); Sodium 138 mmol/L (137-145); Total Bilirubin 1.5 mg/dL (0.2-1.3); Total Protein 8.5 g/dL (6.3-8.2)
[2020-10-14 16:33] LABS: Appearance,Urine Clear (Clear); Bacteria,Urine Rare /hpf; Bilirubin,Urine Negative (Negative); Blood,Urine Negative (Negative); Color,Urine Yellow; Glucose,Urine (UA) Negative (Negative); Hyaline Casts,Urine 216 /lpf (0-2); Ketones,Urine 3+ (Negative); Leukocyte Esterase,Urine Negative (Negative); Mucus,Urine Few /hpf; Nitrite,Urine Negative (Negative); Protein,Urine 1+ (Negative); RBC,Urine <1 /hpf (0-5); Specific Gravity,Urine 1.027 (1.001-1.035); Squamous Epithelial Cell,Urine <1 /hpf (0-4); Urobilinogen,Urine <2.0 mg/dL (<2.0); WBC,Urine 3 /hpf (0-5)
[2020-10-14] MEDS ORDERED: LORazepam 2 MG/ML INJ IV PRN ×3 (17:55)
[2020-10-14] MEDS ORDERED: THIAMINE 100 MG/ML 2 ML VIAL IM STA (17:55)
[2020-10-14] MEDS ORDERED: NALOXONE 0.4 MG/ML 1 ML VIAL IV PRN (17:57)
[2020-10-14] MEDS: SODIUM CHLORIDE 0.9% 1,000 ML IV SCH ×2 (18:29→23:21)
[2020-10-14] MEDS: HYDROmorphone 0.5 MG/0.5 ML SYRINGE IVP PRN ×2 (18:33→23:21)
[2020-10-14] MEDS: ONDANSETRON 4 MG/2 ML VIAL IVP PRN (20:14)
[2020-10-14] MEDS ORDERED: IOPAMIDOL CONTRAST (ORAL USE) VIAL PO PRN (21:13)
[2020-10-14] MEDS ORDERED: cloNIDine HCL 0.1 MG TAB PO PRN (21:16)
--- NOTE | 2020-10-14 21:49 | XR ---
EXAMINATION TYPE: XR chest 1V portable DATE OF EXAM: 10/14/2020 COMPARISON: 02/19/2020 HISTORY: Pancreatitis TECHNIQUE: Single view FINDINGS: There is no heart failure nor confluent pneumonic infiltrate. There is poor inspiration. Th ere are no hilar masses. Bony thorax is intact. IMPRESSION: Poor inspiration. There is clearing of the pleural fluid and atelectasis to a large exten t at both lung bases compared to old exam.
--- NOTE | 2020-10-14 22:22 | CT ---
EXAMINATION TYPE: CT abdomen pelvis wo con DATE OF EXAM: 10/14/2020 COMPARISON: 08/25/2020 HISTORY: Abdominal pain and vomiting. CT DLP: 663.6 mGycm Automated exposure control for dose reduction was used. Images obtained from the diaphragm to the floor the pelvis without IV contrast. Lung bases are clear. There is no pleural effusion. Heart size is normal. There is some fatty infiltration of the liver. There are clips apparently from cholecystectomy. Splee n is intact. There is no pancreatic mass. Stomach is intact. There is no adrenal mass. Kidneys have normal size. There is no hydronephrosis. Ureters are not dilat ed. There is no retroperitoneal adenopathy. Bladder distends smoothly. There is no inguinal hernia. T here is no free fluid in the pelvis. There is no mesenteric edema. There is no ascites or free air. Appendix is medial and appears normal. There is no evidence of a bowel obstruction. The bony pelvis is intact. Lumbar spine is intact. IMPRESSION: Normal appendix. Significant fatty infiltration of the liver. 2 cm area of increased density in the i nferior lateral right lobe of the liver consistent with a hemangioma unchanged. No acute abnormality of the abdomen pelvis. No evidence of pancreatitis.
[2020-10-14 22:40] LABS: ALT 219 U/L (4-49); AST 435 U/L (17-59); African American GFR (CKD) >90 (>60 ml/min/1.73 sqM); Alkaline Phosphatase 174 U/L (38-126); Amylase 86 U/L (30-110); Anion Gap 20 mmol/L; Blood Urea Nitrogen 16 mg/dL (9-20); Calcium 8.5 mg/dL (8.4-10.2); Carbon Dioxide 18 mmol/L (22-30); Chloride 98 mmol/L (98-107); Globulin 2.5 g/dL; Glucose 133 mg/dL (74-99); Lipase 452 U/L (23-300); Non-African American GFR(CKD) >90 (>60 ml/min/1.73 sqM); Potassium 4.2 mmol/L (3.5-5.1); Sodium 136 mmol/L (137-145); Total Bilirubin 1.7 mg/dL (0.2-1.3); Total Protein 7.5 g/dL (6.3-8.2)
[2020-10-14] MEDS: cloNIDine HCL 0.1 MG TAB PO SCH (23:21)
--- NOTE | 2020-10-14 23:35 | HP ---
HISTORY AND PHYSICAL CHIEF COMPLAINTS: Nausea, vomiting, incessant diarrhea, and shaking chills. HISTORY OF PRESENT ILLNESS: This is a 35-year-old gentleman with a past history of significant EtOH, history of cholecystectomy, history of pancreatitis, history of gastritis, being followed by no primary in the outpatient setting was apparently early drinking. The patient did not drink since last night. The patient had some nausea, vomiting, diarrhea, and significant shakes and chills since 7:00 am. Patient also complaining of abdominal pain and distention. Patient came to [facility]. Patient had features of pancreatitis. Patient also had features of acute delirium tremens. The patient was admitted to the hospital further recommendations to follow. There is no history of fever, rigors. No history of any headache, loss of consciousness or seizures at this time. PAST MEDICAL HISTORY: Pancreatitis, history of gastritis, EtOH. MEDICATIONS: Home medications are none. ALLERGIES: None. FAMILY HISTORY: No family history of heart disease or strokes in the family. SOCIAL HISTORY: History of alcohol. No history of smoking. No history of substance abuse. REVIEW OF SYSTEMS: ENT: No diminished vision. No diminished hearing. CARDIOVASCULAR: No angina or palpitations. RESPIRATION: No cough or hemoptysis. GI as mentioned earlier. no dysuria. NERVOUS SYSTEM: No numbness or weakness. ALLERGY/IMMUNOLOGY: No asthma or hayfever. MUSCULOSKELETAL as mentioned earlier. HEMATOLOGY/ONCOLOGY: No history of anemia. ENDOCRINE: No history of diabetes or hypothyroidism. CONSTITUTIONAL: As mentioned earlier. DERMATOLOGY: Negative. RHEUMATOLOGY: Negative. PSYCHIATRIC: As mentioned earlier. PHYSICAL EXAM: Patient is alert, oriented x3. Pulse is 121, blood pressure 138/85, respiration 18, temperature 98.2, pulse ox 97% on room air. HEENT: Conjunctivae normal. NECK: No JVD. CARDIOVASCULAR: S1, S2 muffled. RESPIRATORY: Breath sounds diminished in the bases. No rhonchi. No crackles. ABDOMEN: Soft. Mild diffuse tenderness. No guarding. No rigidity. No mass palpable. LEGS: No edema. No swelling. NERVOUS SYSTEM: Higher functions as mentioned. Diffuse tremors present. Gait ataxia present. Otherwise, no focal deficits appreciated. SKIN: No ulcers, rashes and no bleeding. JOINTS: No active deforming arthropathy. LYMPHATICS: No lymph nodes palpable in the neck, axillae or groin. LABS: WBC 14.2, hemoglobin 16.6, glucose 108, total bilirubin is 1.5, AST 598, ALT is 240. Alcohol was 23. ASSESSMENT: 1. Acute alcohol withdrawal and acute delirium tremens. 2. Acute alcoholic hepatitis. 3. Elevated amylase lipase, indicating acute on chronic pancreatitis. 4. Increased WBC. 5. Cholecystectomy. 6. History of hernia repair. 7. History of colonoscopy. RECOMMENDATIONS AND DISCUSSION: In this 35-year-old gentleman who presented with multiple complex medications, at this time, I recommend to continue the current medication, recommend CIWA protocol with Ativan. I would also recommend a CT scan of the abdomen and pelvis and gastroenterology consultation. Symptomatic treatment will be provided. Overall prognosis extremely guarded because of multiple complex medical issues. The patient is advised to have alcohol rehab after discharge from the hospital and advised to follow up with primary physician closely on discharge. All charts reviewed. Prognosis guarded. Further recommendations to follow. MMGISELA / BRADLEYN: [id number] /
[2020-10-14 23:36] LABS: Amphetamine Screen,Urine Not Detected (NotDetected); Barbiturate Screen,Urine Not Detected (NotDetected); Benzodiazepines Screen,Urine Not Detected (NotDetected); Cocaine Screen,Urine Not Detected (NotDetected); Methadone Screen, Urine Not Detected (NotDetected); Opiate Screen,Urine Detected (NotDetected); Oxycodone Screen, Urine Not Detected (NotDetected); Phencyclidine Screen,Urine Not Detected (NotDetected); Tricyclic Antidepressant,Urine Not Detected (NotDetected); Urn Cannabinoid Scrn Not Detected (NotDetected)
[2020-10-15] MEDS: MEROPENEM 2 GM in SODIUM CHLORIDE 0.9% 100 ML IVPB SCH ×4 (00:42→23:59)
[2020-10-15] MEDS: HYDROmorphone 0.5 MG/0.5 ML SYRINGE IVP PRN ×7 (02:27→22:13)
[2020-10-15] MEDS: ONDANSETRON 4 MG/2 ML VIAL IVP PRN ×4 (04:51→23:59)
[2020-10-15] MEDS: PANTOPRAZOLE 40 MG/10 ML VIAL IV SCH (08:42)
[2020-10-15] MEDS: cloNIDine HCL 0.1 MG TAB PO SCH ×3 (08:42→22:12)
[2020-10-15] MEDS: THIAMINE 100 MG TAB PO SCH ×2 (08:42→16:24)
[2020-10-15 08:53] LABS: Basophils # (A) 0.02 X 10*3/uL (0.00-0.10); Basophils % (A) 0.2 %; Eosinophils # (A) 0 X 10*3/uL (0.04-0.35); Eosinophils % (A) 0 %; HCT 39.4 % (39.6-50.0); HGB 13.1 g/dL (13.0-17.0); Lymphocytes # (A) 1.43 X 10*3/uL (0.90-5.00); Lymphocytes % (A) 17.1 %; MCH 33.1 pg (27.0-32.0); MCHC 33.2 g/dL (32.0-37.0); MCV 99.5 fL (80.0-97.0); Mean Platelet Volume 10.9 fL (9.5-12.2); Monocytes # (A) 0.88 X 10*3/uL (0.20-1.00); Monocytes % (A) 10.5 %; Neutrophils % (A) 71.8 %; Platelet Count 139 X 10*3/uL (140-440); RBC 3.96 X 10*6/uL (4.40-5.60); RDW 12.5 % (11.5-14.5); WBC 8.36 X 10*3/uL (4.50-10.00)
[2020-10-15] MEDS: SODIUM CHLORIDE 0.9% 1,000 ML IV SCH ×2 (12:09→16:25)
[2020-10-15] MEDS: HYDROcodone/APAP 5-325MG 1 EACH TAB PO PRN ×2 (14:16→22:12)
--- NOTE | 2020-10-15 16:13 | XR ---
EXAMINATION TYPE: XR abdomen acute w cxr DATE OF EXAM: 10/15/2020 COMPARISON: NONE HISTORY: Pain TECHNIQUE: Single view of the chest and 2 views of the abdomen are submitted. FINDINGS: Single view of the chest demonstrate linear atelectasis at the left lung base. There is no evidence for pneumoperitoneum. Mild distention of small and large bowel without mike dilatation. The findings are nonspecific and c ould reflect mild degree of ileus. No sizeable air fluid levels.No mass effects are seen. No unusual calcifications. IMPRESSION: 1. Nonspecific nonobstructive bowel gas pattern.
--- NOTE | 2020-10-15 16:29 | PN ---
PROGRESS NOTE DATE OF SERVICE: 10/15/2020 This 35-year-old gentleman who was admitted with nausea and vomiting also had acute delirium tremens. Patient is being closely monitored. No chest pain. No palpitations. No fever. The patient also had features of acute pancreatitis. A CT scan of the abdomen and pelvis was also done which showed significant fatty infiltration of the liver as well as possible hemangioma. No other acute abdominal masses noted. Past medical history reviewed. REVIEW OF SYSTEMS: CARDIOVASCULAR SYSTEM: No angina, palpitations. RESPIRATORY SYSTEM: As mentioned earlier. GI: As mentioned earlier. : No dysuria or retention. NERVOUS SYSTEM: No numbness, weakness. CURRENT MEDICATIONS: [place], Catapres, Dilaudid, Isovue, Ativan, meropenem 2 grams q.8. PHYSICAL EXAMINATION: Patient alert and oriented x3. Pulse 79, blood pressure 128/70, respiration 18, temperature 98.4, pulse ox 96% on room air. HEENT: Conjunctivae normal. NECK: No jugular venous distention. CARDIOVASCULAR SYSTEM: S1, S2 muffled. RESPIRATORY SYSTEM: Breath sounds diminished at the bases. A few scattered rhonchi. ABDOMEN: Soft. Mild diffuse distention present. No tenderness. No guarding. Bowel sounds diminished. No ascites. LEGS: No edema. No swelling. NERVOUS SYSTEM: Higher functions as mentioned earlier. Moves all 4 limbs. No focal motor or sensory deficit. LYMPHATICS: No lymph node palpable in neck, axillae or groin. SKIN: No ulcer, rash, bleeding. JOINTS: No active deforming arthropathy. LABS: WBC 8.3, sodium is 136. Bilirubin is 1.7. AST is 435. ALT 219. Alkaline phosphatase is 174. Lipase 452. ASSESSMENT: 1. Acute alcohol withdrawal and acute delirium tremens. 2. Acute alcoholic hepatitis. 3. Abdominal distention, possible acute pancreatitis. 4. Elevated amylase and lipase with acute on chronic pancreatitis. 5. Increased white count. 6. Cholecystectomy. 7. History of hernia repair. 8. History of colonoscopy. 9. Fatty liver, infiltration of the liver. RECOMMENDATIONS AND DISCUSSION: I recommend to continue current medications, continue with the monitoring, symptomatic treatment. Continue the empiric antibiotics. Also recommend gastroenterology consultation. Repeat labs. I would also recommend a plain x-ray, KUB, and further recommendations to follow. MMODL / IJN: [id number] /
[2020-10-15 17:20] LABS: ALT 192 U/L (4-49); AST 300 U/L (17-59); African American GFR (CKD) >90 (>60 ml/min/1.73 sqM); Albumin 4.2 g/dL (3.5-5.0); Albumin/Globulin Ratio 1.8; Alkaline Phosphatase 143 U/L (38-126); Anion Gap 14 mmol/L; Blood Urea Nitrogen 15 mg/dL (9-20); Carbon Dioxide 22 mmol/L (22-30); Chloride 101 mmol/L (98-107); Globulin 2.4 g/dL; Glucose 95 mg/dL (74-99); Non-African American GFR(CKD) >90 (>60 ml/min/1.73 sqM); Potassium 3.4 mmol/L (3.5-5.1); Sodium 137 mmol/L (137-145); Total Bilirubin 1.5 mg/dL (0.2-1.3); Total Protein 6.6 g/dL (6.3-8.2)
[2020-10-16] MEDS: SODIUM CHLORIDE 0.9% 1,000 ML IV SCH ×5 (00:04→23:04)
[2020-10-16] MEDS: HYDROmorphone 0.5 MG/0.5 ML SYRINGE IVP PRN ×7 (01:06→22:01)
[2020-10-16] MEDS: HYDROcodone/APAP 5-325MG 1 EACH TAB PO PRN ×2 (04:12→10:36)
[2020-10-16] MEDS: PANTOPRAZOLE 40 MG/10 ML VIAL IV SCH ×2 (07:58→19:53)
[2020-10-16] MEDS: cloNIDine HCL 0.1 MG TAB PO SCH ×3 (07:59→22:05)
[2020-10-16] MEDS: THIAMINE 100 MG TAB PO SCH ×2 (07:59→15:19)
[2020-10-16] MEDS: MEROPENEM 2 GM in SODIUM CHLORIDE 0.9% 100 ML IVPB SCH ×2 (07:59→15:19)
[2020-10-16 10:50] LABS: Basophils # (A) 0.01 X 10*3/uL (0.00-0.10); Basophils % (A) 0.2 %; Eosinophils # (A) 0.05 X 10*3/uL (0.04-0.35); Eosinophils % (A) 0.9 %; HCT 34.4 % (39.6-50.0); HGB 11.6 g/dL (13.0-17.0); Lymphocytes # (A) 1.55 X 10*3/uL (0.90-5.00); Lymphocytes % (A) 29.3 %; MCH 34.1 pg (27.0-32.0); MCHC 33.7 g/dL (32.0-37.0); MCV 101.2 fL (80.0-97.0); Mean Platelet Volume 10.7 fL (9.5-12.2); Monocytes # (A) 0.39 X 10*3/uL (0.20-1.00); Monocytes % (A) 7.4 %; Neutrophils # (A) 3.27 X 10*3/uL (1.80-7.70); Neutrophils % (A) 61.8 %; Platelet Count 96 X 10*3/uL (140-440); RDW 12.3 % (11.5-14.5); WBC 5.29 X 10*3/uL (4.50-10.00)
--- NOTE | 2020-10-16 12:48 | P.CONS ---
History of Present Illness - Reason for Consult Consult date: 10/16/20 Abdominal pain Requesting physician: Carlos Roth - Chief Complaint Nausea, vomiting, abdominal pain - History of Present Illness 35-year-old male with a medical history significant for alcohol abuse, prior hospitalizations for acute pancreatitis, and gastritis who presents to the hospital due to complaints of abdominal pain, nausea and vomiting. Patient has had multiple hospitalizations for similar complaints in the past. He presented on current hospitalization reporting symptoms of nausea and vomiting with associated abdominal pain after drinking approximately 1 pint of liquor the day before. He denies any signs or symptoms of GI bleeding. The patient had only a mild elevation in lipase on presentation at 452 and computed tomography scan of the abdomen was negative for any evidence of pancreatitis with findings of fatty liver, hemangioma, with no acute inflammatory changes of the pancreas noted. Other laboratory evaluation significant for WBC 8.36, hemoglobin 13.1, platelet counts 139,000, total bilirubin 1.5, alkaline phosphatase 143, AST 300 and ALT 192. On prior admissions for similar complaints of patient's undergone endoscopic evaluation on 06/25/20 with findings of mild antral gastritis and duodenitis at that time. Patient does have a prior history of cholecystectomy. Review of Systems REVIEW OF SYSTEMS: CONSTITUTIONAL: Denies any fevers, chills, weight change or fatigue. CARDIOVASCULAR: Denies any chest pain, palpitations high or low blood pressures RESPIRATORY: Denies any shortness of breath, hemoptysis or cough. GENITOURINARY: No dysuria or hematuria. MUSCULOSKELETAL: No weakness reported. SKIN: Denies any new rashes or lesions, jaundice or pallor. PSYCHIATRIC: Denies any depression or anxiety, positive for alcohol abuse. NEUROLOGY: Denies headache, denies any new focal deficits. EARS/NOSE/THROAT: No recent hearing change, congestion, nasal discharge or sore throat. EYES: No pain in eyes, discharge or change in vision. GASTROINTESTINAL: As per HPI. Past Medical History Past Medical History: No Reported History Additional Past Medical History / Comment(s): 2019 pancreatitis and gastritis, History of Any Multi-Drug Resistant Organisms: None Reported Past Surgical History: Cholecystectomy, Hernia Repair, Orthopedic Surgery Additional Past Surgical History / Comment(s): 2019 EGD/colonoscopy, r inguinal hernia repair, R wrist surgery for abscess, L wrist surgery for tendon repair, Past Anesthesia/Blood Transfusion Reactions: No Reported Reaction Past Psychological History: No Psychological Hx Reported Additional Psychological History / Comment(s): Pt resides with his fiashae. He is independent. Smoking Status: Never smoker Past Alcohol Use History: Occasional Additional Past Alcohol Use History / Comment(s): Pt states he drinks a couple shots twice a week but no more than that. Past Drug Use History: None Reported - Past Family History Father Family Medical History: No Reported History Mother Family Medical History: No Reported History Medications and Allergies Home Medications Medication Instructions Recorded Confirmed Type No Known Home Medications 10/14/20 10/14/20 History Allergies Allergy/AdvReac Type Severity Reaction Status Date / Time No Known Allergies Allergy Verified 10/14/20 18:11 Physical Exam Vitals: Vital Signs Temp Pulse Pulse Resp BP BP BP 10/16/20 05:00 97.8 F 72 14 142/86 10/15/20 20:00 98.2 F 76 16 139/84 10/15/20 15:05 98.1 F 94 18 120/79 10/15/20 14:52 79 18 122/78 10/15/20 12:13 81 18 114/75 Pulse Ox 10/16/20 05:00 94 L 10/15/20 20:00 96 10/15/20 15:05 96 10/15/20 14:52 98 10/15/20 12:13 97 Intake and Output 10/15/20 10/16/20 10/16/20 22:59 06:59 14:59 Intake Total 1999 1899 Balance 1999 1899 Intake: Intake, IV Titration 1560 1660 Amount Meropenem 2 gm In Sodium 100 Chloride 0.9% 100 ml @ 33 .3 mls/hr IVPB Q8HR SARAH Rx#:[id number] Sodium Chloride 0.9% 1, 1560 1560 000 ml @ 130 mls/hr IV . Q7H42M SRAAH Rx#:[id number] Oral 440 240 Other: # Voids 1 2 On physical examination, patient appears comfortable in no apparent distress. HEAD: Normocephalic, atraumatic. EYES: No scleral icterus. No conjunctival injection. MOUTH: No lesions, tongue midline. NECK: Trachea midline, no gross abnormalities. CHEST: Clear to auscultation with no wheezing or rhonchi appreciated. HEART: Regular rate and rhythm. ABDOMEN: Soft, mildly distended. Bowel sounds are positive. No organomegaly. No guarding or rigidity. EXTREMITIES: No pedal edema. SKIN: No rashes, no jaundice. NEUROLOGIC: Alert and oriented x3. No focal deficits. Results CBC & Chem 7: 10/16/20 05:42 10/15/20 04:56 Labs: Abnormal Lab Results - Last 24 Hours (Table) 10/15/20 Range/Units 04:56 Potassium 3.4 L (3.5-5.1) mmol/L Calcium 8.0 L (8.4-10.2) mg/dL Total Bilirubin 1.5 H (0.2-1.3) mg/dL AST 300 H (17-59) U/L ALT 192 H (4-49) U/L Alkaline Phosphatase 143 H (38-126) U/L Microbiology - Last 24 Hours (Table) 10/14/20 22:03 Blood Culture - Preliminary Blood No Growth after 24 hours 10/14/20 23:00 Urine Culture - Preliminary Urine,Voided CT scan - abdomen: report reviewed (Computed tomography scan of the abdomen with findings of fatty filtration of liver, hemangioma with no evidence of pancreatitis) Assessment and Plan (1) Abdominal pain Narrative/Plan: 35-year-old male with a history of alcohol abuse and prior episodes of pancreatitis presenting for abdominal pain. Unclear if this is related to a late presentation of pancreatitis as lipase is not 3 times upper limit of normal and no evidence of inflammation on CT imaging, secondary to chronic pancreatitis, alcoholic gastritis or other etiology. Previously he did have EGD performed in 07/01 with findings of gastritis and duodenitis. Current Visit: No Status: Acute Code(s): R10.9 - UNSPECIFIED ABDOMINAL PAIN SNOMED Code(s): 96953835 (2) Alcoholic hepatitis Current Visit: Yes Status: Acute Code(s): K70.10 - ALCOHOLIC HEPATITIS WITHOUT ASCITES SNOMED Code(s): 039164920 (3) Chronic alcohol dependence, continuous Current Visit: No Status: Acute Code(s): F10.20 - ALCOHOL DEPENDENCE, UNCOMPLICATED SNOMED Code(s): 080320177 (4) Elevated liver enzymes Current Visit: No Status: Acute Code(s): R74.8 - ABNORMAL LEVELS OF OTHER SERUM ENZYMES SNOMED Code(s): 807217229 Plan: Supportive care Nothing by mouth CT imaging x-ray of the abdomen reviewed Alcohol abstinence Continue monitor and treat for alcohol withdrawal Continue monitor CBC, BMP, LFTs Encourage ambulation as tolerated Continue Protonix, increase to twice daily No plans for endoscopic evaluation at this time given recent EGD in 06/2018 Thank you for allowing us to participate in the care of the patient
[2020-10-16] MEDS ORDERED: Magnesium Replacement Protocol 1 EACH MISC MISCELLANE PRN ×2 (15:51→21:25)
[2020-10-16] MEDS ORDERED: Potassium Replacement Protocol 1 EACH MISC MISCELLANE PRN ×2 (15:51→21:23)
--- NOTE | 2020-10-16 17:43 | PN ---
PROGRESS NOTE DATE OF SERVICE: 10/16/2020 This 35-year-old gentleman admitted with acute delirium tremens also had abdominal distention and possible acute on chronic pancreatitis. The abdomen is distended. Acute abdominal series was nonspecific; non-obstructive gas pattern. Gastroenterology recommended n.p.o. No chest pain. No palpitations. No fever. PHYSICAL EXAMINATION: Alert and oriented x3. Pulse 82, blood pressure 130/69, respiration 17, temperature 98 degrees, pulse ox 97% on room air. HEENT: Conjunctivae normal. NECK: No jugular venous distention. CARDIOVASCULAR SYSTEM: S1, S2 muffled. RESPIRATORY SYSTEM: Breath sounds diminished at the bases. A few scattered rhonchi. ABDOMEN: Soft. Mild diffuse distention. LEGS: No edema. No swelling. NERVOUS SYSTEM: No focal deficit. LABS: Hemoglobin 11.7, platelets 96, potassium 3.4. LFTs are noted. ASSESSMENT: 1. Acute alcohol withdrawal and acute delirium tremens. 2. Acute alcoholic hepatitis. 3. Abdominal distention and possible acute pancreatitis. 4. Acute on chronic pancreatitis with elevated amylase, lipase. 5. Increased white count. 6. Cholecystectomy. 7. History of hernia repair. 8. History of colonoscopy. 9. Fatty liver infiltration of the liver. 10.Hypokalemia. 11.Elevated AST, ALT. RECOMMENDATIONS AND DISCUSSION: I recommend to continue current medications, continue with the monitoring, symptomatic treatment. Otherwise, n.p.o. potassium supplementation, magnesium supplementation. Continue with Protonix. Guarded prognosis because of multiple complex medical issues. Further recommendations to follow. MMODL / IJN: [id number] / MTDD
[2020-10-16] MEDS: MAGNESIUM SULFATE-D5W PMX 1 GM in DEXTROSE/WATER 1 100ML.BAG IVPB SCH ×2 (22:03→23:03)
[2020-10-17] MEDS: MEROPENEM 2 GM in SODIUM CHLORIDE 0.9% 100 ML IVPB SCH ×4 (00:17→23:11)
[2020-10-17] MEDS: POTASSIUM CHLORIDE 10 MEQ in WATER FOR INJECTION 1 100ML.BAG IVPB SCH ×4 (00:17→04:18)
[2020-10-17] MEDS: HYDROmorphone 0.5 MG/0.5 ML SYRINGE IVP PRN ×7 (01:20→23:10)
[2020-10-17] MEDS: cloNIDine HCL 0.1 MG TAB PO SCH ×3 (08:04→20:07)
[2020-10-17] MEDS: THIAMINE 100 MG TAB PO SCH ×2 (08:04→15:12)
[2020-10-17] MEDS: PANTOPRAZOLE 40 MG/10 ML VIAL IV SCH ×2 (08:04→20:06)
[2020-10-17 10:05] LABS: African American GFR (CKD) 126.9 (60.0-200.0); Albumin/Globulin Ratio 2.67 (1.60-3.17); Anion Gap 14.6 mmol/L (4.00-12.00); BUN/Creat Ratio 6.67 Ratio (12.00-20.00); Calcium 8.1 mg/dL (8.7-10.3); Carbon Dioxide 23.4 mmol/L (21.6-31.8); Globulin 1.5 g/dL (1.6-3.3); Non-African American GFR(CKD) 109.5 (60.0-200.0); Potassium 3.6 mmol/L (3.5-5.5); Total Bilirubin 1.1 mg/dL (0.2-1.2); Total Protein 5.5 g/dL (6.2-8.2)
[2020-10-17 11:15] LABS: African American GFR (CKD) 140.7 (60.0-200.0); Albumin 4.3 g/dL (3.80-4.90); Albumin/Globulin Ratio 2.39 (1.60-3.17); Anion Gap 14.7 mmol/L (4.00-12.00); BUN/Creat Ratio 7.14 Ratio (12.00-20.00); Calcium 8.4 mg/dL (8.7-10.3); Carbon Dioxide 24.3 mmol/L (21.6-31.8); Globulin 1.8 g/dL (1.6-3.3); Magnesium 2.2 mg/dL (1.5-2.4); Non-African American GFR(CKD) 121.4 (60.0-200.0); Potassium 3.9 mmol/L (3.5-5.5); Total Bilirubin 0.9 mg/dL (0.2-1.2); Total Protein 6.1 g/dL (6.2-8.2)
[2020-10-17] MEDS: SODIUM CHLORIDE 0.9% 1,000 ML IV SCH ×2 (11:55→18:11)
--- NOTE | 2020-10-17 13:22 | P.PN ---
Subjective Progress Note Date: 10/17/20 Principal diagnosis: Pancreatitis Patient is seen and examined in his room. He is confused this morning, states he does not know how he got there where he has. He does appear to be having some tremors. He states his abdominal pain is improved some, denies any nausea or vomiting. He states he still has not had a bowel movement. These labs are currently pending. Objective - Vital Signs Vital signs: Vital Signs Temp 97.9 F 10/17/20 04:55 Pulse 75 10/17/20 04:55 Resp 16 10/17/20 04:55 BP 138/83 10/17/20 04:55 Pulse Ox 97 10/17/20 04:55 Intake & Output 10/16/20 10/17/20 10/17/20 18:59 06:59 18:59 Intake Total 1640 2230 Balance 1640 2230 Intake: Intake, IV Titration 1400 2200 Amount Magnesium Sulfate-D5w Pmx 200 1 gm In Dextrose/Water 1 100ml.bag @ 100 mls/hr IVPB Q1H SARAH Rx#: [id number] Meropenem 2 gm In Sodium 200 100 Chloride 0.9% 100 ml @ 33 .3 mls/hr IVPB Q8HR [facility] Rx#:[id number] Potassium Chloride 10 meq 400 In Water For Injection 1 100ml.bag @ 100 mls/hr IVPB Q1HR SARAH Rx#: [id number] Sodium Chloride 0.9% 1, 1200 1500 000 ml @ 150 mls/hr IV . Q6H40M [facility]AH Rx#:[id number] Oral 240 30 Other: # Voids 4 2 - Labs CBC & Chem 7: 10/16/20 05:42 10/17/20 06:27 Labs: Abnormal Lab Results - Last 24 Hours (Table) 10/16/20 10/16/20 Range/Units 05:42 05:42 RBC 3.40 L (4.40-5.60) X 10*6/uL Hgb 11.6 L (13.0-17.0) g/dL Hct 34.4 L (39.6-50.0) % MCV 101.2 H (80.0-97.0) fL MCH 34.1 H (27.0-32.0) pg Plt Count 96 L (140-440) X 10*3/uL Plt Count Comment DECREASED A Anion Gap 14.60 H (4.00-12.00) mmol/L BUN 6.0 L (9.0-27.0) mg/dL BUN/Creatinine Ratio 6.67 L (12.00-20.00) Ratio Calcium 8.1 L (8.7-10.3) mg/dL AST 206 H (14-35) U/L ALT 130 H (10-49) U/L Total Protein 5.5 L (6.2-8.2) g/dL Globulin 1.5 L (1.6-3.3) g/dL Lipase 207 H (14-60) U/L Microbiology - Last 24 Hours (Table) 10/14/20 22:03 Blood Culture - Preliminary Blood No Growth after 48 hours 10/14/20 23:00 Urine Culture - Final Urine,Voided Assessment and Plan (1) Abdominal pain Narrative/Plan: This is a 35-year-old male with a history of alcohol abuse and prior episodes of pancreatitis presenting for abdominal pain. Unclear if this is related to a late presentation of pancreatitis as lipase is not 3 times upper limit of normal and no evidence of inflammation on CT imaging, secondary to chronic pancreatitis, alcoholic gastritis or other etiology. Previously he did have EGD performed in 07/01 with findings of gastritis and duodenitis. Current Visit: No Status: Acute Code(s): R10.9 - UNSPECIFIED ABDOMINAL PAIN SNOMED Code(s): 14318656 (2) Alcoholic hepatitis Current Visit: Yes Status: Acute Code(s): K70.10 - ALCOHOLIC HEPATITIS WITHOUT ASCITES SNOMED Code(s): 038355253 (3) Chronic alcohol dependence, continuous Current Visit: No Status: Acute Code(s): F10.20 - ALCOHOL DEPENDENCE, UNCOMPLICATED SNOMED Code(s): 615265168 (4) Elevated liver enzymes Current Visit: No Status: Acute Code(s): R74.8 - ABNORMAL LEVELS OF OTHER SERUM ENZYMES SNOMED Code(s): 426276616 Plan: 1. Supportive care 2. Advance to clear liquid diet 3. CT of abdomen reviewed 4. Alcohol abstinence 5. Continue to monitor and treat for alcohol withdrawal 6. Continue Protonix twice daily 7. No plans for any endoscopic intervention at this time Thank you for this consultation, we will continue to follow Dr. Colon I agree with the dictator's note, documented as a scribe by Debby Nelosn.
[2020-10-17 13:27] LABS: Basophils # (A) 0.03 X 10*3/uL (0.00-0.10); Basophils % (A) 0.5 %; Eosinophils # (A) 0.09 X 10*3/uL (0.04-0.35); Eosinophils % (A) 1.6 %; HCT 38.4 % (39.6-50.0); Lymphocytes % (A) 24.5 %; MCHC 33.9 g/dL (32.0-37.0); MCV 100.5 fL (80.0-97.0); Mean Platelet Volume 11.5 fL (9.5-12.2); Monocytes # (A) 0.43 X 10*3/uL (0.20-1.00); Monocytes % (A) 7.5 %; Neutrophils # (A) 3.74 X 10*3/uL (1.80-7.70); Neutrophils % (A) 65.5 %; Platelet Count 96 X 10*3/uL (140-440); RBC 3.82 X 10*6/uL (4.40-5.60); RDW 12.2 % (11.5-14.5); WBC 5.71 X 10*3/uL (4.50-10.00)
[2020-10-17] MEDS ORDERED: POTASSIUM CHLORIDE ER 20 MEQ TAB.ER PO SCH (17:00)
--- NOTE | 2020-10-17 17:07 | PN ---
PROGRESS NOTE DATE OF SERVICE: 10/17/2020 This 35-year-old gentleman admitted with abdominal pain with possible acute on chronic pancreatitis as well as DTs being closely monitored. Patient is nauseous at this time. Patient is n.p.o. Gastroenterology is following the patient closely. Lipase is still elevated. LFTs also elevated. PAST MEDICAL HISTORY: Reviewed. REVIEW OF SYSTEMS: CARDIOVASCULAR SYSTEM: No angina. RESPIRATORY SYSTEM: As mentioned earlier. GI: as mentioned earlier. : No dysuria. NERVOUS SYSTEM: No numbness or weakness. PHYSICAL EXAMINATION: The patient is alert and oriented x3. Pulse 67, blood pressure 126/84, respiration 18, temperature 97.9, pulse ox 97% on room air. HEENT: Conjunctivae normal. NECK: No jugular venous distention. CARDIOVASCULAR: S1, S2 muffled. RESPIRATORY: Breath sounds diminished at the bases. A few scattered rhonchi, no crackles. ABDOMEN: Soft, nontender. LEGS: No edema, no swelling. NERVOUS SYSTEM: No focal deficits. LABS: WBC 5.2, hemoglobin 11.6. Other labs are noted. BUN is 5. LFTs are noted. ASSESSMENT: 1. Acute alcohol withdrawal and acute delirium tremens. 2. Acute alcoholic hepatitis. 3. Abdomen distention, possible acute pancreatitis. 4. Acute on chronic pancreatitis, elevated amylase, lipase. 5. Increased WBC. 6. Cholecystectomy. 7. History of hernia repair. 8. History of colonoscopy. 9. Fatty infiltration of the liver. 10.Hypokalemia. 11.Elevated AST, ALT. RECOMMENDATIONS AND DISCUSSION: Recommend to continue current medications, continue symptomatic treatment. Advance diet. The patient is evaluated by Gastroenterology. Patient currently on clear liquid diet. Continue rest of medications. Empiric antibiotics. Otherwise, incentive spirometry. DVT prophylaxis. Further recommendations to follow. Prognosis guarded. Alcohol rehab as an outpatient. Continue with [facility] protocol. MMODL / IJN: [id number] /
[2020-10-18] MEDS: HYDROmorphone 0.5 MG/0.5 ML SYRINGE IVP PRN ×4 (02:07→18:55)
[2020-10-18] MEDS: SODIUM CHLORIDE 0.9% 1,000 ML IV SCH ×4 (04:40→23:42)
[2020-10-18 10:21] LABS: Basophils # (A) 0.03 X 10*3/uL (0.00-0.10); Basophils % (A) 0.6 %; Eosinophils # (A) 0.12 X 10*3/uL (0.04-0.35); Eosinophils % (A) 2.2 %; HCT 38.9 % (39.6-50.0); HGB 13.2 g/dL (13.0-17.0); Lymphocytes # (A) 1.54 X 10*3/uL (0.90-5.00); Lymphocytes % (A) 28.7 %; MCH 33.8 pg (27.0-32.0); MCHC 33.9 g/dL (32.0-37.0); MCV 99.5 fL (80.0-97.0); Mean Platelet Volume 11.2 fL (9.5-12.2); Monocytes % (A) 7.5 %; Neutrophils # (A) 3.24 X 10*3/uL (1.80-7.70); Neutrophils % (A) 60.4 %; Platelet Count 125 X 10*3/uL (140-440); RBC 3.91 X 10*6/uL (4.40-5.60); RDW 12.4 % (11.5-14.5); WBC 5.36 X 10*3/uL (4.50-10.00)
[2020-10-18 10:28] LABS: African American GFR (CKD) 149.9 (60.0-200.0); Albumin 4.2 g/dL (3.80-4.90); Albumin/Globulin Ratio 2.63 (1.60-3.17); Anion Gap 9.9 mmol/L (4.00-12.00); BUN/Creat Ratio 8.33 Ratio (12.00-20.00); Bilirubin, Conjugated 0.4 mg/dL (0.20-0.40); Bilirubin,Unconjugated 0.5 mg/dL; Calcium 8.4 mg/dL (8.7-10.3); Carbon Dioxide 25.1 mmol/L (21.6-31.8); Globulin 1.6 g/dL (1.6-3.3); Non-African American GFR(CKD) 129.3 (60.0-200.0); Potassium 3.8 mmol/L (3.5-5.5); Total Bilirubin 0.9 mg/dL (0.2-1.2); Total Protein 5.8 g/dL (6.2-8.2)
[2020-10-18] MEDS: HYDROcodone/APAP 5-325MG 1 EACH TAB PO PRN ×2 (10:37→21:53)
[2020-10-18] MEDS: THIAMINE 100 MG TAB PO SCH ×2 (10:38→15:53)
[2020-10-18] MEDS: cloNIDine HCL 0.1 MG TAB PO SCH ×3 (10:38→21:48)
[2020-10-18] MEDS: MEROPENEM 2 GM in SODIUM CHLORIDE 0.9% 100 ML IVPB SCH ×3 (10:40→23:43)
[2020-10-18] MEDS: PANTOPRAZOLE 40 MG/10 ML VIAL IV SCH ×2 (10:40→21:48)
--- NOTE | 2020-10-18 10:53 | P.PN ---
Subjective Progress Note Date: 10/18/20 Principal diagnosis: Pancreatitis Patient is seen and examined sitting up in his bed. He states his abdominal pain has improved some today. He is tolerating his cool diet, however states this morning after having his breakfast he did have some increase in abdominal pain. Denies any bowel movements. Denies any nausea or vomiting. He states that he is not feeling confused today. He is alert, oriented 3 and answering questions appropriately. Objective - Vital Signs Vital signs: Vital Signs Temp 98.4 F 10/18/20 05:00 Pulse 62 10/18/20 05:00 Resp 16 10/18/20 05:00 BP 144/94 10/18/20 05:00 Pulse Ox 97 10/18/20 05:00 Intake & Output 10/17/20 10/18/20 10/18/20 18:59 06:59 18:59 Intake Total 1700 590 Balance 1700 590 Intake: Intake, IV Titration 1700 Amount Meropenem 2 gm In Sodium 200 Chloride 0.9% 100 ml @ 33 .3 mls/hr IVPB Q8HR SARAH Rx#:[id number] Sodium Chloride 0.9% 1, 1500 000 ml @ 150 mls/hr IV . Q6H40M SARAH Rx#:[id number] Oral 590 Other: Voiding Method Toilet # Voids 5 3 - Exam General appearance: The patient is alert, oriented, appears in no acute distress. HET: Head is normocephalic and atraumatic. Conjunctiva pink. Sclera anicteric. Neck: Supple without lymphadenopathy. Abdomen: Soft, right upper quadrant and epigastric tenderness,, nondistended with bowel sounds. No guarding or rigidity. Extremities: Normal skin color and turgor. No pedal edema Skin: No rashes, no jaundice Neurological: No focal deficits. Alert and oriented 3. - Labs CBC & Chem 7: 10/18/20 04:46 10/18/20 04:46 Labs: Abnormal Lab Results - Last 24 Hours (Table) 10/16/20 10/17/20 10/17/20 Range/Units 05:42 06:27 06:27 RBC 3.82 L (4.40-5.60) X 10*6/uL Hct 38.4 L (39.6-50.0) % MCV 100.5 H (80.0-97.0) fL MCH 34.0 H (27.0-32.0) pg Plt Count 96 L (140-440) X 10*3/uL Plt Count Comment DECREASED A Anion Gap 14.60 H 14.70 H (4.00-12.00) mmol/L BUN 6.0 L 5.0 L (9.0-27.0) mg/dL BUN/Creatinine Ratio 6.67 L 7.14 L (12.00-20.00) Ratio Calcium 8.1 L 8.4 L (8.7-10.3) mg/dL AST 206 H 194 H (14-35) U/L ALT 130 H 131 H (10-49) U/L Alkaline Phosphatase 132 H (41-126) U/L Ammonia (<30) umol/L Total Protein 5.5 L 6.1 L (6.2-8.2) g/dL Globulin 1.5 L (1.6-3.3) g/dL Lipase 207 H 169 H (14-60) U/L 10/17/20 Range/Units 12:33 RBC (4.40-5.60) X 10*6/uL Hct (39.6-50.0) % MCV (80.0-97.0) fL MCH (27.0-32.0) pg Plt Count (140-440) X 10*3/uL Plt Count Comment Anion Gap (4.00-12.00) mmol/L BUN (9.0-27.0) mg/dL BUN/Creatinine Ratio (12.00-20.00) Ratio Calcium (8.7-10.3) mg/dL AST (14-35) U/L ALT (10-49) U/L Alkaline Phosphatase (41-126) U/L Ammonia 32 H (<30) umol/L Total Protein (6.2-8.2) g/dL Globulin (1.6-3.3) g/dL Lipase (14-60) U/L Microbiology - Last 24 Hours (Table) 10/14/20 22:03 Blood Culture - Preliminary Blood No Growth after 72 hours Assessment and Plan (1) Abdominal pain Narrative/Plan: This is a 35-year-old male with a history of alcohol abuse and prior episodes of pancreatitis presenting for abdominal pain. Unclear if this is related to a late presentation of pancreatitis as lipase is not 3 times upper limit of normal and no evidence of inflammation on CT imaging, secondary to chronic pancreatitis, alcoholic gastritis or other etiology. Previously he did have EGD performed in 07/01 with findings of gastritis and duodenitis. Current Visit: No Status: Acute Code(s): R10.9 - UNSPECIFIED ABDOMINAL PAIN SNOMED Code(s): 21746291 (2) Alcoholic hepatitis Current Visit: Yes Status: Acute Code(s): K70.10 - ALCOHOLIC HEPATITIS WITHOUT ASCITES SNOMED Code(s): 677547462 (3) Chronic alcohol dependence, continuous Current Visit: No Status: Acute Code(s): F10.20 - ALCOHOL DEPENDENCE, U NCOMPLICATED SNOMED Code(s): 067116628 (4) Elevated liver enzymes Current Visit: No Status: Acute Code(s): R74.8 - ABNORMAL LEVELS OF OTHER SERUM ENZYMES SNOMED Code(s): 872773635 Plan: 1. Supportive care 2. Advance to full liquid diet 3. CT of abdomen reviewed 4. Alcohol abstinence 5. Continue to monitor and treat for alcohol withdrawal 6. Continue Protonix twice daily 7. No plans for any endoscopic intervention at this time Thank you for this consultation, we will continue to follow Dr. Colon I agree with the dictator's note, documented as a scribe by Debby Nelson.
[2020-10-18] MEDS: POLYMYXIN B-TRIMETHOPRIM SULF (10,000-1) OPHTH DROPS 10 ML BTL BOTH EYES SCH ×3 (15:51→23:44)
--- NOTE | 2020-10-18 21:58 | P.PN ---
Subjective This is a pleasant 35 years old male with no significant past medical history. Patient presents initially on 10/14 for abdominal pain and vomiting. He still has abdominal pain today about 7-8, but no nausea or vomiting. His been started on full liquid diet today by GI team. No bowel movement or passing gas. No chest pain. No dyspnea. No headache, weakness or numbness but is complaining of from burning in both eyes and blurred vision in his right eye with some discharge. Patient states that he wants to quit alcohol. Denies smoking or illicit drugs. Patient denies depression or suicidal ideation. Patient states he does not have a PCP but he wants to follow up with PCP upon discharge He is hemodynamically stable His CIWA score is 3-10 today His CBC showing only mild thrombocytopenia of 120 5K, improving. BMP is unremarkable. Liver enzymes are mildly elevated, currently trending down with a normal bilirubin at 0.5. Pro-calcitonin is a slightly elevated at 0.12. Ammonia level is 28 CT of the abdomen and pelvis showing normal appendix. Fatty infiltration of the liver. Possible hepatic hemangioma, and change. No acute abnormality of the abdomen and pelvis. No evidence of pancreatitis Chest x-ray: Poor inspiration. There is clearing of pleural fluid and atelectasis compared to old exam Review of systems CONSTITUTIONAL: No fever, no malaise, no fatigue. HEENT: No recent visual problems or hearing problems. Denied any sore throat. CARDIOVASCULAR: No orthopnea, PND, no palpitations, no syncope. PULMONARY: No shortness of breath, no cough, no hemoptysis. GASTROINTESTINAL: No diarrhea, no nausea, no vomiting, no abdominal pain. Normoactive bowel sounds. Active Medications Generic Name Dose Route Start Last Admin Trade Name Freq PRN Reason Stop Dose Admin Hydrocodone Bitart/Acetaminophen 1 each 10/14/20 21:16 10/18/20 10:37 Hydrocodone/Apap 5-325mg 1 Each Tab PO 1 each Q6HR PRN Administration Pain Clonidine 0.1 mg 10/14/20 21:16 Clonidine Hcl 0.1 Mg Tab PO Q4HR PRN Hypertension Clonidine 0.1 mg 10/14/20 22:00 10/18/20 21:48 Clonidine Hcl 0.1 Mg Tab PO 0.1 mg TID SARAH Administration Hydromorphone HCl 0.5 mg 10/14/20 17:57 10/18/20 18:55 Hydromorphone 0.5 Mg/0.5 Ml Syringe IVP 0.5 mg Q3HR PRN Administration Moderate Pain Sodium Chloride 1,000 mls @ 150 mls/hr 10/14/20 18:00 10/18/20 15:39 Saline 0.9% IV Not Given .Q6H40M SARAH Meropenem 2 gm/ Sodium 100 mls @ 33.3 mls/hr 10/15/20 00:00 10/18/20 15:52 Chloride IVPB 33.3 mls/hr Q8HR SARAH Administration Protocol Lorazepam 1 mg 10/14/20 17:55 10/14/20 20:14 Lorazepam 2 Mg/Ml Inj IV 1 mg Q2HR PRN Administration CIWA 8 or 9 Lorazepam 1 mg 10/14/20 17:55 10/14/20 21:13 Lorazepam 2 Mg/Ml Inj IV 1 mg Q1HR PRN Administration CIWA 10 to 15 Miscellaneous Information 1 each 10/16/20 15:51 Potassium Replacement Protocol 1 Each Misc MISCELLANE DAILY PRN Per Protocol Protocol Miscellaneous Information 1 each 10/16/20 21:23 Potassium Replacement Protocol 1 Each Misc MISCELLANE DAILY PRN Per Protocol Protocol Miscellaneous Information 1 each 10/16/20 21:25 Magnesium Replacement Protocol 1 Each Misc MISCELLANE DAILY PRN Per Protocol Protocol Naloxone HCl 0.2 mg 10/14/20 17:57 Naloxone 0.4 Mg/Ml 1 Ml Vial IV Q2M PRN Opioid Reversal Ondansetron HCl 4 mg 10/14/20 17:57 10/15/20 23:59 Ondansetron 4 Mg/2 Ml Vial IVP 4 mg Q8HR PRN Administration Nausea And Vomiting Pantoprazole Sodium 40 mg 10/16/20 21:00 10/18/20 21:48 Pantoprazole 40 Mg/10 Ml Vial IV 40 mg BID SARAH Administration Polymyxin/Trimethoprim Sulfate 1 drops 10/18/20 16:00 10/18/20 20:14 Polymyxin B-Trimethoprim Sulf (10,000-1) Ophth Drops 10 Ml Btl BOTH EYES 1 drops Q4HR SARAH Administration Thiamine HCl 100 mg 10/15/20 07:30 10/18/20 15:53 Thiamine 100 Mg Tab PO 100 mg BID-W/MEALS SARAH Administration Objective - Vital Signs Vital signs: Vital Signs Temp 98.4 F 10/18/20 11:12 Pulse 65 10/18/20 11:12 Resp 16 10/18/20 11:12 BP 146/85 10/18/20 11:12 Pulse Ox 92 L 10/18/20 11:12 Intake & Output 10/17/20 10/18/20 10/18/20 18:59 06:59 18:59 Intake Total 1700 590 Balance 1700 590 Intake: Intake, IV Titration 1700 Amount Meropenem 2 gm In Sodium 200 Chloride 0.9% 100 ml @ 33 .3 mls/hr IVPB Q8HR SARAH Rx#:[id number] Sodium Chloride 0.9% 1, 1500 000 ml @ 150 mls/hr IV . Q6H40M SARAH Rx#:[id number] Oral 590 Other: Voiding Method Toilet # Voids 5 3 - Exam GENERAL: The patient is alert and oriented x3, not in any acute distress. Well developed, well nourished. -HEENT: Pupils are round and equally reacting to light. EOMI. No scleral icterus. No conjunctival pallor. Normocephalic, atraumatic. No pharyngeal erythema. No thyromegaly. Bilateral conjunctivitis CARDIOVASCULAR: S1 and S2 present. No murmurs, rubs, or gallops. PULMONARY: Chest is clear to auscultation, no wheezing or crackles. ABDOMEN: Soft, nontender, nondistended, normoactive bowel sounds. No palpable organomegaly. MUSCULOSKELETAL: No joint swelling or deformity. EXTREMITIES: No cyanosis, clubbing, or pedal edema. NEUROLOGICAL: Gross neurological examination did not reveal any focal deficits. SKIN: No rashes. no petechiae. - Labs CBC & Chem 7: 10/18/20 04:46 10/18/20 04:46 Labs: Abnormal Lab Results - Last 24 Hours (Table) 10/18/20 10/18/20 10/18/20 Range/Units 04:46 04:46 04:46 RBC 3.91 L (4.40-5.60) X 10*6/uL Hct 38.9 L (39.6-50.0) % MCV 99.5 H (80.0-97.0) fL MCH 33.8 H (27.0-32.0) pg Plt Count 125 L (140-440) X 10*3/uL Plt Count Comment DECREASED A BUN 5.0 L (9.0-27.0) mg/dL BUN/Creatinine Ratio 8.33 L (12.00-20.00) Ratio Calcium 8.4 L (8.7-10.3) mg/dL AST 138 H (14-35) U/L ALT 113 H (10-49) U/L Alkaline Phosphatase 127 H (41-126) U/L Total Protein 5.8 L (6.2-8.2) g/dL Procalcitonin 0.12 H (0.02-0.09) ng/mL Microbiology - Last 24 Hours (Table) 10/14/20 22:03 Blood Culture - Preliminary Blood No Growth after 72 hours Assessment and Plan Assessment: Acute alcohol withdrawal and acute delirium tremens, improving Possible alcoholic gastritis Bilateral conjunctivitis Acute alcoholic hepatitis, improving Chronic pancreatitis with no evidence of acute inflammation Fatty infiltration of the liver History of hernia repair Plan: This is a pleasant 35 years old male who presents with delirium tremens, conjunctivitis and alcoholic hepatitis/gastritis. Patient is been treated empirically with meropenem, we'll continue that. Blood culture showing no growth after 72 hours. Continue with CIWA protocol, continue with thiamine. Continue with meropenem and follow-up culture results. Continue with Protonix and IV fluid. Start polymyxin eyedrops bilaterally and consult ophthalmology Labs and medication were reviewed.. Continue same treatment. Continue with symptomatic treatment. Resume home medication. Monitor lytes and vitals. DVT and GI prophylaxis. Further recommendationsas per clinical course of the patient DVT prophylaxis: Subcutaneous heparin GI Prophylaxis: Ppi Prognosis is guarded
[2020-10-18] MEDS: HEPARIN SODIUM,PORCINE/PF 5,000 UNIT/0.5 ML SYRINGE SQ SCH (23:43)
[2020-10-19] MEDS: HYDROmorphone 0.5 MG/0.5 ML SYRINGE IVP PRN ×3 (02:30→13:30)
[2020-10-19] MEDS: SODIUM CHLORIDE 0.9% 1,000 ML IV SCH (05:34)
[2020-10-19] MEDS: POLYMYXIN B-TRIMETHOPRIM SULF (10,000-1) OPHTH DROPS 10 ML BTL BOTH EYES SCH ×3 (05:37→13:27)
[2020-10-19] MEDS: HYDROcodone/APAP 5-325MG 1 EACH TAB PO PRN (05:37)
[2020-10-19] MEDS: PANTOPRAZOLE 40 MG/10 ML VIAL IV SCH (08:19)
[2020-10-19] MEDS: HEPARIN SODIUM,PORCINE/PF 5,000 UNIT/0.5 ML SYRINGE SQ SCH ×2 (08:19→08:25)
[2020-10-19] MEDS: THIAMINE 100 MG TAB PO SCH (08:20)
[2020-10-19] MEDS: cloNIDine HCL 0.1 MG TAB PO SCH (08:20)
[2020-10-19] MEDS: MEROPENEM 2 GM in SODIUM CHLORIDE 0.9% 100 ML IVPB SCH (08:25)
--- NOTE | 2020-10-19 09:46 | CONS ---
CONSULTATION This is a 35-year-old white male with a history of alcohol abuse as well as prior hospitalizations for pancreatitis. The patient presented with acute abdominal pain in the presence of elevated liver enzymes significant for continued alcoholism. The patient states that he was lying comfortably yesterday but noticed some discharge from his eyes and drainage in the nasal aspect of both eyes. The patient states that the area was slightly red and was painful when touched. He states further that the hospital staff provided some topical drops, namely Artificial Tears and since putting them in yesterday, his symptoms have resolved and he is now feeling fine. Visual acuity measured 20/20 bilaterally. Pupils were equal and reactive to light. On penlight exam, the lids were normal. There was no evidence of blepharitis or inflammation on either lid. The conjunctivae were quiet. Both corneas were clear. The anterior chambers were quiet and the remainder of the ophthalmic exam was otherwise unremarkable. IMPRESSION: Blepharitis. This patient likely has some low-grade inflammation of his eyelid tissue due to either dryness of the skin and/or allergic conjunctivitis. Low-grade incidence of this will often respond to Artificial Tears. Treatment would next include topical antihistamine drops, however, it is not likely this will be necessary as he seems to be fully recovered during my visit today. MMODL / IJN: [id number] /
[2020-10-19 13:10] VITALS: BMI 28.0
[2020-10-19 13:26] VITALS: BP 116/77; PULSE 72; RESP 17; TEMP 97.9
--- NOTE | 2020-10-19 13:42 | P.PN ---
Subjective Progress Note Date: 10/19/20 Principal diagnosis: Pancreatitis Patient seen and examined lying in bed. He is tolerating his full liquid diet. He states his abdominal pain has improved significantly. He is still having some mild right upper quadrant and epigastric discomfort. Denies any nausea or vomiting. Objective - Vital Signs Vital signs: Vital Signs Temp 98.5 F 10/19/20 07:21 Pulse 71 10/19/20 08:36 Resp 18 10/19/20 07:21 BP 120/78 10/19/20 07:21 Pulse Ox 96 10/19/20 07:21 Intake & Output 10/18/20 10/19/20 10/19/20 18:59 06:59 18:59 Intake Total 100 920 Balance 100 920 Intake: Intake, IV Titration 100 800 Amount Meropenem 2 gm In Sodium 100 100 Chloride 0.9% 100 ml @ 33 .3 mls/hr IVPB Q8HR SARAH Rx#:[id number] Sodium Chloride 0.9% 1, 700 000 ml @ 100 mls/hr IV . Q10H SARAH Rx#:[id number] Oral 120 Other: Voiding Method Toilet Toilet - Exam General appearance: The patient is alert, oriented, appears in no acute distress. HET: Head is normocephalic and atraumatic. Conjunctiva pink. Sclera anicteric. Neck: Supple without lymphadenopathy. Abdomen: Soft, mild right upper quadrant and epigastric tenderness,, nondistended with bowel sounds. No guarding or rigidity. Extremities: Normal skin color and turgor. No pedal edema Skin: No rashes, no jaundice Neurological: No focal deficits. Alert and oriented 3. - Labs CBC & Chem 7: 10/18/20 04:46 10/18/20 04:46 Labs: Microbiology - Last 24 Hours (Table) 10/14/20 22:03 Blood Culture - Preliminary Blood No Growth after 96 hours Assessment and Plan (1) Abdominal pain Narrative/Plan: This is a 35-year-old male with a history of alcohol abuse and prior episodes of pancreatitis presenting for abdominal pain. Unclear if this is related to a late presentation of pancreatitis as lipase is not 3 times upper limit of normal and no evidence of inflammation on CT imaging, secondary to chronic pancreatitis, alcoholic gastritis or other etiology. Previously he did have EGD performed in 07/01 with findings of gastritis and duodenitis. Current Visit: No Status: Acute Code(s): R10.9 - UNSPECIFIED ABDOMINAL PAIN SNOMED Code(s): 69300230 (2) Alcoholic hepatitis Current Visit: Yes Status: Acute Code(s): K70.10 - ALCOHOLIC HEPATITIS WITHOUT ASCITES SNOMED Code(s): 925590666 (3) Chronic alcohol dependence, continuous Current Visit: No Status: Acute Code(s): F10.20 - ALCOHOL DEPENDENCE, UNCOMPLICATED SNOMED Code(s): 995528449 (4) Elevated liver enzymes Current Visit: No Status: Acute Code(s): R74.8 - ABNORMAL LEVELS OF OTHER SERUM ENZYMES SNOMED Code(s): 041170412 Plan: 1. Supportive care 2. Advance to low fat/low fiber 3. CT of abdomen reviewed 4. Alcohol abstinence; discussed importance of maintaining alcohol abstinence to decrease the risk of recurrent pancreatitis 5. Continue Protonix twice daily 6. No plans for any endoscopic intervention at this time Thank you for this consultation, she may be discharged home from a trip nephrology standpoint Dr. Colon I agree with the dictator's note, documented as a scribe by Debby Nelson.
--- NOTE | 2020-10-20 01:23 | P.DS ---
Providers Date of admission: 10/14/20 17:58 Attending physician: Toni Ambriz MD Consults: 10/15/20 15:49 Consult Physician Routine Consulting Provider: Janet Lunsford Consult Reason/Comments: abd pain Do you want consulting provider notified?: Yes 10/18/20 14:20 Consult Physician Urgent Consulting Provider: Azam Palm Consult Reason/Comments: Rt blurred vission, bilateral purulent eye drainage Do you want consulting provider notified?: Yes Primary care physician: Stated None Hospital Course: Diagnoses: Acute alcohol withdrawal and acute delirium tremens, improving Possible alcoholic gastritis Bilateral conjunctivitis Acute alcoholic hepatitis, improving Chronic pancreatitis with no evidence of acute inflammation Fatty infiltration of the liver History of hernia repair Hospital course: This is a pleasant 35 years old male with no significant past medical history. Patient presents initially on 10/14 for abdominal pain and vomiting. CT of the abdomen and pelvis showing normal appendix. Fatty infiltration of the liver. Possible hepatic hemangioma, and change. No acute abnormality of the abdomen and pelvis. No evidence of pancreatitis. Patient is been followed clos cam[facility] by GI team. Most likely patient has alcoholic gastritis. Patient was treated with antiacids, Protonix and he showed interval improvement, also received meropenem antibiotic. Patient also has a known alcoholic and he was treated for alcohol withdrawal per CIWA protocol. Patient told me he drinks about a pint of liquor daily. Patient agrees to quit after counseling, patient does not need benzodiazepine upon discharge as his symptoms controlled without treatment. His abdominal pain improved, no nausea vomiting and diet was advanced by GI team and well-tolerated by the patient. Also patient has bilateral conjunctivitis that responded well to topical antibiotic eyedrops On the day of discharge patient returned to baseline with no nausea vomiting, no diarrhea. No change in urine or bowel habits. No fever. He tolerates diet well. He denies chest pain or dyspnea. Patient wants to go home today Patient was cleared for discharge by GI team Problems and management plan were discussed with the patient and he verbalized understanding and acceptance Patient was found stable and can be discharged home however he needs follow-up as an outpatient. Patient was instructed to follow up with PCP within one week and patient agrees. The patient states that he has no PCP and he is willing to follow up with one, contact information is provided for the patient with Dr. Loredo and he agrees to call and make appointment. Also patient was instructed to follow up with GI Dr. Lunsford in 2 weeks and he agrees and surgical clinical reviewer Dr. palm one week and he agrees to call and make appointment Physical exam Gen: patient is a AAOx3, no distress CVS: S1-S2, RRR, no murmur Lungs: B/L CTA, no wheezing Abdomen: soft, no distention, no tenderness, positive bowel sounds Extremity: no leg edema or induration Time spent more than 35 minutes Patient Condition at Discharge: Poor Plan - Discharge Summary New Discharge Prescriptions: New Amoxicillin/Potassium Clav [Augmentin 500-125 Tablet] 1 tab PO Q12HR 5 Days #2 tab cloNIDine HCL [Catapres] 0.1 mg PO TID #90 tab Pantoprazole Sodium [Protonix] 40 mg PO BID #60 tablet. Ondansetron [Zofran] 4 mg PO Q8HR PRN #10 tab PRN Reason: Nausea And Vomiting HYDROcodone/APAP 5-325MG [[place] 5-325] 1 each PO Q12HR PRN 3 Days #6 tab PRN Reason: Pain Polymyxin B-Trimeth Sulf Ophth [Polytrim Opthalmic] 1 drops BOTH EYES Q4HR 7 Days #30 ml Thiamine [Vitamin B-1] 100 mg PO BID-W/MEALS 30 Days #30 tab Discharge Medication List Amoxicillin/Potassium Clav [Augmentin 500-125 Tablet] 1 tab PO Q12HR 5 Days #2 tab 10/19/20 [Rx] HYDROcodone/APAP 5-325MG [[place] 5-325] 1 each PO Q12HR PRN 3 Days #6 tab 10/19/20 [Rx] Ondansetron [Zofran] 4 mg PO Q8HR PRN #10 tab 10/19/20 [Rx] Pantoprazole Sodium [Protonix] 40 mg PO BID #60 tablet. 10/19/20 [Rx] Polymyxin B-Trimeth Sulf Ophth [Polytrim Opthalmic] 1 drops BOTH EYES Q4HR 7 Days #30 ml 10/19/20 [Rx] Thiamine [Vitamin B-1] 100 mg PO BID-W/MEALS 30 Days #30 tab 10/19/20 [Rx] cloNIDine HCL [Catapres] 0.1 mg PO TID #90 tab 10/19/20 [Rx] Follow up Appointment(s)/Referral(s): Meme Ramsey MD [REFERRING] - 1 Week (The office states you may call to give them more information to become a new patient to them.) Janet Lunsford MD [STAFF PHYSICIAN] - 2 Weeks (GI doctor, The office is now closed please call and make follow up appointment.) Azam Palm MD [STAFF PHYSICIAN] - 1 Week (Sewing Machine Tester call and make appointment as needed.) None,Stated [Primary Care Provider] - 1-2 days Patient Instructions/Handouts: Clonidine (By mouth), Hydrocodone/Acetaminophen (By mouth), Amoxicillin/Clavulanate Potassium (By mouth), Pantoprazole (By mouth), Pancreatitis (DC) Activity/Diet/Wound Care/Special Instructions: Heart healthy diet, encourage oral hydration. We recommend abstinence from alcohol, also avoid drinking alcohol while you are on pain medication ( norco) as this increase your risks for respiratory depression and Activity is restricted until you see your doctor Discharge Disposition: HOME SELF-CARE
== END 2020-10-19 16:48 | disposition home or self-care (01) | DRG 433 ==
LOC: EC 14:08 → 5NMEDONC 17:58
PROVIDERS: ADMIT Internal Medicine; ATTEND Internal Medicine
DX: K70.10 Alcoholic hepatitis without ascites (principal); F10.231 Alcohol dependence with withdrawal delirium; E87.2 Acidosis; K86.0 Alcohol-induced chronic pancreatitis; K76.0 Fatty (change of) liver, not elsewhere classified; K29.20 Alcoholic gastritis without bleeding; E86.0 Dehydration; H10.9 Unspecified conjunctivitis; D69.6 Thrombocytopenia, unspecified; H01.006 Unspecified blepharitis left eye, unspecified eyelid; E87.6 Hypokalemia; Z20.822 Contact with and (suspected) exposure to COVID-19; H01.003 Unspecified blepharitis right eye, unspecified eyelid; Z79.899 Other long term (current) drug therapy; Z90.49 Acquired absence of other specified parts of digestive tract; Z87.19 Personal history of other diseases of the digestive system; Z98.890 Other specified postprocedural states
CPT/HCPCS: 36415; 71045; 74022; 74176; 80048; 80053; 80076; 80306; 80320; 81001; 82140; 82150; 83690; 83735; 84145; 85025; 87040; 87086; 87635; 96361; 96374; 96375; 96376; 99285

== ENCOUNTER 2020-12-03 15:05 | Observation (INO) | payer OTHER ==
[2020-12-03] MEDS ORDERED: MORPHINE SULFATE 4 MG/ML SYRINGE IVP STA ×2 (15:50→16:50)
[2020-12-03] MEDS ORDERED: ONDANSETRON 4 MG/2 ML VIAL IVP STA (15:50)
[2020-12-03] MEDS ORDERED: SODIUM CHLORIDE 0.9% 1,000 ML IV STA (15:50)
--- NOTE | 2020-12-03 16:06 | ED ---
Nausea/Vomiting/Diarrhea HPI - General Chief complaint: Nausea/Vomiting/Diarrhea Stated complaint: Sent from Dr. taylor Time Seen by Provider: 12/03/20 15:43 Source: patient Mode of arrival: ambulatory Limitations: no limitations - History of Present Illness Initial comments: Patient is a 35-year-old male presenting to the emergency Department with co mplaints of vomiting and abdominal pain 3 days. He states he went to his PCPs office today who recommended going to the ER for evaluation. He states he does have history of pancreatitis and states that this feels similar. He states he used to be a heavy alcohol drinker, he has been better over the past year, but he did have some shots a few days ago. He does admit to history of cholecystectomy, hernia repair, no other abdominal surgeries. He states the pain is mostly in epigastric area, with some mild radiation to either side. He admits to a few episodes of diarrhea yesterday and today. He denies any chest pain or shortness of breath, no dizziness. He denies any fevers. He has no f urther complaints at this time. Upon arrival to the ER, he has tachycardia at 133, rest of vitals normal. - Related Data Home Medications Medication Instructions Recorded Confirmed cloNIDine HCL [Catapres] 0.1 mg PO DAILY 12/03/20 12/03/20 Previous Rx's Medication Instructions Recorded Ondansetron [Zofran] 4 mg PO Q8HR PRN #10 tab 10/19/20 Allergies Allergy/AdvReac Type Severity Reaction Status Date / Time No Known Allergies Allergy Verified 12/03/20 18:59 Review of Systems ROS Statement: Those systems with pertinent positive or pertinent negative responses have been documented in the HPI. ROS Other: All systems not noted in ROS Statement are negative. Past Medical History Past Medical History: No Reported History Additional Past Medical History / Comment(s): pancreatitis and gastritis, History of Any Multi-Drug Resistant Organisms: None Reported Past Surgical History: Cholecystectomy, Hernia Repair, Orthopedic Surgery Additional Past Surgical History / Comment(s): 2019 EGD/colonoscopy, r inguinal hernia repair, R wrist surgery for abscess, L wrist surgery for tendon repair, Past Anesthesia/Blood Transfusion Reactions: No Reported Reaction Past Psychological History: No Psychological Hx Reported Smoking Status: Never smoker Past Alcohol Use History: Occasional Past Drug Use History: None Reported - Past Family History Father Family Medical History: No Reported History Mother Family Medical History: No Reported History General Exam - General Exam Comments Initial Comments: GENERAL: Patient is well-developed and well-nourished. Patient is nontoxic and in moderate distress. HEAD: Atraumatic, normocephalic. EYES: Pupils equal round and reactive to light, extraocular movements intact, sclera anicteric, conjunctiva are normal. Eyelids were unremarkable. ENT: TMs normal, nares patent, oropharynx clear without exudates. Moist mucous membranes. NECK: Normal range of motion, supple without lymphadenopathy or JVD. LUNGS: Unlabored respirations. Breath sounds clear to auscultation bilaterally and equal. No wheezes rales or rhonchi. HEART: Regular rate and rhythm without murmurs, rubs or gallops. ABDOMEN: Soft, tender to palpation epigastric and bilateral upper quadrants, no lower terrie drant tenderness,, normoactive bowel sounds. No guarding, no rebound. No masses appreciated. : Deferred MUSCULOSKELETAL: Normal extremities with adequate strength and normal range of motion, no pitting or edema. No clubbing or cyanosis. NEUROLOGICAL: Patient is alert and oriented x 3. Motor and sensory are also intact. Cranial nerves II through XII grossly intact. Symmetrical smile. Normal speech, normal gait. PSYCH: Normal mood, normal affect. SKIN: Warm, Dry, normal turgor, no rashes or lesions noted. Limitations: no limitations Course Vital Signs 12/03/20 12/03/20 15:11 17:28 Temperature 99.3 F 98 F Pulse Rate 133 H 109 H Respiratory 18 16 Rate Blood Pressure 133/89 146/93 O2 Sat by Pulse 98 96 Oximetry Medical Decision Making - Medical Decision Making Patient is a 35-year-old male here for epigastric pain, nausea and vomiting for the past 3 days. He has tachycardia upon arrival, afebrile. Patient does admit history of pancreatitis secondary to alcohol abuse however his alcohol intake has decreased over the last year, he did admit to taking some "shots a few days ago." Labs show a normal white count, electrolytes are decreased, lactic acid is normal at 1.1, transaminitis, lipase is 327. Urine shows 4+ ketones, serum alcohol is less than 10, wrapped with is not detected. Patient given a total of 8 of morphine, Zofran and fluids. He does report minimal improvement in his symptoms. Patient will be admitted for dehydration, alcohol-induced pancreatitis, intractable abdominal pain. Patient accepted by Dr. Green. Patient is in agreement this plan of care. We will continue him on fluids, clear liquid diet. He is discussed with Dr. Atwood. - Lab Data Result diagrams: 12/03/20 16:34 12/03/20 16:34 Lab Results 12/03/20 12/03/20 12/03/20 Range/Units 16:34 16:34 16:34 WBC 10.2 (3.8-10.6) k/uL RBC 5.00 (4.30-5.90) m/uL Hgb 16.2 (13.0-17.5) gm/dL Hct 48.4 (39.0-53.0) % MCV 96.8 (80.0-100.0) fL MCH 32.5 (25.0-35.0) pg MCHC 33.5 (31.0-37.0) g/dL RDW 14.9 (11.5-15.5) % Plt Count 261 (150-450) k/uL MPV 7.2 Neutrophils % 76 % Lymphocytes % 15 % Monocytes % 7 % Eosinophils % 1 % Basophils % 1 % Neutrophils # 7.7 (1.3-7.7) k/uL Lymphocytes # 1.5 (1.0-4.8) k/uL Monocytes # 0.7 (0-1.0) k/uL Eosinophils # 0.1 (0-0.7) k/uL Basophils # 0.1 (0-0.2) k/uL Sodium 136 L (137-145) mmol/L Potassium 3.4 L (3.5-5.1) mmol/L Chloride 97 L (98-107) mmol/L Carbon Dioxide 18 L (22-30) mmol/L Anion Gap 21 mmol/L BUN 16 (9-20) mg/dL Creatinine 0.76 (0.66-1.25) mg/dL Est GFR (CKD-EPI)AfAm >90 (>60 ml/min/1.73 sqM) Est GFR (CKD-EPI)NonAf >90 (>60 ml/min/1.73 sqM) Glucose 123 H (74-99) mg/dL Plasma Lactic Acid Eugene (0.7-2.0) mmol/L Calcium 10.0 (8.4-10.2) mg/dL Total Bilirubin 2.3 H (0.2-1.3) mg/dL AST 181 H (17-59) U/L ALT 168 H (4-49) U/L Alkaline Phosphatase 154 H (38-126) U/L Total Protein 8.1 (6.3-8.2) g/dL Albumin 5.5 H (3.5-5.0) g/dL Amylase 74 (30-110) U/L Lipase 327 H (23-300) U/L Urine Color [place] Urine Appearance Clear (Clear) Urine pH 6.0 (5.0-8.0) Ur Specific [place] 1.038 H (1.001-1.035) Urine Protein 2+ H (Negative) Urine Glucose (UA) Negative (Negative) Urine Ketones 4+ H (Negative) Urine Blood Negative (Negative) Urine Nitrite Negative (Negative) Urine Bilirubin 1+ H (Negative) Urine Urobilinogen 4.0 (<2.0) mg/dL Ur Leukocyte Esterase Trace H (Negative) Urine RBC 1 (0-5) /hpf Urine WBC 7 H (0-5) /hpf Ur Squamous Epith Cells <1 (0-4) /hpf Hyaline Casts 17 H (0-2) /lpf Urine Mucus Many H (None) /hpf Serum Alcohol <10 mg/dL Coronavirus (PCR) (Not Detectd) 12/03/20 12/03/20 Range/Units 16:34 18:55 WBC (3.8-10.6) k/uL RBC (4.30-5.90) m/uL Hgb (13.0-17.5) gm/dL Hct (39.0-53.0) % MCV (80.0-100.0) fL MCH (25.0-35.0) pg MCHC (31.0-37.0) g/dL RDW (11.5-15.5) % Plt Count (150-450) k/uL MPV Neutrophils % % Lymphocytes % % Monocytes % % Eosinophils % % Basophils % % Neutrophils # (1.3-7.7) k/uL Lymphocytes # (1.0-4.8) k/uL Monocytes # (0-1.0) k/uL Eosinophils # (0-0.7) k/uL Basophils # (0-0.2) k/uL Sodium (137-145) mmol/L Potassium (3.5-5.1) mmol/L Chloride (98-107) mmol/L Carbon Dioxide (22-30) mmol/L Anion Gap mmol/L BUN (9-20) mg/dL Creatinine (0.66-1.25) mg/dL Est GFR (CKD-EPI)AfAm (>60 ml/min/1.73 sqM) Est GFR (CKD-EPI)NonAf (>60 ml/min/1.73 sqM) Glucose (74-99) mg/dL Plasma Lactic Acid Eugene 1.1 (0.7-2.0) mmol/L Calcium (8.4-10.2) mg/dL Total Bilirubin (0.2-1.3) mg/dL AST (17-59) U/L ALT (4-49) U/L Alkaline Phosphatase (38-126) U/L Total Protein (6.3-8.2) g/dL Albumin (3.5-5.0) g/dL Amylase (30-110) U/L Lipase (23-300) U/L Urine Color Urine Appearance (Clear) Urine pH (5.0-8.0) Ur Specific [place] (1.001-1.035) Urine Protein (Negative) Urine Glucose (UA) (Negative) Urine Ketones (Negative) Urine Blood (Negative) Urine Nitrite (Negative) Urine Bilirubin (Negative) Urine Urobilinogen (<2.0) mg/dL Ur Leukocyte Esterase (Negative) Urine RBC (0-5) /hpf Urine WBC (0-5) /hpf Ur Squamous Epith Cells (0-4) /hpf Hyaline Casts (0-2) /lpf Urine Mucus (None) /hpf Serum Alcohol mg/dL Coronavirus (PCR) Not Detected (Not Detectd) Disposition Clinical Impression: Dehydration, Pancreatitis, Alcoholic hepatitis, Abdominal pain Disposition: ADMITTED IP TO THIS [facility] Condition: Stable Referrals: Mikel Green MD [Primary Care Provider] - 1-2 days Decision Date: 12/03/20 Decision Time: 18:41
[2020-12-03 16:42] LABS: Basophils # (A) 0.1 k/uL (0-0.2); Basophils % (A) 1 %; Eosinophils # (A) 0.1 k/uL (0-0.7); Eosinophils % (A) 1 %; HCT 48.4 % (39.0-53.0); HGB 16.2 gm/dL (13.0-17.5); Lymphocytes # (A) 1.5 k/uL (1.0-4.8); Lymphocytes % (A) 15 %; MCH 32.5 pg (25.0-35.0); MCHC 33.5 g/dL (31.0-37.0); MCV 96.8 fL (80.0-100.0); Mean Platelet Volume 7.2; Monocytes # (A) 0.7 k/uL (0-1.0); Monocytes % (A) 7 %; Neutrophils # (A) 7.7 k/uL (1.3-7.7); Neutrophils % (A) 76 %; Platelet Count 261 k/uL (150-450); RDW 14.9 % (11.5-15.5); WBC 10.2 k/uL (3.8-10.6)
[2020-12-03 16:51] LABS: ALT 168 U/L (4-49); AST 181 U/L (17-59); African American GFR (CKD) >90 (>60 ml/min/1.73 sqM); Albumin 5.5 g/dL (3.5-5.0); Alkaline Phosphatase 154 U/L (38-126); Amylase 74 U/L (30-110); Anion Gap 21 mmol/L; Blood Urea Nitrogen 16 mg/dL (9-20); Carbon Dioxide 18 mmol/L (22-30); Chloride 97 mmol/L (98-107); Glucose 123 mg/dL (74-99); Lipase 327 U/L (23-300); Non-African American GFR(CKD) >90 (>60 ml/min/1.73 sqM); Potassium 3.4 mmol/L (3.5-5.1); Sodium 136 mmol/L (137-145); Total Bilirubin 2.3 mg/dL (0.2-1.3); Total Protein 8.1 g/dL (6.3-8.2)
[2020-12-03 17:17] LABS: Appearance,Urine Clear (Clear); Bilirubin,Urine 1+ (Negative); Blood,Urine Negative (Negative); Color,Urine Light Orange; Glucose,Urine (UA) Negative (Negative); Hyaline Casts,Urine 17 /lpf (0-2); Ketones,Urine 4+ (Negative); Leukocyte Esterase,Urine Trace (Negative); Mucus,Urine Many /hpf; Nitrite,Urine Negative (Negative); Protein,Urine 2+ (Negative); RBC,Urine 1 /hpf (0-5); Specific Gravity,Urine 1.038 (1.001-1.035); Squamous Epithelial Cell,Urine <1 /hpf (0-4); WBC,Urine 7 /hpf (0-5)
[2020-12-03 17:38] LABS: Alcohol <10 mg/dL
[2020-12-03] MEDS ORDERED: NALOXONE 0.4 MG/ML 1 ML VIAL IV PRN (18:39)
[2020-12-03] MEDS ORDERED: ONDANSETRON 4 MG/2 ML VIAL IVP PRN (18:39)
[2020-12-03] MEDS ORDERED: ACETAMINOPHEN TAB 325 MG TAB PO PRN (18:39)
[2020-12-03] MEDS: KETOROLAC 15 MG/ML 1 ML VIAL IVP PRN (18:46)
[2020-12-03] MEDS: SODIUM CHLORIDE 0.9% 1,000 ML IV SCH (18:46)
[2020-12-03] MEDS: PANTOPRAZOLE 40 MG/10 ML VIAL IV SCH (18:49)
[2020-12-03] MEDS: MORPHINE SULFATE 4 MG/ML SYRINGE IV PRN (21:10)
[2020-12-04] MEDS: KETOROLAC 15 MG/ML 1 ML VIAL IVP PRN ×3 (00:12→22:06)
[2020-12-04] MEDS: MORPHINE SULFATE 4 MG/ML SYRINGE IV PRN ×3 (01:14→09:27)
[2020-12-04] MEDS: SODIUM CHLORIDE 0.9% 1,000 ML IV SCH ×4 (06:03→22:06)
[2020-12-04] MEDS: PANTOPRAZOLE 40 MG/10 ML VIAL IV SCH (08:03)
[2020-12-04] MEDS: IOPAMIDOL CONTRAST (ORAL USE) VIAL PO PRN ×2 (11:45→12:50)
--- NOTE | 2020-12-04 13:44 | CT ---
EXAMINATION TYPE: CT abdomen pelvis w con DATE OF EXAM: 12/04/2020 COMPARISON: 10/14/2020 and 01/14/2017 HISTORY: epigastric pain with diarrhea CT DLP: 1502 mGycm CONTRAST: CT scan of the abdomen and pelvis is performed with Oral Contrast and with IV Contrast, patient injec anam with 100 mL of Isovue 300. FINDINGS: LUNG BASES-: No visible nodule. No infiltrate. LIVER/GB: All The gallbladder is surgically absent. Biliary tree is of normal caliber. PANCREAS: No inflammation. No distinct mass. SPLEEN: No splenic enlargement. No lesion seen. ADRENALS: No nodule. No thickening. KIDNEYS/BLADDER: No hydronephrosis. Nonobstructing 3 mm calculus mid pole left kidney. No distinct r enal mass. Urinary bladder grossly unremarkable. BOWEL: Normal appendix. Normal bowel caliber. No inflammation. GENITAL ORGANS: No gross abnormality. LYMPH NODES: No greater than 1cm abdominal or pelvic lymph nodes are appreciated. AORTA: No significant abnormality. OSSEOUS STRUCTURES: No significant abnormality is seen. OTHER: No significant additional abnormality is seen. IMPRESSION: 1. There is severe hepatic steatosis with mild hepatomegaly. Anterior segment right hepatic lobe at i ts periphery demonstrates a 1.7 cm hemangioma unchanged dating back to 2017. No new lesions are evide nt. 2. Nonobstructing left-sided nephrolithiasis.
--- NOTE | 2020-12-04 16:04 | HP ---
HISTORY AND PHYSICAL CHIEF COMPLAINT: Epigastric pain. HISTORY OF PRESENT ILLNESS: This is the first admission to [facility] under my care for this 35-year-old white male who has a history of alcohol abuse. He was in the hospital roughly a year ago where he was diagnosed with having a gastric ulcer by history. He does drink excessively. He came into the office as a new patient on the day of admission and was complaining of epigastric pain. He has also been diagnosed as having pancreatitis. He felt that the symptoms were similar to his pancreatitis and his past ulcer problems. He was having some nausea and vomiting at home of normal gastric contents and stating that he had had some black stool as well. In the office he was quite tender in the upper abdomen and his liver was slightly enlarged. There was no jaundice. He was sent for CT of the abdomen through the emergency room and his liver function studies were found to be significantly elevated. He was admitted. Lipase is slightly elevated, but not markedly so. REVIEW OF SYSTEMS: He has had no headaches, neurologic problems, chest pain, shortness of breath, heart disease, palpitations, hypertension, murmurs, rheumatic fever, kidney failure, frequency, urgency, dysuria, hematuria, nocturia, incontinence, diabetes, etc. Past medical history, family history, and personal and social histories are unremarkable except for the fact that he has had his gallbladder removed and was treated in 2019 for the gastric issue and a couple of months ago for pancreatitis. Gallbladder was removed in 2017. He is NOT ALLERGIC TO ANY MEDICATION. He does not smoke. He admits to drinking two drinks of alcohol a day, but in the past he was a heavy drinker. It is unclear how much he has been drinking at this time. PHYSICAL EXAMINATION: Blood pressure is 144/98 with a pulse of 105, respirations of 17, and he was afebrile. In general he appeared to be well developed, well nourished, in no acute distress. He is slightly overweight. He was not jaundiced. Skin was dry. Head, ears, eyes, nose, mouth and throat were normal. Neck veins were not distended. Chest was clear to auscultation and percussion. Cardiac exam demonstrated normal sinus rhythm and no murmurs or extra sounds. The abdomen was slightly protuberant and he was quite tender over the upper abdomen, particularly in the epigastric area and below the right costal margin. The liver was felt to be down about 1 or 2 inches from the costal margin. Bowel sounds were present. Extremities were normal. Neurologically he is intact. Rectal was not performed. He is admitted to the hospital with the diagnoses: 1. Epigastric pain with a differential diagnosis of alcoholic pancreatitis, gastritis, ulcer disease, alcoholic hepatitis or other possibilities. 2. Rule out upper gastrointestinal bleed. 3. Hypertension. PLAN: 1. Bedrest. 2. IV fluids. 3. Analgesics. 4. Follow abdominal findings and laboratory studies. 5. Consult with Gastroenterology. MMODL / IJN: [id number] /
--- NOTE | 2020-12-04 17:55 | PN ---
PROGRESS NOTE CHIEF COMPLAINT: Acute abdominal pain. HISTORY OF PRESENT ILLNESS: This gentleman is still having quite a bit of abdominal discomfort. He definitely has elevation of his liver function studies, including alkaline phosphatase as well as his amylase and lipase. REVIEW OF SYSTEMS: He has not had any fever and he is not vomiting. PHYSICAL EXAMINATION: Color is good. Chest is clear. Cardiac exam is normal. He remains quite tender over the upper abdomen. IMPRESSION: 1. Upper abdominal pain, etiology unknown. 2. Pancreatitis. 3. Elevation of liver function studies, including alkaline phosphatase. 4. Alcoholism. 5. History of gastric ulcer disease. PLAN: 1. Hold n.p.o. 2. Gastroenterology consult. 3. Continue to monitor his pancreatic and cardiac enzymes. 4. Watch for DTs. MMODL / BRADLEYN: [id number] /
--- NOTE | 2020-12-04 18:04 | CONS ---
CONSULTATION DATE OF DICTATION: 12/04/2020 REASON FOR CONSULTATION: Acute pancreatitis. HISTORY OF PRESENT ILLNESS: The patient is a 35-year-old white male with history of heavy alcohol abuse and acute recurrent pancreatitis. He had the first episode in February of 2020, at which time he was hospitalized for a few days. He had another hospitalization a month ago, after which he quit drinking completely. However, he started drinking 2 days prior to hospitalization, and he drank about a half a pint of alcohol and subsequently started having severe epigastric pain associated with nausea and vomiting. He came into the emergency room and was noted to have elevated lipase consistent with acute pancreatitis. He did have a CT of the abdomen and pelvis in the emergency room early this morning and was noted to have normal-appearing pancreas with no inflammation, but there is evidence of severe hepatic steatosis, and prior history of cholecystectomy. He was also noted to have mild elevation of serum transaminases with ALT and AST at 181 and 168, respectively. T-bilirubin was 2.3 and alkaline phosphatase 154. Lipase was 327. PAST MEDICAL HISTORY: Heavy alcohol abuse, history of recurrent pancreatitis. MEDICATIONS: Medications at home include Zofran p.r.n. and Catapres. PAST SURGICAL HISTORY: Cholecystectomy, hernia repair, EGD and colonoscopy in 2019. ALLERGIES: NONE. SOCIAL HISTORY: No smoking. Heavy alcohol abuse. FAMILY HISTORY: Father and mother healthy. REVIEW OF SYSTEMS: CARDIOPULMONARY: No chest pain or shortness of breath. GENITOURINARY: No dysuria or hematuria. MUSCULOSKELETAL: Unremarkable. SKIN: Unremarkable. ENDOCRINE: Unremarkable. PSYCHIATRIC: Unremarkable. NEUROLOGY: Unremarkable. ENT/VISION: Unremarkable. GI: As mentioned above. CONSTITUTIONAL: No recent weight loss. No fever, chills, night sweats. PHYSICAL EXAMINATION: Blood pressure 147/94, pulse rate 105, temperature 97.8. HEENT examination unremarkable. Conjunctivae pink. Sclerae anicteric. Oral cavity no lesions. NECK: No JVD or lymph node enlargement. CHEST: Clear to auscultation. HEART: Regular rate and rhythm. ABDOMEN: Severe tenderness in the epigastric area and right upper quadrant area. EXTREMITIES: No pedal edema. SKIN: No rashes. NEUROLOGIC: Alert and oriented x3. No focal deficits. LABS: WBC 10.2, hemoglobin 16.5, platelets normal. Basic metabolic panel showed a bilirubin of 2.3, AST 181, ALT 168 and alkaline phosphatase 162. Lipase is 327 and amylase is 74. IMPRESSION: 1. Acute recurrent pancreatitis secondary to alcohol abuse. Most likely we are dealing with chronic relapsing pancreatitis at this time since he had 3 episodes of pancreatitis in the last one year, history of heavy alcohol abuse, as mentioned above. Lipase is slightly elevated at 327. 2. Elevated liver function tests and mild jaundice, probably related to alcoholic liver disease/severe fatty liver disease. He also has remote history of cholecystectomy. Doubt we are dealing with any CBD stone. CT of the abdomen did not show any evidence of biliary ductal dilation. 3. History of heavy alcohol abuse. RECOMMENDATIONS: 1. Start him on a clear liquid diet. 2. Pain medications as needed. 3. Monitor LFTs closely. 4. Repeat lipase in the morning. 5. Will follow with you. Thank you for this consultation. ZEKE / BRADLEYN: [id number] /
[2020-12-05] MEDS: SODIUM CHLORIDE 0.9% 1,000 ML IV SCH ×3 (05:50→17:07)
[2020-12-05] MEDS: PANTOPRAZOLE 40 MG/10 ML VIAL IV SCH (10:35)
[2020-12-05 10:51] LABS: African American GFR (CKD) 149.9 (60.0-200.0); Albumin 4.3 g/dL (3.80-4.90); Albumin/Globulin Ratio 2.15 (1.60-3.17); Anion Gap 13.9 mmol/L (4.00-12.00); BUN/Creat Ratio 8.33 Ratio (12.00-20.00); Calcium 7.8 mg/dL (8.7-10.3); Carbon Dioxide 21.1 mmol/L (21.6-31.8); Non-African American GFR(CKD) 129.3 (60.0-200.0); Potassium 3.4 mmol/L (3.5-5.5); Total Bilirubin 1.1 mg/dL (0.2-1.2); Total Protein 6.3 g/dL (6.2-8.2)
[2020-12-05] MEDS: KETOROLAC 15 MG/ML 1 ML VIAL IVP PRN (11:01)
[2020-12-05 12:01] VITALS: BP 137/87; PULSE 85; RESP 17; TEMP 98.2
[2020-12-05 12:32] LABS: ALT 103 U/L (4-49); AST 127 U/L (17-59); African American GFR (CKD) >90 (>60 ml/min/1.73 sqM); Albumin 4.1 g/dL (3.5-5.0); Albumin/Globulin Ratio 1.8; Alkaline Phosphatase 125 U/L (38-126); Anion Gap 9 mmol/L; Blood Urea Nitrogen 3 mg/dL (9-20); Calcium 8.2 mg/dL (8.4-10.2); Carbon Dioxide 22 mmol/L (22-30); Chloride 107 mmol/L (98-107); Globulin 2.3 g/dL; Glucose 106 mg/dL (74-99); Lipase 479 U/L (23-300); Non-African American GFR(CKD) >90 (>60 ml/min/1.73 sqM); Potassium 3.7 mmol/L (3.5-5.1); Sodium 138 mmol/L (137-145); Total Bilirubin 0.7 mg/dL (0.2-1.3); Total Protein 6.4 g/dL (6.3-8.2)
[2020-12-05 12:36] LABS: Basophils % (A) 0 %; Eosinophils # (A) 0.3 k/uL (0-0.7); Eosinophils % (A) 4 %; HCT 39.7 % (39.0-53.0); HGB 14.1 gm/dL (13.0-17.5); Lymphocytes % (A) 16 %; MCH 34.4 pg (25.0-35.0); MCHC 35.6 g/dL (31.0-37.0); MCV 96.6 fL (80.0-100.0); Mean Platelet Volume 7.3; Monocytes # (A) 0.3 k/uL (0-1.0); Monocytes % (A) 5 %; Neutrophils # (A) 4.4 k/uL (1.3-7.7); Neutrophils % (A) 73 %; Platelet Count 195 k/uL (150-450); RBC 4.11 m/uL (4.30-5.90)
[2020-12-05 13:14] LABS: Prothrombin Time 10.3 sec (9.0-12.0)
--- NOTE | 2020-12-05 14:53 | P.PN ---
Subjective Progress Note Date: 12/05/20 Principal diagnosis: Nausea, vomiting, abdominal pain This is a 35-year-old male patient who came in with severe epigastric pain with nausea and vomiting. He has a previous history of pancreatitis, history of alcohol abuse. On presentation he had a mildly elevated lipase, LFTs were elevated however are continuing to trend down. Today he is seen and evaluated states he has no abdominal pain, nausea, or vomiting. Is having loose bowel movements, denies any blood in his stool. Objective - Vital Signs Vital signs: Vital Signs Temp 97.6 F 12/05/20 05:00 Pulse 74 12/05/20 05:00 Resp 16 12/05/20 05:00 BP 149/93 12/05/20 05:00 Pulse Ox 97 12/05/20 05:00 Intake & Output 12/04/20 12/05/20 12/05/20 18:59 06:59 18:59 Intake Total 3040 Balance 3040 Intake: Intake, IV Titration 2400 Amount Sodium Chloride 0.9% 1, 2400 000 ml @ 200 mls/hr IV . Q5H [facility] Rx#:[id number] Oral 640 Other: Voiding Method Toilet # Voids 2 5 - Exam General appearance: The patient is alert, oriented, appears in no acute distress. HET: Head is normocephalic and atraumatic. Conjunctiva pink. Sclera anicteric. Neck: Supple without lymphadenopathy. Abdomen: Soft, nontender, nondistended with bowel sounds. No guarding or rigidity. Extremities: Normal skin color and turgor. No pedal edema Skin: No rashes, no jaundice Neurological: No focal deficits. Alert and oriented 3. - Labs CBC & Chem 7: 12/05/20 11:31 12/05/20 11:31 Assessment and Plan (1) Abdominal pain Narrative/Plan: Is a 35-year-old male patient with a history of alcohol abuse and recurrent pancreatitis. He states his sister type is been admitted to the hospital with pancreatitis, his last admission was about one month ago. Is states he quit drinking after his last admission however had started drinking again. He started having severe upper abdominal pain with nausea and vomiting. On admis ortega he had elevated bilirubin 2.3, alkaline phosphatase 154, AST 181, ALT 168 with a lipase of 327. His liver enzymes have continued to trend down. He is overall feeling much better today without any abdominal pain nausea vomiting. He is tolerating his advance diet. Current Visit: Yes Status: Acute Code(s): R10.9 - UNSPECIFIED ABDOMINAL PAIN SNOMED Code(s): 24663925 Plan: 1. Continue symptomatic and supportive care 2. CMP revealed 3. Diet advanced to low-fat diet 4. Discussed importance of alcohol cessation 5. Patient may be discharged home from a gastroenterology standpoint, recommend follow-up with gastroenterology services in 1-2 weeks. Thank you for this consultation, we will sign off at this time Dr. Nery Lunsford I agree with the dictator's note, documented as a scribe by Debby Nelson.
--- NOTE | 2020-12-07 06:13 | DS ---
DISCHARGE SUMMARY CHIEF COMPLAINT: Abdominal pain. HISTORY OF PRESENT ILLNESS AND PHYSICAL EXAMINATION: Details of this man's history and physical can be found in the initial workup. LABORATORY STUDIES: While he was in the hospital he had laboratory studies, details of which can be found in the laboratory section of his chart. COURSE IN THE HOSPITAL: After admission he was placed on bedrest, started on intravenous fluids and he had monitoring of his liver function studies, amylase and lipase. He was seen by Gastroenterology. His pain was improving and the enzymes were coming down. Endoscopy was deferred. It was felt that he could be discharged by Gastroenterology and he left the hospital against medical advice on the evening of the . FINAL DIAGNOSIS: 1. Acute abdominal pain. 2. Alcoholic pancreatitis. 3. Alcoholic hepatitis. 4. Hypertension. 5. Chronic alcoholism. OPERATIONS: None. CONSULTATION: Gastroenterology. He is improved. MMGISELA / BISI: [id number] /
== END 2020-12-05 18:43 | disposition home or self-care (01) ==
LOC: EC 15:05 → INTOOBSV 18:39 → 5NMEDONC 18:39 → UNDOADMOB 18:39 → 5NMEDONC 18:39 → UNDODISIN 12-05 18:43
PROVIDERS: ADMIT Family Medicine; ATTEND Family Medicine
DX: R10.13 Epigastric pain (principal); E86.0 Dehydration; K86.0 Alcohol-induced chronic pancreatitis; K70.10 Alcoholic hepatitis without ascites; K76.0 Fatty (change of) liver, not elsewhere classified; F10.20 Alcohol dependence, uncomplicated; I10 Essential (primary) hypertension; Z79.899 Other long term (current) drug therapy; D18.09 Hemangioma of other sites; N20.0 Calculus of kidney; Z20.822 Contact with and (suspected) exposure to COVID-19; Z87.11 Personal history of peptic ulcer disease; Z90.49 Acquired absence of other specified parts of digestive tract; Z98.890 Other specified postprocedural states
CPT/HCPCS: 96376 ×3; 96361 ×3; 96374; 96375; 99285; 36415; 80053 ×2; 82140; 82150; 83605; 83690 ×2; 85025 ×2; 85610; 81001; 87635; 74177; G0378 ×3; G0480; J2270 ×2; J2405; J1885 ×3; C9113 ×3; Q9967; 80320

== ENCOUNTER 2020-12-28 12:13 | Emergency (ER) | payer OTHER ==
[2020-12-28 12:17] VITALS: RESP 18; TEMP 98.6
[2020-12-28] MEDS ORDERED: SODIUM CHLORIDE 0.9% 2,000 ML IV STA (12:27)
[2020-12-28] MEDS ORDERED: MORPHINE SULFATE 4 MG/ML SYRINGE IVP STA (12:41)
[2020-12-28] MEDS ORDERED: ONDANSETRON 4 MG/2 ML VIAL IVP STA (12:41)
--- NOTE | 2020-12-28 12:41 | ED ---
General Adult HPI - General Chief complaint: Nausea/Vomiting/Diarrhea Stated complaint: Abd pain, nausea Time Seen by Provider: 12/28/20 12:21 Source: patient Mode of arrival: ambulatory Limitations: no limitations - History of Present Illness Initial comments: 35-year-old male with a past medical history of chronic pancreatitis, gastritis, cholecystectomy presents to the emergency room for a chief complaint of abdominal pain and nausea and vomiting. Patient reports that this is been ongoing for the past couple days. States the pain is epigastric in nature. Patient has had this several times before and feels like his chronic pancreatitis. His doctor told him to come in when he called the office. Patient has no other complaints at this time including shortness of breath, chest pain, headache, or visual changes.. - Related Data Home Medications Medication Instructions Recorded Confirmed Clotrimazole Cream [Lotrimin Cream] 1 applic TOPICAL BID 12/28/20 12/28/20 Triamcinolone 0.1% Cream [Kenalog 1 applicatio TOPICAL BID 12/28/20 12/28/20 0.1% Cream] Allergies Allergy/AdvReac Type Severity Reaction Status Date / Time No Known Allergies Allergy Verified 12/28/20 13:18 Review of Systems ROS Statement: Those systems with pertinent positive or pertinent negative responses have been documented in the HPI. ROS Other: All systems not noted in ROS Statement are negative. Past Medical History Past Medical History: No Reported History Additional Past Medical History / Comment(s): pancreatitis and gastritis, History of Any Multi-Drug Resistant Organisms: None Reported Past Surgical History: Cholecystectomy, Hernia Repair, Orthopedic Surgery Additional Past Surgical History / Comment(s): 2019 EGD/colonoscopy, r inguinal hernia repair, R wrist surgery for abscess, L wrist surgery for tendon repair, Past Anesthesia/Blood Transfusion Reactions: No Reported Reaction Past Psychological History: No Psychological Hx Reported Smoking Status: Never smoker Past Alcohol Use History: Occasional Past Drug Use History: None Reported - Past Family History Father Family Medical History: No Reported History Mother Family Medical History: No Reported History General Exam Limitations: no limitations General appearance: alert, in no apparent distress Head exam: Present: atraumatic, normocephalic, normal inspection Eye exam: Present: normal appearance, PERRL, EOMI. Absent: scleral icterus, conjunctival injection, periorbital swelling ENT exam: Present: normal exam, mucous membranes moist Neck exam: Present: normal inspection, full ROM. Absent: tenderness, meningismus, lymphadenopathy Respiratory exam: Present: normal lung sounds bilaterally. Absent: respiratory distress, wheezes, rales, rhonchi, stridor Cardiovascular Exam: Present: regular rate, normal rhythm, normal heart sounds. Absent: systolic murmur, diastolic murmur, rubs, gallop, clicks GI/Abdominal exam: Present: soft, tenderness (Minimal generalized abdominal tenderness without guarding or rebound.), normal bowel sounds. Absent: distended, guarding, rebound, rigid Course Vital Signs 12/28/20 12/28/20 12:14 13:16 Temperature 98.6 F Pulse Rate 121 H 100 Respiratory 18 18 Rate Blood Pressure 150/93 149/102 O2 Sat by Pulse 95 98 Oximetry Medical Decision Making - Medical Decision Making Vitals are stable. Patient initially tachycardic likely secondary to pain however this did improve. Laboratory evaluation was initiated. CBC unremarkable. CMP does show transaminitis which is chronic for patient. Analysis unremarkable. Patient was given pain medications and antiemetics and had significant improvement in symptoms. Repeat abdominal exam was performed, no abdominal tenderness at this time. Patient has Zofran at home. He can follow-up his doctor in one to 2 days. - Lab Data Result diagrams: 12/28/20 13:08 12/28/20 13:08 Lab Results 12/28/20 12/28/20 12/28/20 Range/Units 12:43 13:08 13:08 WBC 6.4 (3.8-10.6) k/uL RBC 4.45 (4.30-5.90) m/uL Hgb 16.1 (13.0-17.5) gm/dL Hct 42.8 (39.0-53.0) % MCV 96.3 (80.0-100.0) fL MCH 36.2 H (25.0-35.0) pg MCHC 37.5 H (31.0-37.0) g/dL RDW 14.4 (11.5-15.5) % Plt Count 204 (150-450) k/uL MPV 6.8 Neutrophils % 67 % Lymphocytes % 25 % Monocytes % 5 % Eosinophils % 0 % Basophils % 1 % Neutrophils # 4.3 (1.3-7.7) k/uL Lymphocytes # 1.6 (1.0-4.8) k/uL Monocytes # 0.3 (0-1.0) k/uL Eosinophils # 0.0 (0-0.7) k/uL Basophils # 0.1 (0-0.2) k/uL Sodium 141 (137-145) mmol/L Potassium 4.2 (3.5-5.1) mmol/L Chloride 103 (98-107) mmol/L Carbon Dioxide 23 (22-30) mmol/L Anion Gap 15 mmol/L BUN 16 (9-20) mg/dL Creatinine 0.81 (0.66-1.25) mg/dL Est GFR (CKD-EPI)AfAm >90 (>60 ml/min/1.73 sqM) Est GFR (CKD-EPI)NonAf >90 (>60 ml/min/1.73 sqM) Glucose 119 H (74-99) mg/dL Calcium 9.0 (8.4-10.2) mg/dL Total Bilirubin 0.7 (0.2-1.3) mg/dL AST 360 H (17-59) U/L ALT 207 H (4-49) U/L Alkaline Phosphatase 131 H (38-126) U/L Total Protein 7.6 (6.3-8.2) g/dL Albumin 5.0 (3.5-5.0) g/dL Amylase 66 (30-110) U/L Lipase 297 (23-300) U/L Urine Color Yellow Urine Appearance Clear (Clear) Urine pH 5.5 (5.0-8.0) Ur Specific [place] 1.019 (1.001-1.035) Urine Protein Negative (Negative) Urine Glucose (UA) Negative (Negative) Urine Ketones Trace H (Negative) Urine Blood Negative (Negative) Urine Nitrite Negative (Negative) Urine Bilirubin Negative (Negative) Urine Urobilinogen <2.0 (<2.0) mg/dL Ur Leukocyte Esterase Moderate H (Negative) Urine RBC <1 (0-5) /hpf Urine WBC 1 (0-5) /hpf Ur Squamous Epith Cells <1 (0-4) /hpf Urine Mucus Rare H (None) /hpf Disposition Clinical Impression: Abdominal pain Disposition: HOME SELF-CARE Condition: Good Instructions (If sedation given, give patient instructions): Abdominal Pain (ED) Additional Instructions: Take your Zofran at home. Please follow-up with your doctor in one to 2 days. Return to the emergency room for any worsening symptoms. Is patient prescribed a controlled substance at d/c from ED?: No Referrals: Merry Colunga MD [Primary Care Provider] - 1-2 days Time of Disposition: 14:15
[2020-12-28 13:09] LABS: Appearance,Urine Clear (Clear); Bilirubin,Urine Negative (Negative); Blood,Urine Negative (Negative); Color,Urine Yellow; Glucose,Urine (UA) Negative (Negative); Ketones,Urine Trace (Negative); Leukocyte Esterase,Urine Moderate (Negative); Mucus,Urine Rare /hpf; Nitrite,Urine Negative (Negative); PH, Urine 5.5 (5.0-8.0); Protein,Urine Negative (Negative); RBC,Urine <1 /hpf (0-5); Specific Gravity,Urine 1.019 (1.001-1.035); Squamous Epithelial Cell,Urine <1 /hpf (0-4); Urobilinogen,Urine <2.0 mg/dL (<2.0); WBC,Urine 1 /hpf (0-5)
[2020-12-28 13:12] LABS: Basophils # (A) 0.1 k/uL (0-0.2); Basophils % (A) 1 %; Eosinophils % (A) 0 %; HCT 42.8 % (39.0-53.0); HGB 16.1 gm/dL (13.0-17.5); Lymphocytes # (A) 1.6 k/uL (1.0-4.8); Lymphocytes % (A) 25 %; MCH 36.2 pg (25.0-35.0); MCHC 37.5 g/dL (31.0-37.0); MCV 96.3 fL (80.0-100.0); Mean Platelet Volume 6.8; Monocytes # (A) 0.3 k/uL (0-1.0); Monocytes % (A) 5 %; Neutrophils # (A) 4.3 k/uL (1.3-7.7); Neutrophils % (A) 67 %; Platelet Count 204 k/uL (150-450); RBC 4.45 m/uL (4.30-5.90); RDW 14.4 % (11.5-15.5); WBC 6.4 k/uL (3.8-10.6)
[2020-12-28 13:21] LABS: ALT 207 U/L (4-49); AST 360 U/L (17-59); African American GFR (CKD) >90 (>60 ml/min/1.73 sqM); Alkaline Phosphatase 131 U/L (38-126); Amylase 66 U/L (30-110); Anion Gap 15 mmol/L; Blood Urea Nitrogen 16 mg/dL (9-20); Carbon Dioxide 23 mmol/L (22-30); Chloride 103 mmol/L (98-107); Glucose 119 mg/dL (74-99); Lipase 297 U/L (23-300); Non-African American GFR(CKD) >90 (>60 ml/min/1.73 sqM); Potassium 4.2 mmol/L (3.5-5.1); Sodium 141 mmol/L (137-145); Total Bilirubin 0.7 mg/dL (0.2-1.3); Total Protein 7.6 g/dL (6.3-8.2)
[2020-12-28] MEDS ORDERED: diphenhydrAMINE 50 MG/ML 1 ML VIAL IVP STA (13:42)
[2020-12-28] MEDS ORDERED: KETOROLAC 15 MG/ML 1 ML VIAL IVP STA (13:42)
[2020-12-28] MEDS ORDERED: METOCLOPRAMIDE 5 MG/ML 2 ML VIAL IVP STA (13:42)
[2020-12-28 14:36] VITALS: BP 145/96; PULSE 89
== END 2020-12-28 14:17 | disposition home or self-care (01) ==
LOC: EC 12:13
DX: R10.84 Generalized abdominal pain (principal); Z90.49 Acquired absence of other specified parts of digestive tract
CPT/HCPCS: 36415; 80053; 82150; 83690; 85025; 81001; 99284; 96374; 96375 ×4; 96361; J2270; J1200; J2765; J2405; J1885

== ENCOUNTER 2020-12-30 08:42 | Emergency (ER) | payer OTHER ==
[2020-12-30 08:45] VITALS: RESP 18; TEMP 97.7
[2020-12-30] MEDS ORDERED: SODIUM CHLORIDE 0.9% 2,000 ML IV STA (08:56)
[2020-12-30] MEDS ORDERED: ONDANSETRON 4 MG/2 ML VIAL IVP STA (08:56)
[2020-12-30] MEDS ORDERED: LORazepam 2 MG/ML INJ IV STA (08:57)
[2020-12-30] MEDS ORDERED: KETOROLAC 15 MG/ML 1 ML VIAL IVP STA (08:57)
--- NOTE | 2020-12-30 09:06 | ED ---
General Adult HPI - General Chief complaint: Nausea/Vomiting/Diarrhea Stated complaint: revisit- vomiting Time Seen by Provider: 12/30/20 08:47 Source: patient, RN notes reviewed Mode of arrival: ambulatory Limitations: no limitations - History of Present Illness Initial comments: 35-year-old male with a past medical history of pancreatitis, gastritis, cholecystectomy presents to the emergency room for nausea vomiting and abdominal pain. Patient reports that he is seen in the ear 2 days ago and had improvement in symptoms however now it is worse than when he initially came in. Patient reports that he last drank 2 days ago. He is aware that alcohol does contribute to the symptoms. Patient denies fevers. States his pain is consistent with his chronic pancreatitis.Patient has no other complaints at this time including shortness of breath, chest pain, headache, or visual changes. - Related Data Home Medications Medication Instructions Recorded Confirmed Clotrimazole Cream [Lotrimin Cream] 1 applic TOPICAL BID 12/28/20 12/30/20 Triamcinolone 0.1% Cream [Kenalog 1 applicatio TOPICAL BID 12/28/20 12/30/20 0.1% Cream] Ondansetron HCl [Zofran] 4 mg PO Q8H PRN 12/30/20 12/30/20 hydrOXYzine pamoate [hydrOXYzine 25 mg PO HS PRN 12/30/20 12/30/20 PAMOATE] Allergies Allergy/AdvReac Type Severity Reaction Status Date / Time No Known Allergies Allergy Verified 12/30/20 09:48 Review of Systems ROS Statement: Those systems with pertinent positive or pertinent negative responses have been documented in the HPI. ROS Other: All systems not noted in ROS Statement are negative. Past Medical History Past Medical History: No Reported History Additional Past Medical History / Comment(s): pancreatitis and gastritis, History of Any Multi-Drug Resistant Organisms: None Reported Past Surgical History: Cholecystectomy, Hernia Repair, Orthopedic Surgery Additional Past Surgical History / Comment(s): 2019 EGD/colonoscopy, r inguinal hernia repair, R wrist surgery for abscess, L wrist surgery for tendon repair, Past Anesthesia/Blood Transfusion Reactions: No Reported Reaction Past Psychological History: No Psychological Hx Reported Smoking Status: Never smoker Past Alcohol Use History: Daily Past Drug Use History: None Reported - Past Family History Father Family Medical History: No Reported History Mother Family Medical History: No Reported History General Exam Limitations: no limitations General appearance: alert, in no apparent distress Head exam: Present: atraumatic, normocephalic, normal inspection Eye exam: Present: normal appearance, PERRL, EOMI. Absent: scleral icterus, conjunctival injection, periorbital swelling ENT exam: Present: normal exam, mucous membranes moist Neck exam: Present: normal inspection, full ROM. Absent: tenderness, meningismus, lymphadenopathy Respiratory exam: Present: normal lung sounds bilaterally. Absent: respiratory distress, wheezes, rales, rhonchi, stridor Cardiovascular Exam: Present: regular rate, normal rhythm, normal heart sounds. Absent: systolic murmur, diastolic murmur, rubs, gallop, clicks GI/Abdominal exam: Present: soft, tenderness (Minimal upper abdominal tenderness), normal bowel sounds. Absent: distended, guarding, rebound, rigid Neurological exam: Present: alert Course Vital Signs 12/30/20 12/30/20 12/30/20 08:43 09:45 11:03 Temperature 97.7 F 97.7 F Pulse Rate 124 H 95 95 Respiratory 18 18 18 Rate Blood Pressure 151/112 144/90 144/90 O2 Sat by Pulse 100 97 97 Oximetry Medical Decision Making - Medical Decision Making Those are stable. CBC unremarkable. CMP does show CO2 of 14 which is likely secondary to starvation ketosis as well as primary alcoholic acidosis. Patient does have mild elevation of liver enzymes which is chronic hip and his chronic alcoholism. Patient is noted to have a serum alcoholic 38 knee he is still drinking. This is what I suspect is triggering his chronic pancreatitis. Patient was given nonnarcotic pain medication and antiemetics in the emergency room. He did have significant improvement in symptoms. He is no longer vomiting. He will be discharged home to follow up with primary care. He will return here for any worsening symptoms. - Lab Data Result diagrams: 12/30/20 10:15 12/30/20 09:29 Lab Results 12/30/20 12/30/20 12/30/20 Range/Units 09:29 09:29 10:15 WBC 7.9 (3.8-10.6) k/uL RBC 4.64 (4.30-5.90) m/uL Hgb 15.5 (13.0-17.5) gm/dL Hct 44.0 (39.0-53.0) % MCV 94.9 (80.0-100.0) fL MCH 33.4 (25.0-35.0) pg MCHC 35.2 (31.0-37.0) g/dL RDW 13.7 (11.5-15.5) % Plt Count 184 (150-450) k/uL MPV 7.0 Neutrophils % 82 % Lymphocytes % 13 % Monocytes % 4 % Eosinophils % 1 % Basophils % 0 % Neutrophils # 6.4 (1.3-7.7) k/uL Lymphocytes # 1.0 (1.0-4.8) k/uL Monocytes # 0.3 (0-1.0) k/uL Eosinophils # 0.0 (0-0.7) k/uL Basophils # 0.0 (0-0.2) k/uL Sodium 136 L (137-145) mmol/L Potassium 3.9 (3.5-5.1) mmol/L Chloride 102 (98-107) mmol/L Carbon Dioxide 14 L (22-30) mmol/L Anion Gap 20 mmol/L BUN 16 (9-20) mg/dL Creatinine 0.75 (0.66-1.25) mg/dL Est GFR (CKD-EPI)AfAm >90 (>60 ml/min/1.73 sqM) Est GFR (CKD-EPI)NonAf >90 (>60 ml/min/1.73 sqM) Glucose 90 (74-99) mg/dL Calcium 8.3 L (8.4-10.2) mg/dL Total Bilirubin 0.9 (0.2-1.3) mg/dL AST 300 H (17-59) U/L ALT 177 H (4-49) U/L Alkaline Phosphatase 162 H (38-126) U/L Total Protein 7.3 (6.3-8.2) g/dL Albumin 4.7 (3.5-5.0) g/dL Amylase 71 (30-110) U/L Lipase 225 (23-300) U/L Urine Color Yellow Urine Appearance Clear (Clear) Urine pH 5.5 (5.0-8.0) Ur Specific [place] 1.030 (1.001-1.035) Urine Protein 1+ H (Negative) Urine Glucose (UA) Negative (Negative) Urine Ketones 2+ H (Negative) Urine Blood Negative (Negative) Urine Nitrite Negative (Negative) Urine Bilirubin Negative (Negative) Urine Urobilinogen <2.0 (<2.0) mg/dL Ur Leukocyte Esterase Trace H (Negative) Urine WBC 8 H (0-5) /hpf Urine Mucus Many H (None) /hpf Urine Opiates Screen Not Detected (NotDetected) Ur Oxycodone Screen Not Detected (NotDetected) Urine Methadone Screen Not Detected (NotDetected) Ur Propoxyphene Screen Not Detected (NotDetected) Ur Barbiturates Screen Not Detected (NotDetected) U Tricyclic Antidepress Not Detected (NotDetected) Ur Phencyclidine Scrn Not Detected (NotDetected) Ur Amphetamines Screen Not Detected (NotDetected) U Methamphetamines Scrn Not Detected (NotDetected) U Benzodiazepines Scrn Not Detected (NotDetected) Urine Cocaine Screen Not Detected (NotDetected) U Marijuana (THC) Screen Not Detected (NotDetected) Serum Alcohol 38 mg/dL Disposition Clinical Impression: Nausea & vomiting, Abdominal pain Disposition: HOME SELF-CARE Condition: Good Instructions (If sedation given, give patient instructions): Acute Nausea and Vomiting (ED), Abdominal Pain (ED) Additional Instructions: Please take your anti-nausea medicines at home. Follow-up with your doctor tomorrow morning. Return to the emergency room for any worsening symptoms. Is patient prescribed a controlled substance at d/c from ED?: No Referrals: Merry Colunga MD [Primary Care Provider] - 1-2 days Time of Disposition: 10:48
[2020-12-30 10:06] LABS: ALT 177 U/L (4-49); AST 300 U/L (17-59); African American GFR (CKD) >90 (>60 ml/min/1.73 sqM); Albumin 4.7 g/dL (3.5-5.0); Alcohol 38 mg/dL; Alkaline Phosphatase 162 U/L (38-126); Amylase 71 U/L (30-110); Anion Gap 20 mmol/L; Blood Urea Nitrogen 16 mg/dL (9-20); Calcium 8.3 mg/dL (8.4-10.2); Carbon Dioxide 14 mmol/L (22-30); Chloride 102 mmol/L (98-107); Glucose 90 mg/dL (74-99); Lipase 225 U/L (23-300); Non-African American GFR(CKD) >90 (>60 ml/min/1.73 sqM); Potassium 3.9 mmol/L (3.5-5.1); Sodium 136 mmol/L (137-145); Total Bilirubin 0.9 mg/dL (0.2-1.3); Total Protein 7.3 g/dL (6.3-8.2)
[2020-12-30 10:20] LABS: Appearance,Urine Clear (Clear); Bilirubin,Urine Negative (Negative); Blood,Urine Negative (Negative); Color,Urine Yellow; Glucose,Urine (UA) Negative (Negative); Ketones,Urine 2+ (Negative); Leukocyte Esterase,Urine Trace (Negative); Mucus,Urine Many /hpf; Nitrite,Urine Negative (Negative); PH, Urine 5.5 (5.0-8.0); Protein,Urine 1+ (Negative); Urobilinogen,Urine <2.0 mg/dL (<2.0); WBC,Urine 8 /hpf (0-5)
[2020-12-30 10:21] LABS: Amphetamine Screen,Urine Not Detected (NotDetected); Barbiturate Screen,Urine Not Detected (NotDetected); Benzodiazepines Screen,Urine Not Detected (NotDetected); Cocaine Screen,Urine Not Detected (NotDetected); Methadone Screen, Urine Not Detected (NotDetected); Opiate Screen,Urine Not Detected (NotDetected); Oxycodone Screen, Urine Not Detected (NotDetected); Phencyclidine Screen,Urine Not Detected (NotDetected); Tricyclic Antidepressant,Urine Not Detected (NotDetected); Urn Cannabinoid Scrn Not Detected (NotDetected)
[2020-12-30] MEDS ORDERED: DICYCLOMINE 10 MG/ML 2 ML AMP IM STA (10:28)
[2020-12-30 10:33] VITALS: BP 144/90; PULSE 95
[2020-12-30 10:38] LABS: Basophils % (A) 0 %; Eosinophils % (A) 1 %; HGB 15.5 gm/dL (13.0-17.5); Lymphocytes % (A) 13 %; MCH 33.4 pg (25.0-35.0); MCHC 35.2 g/dL (31.0-37.0); MCV 94.9 fL (80.0-100.0); Monocytes # (A) 0.3 k/uL (0-1.0); Monocytes % (A) 4 %; Neutrophils # (A) 6.4 k/uL (1.3-7.7); Neutrophils % (A) 82 %; Platelet Count 184 k/uL (150-450); RBC 4.64 m/uL (4.30-5.90); RDW 13.7 % (11.5-15.5); WBC 7.9 k/uL (3.8-10.6)
== END 2020-12-30 11:04 | disposition home or self-care (01) ==
LOC: EC 08:42
DX: R11.2 Nausea with vomiting, unspecified (principal); R10.10 Upper abdominal pain, unspecified; Z90.49 Acquired absence of other specified parts of digestive tract; Z79.899 Other long term (current) drug therapy
CPT/HCPCS: 96374 ×2; 96375 ×3; 96361 ×2; 96372 ×2; 99284 ×2; 36415; 80053; 82150; 83690; 85025; 81001; 80306; G0480; J2060; J0500; J2405; J1885; 80320

== ENCOUNTER 2021-03-02 07:00 | Inpatient (IN) | payer OTHER ==
[2021-03-02] MEDS ORDERED: SODIUM CHLORIDE 0.9% 500 ML 500 ML IV STA (07:20)
[2021-03-02] MEDS ORDERED: MORPHINE SULFATE 4 MG/ML SYRINGE IV STA (07:20)
[2021-03-02] MEDS ORDERED: ONDANSETRON 4 MG/2 ML VIAL IVP STA (07:20)
[2021-03-02] MEDS ORDERED: SODIUM CHLORIDE 0.9% 1,000 ML IV STA (07:20)
[2021-03-02] MEDS ORDERED: PANTOPRAZOLE 40 MG/10 ML VIAL IVP STA (07:27)
--- NOTE | 2021-03-02 07:53 | ED ---
Abdominal Pain HPI - General Chief Complaint: Abdominal Pain Stated Complaint: Vomiting Time Seen by Provider: 03/02/21 07:15 Source: patient Mode of arrival: wheelchair - History of Present Illness Initial Comments: 35 year-old female patient presents to the emergency department for evaluation of upper abdominal pain. Patient states he started having vomiting and abdominal pain since last night. States symptoms persisted through to this morning. Patient states he does have history of pancreatitis and gastritis. Does have history of alcohol abuse, quit drinking 2 months ago, and relapsed two days ago. He denies any hematemesis, hematochezia, or melena. Denies fever or chills. Patient denies any recent rash, cough, shortness of breath, chest pain, diarrhea, constipation, back pain, numbness, tingling, dizziness, weakness, hematuria, dysuria, urinary urgency, urinary frequency, headache, visual changes, or any other complaints. - Related Data Home Medications Medication Instructions Recorded Confirmed Clotrimazole Cream [Lotrimin Cream] 1 applic TOPICAL BID 12/28/20 12/30/20 Triamcinolone 0.1% Cream [Kenalog 1 applicatio TOPICAL BID 12/28/20 12/30/20 0.1% Cream] Ondansetron HCl [Zofran] 4 mg PO Q8H PRN 12/30/20 12/30/20 hydrOXYzine pamoate [hydrOXYzine 25 mg PO HS PRN 12/30/20 12/30/20 PAMOATE] Allergies Allergy/AdvReac Type Severity Reaction Status Date / Time No Known Allergies Allergy Verified 03/02/21 07:14 Review of Systems ROS Statement: Those systems with pertinent positive or pertinent negative responses have been documented in the HPI. ROS Other: All systems not noted in ROS Statement are negative. Past Medical History Past Medical History: No Reported History Additional Past Medical History / Comment(s): pancreatitis and gastritis, History of Any Multi-Drug Resistant Organisms: None Reported Past Surgical History: Cholecystectomy, Hernia Repair, Orthopedic Surgery Additional Past Surgical History / Comment(s): 2019 EGD/colonoscopy, r inguinal hernia repair, R wrist surgery for abscess, L wrist surgery for tendon repair, Past Anesthesia/Blood Transfusion Reactions: No Reported Reaction Past Psychological History: No Psychological Hx Reported Smoking Status: Never smoker Past Alcohol Use History: Daily Past Drug Use History: None Reported - Past Family History Father Family Medical History: No Reported History Mother Family Medical History: No Reported History General Exam General appearance: alert, in no apparent distress, other Respiratory exam: Present: normal lung sounds bilaterally. Absent: respiratory distress, wheezes, rales, rhonchi, stridor Cardiovascular Exam: Present: normal rhythm, tachycardia, normal heart sounds. Absent: systolic murmur, diastolic murmur, rubs, gallop, clicks GI/Abdominal exam: Present: soft, tenderness (midepigastric tenderness), normal bowel sounds. Absent: distended, guarding, rebound, rigid Neurological exam: Present: alert, oriented X3, CN II-XII intact Psychiatric exam: Present: normal affect, normal mood Skin exam: Present: warm, dry, intact, normal color. Absent: rash Course Vital Signs 03/02/21 03/02/21 03/02/21 07:12 08:14 09:00 Temperature 98.5 F Pulse Rate 140 H 119 H 118 H Respiratory 18 18 18 Rate Blood Pressure 143/89 132/89 O2 Sat by Pulse 96 98 Oximetry Medical Decision Making - Medical Decision Making 35-year-old male patient presented to the emergency department today for evaluation of abdominal pain and vomiting. Patient does have history of alcohol abuse, reported last drink was 2 days ago by alcohol in the labs today was 130. Physical examination did reveal generalized abdominal tenderness. He exhibited persistent vomiting. Labs reviewed and did reveal normal white blood cell count at 9.7. He is afebrile. Was tachycardic. Ekg showed sinus tachycardia. Other labs revealed a carbon dioxide of 6, glucose 139, plasma lactic acid was 11.9, anion gap 35, liver enzymes are elevated, bilirubin 1.6. INR is normal. Urinalysis showed 4+ ketones no signs of infection. Lactic acid is felt to be elevated due to dehydration and alcoholic ketoacidosis. He'll be admitted to the hospital for IV hydration and further evaluation and treatment. He is agreeable with this plan. [facility] protocol initiated. Case discussed with my a ttlashonda Manzano. - Lab Data Result diagrams: 03/02/21 07:54 03/02/21 07:54 Lab Results 03/02/21 03/02/21 03/02/21 Range/Units 07:54 07:54 07:54 WBC 9.7 (3.8-10.6) k/uL RBC 5.30 (4.30-5.90) m/uL Hgb 18.1 H (13.0-17.5) gm/dL Hct 52.2 (39.0-53.0) % MCV 98.5 (80.0-100.0) fL MCH 34.0 (25.0-35.0) pg MCHC 34.6 (31.0-37.0) g/dL RDW 15.2 (11.5-15.5) % Plt Count 321 (150-450) k/uL MPV 7.4 Neutrophils % 85 % Lymphocytes % 10 % Monocytes % 4 % Eosinophils % 0 % Basophils % 1 % Neutrophils # 8.2 H (1.3-7.7) k/uL Lymphocytes # 0.9 L (1.0-4.8) k/uL Monocytes # 0.4 (0-1.0) k/uL Eosinophils # 0.0 (0-0.7) k/uL Basophils # 0.1 (0-0.2) k/uL Macrocytosis Slight PT 10.8 (9.0-12.0) sec INR 1.0 (<1.2) APTT 23.1 (22.0-30.0) sec Sodium 141 (137-145) mmol/L Potassium 4.2 (3.5-5.1) mmol/L Chloride 100 (98-107) mmol/L Carbon Dioxide 6 L* (22-30) mmol/L Anion Gap 35 mmol/L BUN 10 (9-20) mg/dL Creatinine 0.93 (0.66-1.25) mg/dL Est GFR (CKD-EPI)AfAm >90 (>60 ml/min/1.73 sqM) Est GFR (CKD-EPI)NonAf >90 (>60 ml/min/1.73 sqM) Glucose 139 H (74-99) mg/dL Plasma Lactic Acid [place] (0.7-2.0) mmol/L Calcium 9.3 (8.4-10.2) mg/dL Phosphorus (2.5-4.5) mg/dL Magnesium (1.6-2.3) mg/dL Total Bilirubin 1.6 H (0.2-1.3) mg/dL AST 554 H (17-59) U/L ALT 467 H (4-49) U/L Alkaline Phosphatase 254 H (38-126) U/L Total Protein 7.9 (6.3-8.2) g/dL Albumin 5.3 H (3.5-5.0) g/dL Lipase 371 H (23-300) U/L Urine Color Urine Appearance (Clear) Urine pH (5.0-8.0) Ur Specific [place] (1.001-1.035) Urine Protein (Negative) Urine Glucose (UA) (Negative) Urine Ketones (Negative) Urine Blood (Negative) Urine Nitrite (Negative) Urine Bilirubin (Negative) Urine Urobilinogen (<2.0) mg/dL Ur Leukocyte Esterase (Negative) Urine RBC (0-5) /hpf Urine WBC (0-5) /hpf Ur Squamous Epith Cells (0-4) /hpf Hyaline Casts (0-2) /lpf Urine Mucus (None) /hpf Serum Alcohol 130 mg/dL 03/02/21 03/02/21 03/02/21 Range/Units 07:54 07:55 07:55 WBC (3.8-10.6) k/uL RBC (4.30-5.90) m/uL Hgb (13.0-17.5) gm/dL Hct (39.0-53.0) % MCV (80.0-100.0) fL MCH (25.0-35.0) pg MCHC (31.0-37.0) g/dL RDW (11.5-15.5) % Plt Count (150-450) k/uL MPV Neutrophils % % Lymphocytes % % Monocytes % % Eosinophils % % Basophils % % Neutrophils # (1.3-7.7) k/uL Lymphocytes # (1.0-4.8) k/uL Monocytes # (0-1.0) k/uL Eosinophils # (0-0.7) k/uL Basophils # (0-0.2) k/uL Macrocytosis PT (9.0-12.0) sec INR (<1.2) APTT (22.0-30.0) sec Sodium (137-145) mmol/L Potassium (3.5-5.1) mmol/L Chloride (98-107) mmol/L Carbon Dioxide (22-30) mmol/L Anion Gap mmol/L BUN (9-20) mg/dL Creatinine (0.66-1.25) mg/dL Est GFR (CKD-EPI)AfAm (>60 ml/min/1.73 sqM) Est GFR (CKD-EPI)NonAf (>60 ml/min/1.73 sqM) Glucose (74-99) mg/dL Plasma Lactic Acid [place] 11.9 H* (0.7-2.0) mmol/L Calcium (8.4-10.2) mg/dL Phosphorus 3.6 (2.5-4.5) mg/dL Magnesium 1.7 (1.6-2.3) mg/dL Total Bilirubin (0.2-1.3) mg/dL AST (17-59) U/L ALT (4-49) U/L Alkaline Phosphatase (38-126) U/L Total Protein (6.3-8.2) g/dL Albumin (3.5-5.0) g/dL Lipase (23-300) U/L Urine Color Yellow Urine Appearance Clear (Clear) Urine pH 5.0 (5.0-8.0) Ur Specific [place] 1.016 (1.001-1.035) Urine Protein 1+ H (Negative) Urine Glucose (UA) Negative (Negative) Urine Ketones 4+ H (Negative) Urine Blood Negative (Negative) Urine Nitrite Negative (Negative) Urine Bilirubin Negative (Negative) Urine Urobilinogen <2.0 (<2.0) mg/dL Ur Leukocyte Esterase Negative (Negative) Urine RBC <1 (0-5) /hpf Urine WBC <1 (0-5) /hpf Ur Squamous Epith Cells <1 (0-4) /hpf Hyaline Casts 17 H (0-2) /lpf Urine Mucus Rare H (None) /hpf Serum Alcohol mg/dL - EKG Data -: EKG Interpreted by Me EKG Comments: EKG obtained at 807 shows sinus tachycardia. Ventricular rate of 119, KS interval 152, QRS duration 86, QT 342, QTc 481. No evidence of ST elevation or depression. Disposition Clinical Impression: Alcoholic ketoacidosis, Dehydration, Vomiting, Alcohol withdrawal Disposition: ADMITTED IP TO THIS [facility] Condition: Serious Referrals: Merry Colunga MD [Primary Care Provider] - 1-2 days Decision to Admit Reason: Admit from EC Decision Date: 03/02/21 Decision Time: 09:36
[2021-03-02 08:01] LABS: Basophils % (A) 1 %; Eosinophils % (A) 0 %; HCT 52.2 % (39.0-53.0); HGB 18.1 gm/dL (13.0-17.5); Lymphocytes # (A) 0.9 k/uL (1.0-4.8); Lymphocytes % (A) 10 %; MCHC 34.6 g/dL (31.0-37.0); MCV 98.5 fL (80.0-100.0); Macrocytosis Slight; Mean Platelet Volume 7.4; Monocytes % (A) 4 %; Neutrophils # (A) 8.2 k/uL (1.3-7.7); Neutrophils % (A) 85 %; Platelet Count 321 k/uL (150-450); RDW 15.2 % (11.5-15.5); WBC 9.7 k/uL (3.8-10.6)
[2021-03-02 08:02] LABS: Basophils # (A) 0.1 k/uL (0-0.2); Monocytes # (A) 0.4 k/uL (0-1.0)
[2021-03-02 08:08] LABS: Appearance,Urine Clear (Clear); Bilirubin,Urine Negative (Negative); Blood,Urine Negative (Negative); Color,Urine Yellow; Glucose,Urine (UA) Negative (Negative); Hyaline Casts,Urine 17 /lpf (0-2); Ketones,Urine 4+ (Negative); Leukocyte Esterase,Urine Negative (Negative); Mucus,Urine Rare /hpf; Nitrite,Urine Negative (Negative); Protein,Urine 1+ (Negative); RBC,Urine <1 /hpf (0-5); Specific Gravity,Urine 1.016 (1.001-1.035); Squamous Epithelial Cell,Urine <1 /hpf (0-4); Urobilinogen,Urine <2.0 mg/dL (<2.0); WBC,Urine <1 /hpf (0-5)
[2021-03-02 08:36] LABS: ALT 467 U/L (4-49); AST 554 U/L (17-59); African American GFR (CKD) >90 (>60 ml/min/1.73 sqM); Albumin 5.3 g/dL (3.5-5.0); Alkaline Phosphatase 254 U/L (38-126); Anion Gap 35 mmol/L; Blood Urea Nitrogen 10 mg/dL (9-20); Calcium 9.3 mg/dL (8.4-10.2); Chloride 100 mmol/L (98-107); Glucose 139 mg/dL (74-99); Lipase 371 U/L (23-300); Non-African American GFR(CKD) >90 (>60 ml/min/1.73 sqM); Potassium 4.2 mmol/L (3.5-5.1); Sodium 141 mmol/L (137-145); Total Bilirubin 1.6 mg/dL (0.2-1.3); Total Protein 7.9 g/dL (6.3-8.2)
[2021-03-02 08:39] LABS: Alcohol 130 mg/dL; Carbon Dioxide 6 mmol/L (22-30)
[2021-03-02] MEDS ORDERED: SODIUM CHLORIDE 0.9% 1,000 ML IV ONE (08:40)
[2021-03-02] MEDS ORDERED: diphenhydrAMINE 50 MG/ML 1 ML VIAL IVP STA (08:41)
[2021-03-02] MEDS ORDERED: METOCLOPRAMIDE 5 MG/ML 2 ML VIAL IVP STA (08:41)
[2021-03-02] MEDS ORDERED: LORazepam 2 MG/ML INJ IV STA (08:55)
[2021-03-02 09:14] LABS: Partial Thromboplastin Time 23.1 sec (22.0-30.0); Prothrombin Time 10.8 sec (9.0-12.0)
[2021-03-02 09:21] LABS: Magnesium 1.7 mg/dL (1.6-2.3); Phosphorus 3.6 mg/dL (2.5-4.5)
[2021-03-02] MEDS ORDERED: ONDANSETRON 4 MG/2 ML VIAL IVP PRN (09:30)
[2021-03-02] MEDS ORDERED: NALOXONE 0.4 MG/ML 1 ML VIAL IV PRN (09:30)
[2021-03-02] MEDS ORDERED: THIAMINE 100 MG/ML 2 ML VIAL IM STA (09:35)
[2021-03-02] MEDS ORDERED: LORazepam 2 MG/ML INJ IV PRN ×3 (09:35)
[2021-03-02] MEDS ORDERED: SODIUM CHLORIDE 0.9% 1,000 ML with MVI, ADULT NO.4 WITH VIT K 10 ML, THIAMINE 100 MG, F... IV ONE ×4 (10:00)
[2021-03-02] MEDS: SODIUM CHLORIDE 0.9% 1,000 ML IV SCH ×3 (11:08→22:10)
[2021-03-02] MEDS: MORPHINE SULFATE 4 MG/ML SYRINGE IV PRN ×3 (12:33→21:36)
[2021-03-02 13:25] LABS: ALT 333 U/L (4-49); AST 342 U/L (17-59); African American GFR (CKD) >90 (>60 ml/min/1.73 sqM); Albumin 3.8 g/dL (3.5-5.0); Alkaline Phosphatase 158 U/L (38-126); Anion Gap 16 mmol/L; Blood Urea Nitrogen 8 mg/dL (9-20); Calcium 7.5 mg/dL (8.4-10.2); Carbon Dioxide 13 mmol/L (22-30); Chloride 106 mmol/L (98-107); Glucose 105 mg/dL (74-99); Non-African American GFR(CKD) >90 (>60 ml/min/1.73 sqM); Sodium 135 mmol/L (137-145); Total Bilirubin 1.5 mg/dL (0.2-1.3); Total Protein 5.8 g/dL (6.3-8.2)
[2021-03-02] MEDS: THIAMINE 100 MG TAB PO SCH (16:24)
[2021-03-03] MEDS: MORPHINE SULFATE 4 MG/ML SYRINGE IV PRN ×4 (01:34→13:27)
[2021-03-03] MEDS: SODIUM CHLORIDE 0.9% 1,000 ML IV SCH (07:05)
[2021-03-03] MEDS: THIAMINE 100 MG TAB PO SCH (07:05)
[2021-03-03] MEDS ORDERED: PANTOPRAZOLE 40 MG/10 ML VIAL IV SCH (09:00)
--- NOTE | 2021-03-03 09:03 | P.HPIM ---
History of Present Illness H&P Date: 03/02/21 Chief Complaint: Abdominal Pain/Vomiting 35 year-old female patient presents to the emergency department for evaluation of upper abdominal pain. Patient states he started having vomiting and abdominal pain since last night. States symptoms persisted through to this morning. Patient states he does have history of pancreatitis and gastritis. Does have history of alcohol abuse, quit drinking 2 months ago, and relapsed two days ago. He denies any hematemesis, hematochezia, or melena. Denies fever or chills. Patient denies any recent rash, cough, shortness of breath, chest pain, diarrhea, constipation, back pain, numbness, tingling, dizziness, weakness, hematuria, dysuria, urinary urgency, urinary frequency, headache, visual changes, or any other complaints. Patient does have history of alcohol abuse, reported last drink was 2 days ago by alcohol in the labs today was 130. Physical examination did reveal generalized abdominal tenderness. He exhibited persistent vomiting. Labs reviewed and did reveal normal white blood cell count at 9.7. He is afebrile. Was tachycardic. Ekg showed sinus tachycardia. Other labs revealed a carbon dioxide of 6, glucose 139, plasma lactic acid was 11.9, anion gap 35, liver enzymes are elevated, bilirubin 1.6. INR is normal. Urinalysis showed 4+ ketones no signs of infection. Lactic acid is felt to be elevated due to dehyd ration and alcoholic ketoacidosis. He'll be admitted to the hospital for IV hydration and further evaluation and treatment. He is agreeable with this plan. [facility] protocol initiated. Review of Systems REVIEW OF SYSTEMS: CONSTITUTIONAL: No fever, no malaise, no fatigue. HEENT: No recent visual problems or hearing problems. Denied any sore throat. CARDIOVASCULAR: No chest pain, orthopnea, PND, no palpitations, no syncope. PULMONARY: No shortness of breath, no cough, no hemoptysis. GASTROINTESTINAL: No diarrhea, no nausea, no vomiting, no abdominal pain. NEUROLOGICAL: No headaches, no weakness, no numbness. HEMATOLOGICAL: Denies any bleeding or petechiae. GENITOURINARY: Denies any burning micturition, frequency, or urgency. MUSCULOSKELETAL/RHEUMATOLOGICAL: Denies any joint pain, swelling, or any muscle pain. ENDOCRINE: Denies any polyuria or polydipsia. The rest of the 14-point review of systems is negative. Past Medical History Past Medical History: No Reported History Additional Past Medical History / Comment(s): pancreatitis and gastritis History of Any Multi-Drug Resistant Organisms: None Reported Past Surgical History: Cholecystectomy, Hernia Repair, Orthopedic Surgery Additional Past Surgical History / Comment(s): 2019 EGD/colonoscopy, r inguinal hernia repair, R wrist surgery for abscess, L wrist surgery for tendon repair, Past Anesthesia/Blood Transfusion Reactions: No Reported Reaction Past Psychological History: No Psychological Hx Reported Additional Psychological History / Comment(s): He is independent. Smoking Status: Never smoker Past Alcohol Use History: Daily Additional Past Alcohol Use History / Comment(s): 1 pint/day Past Drug Use History: None Reported - Past Family History Father Family Medical History: No Reported History Mother Family Medical History: No Reported History Medications and Allergies Home Medications Medication Instructions Recorded Confirmed Type Clotrimazole Cream [Lotrimin Cream] 1 applic TOPICAL BID PRN 12/28/20 03/02/21 History Triamcinolone 0.1% Cream [Kenalog 1 applic TOPICAL BID 12/28/20 03/02/21 History 0.1% Cream] Allergies Allergy/AdvReac Type Severity Reaction Status Date / Time No Known Allergies Allergy Verified 03/02/21 10:37 Physical Exam Vitals: Vital Signs Temp Pulse Pulse Resp BP BP Pulse Ox 03/02/21 14:29 98.4 F 103 H 18 145/73 96 03/02/21 14:21 20 03/02/21 13:44 98.4 F 110 H 20 136/77 98 03/02/21 13:19 110 H 18 128/73 98 03/02/21 11:13 115 H 18 139/81 96 03/02/21 09:00 118 H 18 132/89 98 03/02/21 08:14 119 H 18 03/02/21 07:12 98.5 F 140 H 18 143/89 96 Intake and Output 03/01/21 03/02/21 03/02/21 22:59 06:59 14:59 Other: Weight 77.111 kg - Constitutional General appearance: Present: average body habitus, cooperative, no acute distress - EENT Eyes: Present: anicteric sclerae, EOMI, PERRLA, normal appearance ENT: Present: hearing grossly normal, normal oropharynx Ears: bilateral: normal - Neck Neck: Present: normal ROM. Absent: lymphadenopathy, rigidity, thyromegaly Carotids: negative: bruit present Thyroid: bilateral: normal size, negative: enlarged, nodule - Respiratory Respiratory: bilateral: CTA, negative: rales, rhonchi, wheezing - Cardiovascular Rhythm: regular Heart sounds: normal: S1, S2 Abnormal Heart Sounds: Absent: systolic murmur, diastolic murmur - Gastrointestinal General gastrointestinal: Present: normal bowel sounds, soft. Absent: distended, organomegaly, tenderness - Genitourinary Genitourinary Comment(s): deferred - Integumentary Integumentary: Present: normal turgor. Absent: jaundiced, rash, ulcer - Neurologic Neurologic: Present: CNII-XII intact. Absent: focal deficits - Musculoskeletal Musculoskeletal: Present: gait normal, strength equal bilaterally - Psychiatric Psychiatric: Present: A&O x's 3, appropriate affect, intact judgment & insight Results CBC & Chem 7: 03/02/21 07:54 03/02/21 12:55 Labs: Abnormal Lab Results - Last 24 Hours (Table) 03/02/21 03/02/21 03/02/21 Range/Units 07:54 07:54 07:55 Hgb 18.1 H (13.0-17.5) gm/dL Neutrophils # 8.2 H (1.3-7.7) k/uL Lymphocytes # 0.9 L (1.0-4.8) k/uL Sodium (137-145) mmol/L Carbon Dioxide 6 L* (22-30) mmol/L BUN (9-20) mg/dL Creatinine (0.66-1.25) mg/dL Glucose 139 H (74-99) mg/dL Plasma Lactic Acid Eugene (0.7-2.0) mmol/L Calcium (8.4-10.2) mg/dL Total Bilirubin 1.6 H (0.2-1.3) mg/dL AST 554 H (17-59) U/L ALT 467 H (4-49) U/L Alkaline Phosphatase 254 H (38-126) U/L Total Protein (6.3-8.2) g/dL Albumin 5.3 H (3.5-5.0) g/dL Lipase 371 H (23-300) U/L Urine Protein 1+ H (Negative) Urine Ketones 4+ H (Negative) Hyaline Casts 17 H (0-2) /lpf Urine Mucus Rare H (None) /hpf 03/02/21 03/02/21 03/02/21 Range/Units 07:55 12:05 12:55 Hgb (13.0-17.5) gm/dL Neutrophils # (1.3-7.7) k/uL Lymphocytes # (1.0-4.8) k/uL Sodium 135 L (137-145) mmol/L Carbon Dioxide 13 L (22-30) mmol/L BUN 8 L (9-20) mg/dL Creatinine 0.65 L (0.66-1.25) mg/dL Glucose 105 H (74-99) mg/dL Plasma Lactic Acid Eugene 11.9 H* 3.8 H* (0.7-2.0) mmol/L Calcium 7.5 L (8.4-10.2) mg/dL Total Bilirubin 1.5 H (0.2-1.3) mg/dL AST 342 H (17-59) U/L ALT 333 H (4-49) U/L Alkaline Phosphatase 158 H (38-126) U/L Total Protein 5.8 L (6.3-8.2) g/dL Albumin (3.5-5.0) g/dL Lipase (23-300) U/L Urine Protein (Negative) Urine Ketones (Negative) Hyaline Casts (0-2) /lpf Urine Mucus (None) /hpf Thrombosis Risk Factor Assmnt - Choose All That Apply Any of the Below Risk Factors Present?: Yes Each Factor Represents 1 point: Medical pt on bed rest Thrombosis Risk Factor Assessment Total Risk Factor Score: 1 Thrombosis Risk Factor Assessment Level: Low Risk Assessment and Plan Assessment: 1. Acute alcoholic ketoacidosis - Patient is placed on IV fluid hydration with normal saline at rate of 130 mL per hour; thiamine 100 mg IM 1 followed by 100 mg twice a day - We will monitor electrolytes and lactic acid levels 2. EtOH abuse/withdrawal - Patient placed on CIWA protocol with Ativan - IV fluid hydration as indicated above; thiamine 100 mg twice a day - STOREROOM CLERK consult for discharge planning 3. Mild pancreatitis; likely associated with EtOH abuse - Patient reports some improvement in abdominal pain; we will start with clear liquid diet and plan to advance as tolerated - Monitor amylase lipase 4. Transaminitis; possibly related to EtOH abuse - We will trend liver enzymes and plan to obtain hepatic ultrasound if cont inuing to trend up DVT prophylaxis; SCDs/subcu heparin CODE STATUS; full code
[2021-03-03 10:17] LABS: Basophils % (A) 0 %; Eosinophils % (A) 1 %; HCT 42.3 % (39.0-53.0); Lymphocytes # (A) 0.9 k/uL (1.0-4.8); Lymphocytes % (A) 13 %; MCH 32.9 pg (25.0-35.0); MCHC 33.5 g/dL (31.0-37.0); MCV 97.9 fL (80.0-100.0); Mean Platelet Volume 7.3; Monocytes # (A) 0.2 k/uL (0-1.0); Monocytes % (A) 3 %; Neutrophils % (A) 82 %; Platelet Count 187 k/uL (150-450); RBC 4.32 m/uL (4.30-5.90); RDW 14.5 % (11.5-15.5); WBC 7.2 k/uL (3.8-10.6)
[2021-03-03 10:25] LABS: HGB 14.2 gm/dL (13.0-17.5)
[2021-03-03 10:32] LABS: ALT 264 U/L (4-49); AST 202 U/L (17-59); African American GFR (CKD) >90 (>60 ml/min/1.73 sqM); Albumin 3.9 g/dL (3.5-5.0); Albumin/Globulin Ratio 1.8; Alkaline Phosphatase 162 U/L (38-126); Anion Gap 11 mmol/L; Bilirubin,Unconjugated 1.5 mg/dL (0.0-1.1); Blood Urea Nitrogen 2 mg/dL (9-20); Calcium 8.4 mg/dL (8.4-10.2); Carbon Dioxide 24 mmol/L (22-30); Chloride 101 mmol/L (98-107); Globulin 2.2 g/dL; Glucose 130 mg/dL (74-99); Non-African American GFR(CKD) >90 (>60 ml/min/1.73 sqM); Potassium 3.2 mmol/L (3.5-5.1); Sodium 136 mmol/L (137-145); Total Protein 6.1 g/dL (6.3-8.2)
[2021-03-03 12:15] VITALS: BP 137/96; PULSE 94; RESP 16; TEMP 98.4
[2021-03-03] MEDS: POTASSIUM CHLORIDE ER 20 MEQ TAB.ER PO SCH (12:40)
== END 2021-03-03 14:03 | disposition left against medical advice (07) | DRG 439 ==
LOC: EC 07:00 → 5NMEDONC 09:44
PROVIDERS: ADMIT Hospitalist; ATTEND Hospitalist
DX: K85.90 Acute pancreatitis without necrosis or infection, unspecified (principal); F10.239 Alcohol dependence with withdrawal, unspecified; E87.2 Acidosis; E86.0 Dehydration; R74.01 Elevation of levels of liver transaminase levels; Z90.49 Acquired absence of other specified parts of digestive tract; Z98.890 Other specified postprocedural states
CPT/HCPCS: 36415; 80053; 80320; 81001; 82248; 83605; 83690; 83735; 84100; 85025; 85610; 85730; 93005; 96361; 96374; 96375; 99285

== ENCOUNTER 2021-03-04 21:08 | Emergency (ER) | payer OTHER ==
[2021-03-04 21:30] VITALS: BP 109/73; PULSE 140; RESP 18; TEMP 98.5
--- NOTE | 2021-03-04 21:54 | XR ---
EXAMINATION TYPE: XR hand complete RT DATE OF EXAM: 03/04/2021 COMPARISON: NONE HISTORY: Pain TECHNIQUE: 3 views FINDINGS: Metacarpals are intact. Joint spaces are normal. There are no erosions. There are no pathol ogic calcifications. IMPRESSION: Negative right hand exam. No fracture.
--- NOTE | 2021-03-04 22:14 | ED ---
General Adult HPI - General Chief complaint: Extremity Injury, Upper Stated complaint: R hand injury Source: patient, RN notes reviewed Mode of arrival: ambulatory Limitations: no limitations - History of Present Illness Initial comments: 35-year-old well-appearing white male patient presents to the emergency room with complaints of right hand pain after a fall that he took on . He states that the pain is 7 out of 10 and sharp. There was some swelling but he states that it has come down. He was just here to make sure it wasn't fractured. He has full range of motion, good grasp. He does not remember his last tetanus shot but he does not want one today. -: days(s) (5) Location: right Radiation: non-radiation (Hand) Severity scale (1-10): 7 Quality: sharp Consistency: constant Associated Symptoms: denies other symptoms - Related Data Home Medications Medication Instructions Recorded Confirmed Clotrimazole Cream [Lotrimin Cream] 1 applic TOPICAL BID PRN 12/28/20 03/02/21 Triamcinolone 0.1% Cream [Kenalog 1 applic TOPICAL BID 12/28/20 03/02/21 0.1% Cream] Allergies Allergy/AdvReac Type Severity Reaction Status Date / Time No Known Allergies Allergy Verified 03/04/21 21:27 Review of Systems ROS Statement: Those systems with pertinent positive or pertinent negative responses have been documented in the HPI. ROS Other: All systems not noted in ROS Statement are negative. Past Medical History Past Medical History: No Reported History Additional Past Medical History / Comment(s): pancreatitis and gastritis History of Any Multi-Drug Resistant Organisms: None Reported Past Surgical History: Cholecystectomy, Hernia Repair, Orthopedic Surgery Additional Past Surgical History / Comment(s): 2019 EGD/colonoscopy, r inguinal hernia repair, R wrist surgery for abscess, L wrist surgery for tendon repair, Past Anesthesia/Blood Transfusion Reactions: No Reported Reaction Past Psychological History: No Psychological Hx Reported Smoking Status: Never smoker Past Alcohol Use History: Daily Past Drug Use History: None Reported - Past Family History Father Family Medical History: No Reported History Mother Family Medical History: No Reported History General Exam Limitations: no limitations General appearance: alert, in no apparent distress Head exam: Present: atraumatic, normocephalic, normal inspection Eye exam: Present: EOMI ENT exam: Present: normal exam, normal oropharynx, mucous membranes moist Neck exam: Present: normal inspection, full ROM. Absent: tenderness, meningismus, lymphadenopathy Respiratory exam: Present: normal lung sounds bilaterally. Absent: respiratory distress, wheezes, rales, rhonchi, stridor Cardiovascular Exam: Present: normal rhythm, tachycardia, normal heart sounds. Absent: systolic murmur, diastolic murmur, rubs, gallop, clicks, JVD Extremities exam: Present: normal inspection, full ROM, normal capillary refill. Absent: tenderness, pedal edema, joint swelling, calf tenderness Right Hand Wrist exam: Present: tenderness (Fifth metacarpal tenderness), abrasion. Absent: swelling, laceration, ecchymosis, deformity, dislocation, erythema Neuro motor exam: Present: wrist extension intact, thumb opposition intact, thumb IP flexion intact, thumb adduction intact Vascular: Present: normal capillary refill, radial pulse. Absent: vascular compromise Back exam: Present: full ROM. Absent: tenderness, CVA tenderness (R), CVA tenderness (L) Neurological exam: Present: alert, oriented X3, CN II-XII intact Psychiatric exam: Present: normal affect, normal mood, anxious Skin exam: Present: warm, dry, intact, normal color. Absent: rash Course Vital Signs 03/04/21 21:27 Temperature 98.5 F Pulse Rate 140 H Respiratory 18 Rate Blood Pressure 109/73 O2 Sat by Pulse 96 Oximetry Medical Decision Making - Medical Decision Making Patient had fallen on his right hand on , he said there is pain along the fifth metacarpal. X-ray shows negative for fracture or dislocation. There is full range of motion he does state that it feels stiff. He was offered tetanus shot which he refused. He will be referred to orthopedics. Patient's heart rate in triage was 140 but left the emergency room before this could be reassessed. Disposition Clinical Impression: Hand injury Disposition: Left Against Medical Advice Condition: Good Instructions (If sedation given, give patient instructions): Hand Sprain (ED) Additional Instructions: Take Motrin as needed for pain, follow-up with orthopedics this week. Return if any new or worsening symptoms including signs of infection, increased pain or fevers. Is patient prescribed a controlled substance at d/c from ED?: No Referrals: Merry Colunga MD [Primary Care Provider] - 1-2 days Cisneros,Burak, PAC [PHYSICIAN MOBILE HOME TECHNICIAN] - 1-2 days Time of Disposition: 22:18
== END 2021-03-04 22:15 | disposition left against medical advice (07) ==
LOC: EC 21:08
DX: S69.91XA Unspecified injury of right wrist, hand and finger(s), initial encounter (principal); W19.XXXA Unspecified fall, initial encounter
CPT/HCPCS: 99284

== ENCOUNTER 2021-04-25 07:45 | Observation (INO) | payer OTHER ==
[2021-04-25] MEDS ORDERED: SODIUM CHLORIDE 0.9% 2,000 ML IV STA (08:08)
[2021-04-25] MEDS ORDERED: LORazepam 2 MG/ML INJ IV STA (08:08)
[2021-04-25] MEDS ORDERED: HYDROmorphone 0.5 MG/0.5 ML SYRINGE IVP STA ×2 (08:08→11:01)
[2021-04-25] MEDS ORDERED: ONDANSETRON 4 MG/2 ML VIAL IVP STA (08:08)
[2021-04-25 08:40] LABS: Basophils % (A) 1 %; Eosinophils % (A) 1 %; HCT 48.5 % (39.0-53.0); Lymphocytes % (A) 20 %; MCV 94.5 fL (80.0-100.0); Mean Platelet Volume 7.6; Monocytes # (A) 0.4 k/uL (0-1.0); Monocytes % (A) 7 %; Neutrophils # (A) 3.3 k/uL (1.3-7.7); Neutrophils % (A) 69 %; Platelet Count 142 k/uL (150-450); RBC 5.14 m/uL (4.30-5.90); RDW 13.5 % (11.5-15.5); WBC 4.8 k/uL (3.8-10.6)
[2021-04-25 08:57] LABS: ALT 101 U/L (4-49); AST 180 U/L (17-59); African American GFR (CKD) >90 (>60 ml/min/1.73 sqM); Alcohol 19 mg/dL; Alkaline Phosphatase 122 U/L (38-126); Amylase 85 U/L (30-110); Anion Gap 20 mmol/L; Blood Urea Nitrogen 7 mg/dL (9-20); Calcium 10.1 mg/dL (8.4-10.2); Carbon Dioxide 22 mmol/L (22-30); Chloride 95 mmol/L (98-107); Glucose 120 mg/dL (74-99); Lipase 366 U/L (23-300); Magnesium 1.4 mg/dL (1.6-2.3); Non-African American GFR(CKD) >90 (>60 ml/min/1.73 sqM); Potassium 2.8 mmol/L (3.5-5.1); Sodium 137 mmol/L (137-145); Total Bilirubin 2.3 mg/dL (0.2-1.3); Total Protein 7.7 g/dL (6.3-8.2)
[2021-04-25 09:11] LABS: HGB 17.5 gm/dL (13.0-17.5)
[2021-04-25] MEDS ORDERED: MAGNESIUM SULFATE-D5W PMX 1 GM in DEXTROSE/WATER 1 100ML.BAG IVPB ONE (10:59)
--- NOTE | 2021-04-25 10:59 | ED ---
Nausea/Vomiting/Diarrhea HPI - General Chief complaint: Nausea/Vomiting/Diarrhea Stated complaint: Nausea/Vomiting/Abd Pain Time Seen by Provider: 04/25/21 07:51 Source: patient, RN notes reviewed Mode of arrival: ambulatory Limitations: no limitations - History of Present Illness Initial comments: This a 35-year-old male presents emergency Department chief complaint of nausea vomiting 4 days. Patient states she's had a history of pancreatitis feels very similar. Patient went of upper abdominal pain. Patient does admit that he has a history of alcohol abuse recently drained. Patient is in no acute chills no chest pain no palpitations. Patient had no severe diarrhea constipation patient's a prior cholecystectomy. - Related Data Home Medications Medication Instructions Recorded Confirmed cloNIDine HCL [Catapres] 0.1 mg PO TID 04/25/21 04/25/21 Allergies Allergy/AdvReac Type Severity Reaction Status Date / Time No Known Allergies Allergy Verified 04/25/21 10:16 Review of Systems ROS Statement: Those systems with pertinent positive or pertinent negative responses have been documented in the HPI. ROS Other: All systems not noted in ROS Statement are negative. Past Medical History Past Medical History: No Reported History Additional Past Medical History / Comment(s): pancreatitis and gastritis History of Any Multi-Drug Resistant Organisms: None Reported Past Surgical History: Cholecystectomy, Hernia Repair, Orthopedic Surgery Additional Past Surgical History / Comment(s): 2019 EGD/colonoscopy, r inguinal hernia repair, R wrist surgery for abscess, L wrist surgery for tendon repair, Past Anesthesia/Blood Transfusion Reactions: No Reported Reaction Past Psychological History: No Psychological Hx Reported Smoking Status: Never smoker Past Alcohol Use History: Daily Past Drug Use History: None Reported - Past Family History Father Family Medical History: No Reported History Mother Family Medical History: No Reported History General Exam Limitations: no limitations General appearance: alert, in no apparent distress Head exam: Present: atraumatic, normocephalic, normal inspection Eye exam: Present: normal appearance, PERRL, EOMI. Absent: scleral icterus, conjunctival injection, periorbital swelling ENT exam: Present: normal exam, normal oropharynx, mucous membranes moist Neck exam: Present: normal inspection, full ROM. Absent: tenderness, meningismus, lymphadenopathy Respiratory exam: Present: normal lung sounds bilaterally. Absent: respiratory distress, wheezes, rales, rhonchi, stridor Cardiovascular Exam: Present: normal rhythm, tachycardia, normal heart sounds. Absent: systolic murmur, diastolic murmur, rubs, gallop, clicks GI/Abdominal exam: Present: soft, tenderness, normal bowel sounds. Absent: distended, guarding, rebound, rigid Course Vital Signs 04/25/21 04/25/21 07:58 11:04 Temperature 98.7 F Pulse Rate 130 H 101 H Respiratory 18 18 Rate Blood Pressure 146/101 161/100 O2 Sat by Pulse 95 95 Oximetry Medical Decision Making - Medical Decision Making 35-year-old presented for abdominal pain, nausea vomiting. Patient has acute alcohol withdrawal, alcoholic ketoacidosis, hypokalemia, hypomagnesemia - Lab Data Result diagrams: 04/25/21 08:31 04/25/21 08:31 Lab Results 04/25/21 04/25/21 04/25/21 Range/Units 08:31 08:31 08:31 WBC 4.8 (3.8-10.6) k/uL RBC 5.14 (4.30-5.90) m/uL Hgb 17.5 D (13.0-17.5) gm/dL Hct 48.5 (39.0-53.0) % MCV 94.5 (80.0-100.0) fL MCH 34.0 (25.0-35.0) pg MCHC 36.0 (31.0-37.0) g/dL RDW 13.5 (11.5-15.5) % Plt Count 142 L (150-450) k/uL MPV 7.6 Neutrophils % 69 % Lymphocytes % 20 % Monocytes % 7 % Eosinophils % 1 % Basophils % 1 % Neutrophils # 3.3 (1.3-7.7) k/uL Lymphocytes # 1.0 (1.0-4.8) k/uL Monocytes # 0.4 (0-1.0) k/uL Eosinophils # 0.0 (0-0.7) k/uL Basophils # 0.0 (0-0.2) k/uL Sodium 137 (137-145) mmol/L Potassium 2.8 L (3.5-5.1) mmol/L Chloride 95 L (98-107) mmol/L Carbon Dioxide 22 (22-30) mmol/L Anion Gap 20 mmol/L BUN 7 L (9-20) mg/dL Creatinine 0.63 L (0.66-1.25) mg/dL Est GFR (CKD-EPI)AfAm >90 (>60 ml/min/1.73 sqM) Est GFR (CKD-EPI)NonAf >90 (>60 ml/min/1.73 sqM) Glucose 120 H (74-99) mg/dL Plasma Lactic Acid Eugene 3.4 H* (0.7-2.0) mmol/L Calcium 10.1 (8.4-10.2) mg/dL Magnesium 1.4 L (1.6-2.3) mg/dL Total Bilirubin 2.3 H (0.2-1.3) mg/dL AST 180 H (17-59) U/L ALT 101 H (4-49) U/L Alkaline Phosphatase 122 (38-126) U/L Total Protein 7.7 (6.3-8.2) g/dL Albumin 5.0 (3.5-5.0) g/dL Amylase 85 (30-110) U/L Lipase 366 H (23-300) U/L Serum Alcohol 19 mg/dL Disposition Clinical Impression: Alcohol-induced pancreatitis, Dehydration, Lactic acidosis, Alcoholic hepatitis, Alcohol withdrawal, Alcoholic ketoacidosis, Hypomagnesemia, Hypokalemia Disposition: ADMITTED IP TO THIS HOSP Condition: Fair Referrals: Merry Colunga MD [Primary Care Provider] - 1-2 days
[2021-04-25] MEDS ORDERED: LORazepam 2 MG/ML INJ IV PRN ×2 (11:02)
[2021-04-25] MEDS ORDERED: cloNIDine HCL 0.1 MG TAB PO STA (11:04)
[2021-04-25] MEDS ORDERED: ONDANSETRON 4 MG/2 ML VIAL IVP PRN (11:37)
[2021-04-25] MEDS ORDERED: NALOXONE 0.4 MG/ML 1 ML VIAL IV PRN (11:37)
[2021-04-25] MEDS: POTASSIUM CHLORIDE 20 MEQ in WATER FOR INJECTION 1 100ML.BAG IVPB SCH ×2 (11:45→13:47)
[2021-04-25] MEDS: SODIUM CHLORIDE 0.9% 1,000 ML IV SCH (11:46)
[2021-04-25] MEDS: LORazepam 2 MG/ML INJ IV PRN ×2 (12:02→23:45)
[2021-04-25 16:10] LABS: Appearance,Urine Clear (Clear); Bacteria,Urine Rare /hpf; Bilirubin,Urine Negative (Negative); Blood,Urine Negative (Negative); Color,Urine Yellow; Glucose,Urine (UA) Negative (Negative); Ketones,Urine 2+ (Negative); Leukocyte Esterase,Urine Negative (Negative); Mucus,Urine Few /hpf; Nitrite,Urine Negative (Negative); PH, Urine 7.5 (5.0-8.0); Protein,Urine 1+ (Negative); RBC,Urine <1 /hpf (0-5); Specific Gravity,Urine 1.018 (1.001-1.035); WBC,Urine 1 /hpf (0-5)
[2021-04-25 16:12] LABS: African American GFR (CKD) >90 (>60 ml/min/1.73 sqM); Anion Gap 11 mmol/L; Blood Urea Nitrogen 6 mg/dL (9-20); Calcium 8.6 mg/dL (8.4-10.2); Carbon Dioxide 24 mmol/L (22-30); Chloride 100 mmol/L (98-107); Glucose 117 mg/dL (74-99); Non-African American GFR(CKD) >90 (>60 ml/min/1.73 sqM); Sodium 135 mmol/L (137-145)
[2021-04-25 16:20] LABS: Potassium 4.3 mmol/L (3.5-5.1)
[2021-04-25] MEDS ORDERED: HYDROcodone/APAP 5-325MG 1 EACH TAB PO STA (17:15)
[2021-04-25] MEDS: cloNIDine HCL 0.1 MG TAB PO SCH ×2 (17:26→19:40)
[2021-04-25] MEDS: HYDROmorphone 0.5 MG/0.5 ML SYRINGE IVP PRN ×2 (19:39→23:13)
[2021-04-25] MEDS: THIAMINE 100 MG TAB PO SCH (19:40)
[2021-04-26] MEDS: LORazepam 2 MG/ML INJ IV PRN ×3 (02:34→13:10)
[2021-04-26] MEDS: HYDROmorphone 0.5 MG/0.5 ML SYRINGE IVP PRN ×3 (03:04→11:46)
[2021-04-26] MEDS: SODIUM CHLORIDE 0.9% 1,000 ML IV SCH (04:37)
[2021-04-26 07:02] LABS: Basophils % (A) 1 %; Eosinophils % (A) 1 %; HGB 15.6 gm/dL (13.0-17.5); Lymphocytes # (A) 0.8 k/uL (1.0-4.8); Lymphocytes % (A) 19 %; MCH 33.1 pg (25.0-35.0); MCHC 33.8 g/dL (31.0-37.0); MCV 97.9 fL (80.0-100.0); Mean Platelet Volume 7.9; Monocytes # (A) 0.3 k/uL (0-1.0); Monocytes % (A) 8 %; Neutrophils # (A) 2.7 k/uL (1.3-7.7); Neutrophils % (A) 69 %; Platelet Count 117 k/uL (150-450); RDW 13.2 % (11.5-15.5); WBC 3.9 k/uL (3.8-10.6)
[2021-04-26] MEDS: cloNIDine HCL 0.1 MG TAB PO SCH (07:27)
[2021-04-26] MEDS: THIAMINE 100 MG TAB PO SCH (07:27)
[2021-04-26 07:50] LABS: ALT 80 U/L (4-49); AST 120 U/L (17-59); African American GFR (CKD) >90 (>60 ml/min/1.73 sqM); Albumin/Globulin Ratio 1.6; Alkaline Phosphatase 85 U/L (38-126); Anion Gap 12 mmol/L; Blood Urea Nitrogen 5 mg/dL (9-20); Calcium 8.9 mg/dL (8.4-10.2); Carbon Dioxide 23 mmol/L (22-30); Chloride 100 mmol/L (98-107); Globulin 2.5 g/dL; Glucose 107 mg/dL (74-99); Non-African American GFR(CKD) >90 (>60 ml/min/1.73 sqM); Potassium 3.6 mmol/L (3.5-5.1); Sodium 135 mmol/L (137-145); Total Bilirubin 2.1 mg/dL (0.2-1.3); Total Protein 6.5 g/dL (6.3-8.2)
--- NOTE | 2021-04-26 08:46 | P.HPIM ---
History of Present Illness H&P Date: 04/25/21 Chief Complaint: Nausea and vomiting. Patient is a 35-year-old male with a known history of alcoholic pancreatitis, daily alcohol use/abuse presents to ER with complaints of nausea and vomiting for the past 4 days. Patient is also complaining of abdominal pain mainly in the epigastric and upper abdominal region. Denied any hematemesis or melena. Mainly nonbilious vomiting. Denied any complaints of diarrhea. Denied any fever or chills. No chest pain or worsening shortness breath. Patient is very anxious otherwise. Patient was tachycardic on admission pulse ox was 95% on room air. Laboratory data showed WBC 4.8 hemoglobin 17.5 and platelets 142 Sodium 137 potassium 2.8 chloride 95 BUN 7 creatinine 0.63, lactic acid 3.4 Magnesium 1.4 AST 180 and alk phos 122 Alt 101 Urinalysis showed 2+ ketones and no evidence of infection Serum alcohol was 19 and coronavirus PCR not detected. Review of Systems Constitutional: Patient denies any fever or chills . No generalized weakness or weight loss. Abdomen:Patient does complain of nausea and vomiting and epigastric abdominal pain. No diarrhea. Cardiovascular: Patient denies any chest pain or short of breath no palpitations. Respiratory: patient denied any cough is from production. No shortness of breath Neurologic: Patient denied any numbness or tingling headache. Musculoskeletal: Patient denies any complaints of joint swelling or deformity. Skin: Negative Psychiatric: Negative Endocrine: No heat or cold intolerance. No recent weight gain. Genitourinary: No dysuria or hematuria. All other 14 point ROS negative except the above Past Medical History Past Medical History: No Reported History Additional Past Medical History / Comment(s): pancreatitis and gastritis History of Any Multi-Drug Resistant Organisms: None Reported Past Surgical History: Cholecystectomy, Hernia Repair, Orthopedic Surgery Additional Past Surgical History / Comment(s): 2019 EGD/colonoscopy, r inguinal hernia repair, R wrist surgery for abscess, L wrist surgery for tendon repair, Past Anesthesia/Blood Transfusion Reactions: No Reported Reaction Past Psychological History: No Psychological Hx Reported Smoking Status: Never smoker Past Alcohol Use History: Daily Past Drug Use History: None Reported - Past Family History Father Family Medical History: No Reported History Mother Family Medical History: No Reported History Medications and Allergies Home Medications Medication Instructions Recorded Confirmed Type cloNIDine HCL [Catapres] 0.1 mg PO TID 10/14/21 10/14/21 History Allergies Allergy/AdvReac Type Severity Reaction Status Date / Time No Known Allergies Allergy Verified 04/25/21 10:16 Physical Exam Vitals: Vital Signs Temp Pulse Resp BP Pulse Ox 04/25/21 13:49 83 18 153/94 04/25/21 11:04 101 H 18 161/100 95 04/25/21 07:58 98.7 F 130 H 18 146/101 95 Intake and Output 04/24/21 04/25/21 04/25/21 22:59 06:59 14:59 Other: Weight 83.915 kg PHYSICAL EXAMINATION: Patient is lying in the bed comfortably, no acute distress, awake alert and oriented. anxious. HEENT: Normocephalic. Neck is supple. Pupils reactive. Nostrils clear. Oral cavity is moist. Neck reveals no JVD, carotid bruits, or thyromegaly. CHEST EXAMINATION: Trachea is central. Symmetrical expansion. Lung lion clear to auscultation and percussion. CARDIAC: Normal S1, S2 with no gallops. No murmurs ABDOMEN: Soft.Mild epigastric tenderness. Bowel sounds normal. No organomegaly. No abdominal bruits. Extremities: reveal no edema. No clubbing or cyanosis Neurologically awake, alert, oriented x3 with well-coordinated movements. No focal deficits noted Skin: No rash or skin lesions. Psychiatric: Coperative. anxious Musculoskeletal: No joint swelling or deformity. Normal range of motion. Results CBC & Chem 7: 04/26/21 06:25 04/26/21 06:25 Labs: Abnormal Lab Results - Last 24 Hours (Table) 04/25/21 04/25/21 04/25/21 Range/Units 08:31 08:31 08:31 Plt Count 142 L (150-450) k/uL Potassium 2.8 L (3.5-5.1) mmol/L Chloride 95 L (98-107) mmol/L BUN 7 L (9-20) mg/dL Creatinine 0.63 L (0.66-1.25) mg/dL Glucose 120 H (74-99) mg/dL Plasma Lactic Acid Eugene 3.4 H* (0.7-2.0) mmol/L Magnesium 1.4 L (1.6-2.3) mg/dL Total Bilirubin 2.3 H (0.2-1.3) mg/dL AST 180 H (17-59) U/L ALT 101 H (4-49) U/L Lipase 366 H (23-300) U/L Thrombosis Risk Factor Assmnt - DVT/VTE Prophylaxis DVT/VTE Prophylaxis: Pharmacologic Prophylaxis ordered Assessment and Plan Assessment: Acute alcohol intoxication Tractable nausea and vomiting possible alcoholic gastritis and mild acute pancreatitis Alcohol abuse Lactic acidosis due to dehydration volume depletion Hypomagnesemia and hypokalemia which is being replaced. DVT prophylaxis Heparin subcu Plan: Patient will be continued on IV hydration with normal saline and pain management with Elsie 5. Monitor electrolytes and replace and continue with alcohol withdrawal protocol. Continue to follow closely.
[2021-04-26] MEDS ORDERED: PANTOPRAZOLE 40 MG/10 ML VIAL IVP SCH (09:00)
[2021-04-26 12:06] VITALS: BP 139/94; PULSE 68; RESP 17; TEMP 97.6
== END 2021-04-26 17:47 | disposition home or self-care (01) ==
LOC: EC 07:45 → INTOOBSV 11:59 → 5NMEDONC 11:59 → UNDODISIN 04-26 17:47
PROVIDERS: ADMIT Internal Medicine; ATTEND Internal Medicine
DX: K85.20 Alcohol induced acute pancreatitis without necrosis or infection (principal); E86.0 Dehydration; E87.6 Hypokalemia; E83.42 Hypomagnesemia; E87.2 Acidosis; F10.129 Alcohol abuse with intoxication, unspecified; F10.139 Alcohol abuse with withdrawal, unspecified; K70.10 Alcoholic hepatitis without ascites; Y90.0 Blood alcohol level of less than 20 mg/100 ml; Z20.822 Contact with and (suspected) exposure to COVID-19; Z79.899 Other long term (current) drug therapy; Z87.19 Personal history of other diseases of the digestive system; Z90.49 Acquired absence of other specified parts of digestive tract; Z98.890 Other specified postprocedural states; Z87.39 Personal history of other diseases of the musculoskeletal system and connective tissue
CPT/HCPCS: 96376 ×3; 96361 ×2; 96375 ×2; 96365; 96366; 96367; 99284; 36415; 80053 ×2; 80048; 82150; 83605; 83690; 83735; 85025 ×2; 81001; 87635; G0378 ×2; G0480; J2060 ×2; J3480; J2405; J3475; C9113; J1170 ×2; 80320; 96374; 99285

== ENCOUNTER 2021-05-12 06:56 | Inpatient (IN) | payer OTHER ==
[2021-05-12] MEDS ORDERED: ONDANSETRON 4 MG/2 ML VIAL IVP STA ×2 (07:11→09:12)
[2021-05-12] MEDS ORDERED: PANTOPRAZOLE 40 MG/10 ML VIAL IVP STA (07:11)
[2021-05-12] MEDS ORDERED: SODIUM CHLORIDE 0.9% 1,000 ML IV STA (07:11)
[2021-05-12] MEDS ORDERED: HYDROmorphone 0.5 MG/0.5 ML SYRINGE IVP STA (07:11)
[2021-05-12] MEDS ORDERED: LORazepam 2 MG/ML INJ IV STA ×2 (07:12→09:12)
[2021-05-12 07:31] LABS: Basophils # (A) 0.1 k/uL (0-0.2); Basophils % (A) 1 %; Eosinophils % (A) 0 %; HCT 50.7 % (39.0-53.0); HGB 17.4 gm/dL (13.0-17.5); Lymphocytes # (A) 0.8 k/uL (1.0-4.8); Lymphocytes % (A) 6 %; MCH 33.4 pg (25.0-35.0); MCHC 34.4 g/dL (31.0-37.0); MCV 97.3 fL (80.0-100.0); Mean Platelet Volume 7.6; Monocytes # (A) 0.4 k/uL (0-1.0); Monocytes % (A) 3 %; Neutrophils # (A) 12.7 k/uL (1.3-7.7); Neutrophils % (A) 90 %; RBC 5.21 m/uL (4.30-5.90); RDW 13.1 % (11.5-15.5); WBC 14.2 k/uL (3.8-10.6)
[2021-05-12 07:34] LABS: VBG PH 7.43 (7.31-7.41)
[2021-05-12 07:42] LABS: Platelet Count 276 k/uL (150-450)
[2021-05-12 07:44] LABS: AST 239 U/L (17-59); African American GFR (CKD) >90 (>60 ml/min/1.73 sqM); Albumin 5.9 g/dL (3.5-5.0); Alkaline Phosphatase 153 U/L (38-126); Amylase 176 U/L (30-110); Anion Gap 35 mmol/L; Blood Urea Nitrogen 12 mg/dL (9-20); Chloride 93 mmol/L (98-107); Glucose 145 mg/dL (74-99); Lipase 372 U/L (23-300); Magnesium 1.9 mg/dL (1.6-2.3); Non-African American GFR(CKD) >90 (>60 ml/min/1.73 sqM); Potassium 3.8 mmol/L (3.5-5.1); Sodium 137 mmol/L (137-145); Total Bilirubin 2.8 mg/dL (0.2-1.3); Total Protein 9.1 g/dL (6.3-8.2)
[2021-05-12 07:48] LABS: Carbon Dioxide 9 mmol/L (22-30)
[2021-05-12] MEDS ORDERED: SODIUM CHLORIDE 0.9% 1,000 ML IV ONE (07:48)
[2021-05-12] MEDS ORDERED: HYDROmorphone 1 MG/ML 1 ML SYRINGE IVP STA ×2 (07:48→09:12)
--- NOTE | 2021-05-12 07:51 | ED ---
General Adult HPI - General Chief complaint: Nausea/Vomiting/Diarrhea Stated complaint: Vomiting Time Seen by Provider: 05/12/21 07:02 Source: patient, RN notes reviewed, old records reviewed Mode of arrival: wheelchair Limitations: no limitations - History of Present Illness Initial comments: 35-year-old male presenting with nausea vomiting, abdominal pain. Patient admits to heavy daily alcohol consumption. Patient states the pain is in his upper abdomen which is consistent with previous episodes of pancreatitis. He does admit to consuming large volume of whiskey yesterday. Patient has had multiple episodes of vomiting. No fever. No chest pain. - Related Data Home Medications Medication Instructions Recorded Confirmed No Known Home Medications 05/12/21 05/12/21 Allergies Allergy/AdvReac Type Severity Reaction Status Date / Time No Known Allergies Allergy Verified 05/12/21 09:19 Review of Systems ROS Statement: Those systems with pertinent positive or pertinent negative responses have been documented in the HPI. ROS Other: All systems not noted in ROS Statement are negative. Past Medical History Past Medical History: No Reported History Additional Past Medical History / Comment(s): pancreatitis and gastritis History of Any Multi-Drug Resistant Organisms: None Reported Past Surgical History: Cholecystectomy, Hernia Repair, Orthopedic Surgery Additional Past Surgical History / Comment(s): 2019 EGD/colonoscopy, r inguinal hernia repair, R wrist surgery for abscess, L wrist surgery for tendon repair, Past Anesthesia/Blood Transfusion Reactions: No Reported Reaction Past Psychological History: No Psychological Hx Reported Smoking Status: Never smoker Past Alcohol Use History: Daily Past Drug Use History: None Reported - Past Family History Father Family Medical History: No Reported History Mother Family Medical History: No Reported History General Exam Limitations: no limitations General appearance: alert, in distress Head exam: Present: atraumatic, normocephalic Eye exam: Present: normal appearance, PERRL ENT exam: Present: mucous membranes dry Neck exam: Present: normal inspection. Absent: tenderness Respiratory exam: Present: respiratory distress (To). Absent: wheezes, rales Cardiovascular Exam: Present: normal rhythm, tachycardia GI/Abdominal exam: Present: soft, tenderness. Absent: distended Extremities exam: Present: normal inspection, normal capillary refill Neurological exam: Present: alert Psychiatric exam: Present: anxious Skin exam: Present: warm, diaphoretic. Absent: cyanosis Course Vital Signs 05/12/21 05/12/21 06:58 08:03 Temperature 99.9 F H Pulse Rate 132 H 111 H Respiratory 18 19 Rate Blood Pressure 131/83 158/91 O2 Sat by Pulse 95 95 Oximetry EKG Findings - EKG Comments: EKG Findings:: EKG: Sinus tachycardia, rate of 117 W[place] interval 154, QRS duration [address] segment elevation Medical Decision Making - Medical Decision Making 35-year-old male with alcohol use disorder presenting with abdominal pain nausea vomiting. Patient is significantly ill-appearing, is hypertensive, tachycardic, and diaphoretic. Symptomatically treatment is initiated. Laboratory studies reveal leukocytosis, elevated hemoglobin. He has significant acidosis with a CO2 of 9 which is high anion gap likely secondary to lactic acidosis of greater than 11. This is a combination of starvation ketosis and lactic acidosis secondary to dehydration. This does respond to fluids and repeat lactic is 2.2. He will be admitted for IV hydration, symptomatic control. Case discussed with Dr. Huynh who will admit. - Lab Data Result diagrams: 05/12/21 07:22 05/12/21 07:22 Lab Results 05/12/21 05/12/21 05/12/21 Range/Units 07:22 07:22 07:22 WBC 14.2 H (3.8-10.6) k/uL RBC 5.21 (4.30-5.90) m/uL Hgb 17.4 (13.0-17.5) gm/dL Hct 50.7 (39.0-53.0) % MCV 97.3 (80.0-100.0) fL MCH 33.4 (25.0-35.0) pg MCHC 34.4 (31.0-37.0) g/dL RDW 13.1 (11.5-15.5) % Plt Count 276 D (150-450) k/uL MPV 7.6 Neutrophils % 90 % Lymphocytes % 6 % Monocytes % 3 % Eosinophils % 0 % Basophils % 1 % Neutrophils # 12.7 H (1.3-7.7) k/uL Lymphocytes # 0.8 L (1.0-4.8) k/uL Monocytes # 0.4 (0-1.0) k/uL Eosinophils # 0.0 (0-0.7) k/uL Basophils # 0.1 (0-0.2) k/uL VBG pH (7.31-7.41) VBG pCO2 (37-51) mmHg VBG HCO3 (24-28) mmol/L Sodium 137 (137-145) mmol/L Potassium 3.8 (3.5-5.1) mmol/L Chloride 93 L (98-107) mmol/L Carbon Dioxide 9 L* (22-30) mmol/L Anion Gap 35 mmol/L BUN 12 (9-20) mg/dL Creatinine 0.99 (0.66-1.25) mg/dL Est GFR (CKD-EPI)AfAm >90 (>60 ml/min/1.73 sqM) Est GFR (CKD-EPI)NonAf >90 (>60 ml/min/1.73 sqM) Glucose 145 H (74-99) mg/dL Lactic Ac Sepsis Rflx Plasma Lactic Acid Eugene (0.7-2.0) mmol/L Calcium 11.0 H (8.4-10.2) mg/dL Magnesium 1.9 (1.6-2.3) mg/dL Total Bilirubin 2.8 H (0.2-1.3) mg/dL AST 239 H (17-59) U/L ALT 131 H (4-49) U/L Alkaline Phosphatase 153 H (38-126) U/L Total Protein 9.1 H (6.3-8.2) g/dL Albumin 5.9 H (3.5-5.0) g/dL Amylase 176 H (30-110) U/L Lipase 372 H (23-300) U/L Urine Color Yellow Urine Appearance Clear (Clear) Urine pH 5.5 (5.0-8.0) Ur Specific [place] 1.023 (1.001-1.035) Urine Protein 2+ H (Negative) Urine Glucose (UA) Negative (Negative) Urine Ketones 4+ H (Negative) Urine Blood Negative (Negative) Urine Nitrite Negative (Negative) Urine Bilirubin Negative (Negative) Urine Urobilinogen <2.0 (<2.0) mg/dL Ur Leukocyte Esterase Negative (Negative) Urine RBC 1 (0-5) /hpf Urine WBC 1 (0-5) /hpf Ur Squamous Epith Cells <1 (0-4) /hpf Hyaline Casts 109 H (0-2) /lpf Urine Mucus Few H (None) /hpf 05/12/21 05/12/21 05/12/21 Range/Units 07:22 07:22 07:47 WBC (3.8-10.6) k/uL RBC (4.30-5.90) m/uL Hgb (13.0-17.5) gm/dL Hct (39.0-53.0) % MCV (80.0-100.0) fL MCH (25.0-35.0) pg MCHC (31.0-37.0) g/dL RDW (11.5-15.5) % Plt Count (150-450) k/uL MPV Neutrophils % % Lymphocytes % % Monocytes % % Eosinophils % % Basophils % % Neutrophils # (1.3-7.7) k/uL Lymphocytes # (1.0-4.8) k/uL Monocytes # (0-1.0) k/uL Eosinophils # (0-0.7) k/uL Basophils # (0-0.2) k/uL VBG pH 7.43 H (7.31-7.41) VBG pCO2 20 L (37-51) mmHg VBG HCO3 13 L (24-28) mmol/L Sodium (137-145) mmol/L Potassium (3.5-5.1) mmol/L Chloride (98-107) mmol/L Carbon Dioxide (22-30) mmol/L Anion Gap mmol/L BUN (9-20) mg/dL Creatinine (0.66-1.25) mg/dL Est GFR (CKD-EPI)AfAm (>60 ml/min/1.73 sqM) Est GFR (CKD-EPI)NonAf (>60 ml/min/1.73 sqM) Glucose (74-99) mg/dL Lactic Ac Sepsis Rflx Y Plasma Lactic Acid Eugene 11.6 H* (0.7-2.0) mmol/L Calcium (8.4-10.2) mg/dL Magnesium (1.6-2.3) mg/dL Total Bilirubin (0.2-1.3) mg/dL AST (17-59) U/L ALT (4-49) U/L Alkaline Phosphatase (38-126) U/L Total Protein (6.3-8.2) g/dL Albumin (3.5-5.0) g/dL Amylase (30-110) U/L Lipase (23-300) U/L Urine Color Urine Appearance (Clear) Urine pH (5.0-8.0) Ur Specific [place] (1.001-1.035) Urine Protein (Negative) Urine Glucose (UA) (Negative) Urine Ketones (Negative) Urine Blood (Negative) Urine Nitrite (Negative) Urine Bilirubin (Negative) Urine Urobilinogen (<2.0) mg/dL Ur Leukocyte Esterase (Negative) Urine RBC (0-5) /hpf Urine WBC (0-5) /hpf Ur Squamous Epith Cells (0-4) /hpf Hyaline Casts (0-2) /lpf Urine Mucus (None) /hpf 05/12/21 Range/Units 09:04 WBC (3.8-10.6) k/uL RBC (4.30-5.90) m/uL Hgb (13.0-17.5) gm/dL Hct (39.0-53.0) % MCV (80.0-100.0) fL MCH (25.0-35.0) pg MCHC (31.0-37.0) g/dL RDW (11.5-15.5) % Plt Count (150-450) k/uL MPV Neutrophils % % Lymphocytes % % Monocytes % % Eosinophils % % Basophils % % Neutrophils # (1.3-7.7) k/uL Lymphocytes # (1.0-4.8) k/uL Monocytes # (0-1.0) k/uL Eosinophils # (0-0.7) k/uL Basophils # (0-0.2) k/uL VBG pH (7.31-7.41) VBG pCO2 (37-51) mmHg VBG HCO3 (24-28) mmol/L Sodium (137-145) mmol/L Potassium (3.5-5.1) mmol/L Chloride (98-107) mmol/L Carbon Dioxide (22-30) mmol/L Anion Gap mmol/L BUN (9-20) mg/dL Creatinine (0.66-1.25) mg/dL Est GFR (CKD-EPI)AfAm (>60 ml/min/1.73 sqM) Est GFR (CKD-EPI)NonAf (>60 ml/min/1.73 sqM) Glucose (74-99) mg/dL Lactic Ac Sepsis Rflx Plasma Lactic Acid Eugene 2.2 H* (0.7-2.0) mmol/L Calcium (8.4-10.2) mg/dL Magnesium (1.6-2.3) mg/dL Total Bilirubin (0.2-1.3) mg/dL AST (17-59) U/L ALT (4-49) U/L Alkaline Phosphatase (38-126) U/L Total Protein (6.3-8.2) g/dL Albumin (3.5-5.0) g/dL Amylase (30-110) U/L Lipase (23-300) U/L Urine Color Urine Appearance (Clear) Urine pH (5.0-8.0) Ur Specific [place] (1.001-1.035) Urine Protein (Negative) Urine Glucose (UA) (Negative) Urine Ketones (Negative) Urine Blood (Negative) Urine Nitrite (Negative) Urine Bilirubin (Negative) Urine Urobilinogen (<2.0) mg/dL Ur Leukocyte Esterase (Negative) Urine RBC (0-5) /hpf Urine WBC (0-5) /hpf Ur Squamous Epith Cells (0-4) /hpf Hyaline Casts (0-2) /lpf Urine Mucus (None) /hpf Disposition Clinical Impression: Dehydration, Lactic acidosis, Alcoholic hepatitis, Alcohol withdrawal, Chronic alcohol dependence, continuous, Alcoholic ketoacidosis Disposition: ADMITTED IP TO THIS [facility] Condition: Stable Is patient prescribed a controlled substance at d/c from ED?: No Referrals: Merry Colunga MD [Primary Care Provider] - 1-2 days Decision to Admit Reason: Admit from EC Decision Date: 05/12/21 Decision Time: 09:55
[2021-05-12 07:55] LABS: ALT 131 U/L (4-49)
[2021-05-12 08:10] LABS: Appearance,Urine Clear (Clear); Bilirubin,Urine Negative (Negative); Blood,Urine Negative (Negative); Color,Urine Yellow; Glucose,Urine (UA) Negative (Negative); Hyaline Casts,Urine 109 /lpf (0-2); Ketones,Urine 4+ (Negative); Leukocyte Esterase,Urine Negative (Negative); Mucus,Urine Few /hpf; Nitrite,Urine Negative (Negative); PH, Urine 5.5 (5.0-8.0); Protein,Urine 2+ (Negative); RBC,Urine 1 /hpf (0-5); Specific Gravity,Urine 1.023 (1.001-1.035); Squamous Epithelial Cell,Urine <1 /hpf (0-4); Urobilinogen,Urine <2.0 mg/dL (<2.0); WBC,Urine 1 /hpf (0-5)
--- NOTE | 2021-05-12 08:18 | XR ---
KUB HISTORY: Abdominal pain and vomiting Frontal KUB and 2 images correlated prior exam 09/18/2019, CT 12/04/2020 Lung bases are clear. Surgical clips are present right upper quadrant. There is no evident bowel obst ruction or pneumoperitoneum. Phlebolith noted in the pelvis. Bones are stable. There is a calcificati on seen overlying the left kidney measuring approximately 4 to 5 mm. IMPRESSION: Nephrolithiasis suspected on the left
[2021-05-12] MEDS ORDERED: DEXTROSE 5%-0.9% NACL 1,000 ML IV SCH (08:30)
--- NOTE | 2021-05-12 09:05 | CT ---
EXAMINATION TYPE: CT abdomen pelvis w con DATE OF EXAM: 05/12/2021 COMPARISON: CT 12/04/2020 HISTORY: Epigastric pain CT DLP: 904.9 mGycm Automated exposure control for dose reduction was used. TECHNIQUE: Helical acquisition of images from the lung bases through the pelvis have been completed. CONTRAST: Performed without Oral Contrast and with IV Contrast, patient injected with 100 mL of Isovue 300. FINDINGS: Distal esophagus shows a thickened appearance, nonspecific LUNG BASES: No significant abnormality is appreciated. AORTA: No significant abnormality is appreciated. LIVER/GB: Similar appearance of the liver, enhancing focus in the right lobe laterally and in area of low-attenuation shows a similar appearance. Focal area of lower attenuation within a generally low a ttenuated liver is present in the periportal region suggesting some more focal fat deposition. Liver is enlarged. Patient is post cholecystectomy. PANCREAS: No significant abnormality is seen. SPLEEN: No significant abnormality is seen. ADRENALS: No significant abnormality is seen. KIDNEYS: Nonobstructive left renal calculus measures approximately 5 mm. No hydronephrosis bilaterall y, no evident ureteral calculus REPRODUCTIVE ORGANS: No significant abnormality is seen BOWEL: Retained fecal debris is present throughout much of the distribution of the left colon.. FREE AIR: No Free Air visible. ASCITES: None visible. PELVIC ADENOPATHY: None visualized. RETROPERITONEAL ADENOPATHY: No Retroperitoneal Adenopathy visible. URINARY BLADDER: No significant abnormality is seen. OSSEOUS STRUCTURES: No significant abnormality is seen. IMPRESSION: CORRELATE FOR POSSIBLE ESOPHAGITIS, CONSIDER FOLLOW-UP ENDOSCOPY. POSTOP CHANGES. NONOBSTRUCTIVE GLENN L CALCULUS. HEPATIC STEATOSIS, HEPATOMEGALY, STABLE LIVER LESION AND ADDITIONAL FINDINGS ABOVE.
[2021-05-12] MEDS ORDERED: NALOXONE 0.4 MG/ML 1 ML VIAL IV PRN (09:52)
[2021-05-12] MEDS ORDERED: HYDROmorphone 0.5 MG/0.5 ML SYRINGE IVP PRN (09:52)
[2021-05-12] MEDS ORDERED: LORazepam 2 MG/ML INJ IV PRN (09:52)
[2021-05-12] MEDS ORDERED: THIAMINE 100 MG/ML 2 ML VIAL IM STA (09:52)
[2021-05-12] MEDS ORDERED: ONDANSETRON 4 MG/2 ML VIAL IVP PRN (09:52)
--- NOTE | 2021-05-12 11:20 | P.HPIM ---
History of Present Illness [id number] male came in with compensative epigastric abdominal pain she was sharp in nature along with the multiple episodes of nausea vomiting patient admits to drinking heavily and was drinking whiskey yesterday. When questioned patient admits to drinking alcohol a day patient is presently having some withdrawals and patient is on Ativan CIWA protocol. Patient is also found to be in severe acidosis and patient has highly elevated lactic acid and severe anion gap metabolic acidosis secondary to lactic acidosis and starvation ketosis. Patient denied any seizure. Lactic acid on admission was 11.6 patient is severely dehydrated as well. Patient has elevated liver enzymes. Mildly elevated amylase and lipase REVIEW OF SYSTEMS: CONSTITUTIONAL: No fever, no malaise, no fatigue. HEENT: No recent visual problems or hearing problems. Denied any sore throat. CARDIOVASCULAR: No chest pain, orthopnea, PND, no palpitations, no syncope. PULMONARY: No shortness of breath, no cough, no hemoptysis. GASTROINTESTINAL: As mentioned in HPI NEUROLOGICAL: No headaches, no weakness, no numbness. HEMATOLOGICAL: Denies any bleeding or petechiae. GENITOURINARY: Denies any burning micturition, frequency, or urgency. MUSCULOSKELETAL/RHEUMATOLOGICAL: Denies any joint pain, swelling, or any muscle pain. ENDOCRINE: Denies any polyuria or polydipsia. The rest of the 14-point review of systems is negative. PHYSICAL EXAMINATION: GENERAL: The patient is alert and oriented x3, not in any acute distress. Well developed, well nourished. Patient is shaking and tremulous HEENT: Pupils are round and equally reacting to light. EOMI. No scleral icterus. No conjunctival pallor. Normocephalic, atraumatic. No pharyngeal erythema. No thyromegaly. CARDIOVASCULAR: S1 and S2 present. No murmurs, rubs, or gallops. PULMONARY: Chest is clear to auscultation, no wheezing or crackles. ABDOMEN: Mild epigastric abdominal tenderness nondistended, normoactive bowel sounds. No palpable organomegaly. MUSCULOSKELETAL: No joint swelling or deformity. EXTREMITIES: No cyanosis, clubbing, or pedal edema. NEUROLOGICAL: Gross neurological examination did not reveal any focal deficits. SKIN: No rashes. Assessment and plan -Severe abdominal pain: Secondary alcoholic gastritis and nausea vomiting secondary to alcoholic gastritis patient will be started on Protonix -Acute alcoholic hepatitis -Severe anion gap metabolic acidosis secondary to starvation ketosis and lactic acidosis patient will be hydrated aggressively with 1 50 mL of normal saline repeat electrolytes later today and tomorrow morning. -Severe dehydration -Nonspecific elevation of amylase and lipase clinically patient doesn't appear to have any an keratitis at this time and lipase is not is high enough to diagnose pancreatitis -Leukocytosis reactive without any source or evidence of infection at this time and this is secondary to nausea vomiting. -Hypercalcemia is secondary to dehydration expected to improve with aggressive hydration -All call abuse excessive counseling was provided -Alcohol withdrawal: Patient is on Ativan CIWA protocol DVT prophylaxis: Subcutaneous heparin Past Medical History Past Medical History: No Reported History Additional Past Medical History / Comment(s): pancreatitis and gastritis History of Any Multi-Drug Resistant Organisms: None Reported Past Surgical History: Cholecystectomy, Hernia Repair, Orthopedic Surgery Additional Past Surgical History / Comment(s): 2019 EGD/colonoscopy, r inguinal hernia repair, R wrist surgery for abscess, L wrist surgery for tendon repair, Past Anesthesia/Blood Transfusion Reactions: No Reported Reaction Past Psychological History: No Psychological Hx Reported Smoking Status: Never smoker Past Alcohol Use History: Daily Past Drug Use History: None Reported - Past Family History Father Family Medical History: No Reported History Mother Family Medical History: No Reported History Medications and Allergies Home Medications Medication Instructions Recorded Confirmed Type No Known Home Medications 05/12/21 05/12/21 History Allergies Allergy/AdvReac Type Severity Reaction Status Date / Time No Known Allergies Allergy Verified 05/12/21 09:19 Physical Exam Vitals: Vital Signs Temp Pulse Resp BP Pulse Ox 05/12/21 11:07 88 19 140/84 98 05/12/21 08:03 111 H 19 158/91 95 05/12/21 06:58 99.9 F H 132 H 18 131/83 95 Intake and Output 05/11/21 05/12/21 05/12/21 22:59 06:59 14:59 Other: Weight 81.647 kg Results CBC & Chem 7: 05/12/21 07:22 05/12/21 07:22 Labs: Abnormal Lab Results - Last 24 Hours (Table) 05/12/21 05/12/21 05/12/21 Range/Units 07:22 07:22 07:22 WBC 14.2 H (3.8-10.6) k/uL Neutrophils # 12.7 H (1.3-7.7) k/uL Lymphocytes # 0.8 L (1.0-4.8) k/uL VBG pH (7.31-7.41) VBG pCO2 (37-51) mmHg VBG HCO3 (24-28) mmol/L Chloride 93 L (98-107) mmol/L Carbon Dioxide 9 L* (22-30) mmol/L Glucose 145 H (74-99) mg/dL Plasma Lactic Acid Eugene (0.7-2.0) mmol/L Calcium 11.0 H (8.4-10.2) mg/dL Total Bilirubin 2.8 H (0.2-1.3) mg/dL AST 239 H (17-59) U/L ALT 131 H (4-49) U/L Alkaline Phosphatase 153 H (38-126) U/L Total Protein 9.1 H (6.3-8.2) g/dL Albumin 5.9 H (3.5-5.0) g/dL Amylase 176 H (30-110) U/L Lipase 372 H (23-300) U/L Urine Protein 2+ H (Negative) Urine Ketones 4+ H (Negative) Hyaline Casts 109 H (0-2) /lpf Urine Mucus Few H (None) /hpf 05/12/21 05/12/21 05/12/21 Range/Units 07:22 07:22 09:04 WBC (3.8-10.6) k/uL Neutrophils # (1.3-7.7) k/uL Lymphocytes # (1.0-4.8) k/uL VBG pH 7.43 H (7.31-7.41) VBG pCO2 20 L (37-51) mmHg VBG HCO3 13 L (24-28) mmol/L Chloride (98-107) mmol/L Carbon Dioxide (22-30) mmol/L Glucose (74-99) mg/dL Plasma Lactic Acid Eugene 11.6 H* 2.2 H* (0.7-2.0) mmol/L Calcium (8.4-10.2) mg/dL Total Bilirubin (0.2-1.3) mg/dL AST (17-59) U/L ALT (4-49) U/L Alkaline Phosphatase (38-126) U/L Total Protein (6.3-8.2) g/dL Albumin (3.5-5.0) g/dL Amylase (30-110) U/L Lipase (23-300) U/L Urine Protein (Negative) Urine Ketones (Negative) Hyaline Casts (0-2) /lpf Urine Mucus (None) /hpf
[2021-05-12] MEDS: HYDROmorphone 1 MG/ML 1 ML SYRINGE IVP PRN ×5 (11:43→23:28)
[2021-05-12] MEDS: LORazepam 2 MG/ML INJ IV PRN ×4 (11:44→19:49)
[2021-05-12] MEDS: SODIUM CHLORIDE 0.9% 1,000 ML IV SCH ×2 (12:05→16:31)
[2021-05-12] MEDS: THIAMINE 100 MG TAB PO SCH (16:31)
[2021-05-12] MEDS: HEPARIN SODIUM,PORCINE/PF 5,000 UNIT/0.5 ML SYRINGE SQ SCH (19:49)
[2021-05-12] MEDS: PANTOPRAZOLE 40 MG/10 ML VIAL IVP SCH (19:49)
[2021-05-12 23:53] VITALS: RESP 18
[2021-05-13] MEDS: LORazepam 2 MG/ML INJ IV PRN ×2 (00:57→04:04)
[2021-05-13] MEDS: SODIUM CHLORIDE 0.9% 1,000 ML IV SCH ×3 (02:55→08:16)
[2021-05-13] MEDS: HYDROmorphone 1 MG/ML 1 ML SYRINGE IVP PRN ×3 (02:59→08:51)
[2021-05-13] MEDS: THIAMINE 100 MG TAB PO SCH (06:08)
[2021-05-13 07:22] LABS: HCT 45.7 % (39.0-53.0); HGB 15.5 gm/dL (13.0-17.5); MCH 33.6 pg (25.0-35.0); MCHC 33.9 g/dL (31.0-37.0); MCV 99.2 fL (80.0-100.0); Mean Platelet Volume 7.8; Platelet Count 165 k/uL (150-450); RDW 12.9 % (11.5-15.5); WBC 6.8 k/uL (3.8-10.6)
[2021-05-13 07:39] LABS: ALT 84 U/L (4-49); AST 102 U/L (17-59); African American GFR (CKD) >90 (>60 ml/min/1.73 sqM); Albumin 4.5 g/dL (3.5-5.0); Alkaline Phosphatase 93 U/L (38-126); Anion Gap 14 mmol/L; Blood Urea Nitrogen 8 mg/dL (9-20); Calcium 9.4 mg/dL (8.4-10.2); Carbon Dioxide 24 mmol/L (22-30); Chloride 98 mmol/L (98-107); Glucose 92 mg/dL (74-99); Non-African American GFR(CKD) >90 (>60 ml/min/1.73 sqM); Potassium 3.8 mmol/L (3.5-5.1); Sodium 136 mmol/L (137-145); Total Bilirubin 1.8 mg/dL (0.2-1.3); Total Protein 7.1 g/dL (6.3-8.2)
[2021-05-13] MEDS: PANTOPRAZOLE 40 MG/10 ML VIAL IVP SCH (08:14)
[2021-05-13] MEDS: HEPARIN SODIUM,PORCINE/PF 5,000 UNIT/0.5 ML SYRINGE SQ SCH (08:15)
[2021-05-13] MEDS ORDERED: LORazepam 1 MG TAB PO PRN ×2 (11:24→11:25)
[2021-05-13 11:43] VITALS: BP 165/106; PULSE 90; TEMP 98.2
--- NOTE | 2021-05-13 13:19 | P.DS ---
Providers Date of admission: 05/12/21 09:52 Attending physician: Royer Huynh Primary care physician: [facility] Course: 36-year-old male came in with compensative epigastric abdominal pain she was sharp in nature along with the multiple episodes of nausea vomiting patient admits to drinking heavily and was drinking whiskey yesterday. When questioned patient admits to drinking alcohol a day patient is presently having some withdrawals and patient is on Ativan CIWA protocol. Patient is also found to be in severe acidosis and patient has highly elevated lactic acid and severe anion gap metabolic acidosis secondary to lactic acidosis and starvation ketosis. Patient denied any seizure. Lactic acid on admission was 11.6 patient is severely dehydrated as well. Patient has elevated liver enzymes. Mildly elevated amylase and lipase 05/13/2021 Patient's metabolic acidosis resolved and patient nausea vomiting improved patient will be started on regular rate and please can tolerate regular diet patient will be discharged today and Protonix weaning dose of Librium patient is not requiring much of Ativan for alcohol withdrawal. Patient's abdomen is soft. Patient's serum sodium improved. Social work was consulted will provide re sources for alcohol cessation after which patient will be discharged. Patient represented with elevated secondary to alcohol withdrawal and expected to improve PHYSICAL EXAMINATION: GENERAL: The patient is alert and oriented x3, not in any acute distress. Well developed, well nourished. Patient is shaking and tremulous HEENT: Pupils are round and equally reacting to light. EOMI. No scleral icterus. No conjunctival pallor. Normocephalic, atraumatic. No pharyngeal erythema. No thyromegaly. CARDIOVASCULAR: S1 and S2 present. No murmurs, rubs, or gallops. PULMONARY: Chest is clear to auscultation, no wheezing or crackles. ABDOMEN: Mild epigastric abdominal tenderness nondistended, normoactive bowel sounds. No palpable organomegaly. MUSCULOSKELETAL: No joint swelling or deformity. EXTREMITIES: No cyanosis, clubbing, or pedal edema. NEUROLOGICAL: Gross neurological examination did not reveal any focal deficits. SKIN: No rashes. Assessment and plan -Severe abdominal pain: Secondary alcoholic gastritis and nausea vomiting secondary to alcoholic gastritis improved on Protonix will be discharged on Protonix twice a day for 15 days -Acute alcoholic hepatitis: Improving -Severe anion gap metabolic acidosis secondary to starvation ketosis and lactic acidosis significant improvement with aggressive hydration -Severe dehydration: Resolved -Nonspecific elevation of amylase and lipase clinically patient doesn't appear to have any an pancreatitis -Leukocytosis reactive without any source or evidence of infection at this time and this is secondary to nausea vomiting. Improved -Hypercalcemia is secondary to dehydration improved with aggressive hydration -Alcohol withdrawal Patient Condition at Discharge: Stable Plan - Discharge Summary Discharge Rx Participant: No New Discharge Prescriptions: New Thiamine [Vitamin B-1] 100 mg PO AC-BRKFST #30 tab chlordiazePOXIDE HCl [Librium] 25 mg PO TID 3 Days #10 capsule Pantoprazole [Protonix] 40 mg PO BID #30 tab Discharge Medication List Pantoprazole [Protonix] 40 mg PO BID #30 tab 05/13/21 [Rx] Thiamine [Vitamin B-1] 100 mg PO AC-BRKFST #30 tab 05/13/21 [Rx] chlordiazePOXIDE HCl [Librium] 25 mg PO TID 3 Days #10 capsule 05/13/21 [Rx] Follow up Appointment(s)/Referral(s): Merry Colunga MD [Primary Care Provider] - 3 Days (call to make appointment due to multiple no shows) Patient Instructions/Handouts: Abuse of Alcohol (DC), Alcohol Withdrawal (DC) Discharge Disposition: HOME SELF-CARE
[2021-05-13] MEDS ORDERED: PANTOPRAZOLE 40 MG TABLET PO SCH (21:00)
== END 2021-05-13 12:52 | disposition home or self-care (01) | DRG 392 ==
LOC: EC 06:56 → 3SCARD 09:52
PROVIDERS: ADMIT Internal Medicine; ATTEND Internal Medicine
PROC: HZ2ZZZZ Detoxification Services for Substance Abuse Treatment (ICD-10-PCS; principal; 2021-05-12)
DX: K29.20 Alcoholic gastritis without bleeding (principal); E87.2 Acidosis; F10.239 Alcohol dependence with withdrawal, unspecified; E88.89 Other specified metabolic disorders; Z71.41 Alcohol abuse counseling and surveillance of alcoholic; R00.0 Tachycardia, unspecified; K70.10 Alcoholic hepatitis without ascites; R74.8 Abnormal levels of other serum enzymes; E86.0 Dehydration; D72.829 Elevated white blood cell count, unspecified; Z20.822 Contact with and (suspected) exposure to COVID-19; E83.52 Hypercalcemia; Z87.19 Personal history of other diseases of the digestive system; Z90.49 Acquired absence of other specified parts of digestive tract
CPT/HCPCS: 36415; 74018; 74177; 80053; 81001; 82150; 82803; 83036; 83605; 83690; 83735; 85025; 85027; 87635; 93005; 96361; 96374; 96375; 96376; 99285

== ENCOUNTER 2021-06-08 19:32 | Inpatient (IN) | payer OTHER ==
[2021-06-08] MEDS ORDERED: SODIUM CHLORIDE 0.9% 2,000 ML IV STA (21:25)
[2021-06-08 22:04] LABS: Basophils # (A) 0.1 k/uL (0-0.2); Basophils % (A) 1 %; Eosinophils % (A) 0 %; HCT 52.7 % (39.0-53.0); Lymphocytes # (A) 1.1 k/uL (1.0-4.8); Lymphocytes % (A) 6 %; MCH 33.6 pg (25.0-35.0); MCHC 35.1 g/dL (31.0-37.0); MCV 95.8 fL (80.0-100.0); Monocytes # (A) 0.6 k/uL (0-1.0); Monocytes % (A) 4 %; Neutrophils # (A) 15.5 k/uL (1.3-7.7); Neutrophils % (A) 89 %; Platelet Count 302 k/uL (150-450); RDW 12.4 % (11.5-15.5); WBC 17.4 k/uL (3.8-10.6)
[2021-06-08] MEDS ORDERED: PANTOPRAZOLE 40 MG/10 ML VIAL IVP ONE (22:11)
[2021-06-08] MEDS ORDERED: HYDROmorphone 1 MG/ML 1 ML SYRINGE IVP STA ×2 (22:11→23:35)
[2021-06-08 22:16] LABS: HGB 18.5 gm/dL (13.0-17.5)
[2021-06-08 22:17] LABS: ALT 108 U/L (4-49); AST 237 U/L (17-59); African American GFR (CKD) 66 (>60 ml/min/1.73 sqM); Alcohol 19 mg/dL; Alkaline Phosphatase 186 U/L (38-126); Blood Urea Nitrogen 16 mg/dL (9-20); Calcium 10.1 mg/dL (8.4-10.2); Chloride 90 mmol/L (98-107); Glucose 119 mg/dL (74-99); LDH 767 U/L (313-618); Lipase 224 U/L (23-300); Non-African American GFR(CKD) 57 (>60 ml/min/1.73 sqM); Potassium 5.2 mmol/L (3.5-5.1); Sodium 137 mmol/L (137-145); Total Bilirubin 2.1 mg/dL (0.2-1.3); Total Protein 10.1 g/dL (6.3-8.2)
[2021-06-08] MEDS ORDERED: ONDANSETRON 4 MG/2 ML VIAL IVP STA (22:24)
[2021-06-08 22:45] LABS: Carbon Dioxide <5 mmol/L (22-30)
[2021-06-08 22:51] LABS: Albumin 6.6 g/dL (3.5-5.0)
--- NOTE | 2021-06-08 23:09 | ED ---
General Adult HPI - General Chief complaint: Nausea/Vomiting/Diarrhea Stated complaint: Throwing up, SOB, Stomach pain Source: patient Mode of arrival: ambulatory Limitations: no limitations - History of Present Illness Initial comments: 35-year-old male with past mental history of alcohol abuse presents to the emergency department ported nausea, vomiting and epigastric abdominal pain. Patient has been seen any times in our emergency department and admitted to the hospital for similar complaint. He has been diagnosed with pancreatitis and alcoholic gastritis. He reports that he continues to drink however less frequently. Patient does admit to drinking a pint yesterday of whiskey. He began having intractable nausea and vomiting today. He has not been able to hold down any food or drink. He denies fevers. No sick contacts. He denies diarrhea. No black or bloody stools. No other alleviating, precipitating or modifying factors - Related Data Home Medications Medication Instructions Recorded Confirmed No Known Home Medications 06/08/21 06/08/21 Allergies Allergy/AdvReac Type Severity Reaction Status Date / Time No Known Allergies Allergy Verified 06/08/21 23:39 Review of Systems ROS Statement: Those systems with pertinent positive or pertinent negative responses have been documented in the HPI. ROS Other: All systems not noted in ROS Statement are negative. Past Medical History Past Medical History: No Reported History Additional Past Medical History / Comment(s): pancreatitis and gastritis History of Any Multi-Drug Resistant Organisms: None Reported Past Surgical History: Cholecystectomy, Hernia Repair, Orthopedic Surgery Additional Past Surgical History / Comment(s): 2019 EGD/colonoscopy, r inguinal hernia repair, R wrist surgery for abscess, L wrist surgery for tendon repair, Past Anesthesia/Blood Transfusion Reactions: No Reported Reaction Past Psychological History: No Psychological Hx Reported Smoking Status: Never smoker Past Alcohol Use History: Occasional Past Drug Use History: None Reported - Past Family History Father Family Medical History: No Reported History Mother Family Medical History: No Reported History General Exam Limitations: no limitations Course Vital Signs 06/08/21 06/08/21 06/08/21 19:37 21:41 23:00 Temperature 98.4 F Pulse Rate 141 H 138 H 126 H Respiratory 20 16 16 Rate Blood Pressure 138/96 146/105 151/93 O2 Sat by Pulse 100 100 95 Oximetry EKG Findings - EKG Comments: EKG Findings:: EKG demonstrates a sinus tachycardia with a ventricular rate of 138. IA interval 140. QRS 80. QTC of 439. Some peaked T waves in V2 and V3. No acute ST segment elevations. Mild ST depression in all leads likely rate dependant Medical Decision Making - Medical Decision Making On arrival patient is placed in room 10. A thorough history and physical exam was performed. IV is established the patient was given a 2 L bolus of normal saline followed by 200 mL her hour. Patient given nausea and pain medications. Lab are conducted which demonstrated white count of 17.4. Patient does have a CO2 less than 5 with a lactic acid of 9.5. Alcohol is 19. ABG is obtained due to low CO2. PH 7.25 with a CO2 of 11. The patient does have improvement in his heart rate pain and nausea. Patient will require admission to the hospital for alcoholic ketosis and gastritis. He was given 80 mg of Protonix. Patient agreed to admission. Called and spoke with Dr. Hawk who agreed to admit the patient. He is currently awaiting a bed on the floor - Lab Data Result diagrams: 06/08/21 21:46 06/08/21 21:46 Lab Results 06/08/21 06/08/21 06/08/21 Range/Units 21:46 21:46 21:46 WBC 17.4 H (3.8-10.6) k/uL RBC 5.50 (4.30-5.90) m/uL Hgb 18.5 H D (13.0-17.5) gm/dL Hct 52.7 (39.0-53.0) % MCV 95.8 (80.0-100.0) fL MCH 33.6 (25.0-35.0) pg MCHC 35.1 (31.0-37.0) g/dL RDW 12.4 (11.5-15.5) % Plt Count 302 (150-450) k/uL MPV 8.0 Neutrophils % 89 % Lymphocytes % 6 % Monocytes % 4 % Eosinophils % 0 % Basophils % 1 % Neutrophils # 15.5 H (1.3-7.7) k/uL Lymphocytes # 1.1 (1.0-4.8) k/uL Monocytes # 0.6 (0-1.0) k/uL Eosinophils # 0.0 (0-0.7) k/uL Basophils # 0.1 (0-0.2) k/uL Sample Site ABG pH (7.35-7.45) ABG pCO2 (35-45) mmHg ABG pO2 (83-108) mmHg ABG HCO3 (21-25) mmol/L ABG Total CO2 (19-24) mmol/L ABG O2 Saturation (94-97) % ABG Base Excess mmol/L Robin Test FiO2 % Sodium 137 (137-145) mmol/L Potassium 5.2 H (3.5-5.1) mmol/L Chloride 90 L (98-107) mmol/L Carbon Dioxide <5 L* (22-30) mmol/L Anion Gap [employer] BUN 16 (9-20) mg/dL Creatinine 1.55 H (0.66-1.25) mg/dL Est GFR (CKD-EPI)AfAm 66 (>60 ml/min/1.73 sqM) Est GFR (CKD-EPI)NonAf 57 (>60 ml/min/1.73 sqM) Glucose 119 H (74-99) mg/dL Lactic Ac Sepsis Rflx Plasma Lactic Acid Eugene 9.5 H* (0.7-2.0) mmol/L Calcium 10.1 (8.4-10.2) mg/dL Total Bilirubin 2.1 H (0.2-1.3) mg/dL AST 237 H (17-59) U/L ALT 108 H (4-49) U/L Alkaline Phosphatase 186 H (38-126) U/L Lactate Dehydrogenase 767 H (313-618) U/L Total Protein 10.1 H (6.3-8.2) g/dL Albumin 6.6 H (3.5-5.0) g/dL Lipase 224 (23-300) U/L Serum Alcohol 19 mg/dL 06/08/21 06/08/21 Range/Units 22:20 23:38 WBC (3.8-10.6) k/uL RBC (4.30-5.90) m/uL Hgb (13.0-17.5) gm/dL Hct (39.0-53.0) % MCV (80.0-100.0) fL MCH (25.0-35.0) pg MCHC (31.0-37.0) g/dL RDW (11.5-15.5) % Plt Count (150-450) k/uL MPV Neutrophils % % Lymphocytes % % Monocytes % % Eosinophils % % Basophils % % Neutrophils # (1.3-7.7) k/uL Lymphocytes # (1.0-4.8) k/uL Monocytes # (0-1.0) k/uL Eosinophils # (0-0.7) k/uL Basophils # (0-0.2) k/uL Sample Site Right Radial ABG pH 7.25 L (7.35-7.45) ABG pCO2 24 L (35-45) mmHg ABG pO2 97 (83-108) mmHg ABG HCO3 11 L (21-25) mmol/L ABG Total CO2 11 L (19-24) mmol/L ABG O2 Saturation 96.9 (94-97) % ABG Base Excess -16.6 mmol/L Robin Test Yes FiO2 21 % Sodium (137-145) mmol/L Potassium (3.5-5.1) mmol/L Chloride (98-107) mmol/L Carbon Dioxide (22-30) mmol/L Anion Gap BUN (9-20) mg/dL Creatinine (0.66-1.25) mg/dL Est GFR (CKD-EPI)AfAm (>60 ml/min/1.73 sqM) Est GFR (CKD-EPI)NonAf (>60 ml/min/1.73 sqM) Glucose (74-99) mg/dL Lactic Ac Sepsis Rflx Y Plasma Lactic Acid Eugene (0.7-2.0) mmol/L Calcium (8.4-10.2) mg/dL Total Bilirubin (0.2-1.3) mg/dL AST (17-59) U/L ALT (4-49) U/L Alkaline Phosphatase (38-126) U/L Lactate Dehydrogenase (313-618) U/L Total Protein (6.3-8.2) g/dL Albumin (3.5-5.0) g/dL Lipase (23-300) U/L Serum Alcohol mg/dL Disposition Clinical Impression: Dehydration, Lactic acidosis, Chronic alcohol dependence, continuous, Alcoholic hepatitis, Abdominal pain, Vomiting, Alcoholic ketoacidosis Disposition: ADMITTED IP TO THIS [facility] Condition: Serious Is patient prescribed a controlled substance at d/c from ED?: No Decision to Admit Reason: Admit from EC Decision Date: 06/09/21 Decision Time: 00:06
[2021-06-08] MEDS ORDERED: diphenhydrAMINE 50 MG/ML 1 ML VIAL IVP STA (23:35)
[2021-06-08] MEDS ORDERED: METOCLOPRAMIDE 5 MG/ML 2 ML VIAL IVP STA (23:35)
[2021-06-08 23:41] LABS: ABG Base Excess -16.6 mmol/L; ABG HCO3 11 mmol/L (21-25); ABG Oxygen Saturation 96.9 % (94-97); ABG PCO2 24 mmHg (35-45); ABG PH 7.25 (7.35-7.45); ABG PO2 97 mmHg (83-108); ABG TCO2 11 mmol/L (19-24); Allen Test Performed? Yes
[2021-06-09] MEDS ORDERED: NALOXONE 0.4 MG/ML 1 ML VIAL IV PRN (00:06)
[2021-06-09] MEDS ORDERED: LORazepam 2 MG/ML INJ IV PRN ×2 (00:06)
[2021-06-09] MEDS ORDERED: THIAMINE 100 MG/ML 2 ML VIAL IM STA (00:06)
[2021-06-09] MEDS ORDERED: MAGNESIUM SULFATE-D5W PMX 1 GM in DEXTROSE/WATER 1 100ML.BAG IVPB ONE (00:08)
[2021-06-09 01:02] LABS: Appearance,Urine Clear (Clear); Bacteria,Urine Rare /hpf; Bilirubin,Urine Negative (Negative); Blood,Urine Negative (Negative); Color,Urine Yellow; Glucose,Urine (UA) Negative (Negative); Hyaline Casts,Urine 142 /lpf (0-2); Ketones,Urine 4+ (Negative); Leukocyte Esterase,Urine Negative (Negative); Mucus,Urine Rare /hpf; Nitrite,Urine Negative (Negative); PH, Urine 5.5 (5.0-8.0); Protein,Urine 1+ (Negative); RBC,Urine 1 /hpf (0-5); Specific Gravity,Urine 1.019 (1.001-1.035); Squamous Epithelial Cell,Urine 1 /hpf (0-4); Urobilinogen,Urine <2.0 mg/dL (<2.0); WBC,Urine 1 /hpf (0-5)
[2021-06-09] MEDS: SODIUM CHLORIDE 0.9% 1,000 ML IV SCH ×4 (01:02→19:51)
[2021-06-09] MEDS: LORazepam 2 MG/ML INJ IV PRN ×2 (01:14→18:36)
[2021-06-09] MEDS: HYDROmorphone 1 MG/ML 1 ML SYRINGE IVP PRN ×7 (03:51→23:01)
[2021-06-09] MEDS: ONDANSETRON 4 MG/2 ML VIAL IVP PRN ×2 (05:55→16:32)
[2021-06-09] MEDS: PANTOPRAZOLE 40 MG/10 ML VIAL IV SCH (08:40)
--- NOTE | 2021-06-09 08:58 | P.HPIM ---
History of Present Illness This is a pleasant 55 years old male with past medical history of chronic pancreatitis, gastritis, status post 2019 EGD/colonoscopy, history of alcohol abuse and alcohol withdrawal Patient presents with epigastric abdominal pain and continuous vomiting for about one days. Patient describes the pain in the epigastric area, nonradiating, sharp to nonspecific severe. Also patient complains there was some blood in his vomitus. Patient has been a persistent from drinking alcohol for about a month however 2 days ago he started taking again about a pint of liquor. He has not been eating for the last 2 days. He denies smoking or illicit drugs. He denies depression or suicidal ideation. No urinary complaints. No dysuria or urgency or change in frequency. On admission patient is tachycardic with heart rate up to 124, rest of vitals are stable and he is afebrile. Labs showing increased WBC 17.4 Kristen hemoglobin 18.5. PH 7.25, pCO2 is 24 and normal pO2 is 97 Sodium 137, potassium 5.2, carbon dioxide is extremely low less than 5. Creatinine elevated to 1.5, with baseline of 0.5-0.9 Elevated lactic acid 9.5 came back to normal at 1.5. Elevated liver enzymes AST 237 and ALT 108 Still lactate dehydrogenase elevated 767 and lipase normal at 224. Urine analysis showing 4+ ketone Serum alcohol level elevated at 19. Coronavirus nondetected. EKG showing sinus tachycardia at 138. He received 2 L of normal saline in the emergency room Also patient was started on Dilaudid Review of Systems CONSTITUTIONAL: No fever, no malaise, no fatigue. HEENT: No recent visual problems or hearing problems. Denied any sore throat. CARDIOVASCULAR: No orthopnea, PND, no palpitations, no syncope. PULMONARY: No shortness of breath, no cough, no hemoptysis. GASTROINTESTINAL: No diarrhea, Normoactive bowel sounds. NEUROLOGICAL: No headaches, no weakness, no numbness. HEMATOLOGICAL: Denies any bleeding or petechiae. GENITOURINARY: Denies any burning micturition, frequency, or urgency. MUSCULOSKELETAL/RHEUMATOLOGICAL: Denies any joint pain, swelling, or any muscle pain. ENDOCRINE: Denies any polyuria or polydipsia. Past Medical History Past Medical History: No Reported History Additional Past Medical History / Comment(s): pancreatitis and gastritis History of Any Multi-Drug Resistant Organisms: None Reported Past Surgical History: Cholecystectomy, Hernia Repair, Orthopedic Surgery Additional Past Surgical History / Comment(s): 2019 EGD/colonoscopy, r inguinal hernia repair, R wrist surgery for abscess, L wrist surgery for tendon repair, Past Anesthesia/Blood Transfusion Reactions: No Reported Reaction Past Psychological History: No Psychological Hx Reported Smoking Status: Never smoker Past Alcohol Use History: Occasional Past Drug Use History: None Reported - Past Family History Father Family Medical History: No Reported History Mother Family Medical History: No Reported History Medications and Allergies Home Medications Medication Instructions Recorded Confirmed Type No Known Home Medications 06/08/21 06/08/21 History Allergies Allergy/AdvReac Type Severity Reaction Status Date / Time No Known Allergies Allergy Verified 06/08/21 23:39 Physical Exam Vitals: Vital Signs Temp Pulse Resp BP Pulse Ox 06/09/21 05:44 98.6 F 124 H 16 132/89 96 06/09/21 03:59 125 H 16 140/72 97 06/09/21 01:00 116 H 16 142/77 98 06/08/21 23:00 126 H 16 151/93 95 06/08/21 21:41 138 H 16 146/105 100 06/08/21 19:37 98.4 F 141 H 20 138/96 100 Intake and Output 06/08/21 06/09/21 06/09/21 22:59 06:59 14:59 Other: Weight 81.647 kg GENERAL: The patient is alert and oriented x3, not in any acute distress. Well developed, well nourished. HEENT: Pupils are round and equally reacting to light. EOMI. No scleral icterus. No conjunctival pallor. Normocephalic, atraumatic. No pharyngeal erythema. No thyromegaly. CARDIOVASCULAR: S1 and S2 present. No murmurs, rubs, or gallops. PULMONARY: Chest is clear to auscultation, no wheezing or crackles. -ABDOMEN: Soft, epigastric tenderness with no rebound tenderness, nondistended, normoactive bowel sounds. No palpable organomegaly. MUSCULOSKELETAL: No joint swelling or deformity. EXTREMITIES: No cyanosis, clubbing, or pedal edema. NEUROLOGICAL: Gross neurological examination did not reveal any focal deficits. SKIN: No rashes. No petechiae Results CBC & Chem 7: 06/08/21 21:46 06/08/21 21:46 Labs: Abnormal Lab Results - Last 24 Hours (Table) 06/08/21 06/08/21 06/08/21 Range/Units 21:46 21:46 21:46 WBC 17.4 H (3.8-10.6) k/uL Hgb 18.5 H D (13.0-17.5) gm/dL Neutrophils # 15.5 H (1.3-7.7) k/uL ABG pH (7.35-7.45) ABG pCO2 (35-45) mmHg ABG HCO3 (21-25) mmol/L ABG Total CO2 (19-24) mmol/L Potassium 5.2 H (3.5-5.1) mmol/L Chloride 90 L (98-107) mmol/L Carbon Dioxide <5 L* (22-30) mmol/L Creatinine 1.55 H (0.66-1.25) mg/dL Glucose 119 H (74-99) mg/dL Plasma Lactic Acid Eugene 9.5 H* (0.7-2.0) mmol/L Magnesium (1.6-2.3) mg/dL Total Bilirubin 2.1 H (0.2-1.3) mg/dL AST 237 H (17-59) U/L ALT 108 H (4-49) U/L Alkaline Phosphatase 186 H (38-126) U/L Lactate Dehydrogenase 767 H (313-618) U/L Total Protein 10.1 H (6.3-8.2) g/dL Albumin 6.6 H (3.5-5.0) g/dL Urine Protein (Negative) Urine Ketones (Negative) Urine Bacteria (None) /hpf Hyaline Casts (0-2) /lpf Urine Mucus (None) /hpf 06/08/21 06/09/21 06/09/21 Range/Units 23:38 00:03 02:51 WBC (3.8-10.6) k/uL Hgb (13.0-17.5) gm/dL Neutrophils # (1.3-7.7) k/uL ABG pH 7.25 L (7.35-7.45) ABG pCO2 24 L (35-45) mmHg ABG HCO3 11 L (21-25) mmol/L ABG Total CO2 11 L (19-24) mmol/L Potassium (3.5-5.1) mmol/L Chloride (98-107) mmol/L Carbon Dioxide (22-30) mmol/L Creatinine (0.66-1.25) mg/dL Glucose (74-99) mg/dL Plasma Lactic Acid Eugene (0.7-2.0) mmol/L Magnesium 3.1 H (1.6-2.3) mg/dL Total Bilirubin (0.2-1.3) mg/dL AST (17-59) U/L ALT (4-49) U/L Alkaline Phosphatase (38-126) U/L Lactate Dehydrogenase (313-618) U/L Total Protein (6.3-8.2) g/dL Albumin (3.5-5.0) g/dL Urine Protein 1+ H (Negative) Urine Ketones 4+ H (Negative) Urine Bacteria Rare H (None) /hpf Hyaline Casts 142 H (0-2) /lpf Urine Mucus Rare H (None) /hpf Assessment and Plan Assessment: Acute epigastric pain with recurrent bloody vomiting Acute kidney injury Metabolic acidosis mostly secondary to above chronic pancreatitis Alcohol abuse at-risk of alcohol withdrawal Most likely alcoholic hepatitis, with history of the same with AST of more than ALT History of gastritis Plan: This is a pleasant 35 years old male who presents with alcohol abuse,/withdrawal, acute kidney injury and metabolic acidosis Continue with normal saline 100 mL per hour. Protonix Surgical team consult Check KUB Continue with CIWA protocol and thiamine Labs and medication were reviewed.. Continue same treatment. Continue with symptomatic treatment. Resume home medication. Monitor lytes and vitals. DVT and GI prophylaxis. Further recommendations depends on the clinical course of the patient DVT prophylaxis: no Subcutaneous heparin for possible GI bleed GI Prophylaxis: Ppi Prognosis is guarded
[2021-06-09 09:38] LABS: Albumin 4.7 g/dL (3.5-5.0); Bilirubin, Delta 0.5 mg/dL (0.0-0.2); Bilirubin,Unconjugated 1.1 mg/dL (0.0-1.1); Total Bilirubin 1.6 mg/dL (0.2-1.3); Total Protein 7.6 g/dL (6.3-8.2)
--- NOTE | 2021-06-09 10:35 | XR ---
EXAMINATION TYPE: XR KUB DATE OF EXAM: 06/09/2021 9:06 AM CLINICAL HISTORY: Epigastric tenderness. TECHNIQUE: Two Upright KUB images of the abdomen are obtained. COMPARISON: CT abdomen and pelvis May 12 FINDINGS: Scattered gas is seen in non-distended small bowel loops. Scattered gas seen in nondistende d colon along the periphery. Overlying EKG leads. Cholecystectomy clips redemonstrated. No free air. No suspicious calcifications. Visualized osseous structures intact. Visualized lung bases are clear. IMPRESSION: Overall nonobstructive bowel gas pattern redemonstrated.
[2021-06-09 18:25] LABS: Glucose,Whole Blood 153 mg/dL (75-99)
[2021-06-09] MEDS: THIAMINE 100 MG TAB PO SCH (18:25)
--- NOTE | 2021-06-09 18:32 | P.GSCN ---
History of Present Illness Consult date: 06/09/21 History of present illness: CHIEF COMPLAINT: Epigastric abdominal pain. HISTORY OF PRESENT ILLNESS: The patient is a 35 year old male who comes in with moderately severe epigastric abdominal pain including intractable nausea vomiting. His pain has been present for more than 2 days. Last bowel movement [place] 4 days ago. No blood in stools. He has personal history of pancreatitis. He presented to the emergency room 1 month ago with similar complaints. Reports his pain is worse today. He has been able to tolerate clears. General surgery is consulted for his worsening epigastric abdominal pain. PAST MEDICAL HISTORY: See list and reviewed PAST SURGICAL HISTORY: See list and reviewed MEDICATIONS: See list and reviewed ALLERGIES: See list and reviewed SOCIAL HISTORY: See list and reviewed FAMILY HISTORY: See list and reviewed REVIEW OF ORGAN SYSTEMS: CONSTITUTIONAL: No fevers or chills. No recent weight loss. EYES: Denies any trouble with vision. No glasses. HEENT: No difficulties with hearing. No nosebleeds. No difficulty swallowing. RESPIRATORY: Denies pneumonia. Denies any troubles with breathing or dyspnea on exertion. CARDIOVASCULAR: Denies any chest pain, palpitations, or recent heart attacks. GASTROINTESTINAL: History of pancreatitis. Has alcohol abuse disorder. GENITOURINARY: Denies any blood in urine or increased urinary frequency. NEUROLOGICAL: Denies any numbness or tingling along the distal extremities. No seizure disorders or headaches. MUSCULOSKELETAL: Has back pain, stiffness or joint arthritis. SKIN: No current skin cancer. No rash. PSYCHIATRIC: Denies current depression or suicidal thoughts. ENDOCRINE: Denies current thyroid disorders. Denies any blood sugar glucose intolerance. HEME/LYMPHATIC: Denies any lumps and bumps around the neck. No recent deep venous thrombosis. ALLERGY/IMMUNOLOGY: No immunoglobulin therapy. No immune deficiencies. BREAST: Denies current breast lumps, pain or nipple discharge. PHYSICAL EXAM: VITALS: Reviewed CONSTITUTIONAL: Well developed and in no acute distress. EYES: Conjuctivae without sclera icterus. Extraocular movements grossly intact. HEAD, EARS, NOSE, THROAT: Moist buccal mucosa. Head is atraumatic, normocephalic. Hears conversational speech. No nasal drainage. NECK: Supple. No JV distention. No thyroidomegaly. RESPIRATORY: Non-labored respirations and equal bilateral excursions. No gross wheezes. CARDIOVASCULAR: 2+ radial pulses. ABDOMEN: No peritonitis. Tender epigastrium. LYMPH: No growth neck lymphadenopathy. MUSCULOSKELETAL: Nail and fingers with good capillary refill. SKIN: Warm and well perfused with good skin turgor. NEUROLOGIC: Cranial nerves II through XII grossly intact. No focal or lateralizing signs. PSYCH: Flat affect. Alert and oriented to person, place and time. Displays appropriate insight. CLINCAL LABS: Reviewed. WBC elevated over 21,000. LFTs elevated. Lactic acidosis greater than 9.0 now normal. IMAGING: Independently reviewed abdominal x-ray without free air. CT of the abdomen pelvis and the peritoneal reviewed from 1 month ago demonstrates cholecystectomy clips. No ascites. No free air. No bowel obstruction. This is my independent interpretation. RADIOLOGY: Report reviewed with nonobstructive bowel gas pattern. CT of the abdomen and pelvis report demonstrates esophagitis. RECORDS: previous old records reviewed consistent with past pancreatitis and gastritis. ASSESSMENT: 1. Epigastric abdominal pain. 2. Acute on chronic abdominal pain. 3. Lactic acidosis. 4. Abnormal computed tomography scan for esophagitis PLAN: 1. With his persistent symptoms and history of gastritis and esophagitis, will proceed with upper endoscopy. 2. May have clear liquids. Thank you for this kind consultation. Past Medical History Past Medical History: No Reported History Additional Past Medical History / Comment(s): pancreatitis and gastritis History of Any Multi-Drug Resistant Organisms: None Reported Past Surgical History: Cholecystectomy, Hernia Repair, Orthopedic Surgery Additional Past Surgical History / Comment(s): 2019 EGD/colonoscopy, r inguinal hernia repair, R wrist surgery for abscess, L wrist surgery for tendon repair, Past Anesthesia/Blood Transfusion Reactions: No Reported Reaction Past Psychological History: No Psychological Hx Reported Smoking Status: Never smoker Past Alcohol Use History: Occasional Past Drug Use History: None Reported - Past Family History Father Family Medical History: No Reported History Mother Family Medical History: No Reported History Medications and Allergies Home Medications Medication Instructions Recorded Confirmed Type No Known Home Medications 06/08/21 06/08/21 History Allergies Allergy/AdvReac Type Severity Reaction Status Date / Time No Known Allergies Allergy Verified 06/08/21 23:39 Surgical - Exam Vital Signs Temp Pulse Resp BP Pulse Ox 98.4 F 141 H 20 138/96 100 06/08/21 19:37 06/08/21 19:37 06/08/21 19:37 06/08/21 19:37 06/08/21 19:37 Results - Labs 06/08/21 21:46 06/08/21 21:46 Abnormal Lab Results - Last 24 Hours (Table) 06/08/21 06/08/21 06/08/21 Range/Units 21:46 21:46 21:46 WBC 17.4 H (3.8-10.6) k/uL Hgb 18.5 H D (13.0-17.5) gm/dL Neutrophils # 15.5 H (1.3-7.7) k/uL ABG pH (7.35-7.45) ABG pCO2 (35-45) mmHg ABG HCO3 (21-25) mmol/L ABG Total CO2 (19-24) mmol/L Potassium 5.2 H (3.5-5.1) mmol/L Chloride 90 L (98-107) mmol/L Carbon Dioxide <5 L* (22-30) mmol/L Creatinine 1.55 H (0.66-1.25) mg/dL Glucose 119 H (74-99) mg/dL POC Glucose (mg/dL) (75-99) mg/dL Plasma Lactic Acid Eugene 9.5 H* (0.7-2.0) mmol/L Magnesium (1.6-2.3) mg/dL Total Bilirubin 2.1 H (0.2-1.3) mg/dL Delta Bilirubin (0.0-0.2) mg/dL AST 237 H (17-59) U/L ALT 108 H (4-49) U/L Alkaline Phosphatase 186 H (38-126) U/L Lactate Dehydrogenase 767 H (313-618) U/L Total Protein 10.1 H (6.3-8.2) g/dL Albumin 6.6 H (3.5-5.0) g/dL Urine Protein (Negative) Urine Ketones (Negative) Urine Bacteria (None) /hpf Hyaline Casts (0-2) /lpf Urine Mucus (None) /hpf 06/08/21 06/09/21 06/09/21 Range/Units 23:38 00:03 02:51 WBC (3.8-10.6) k/uL Hgb (13.0-17.5) gm/dL Neutrophils # (1.3-7.7) k/uL ABG pH 7.25 L (7.35-7.45) ABG pCO2 24 L (35-45) mmHg ABG HCO3 11 L (21-25) mmol/L ABG Total CO2 11 L (19-24) mmol/L Potassium (3.5-5.1) mmol/L Chloride (98-107) mmol/L Carbon Dioxide (22-30) mmol/L Creatinine (0.66-1.25) mg/dL Glucose (74-99) mg/dL POC Glucose (mg/dL) (75-99) mg/dL Plasma Lactic Acid Eugene (0.7-2.0) mmol/L Magnesium 3.1 H (1.6-2.3) mg/dL Total Bilirubin (0.2-1.3) mg/dL Delta Bilirubin (0.0-0.2) mg/dL AST (17-59) U/L ALT (4-49) U/L Alkaline Phosphatase (38-126) U/L Lactate Dehydrogenase (313-618) U/L Total Protein (6.3-8.2) g/dL Albumin (3.5-5.0) g/dL Urine Protein 1+ H (Negative) Urine Ketones 4+ H (Negative) Urine Bacteria Rare H (None) /hpf Hyaline Casts 142 H (0-2) /lpf Urine Mucus Rare H (None) /hpf 06/09/21 06/09/21 Range/Units 02:51 18:23 WBC (3.8-10.6) k/uL Hgb (13.0-17.5) gm/dL Neutrophils # (1.3-7.7) k/uL ABG pH (7.35-7.45) ABG pCO2 (35-45) mmHg ABG HCO3 (21-25) mmol/L ABG Total CO2 (19-24) mmol/L Potassium (3.5-5.1) mmol/L Chloride (98-107) mmol/L Carbon Dioxide (22-30) mmol/L Creatinine (0.66-1.25) mg/dL Glucose (74-99) mg/dL POC Glucose (mg/dL) 153 H (75-99) mg/dL Plasma Lactic Acid Eugene (0.7-2.0) mmol/L Magnesium (1.6-2.3) mg/dL Total Bilirubin 1.6 H (0.2-1.3) mg/dL Delta Bilirubin 0.5 H (0.0-0.2) mg/dL AST 158 H (17-59) U/L ALT 92 H (4-49) U/L Alkaline Phosphatase 127 H (38-126) U/L Lactate Dehydrogenase (313-618) U/L Total Protein (6.3-8.2) g/dL Albumin (3.5-5.0) g/dL Urine Protein (Negative) Urine Ketones (Negative) Urine Bacteria (None) /hpf Hyaline Casts (0-2) /lpf Urine Mucus (None) /hpf Diabetes panel 06/08/21 06/09/21 Range/Units 21:46 02:51 Sodium 137 (137-145) mmol/L Potassium 5.2 H (3.5-5.1) mmol/L Chloride 90 L (98-107) mmol/L Carbon Dioxide <5 L* (22-30) mmol/L BUN 16 (9-20) mg/dL Creatinine 1.55 H (0.66-1.25) mg/dL Glucose 119 H (74-99) mg/dL Calcium 10.1 (8.4-10.2) mg/dL AST 237 H 158 H (17-59) U/L ALT 108 H 92 H (4-49) U/L Alkaline Phosphatase 186 H 127 H (38-126) U/L Total Protein 10.1 H 7.6 (6.3-8.2) g/dL Albumin 6.6 H 4.7 (3.5-5.0) g/dL Calcium panel 06/08/21 06/09/21 Range/Units 21:46 02:51 Calcium 10.1 (8.4-10.2) mg/dL Albumin 6.6 H 4.7 (3.5-5.0) g/dL Pituitary panel 06/08/21 Range/Units 21:46 Sodium 137 (137-145) mmol/L Potassium 5.2 H (3.5-5.1) mmol/L Chloride 90 L (98-107) mmol/L Carbon Dioxide <5 L* (22-30) mmol/L BUN 16 (9-20) mg/dL Creatinine 1.55 H (0.66-1.25) mg/dL Glucose 119 H (74-99) mg/dL Calcium 10.1 (8.4-10.2) mg/dL Adrenal panel 06/08/21 06/09/21 Range/Units 21:46 02:51 Sodium 137 (137-145) mmol/L Potassium 5.2 H (3.5-5.1) mmol/L Chloride 90 L (98-107) mmol/L Carbon Dioxide <5 L* (22-30) mmol/L BUN 16 (9-20) mg/dL Creatinine 1.55 H (0.66-1.25) mg/dL Glucose 119 H (74-99) mg/dL Calcium 10.1 (8.4-10.2) mg/dL Total Bilirubin 2.1 H 1.6 H (0.2-1.3) mg/dL AST 237 H 158 H (17-59) U/L ALT 108 H 92 H (4-49) U/L Alkaline Phosphatase 186 H 127 H (38-126) U/L Total Protein 10.1 H 7.6 (6.3-8.2) g/dL Albumin 6.6 H 4.7 (3.5-5.0) g/dL Assessment and Plan (1) Epigastric abdominal pain Current Visit: Yes Status: Acute Code(s): R10.13 - EPIGASTRIC PAIN SNOMED Code(s): 00752781 (2) Esophagitis Current Visit: Yes Status: Acute Code(s): K20.90 - ESOPHAGITIS, UNSPECIFIED WITHOUT BLEEDING SNOMED Code(s): 21419988 (3) Abdominal pain Current Visit: Yes Status: Acute Code(s): R10.9 - UNSPECIFIED ABDOMINAL PAIN SNOMED Code(s): 27839888 (4) Lactic acidosis Current Visit: Yes Status: Acute Code(s): E87.2 - ACIDOSIS SNOMED Code(s): 55331985 (5) Vomiting Current Visit: Yes Status: Acute Code(s): R11.10 - VOMITING, UNSPECIFIED SNOMED Code(s): 021602416 (6) Elevated liver enzymes Current Visit: No Status: Acute Code(s): R74.8 - ABNORMAL LEVELS OF OTHER SERUM ENZYMES SNOMED Code(s): 965803656 (7) Leukocytosis Current Visit: No Status: Resolved Code(s): D72.829 - ELEVATED WHITE BLOOD CELL COUNT, UNSPECIFIED SNOMED Code(s): 655973957
[2021-06-09 19:13] LABS: Basophils % (A) 0 %; Eosinophils # (A) 0.2 k/uL (0-0.7); Eosinophils % (A) 2 %; HCT 40.4 % (39.0-53.0); Lymphocytes # (A) 0.7 k/uL (1.0-4.8); Lymphocytes % (A) 6 %; MCH 33.6 pg (25.0-35.0); MCHC 35.9 g/dL (31.0-37.0); MCV 93.8 fL (80.0-100.0); Mean Platelet Volume 8.2; Monocytes # (A) 0.5 k/uL (0-1.0); Monocytes % (A) 5 %; Neutrophils # (A) 9.3 k/uL (1.3-7.7); Neutrophils % (A) 86 %; Platelet Count 180 k/uL (150-450); RBC 4.31 m/uL (4.30-5.90); RDW 12.6 % (11.5-15.5); WBC 10.8 k/uL (3.8-10.6)
[2021-06-09 19:23] LABS: ALT 68 U/L (4-49); AST 105 U/L (17-59); African American GFR (CKD) >90 (>60 ml/min/1.73 sqM); Albumin 4.5 g/dL (3.5-5.0); Alkaline Phosphatase 112 U/L (38-126); Anion Gap 10 mmol/L; Bilirubin, Delta 0.2 mg/dL (0.0-0.2); Bilirubin,Unconjugated 1.1 mg/dL (0.0-1.1); Blood Urea Nitrogen 16 mg/dL (9-20); Calcium 8.6 mg/dL (8.4-10.2); Carbon Dioxide 21 mmol/L (22-30); Chloride 100 mmol/L (98-107); Glucose 134 mg/dL (74-99); Magnesium 2.2 mg/dL (1.6-2.3); Non-African American GFR(CKD) >90 (>60 ml/min/1.73 sqM); Potassium 3.8 mmol/L (3.5-5.1); Sodium 131 mmol/L (137-145); Total Bilirubin 1.3 mg/dL (0.2-1.3); Total Protein 7.2 g/dL (6.3-8.2)
[2021-06-09 19:28] LABS: HGB 14.5 gm/dL (13.0-17.5)
[2021-06-09 19:29] LABS: INR 0.9 (<1.2); Partial Thromboplastin Time 23.2 sec (22.0-30.0); Prothrombin Time 9.9 sec (9.0-12.0)
[2021-06-09 20:08] LABS: Glucose,Whole Blood 121 mg/dL (75-99)
[2021-06-10] MEDS: HYDROmorphone 1 MG/ML 1 ML SYRINGE IVP PRN ×2 (02:02→06:33)
[2021-06-10] MEDS: LORazepam 2 MG/ML INJ IV PRN (04:35)
[2021-06-10 05:58] LABS: Glucose,Whole Blood 105 mg/dL (75-99)
[2021-06-10] MEDS: THIAMINE 100 MG TAB PO SCH ×2 (06:32→16:54)
[2021-06-10 07:14] LABS: Basophils % (A) 0 %; Eosinophils # (A) 0.1 k/uL (0-0.7); Eosinophils % (A) 2 %; HCT 38.4 % (39.0-53.0); HGB 13.7 gm/dL (13.0-17.5); Lymphocytes # (A) 0.8 k/uL (1.0-4.8); Lymphocytes % (A) 11 %; MCH 33.6 pg (25.0-35.0); MCHC 35.7 g/dL (31.0-37.0); Monocytes # (A) 0.4 k/uL (0-1.0); Monocytes % (A) 6 %; Neutrophils # (A) 5.8 k/uL (1.3-7.7); Neutrophils % (A) 80 %; Platelet Count 150 k/uL (150-450); RBC 4.09 m/uL (4.30-5.90); RDW 12.6 % (11.5-15.5); WBC 7.3 k/uL (3.8-10.6)
[2021-06-10] MEDS ORDERED: IV FLUID CONTINUATION 1,000 ML IV ONE ×2 (07:53)
[2021-06-10] MEDS ORDERED: PROPOFOL 10 MG/ML 20 ML VIAL IV ONE (07:53)
[2021-06-10 07:55] LABS: ALT 56 U/L (4-49); AST 78 U/L (17-59); African American GFR (CKD) >90 (>60 ml/min/1.73 sqM); Albumin 4.1 g/dL (3.5-5.0); Alkaline Phosphatase 97 U/L (38-126); Anion Gap 10 mmol/L; Bilirubin, Delta 0.5 mg/dL (0.0-0.2); Bilirubin,Unconjugated 0.7 mg/dL (0.0-1.1); Blood Urea Nitrogen 11 mg/dL (9-20); Calcium 8.5 mg/dL (8.4-10.2); Carbon Dioxide 21 mmol/L (22-30); Chloride 103 mmol/L (98-107); Glucose 110 mg/dL (74-99); Magnesium 2.2 mg/dL (1.6-2.3); Non-African American GFR(CKD) >90 (>60 ml/min/1.73 sqM); Potassium 3.6 mmol/L (3.5-5.1); Sodium 134 mmol/L (137-145); Total Bilirubin 1.2 mg/dL (0.2-1.3); Total Protein 6.7 g/dL (6.3-8.2)
[2021-06-10] MEDS ORDERED: MAG HYDROX/AL HYDROX/SIMETH 30 ML, HYOSCYAMINE ELIXIR 10 ML, LIDOCAINE VISCOUS 2% 10 ML PO PRN ×3 (08:09)
--- NOTE | 2021-06-10 08:13 | P.PCN ---
Date of Procedure: 06/10/21 Description of Procedure: PREOPERATIVE DIAGNOSIS: Esophagitis Epigastric abdominal pain POSTOPERATIVE DIAGNOSIS: Esophagitis with ulcers Gastritis Duodenitis Gastric esophageal reflux disease with erosive esophagitis OPERATION: Esophagogastroduodenoscopy with biopsies along antrum, duodenum, and esophagus SURGEON: Sue Delgado MD ANESTHESIA: MAC. INDICATIONS: The patient is a 35-year-old male who presents with esophagitis per computed tomography scan including epigastric abdominal pain. Benefits and risks of the procedure were described. Informed consent was obtained. DESCRIPTION: The patient was brought into the endoscopy suite and laid in the left lateral decubitus position. An Olympus gastroscope was passed along the posterior oropharynx down to the distal esophagus where the squamocolumnar junction was encountered at 40 cm from the incisors. The stomach was entered and no bile r eflux was found. Additional findings are listed below. Biopsies with cold forceps were obtained of the antrum. The first through third portion of the duodenum was examined and remarkable for duodenitis. Retroflexion of the scope confirmed Hill grade 2 lower esophageal valve. The squamocolumnar junction demonstrated LA grade B erosive esophagitis. The stomach was desufflated. The patient tolerated the procedure well. FINDINGS: Squamocolumnar junction 40 cm from the incisors. Diaphragmatic hiatus at 40 cm. Hill grade 2 lower esophageal valve. LA grade C erosive esophagitis. Active duodenitis. Chronic gastritis RECOMMENDATIONS: 1. GI cocktail as needed for esophageal pain 2. Carafate 1 g twice a day 3. Protonix 40 mg daily
[2021-06-10] MEDS: PANTOPRAZOLE 40 MG/10 ML VIAL IV SCH ×2 (08:31→20:48)
[2021-06-10] MEDS: SODIUM CHLORIDE 0.9% 1,000 ML IV SCH ×2 (09:25→16:56)
[2021-06-10] MEDS: traMADol 50 MG TAB PO PRN ×3 (09:38→23:55)
[2021-06-10 11:18] VITALS: RESP 18
[2021-06-10 13:35] VITALS: BMI 25.6
[2021-06-10] MEDS: SUCRALFATE 1 GM TAB PO SCH (16:54)
[2021-06-11] MEDS: SODIUM CHLORIDE 0.9% 1,000 ML IV SCH ×2 (03:28→13:00)
--- NOTE | 2021-06-11 05:51 | P.PN ---
Subjective Date of service 06/10/2021 This is a pleasant 55 years old male with past medical history of chronic pancreatitis, gastritis, status post 2019 EGD/colonoscopy, history of alcohol abuse and alcohol withdrawal Patient presents with epigastric abdominal pain and continuous vomiting for about one days. Patient describes the pain in the epigastric area, nonradiating, sharp to nonspecific severe. Also patient complains there was some blood in his vomitus. Patient has been a persistent from drinking alcohol for about a month however 2 days ago he started taking again about a pint of liquor. He has not been eating for the last 2 days. He denies smoking or illicit drugs. He denies depression or suicidal ideation. No urinary complaints. No dysuria or urgency or change in frequency. On admission patient is tachycardic with heart rate up to 124, rest of vitals are stable and he is afebrile. Labs showing increased WBC 17.4 Kristen hemoglobin 18.5. PH 7.25, pCO2 is 24 and normal pO2 is 97 Sodium 137, potassium 5.2, carbon dioxide is extremely low less than 5. Creatinine elevated to 1.5, with baseline of 0.5-0.9 Elevated lactic acid 9.5 came back to normal at 1.5. Elevated liver enzymes AST 237 and ALT 108 Still lactate dehydrogenase elevated 767 and lipase normal at 224. Urine analysis showing 4+ ketone Serum alcohol level elevated at 19. Coronavirus nondetected. EKG showing sinus tachycardia at 138. He received 2 L of normal saline in the emergency room Also patient was started on Dilaudid 06/10/2021 Patient with persistent epigastric pain and recurrent vomiting. He went for EGD today showing esophagitis, gastritis. Liver enzymes only mildly elevated. Sodium improved up to 35. WBC back to 7.7. His CIWA score is about 5. Patient continued with Protonix and Carafate and GI cocktail. Continue with IV hydration. Continue with CIWA Objective - Vital Signs Vital signs: Vital Signs Temp 98.1 F 06/11/21 04:00 Pulse 80 06/11/21 04:00 Resp 18 06/11/21 04:00 BP 147/98 06/11/21 04:00 Pulse Ox 98 06/11/21 04:00 Intake & Output 06/10/21 06/10/21 06/11/21 06:59 18:59 06:59 Intake Total 1890 840 Output Total 400 Balance -400 1890 840 Weight 78.7 kg 78.7 kg Intake: IV 50 Intake, IV Titration 800 Amount Sodium Chloride 0.9% 1, 800 000 ml @ 100 mls/hr IV . Q10H SARAH Rx#:[id number] Oral 1040 840 Output: Urine 400 Other: Voiding Method Urinal Urinal Urinal # Voids 1 4 1 - Exam GENERAL: The patient is alert and oriented x3, not in any acute distress. Well developed, well nourished. HEENT: Pupils are round and equally reacting to light. EOMI. No scleral icterus. No conjunctival pallor. Normocephalic, atraumatic. No pharyngeal erythema. No thyromegaly. CARDIOVASCULAR: S1 and S2 present. No murmurs, rubs, or gallops. PULMONARY: Chest is clear to auscultation, no wheezing or crackles. -ABDOMEN: Soft, mild abdominal tenderness, nondistended, normoactive bowel sounds. No palpable organomegaly. MUSCULOSKELETAL: No joint swelling or deformity. EXTREMITIES: No cyanosis, clubbing, or pedal edema. NEUROLOGICAL: Gross neurological examination did not reveal any focal deficits. SKIN: No rashes. no petechiae. - Labs CBC & Chem 7: 06/10/21 06:40 06/10/21 06:40 Labs: Abnormal Lab Results - Last 24 Hours (Table) 06/09/21 06/10/21 06/10/21 Range/Units 18:56 05:57 06:40 RBC (4.30-5.90) m/uL Hct (39.0-53.0) % Lymphocytes # (1.0-4.8) k/uL Sodium (137-145) mmol/L Carbon Dioxide (22-30) mmol/L Glucose (74-99) mg/dL POC Glucose (mg/dL) 105 H (75-99) mg/dL Delta Bilirubin (0.0-0.2) mg/dL AST (17-59) U/L ALT (4-49) U/L Procalcitonin 0.23 H 0.19 H (0.02-0.09) ng/mL 06/10/21 06/10/21 Range/Units 06:40 06:40 RBC 4.09 L (4.30-5.90) m/uL Hct 38.4 L (39.0-53.0) % Lymphocytes # 0.8 L (1.0-4.8) k/uL Sodium 134 L (137-145) mmol/L Carbon Dioxide 21 L (22-30) mmol/L Glucose 110 H (74-99) mg/dL POC Glucose (mg/dL) (75-99) mg/dL Delta Bilirubin 0.5 H (0.0-0.2) mg/dL AST 78 H (17-59) U/L ALT 56 H (4-49) U/L Procalcitonin (0.02-0.09) ng/mL Assessment and Plan Assessment: Acute epigastric pain with recurrent bloody vomiting. EGD: Erosive esophagitis, active duodenitis and chronic gastritis Acute kidney injury Metabolic acidosis mostly secondary to above chronic pancreatitis Alcohol abuse at-risk of alcohol withdrawal Most likely alcoholic hepatitis, with history of the same with AST of more than ALT History of gastritis Plan: This is a pleasant 35 years old male who presents with alcohol abuse and associated with esophagitis/duodenitis Continue with normal saline 100 mL per hour. Protonix, add Carafate. Pain management Surgical team consult Continue with CIWA protocol and thiamine Labs and medication were reviewed.. Continue same treatment. Continue with symptomatic treatment. Resume home medication. Monitor lytes and vitals. DVT and GI prophylaxis. Further recommendations depends on the clinical course of the patient DVT prophylaxis: no Subcutaneous heparin for possible GI bleed GI Prophylaxis: Ppi Prognosis is guarded
[2021-06-11] MEDS: SUCRALFATE 1 GM TAB PO SCH (06:28)
[2021-06-11] MEDS: THIAMINE 100 MG TAB PO SCH (06:28)
[2021-06-11] MEDS: traMADol 50 MG TAB PO PRN ×2 (06:28→13:00)
[2021-06-11] MEDS: PANTOPRAZOLE 40 MG/10 ML VIAL IV SCH (09:38)
[2021-06-11 11:57] VITALS: BP 153/96; PULSE 82; TEMP 97.9
--- NOTE | 2021-06-11 15:11 | P.PN ---
Subjective Progress Note Date: 06/11/21 CHIEF COMPLAINT: Epigastric pain HISTORY OF PRESENT ILLNESS: Patient reports improvement in his epigastric pain. He is status post EGD with biopsies. He is tolerating diet. Denies any nausea or vomiting. Afebrile. WBC 7.3 Hgb 13.7 platelets 150 PHYSICAL EXAM: VITAL SIGNS: Reviewed GENERAL: Well-developed in no acute distress. HEENT: No sclera icterus. Extraocular movements grossly intact. Moist buccal mucosa. Head is atraumatic, normocephalic. Hears conversational speech. No nasal drainage. NECK: Supple without lymphadenopathy. CHEST: Non-labored respirations and equal bilateral excursions. CARDIOVASCULAR: Palpable 2+ radial pulses. ABDOMEN: Soft. Nondistended. Nontender. MUSCULOSKELETAL: No clubbing or cyanosis. NEUROLOGIC: No focal or lateralizing signs. Cranial nerves II through XII grossly intact. PSYCH: Appropriate affect. Alert and oriented to person, place and time. SKIN: Well perfused. Good skin turgor. ASSESSMENT: 1. Esophagitis with ulcers status post EGD with biopsies 2. Gastritis 3. Duodenitis 4. Gastric esophageal reflux disease with erosive esophagitis PLAN: -patient can be discharged from surgical standpoint -Continue Carafate 1 g twice a day -Continue Protonix 40 mg daily -Patient educated to refrain from tobacco use Physician Single Corner Cutter note has been reviewed by physician. Signing provider agrees with the documented findings, assessment, and plan of care. Objective - Vital Signs Vital signs: Vital Signs Temp 97.9 F 06/11/21 08:00 Pulse 82 06/11/21 12:00 Resp 18 06/11/21 08:00 BP 153/96 06/11/21 08:00 Pulse Ox 97 06/11/21 08:00 Intake & Output 06/10/21 06/11/21 06/11/21 18:59 06:59 18:59 Intake Total 1890 840 480 Balance 1890 840 480 Weight 78.7 kg 79 kg Intake: IV 50 Intake, IV Titration 800 Amount Sodium Chloride 0.9% 1, 800 000 ml @ 100 mls/hr IV . Q10H SARAH Rx#:[id number] Oral 1040 840 480 Other: Voiding Method Urinal Urinal Urinal # Voids 4 1 - Labs CBC & Chem 7: 06/10/21 06:40 06/10/21 06:40
== END 2021-06-11 14:40 | disposition home or self-care (01) | DRG 381 ==
LOC: EC 19:32 → 3SCARD 06-09 00:06
PROVIDERS: ADMIT Internal Medicine; ATTEND Internal Medicine
PROC: HZ2ZZZZ Detoxification Services for Substance Abuse Treatment (ICD-10-PCS; 2021-06-09)
PROC: 0DB78ZX Excision of Stomach, Pylorus, Via Natural or Artificial Opening Endoscopic, Diagnostic (ICD-10-PCS; principal; 2021-06-10 07:30)
DX: K22.11 Ulcer of esophagus with bleeding (principal); E87.2 Acidosis; K86.1 Other chronic pancreatitis; N17.9 Acute kidney failure, unspecified; K21.00 Gastro-esophageal reflux disease with esophagitis, without bleeding; Z20.822 Contact with and (suspected) exposure to COVID-19; K44.9 Diaphragmatic hernia without obstruction or gangrene; K21.9 Gastro-esophageal reflux disease without esophagitis; K29.80 Duodenitis without bleeding; K70.10 Alcoholic hepatitis without ascites; R00.0 Tachycardia, unspecified; Y90.0 Blood alcohol level of less than 20 mg/100 ml; K29.50 Unspecified chronic gastritis without bleeding; K29.00 Acute gastritis without bleeding; K29.20 Alcoholic gastritis without bleeding; E86.0 Dehydration; F10.20 Alcohol dependence, uncomplicated; R74.8 Abnormal levels of other serum enzymes; G89.29 Other chronic pain; Z87.19 Personal history of other diseases of the digestive system; Z90.49 Acquired absence of other specified parts of digestive tract
CPT/HCPCS: 36415; 36600; 43239; 74018; 80048; 80053; 80076; 80320; 81001; 82805; 83605; 83615; 83690; 83735; 84145; 85025; 85610; 85730; 87635; 88305; 88312; 93005; 96361; 96374; 96375; 99285

== ENCOUNTER 2021-06-17 00:47 | Inpatient (IN) | payer OTHER ==
[2021-06-17] MEDS ORDERED: SODIUM CHLORIDE 0.9% 1,000 ML IV STA ×3 (01:08→02:36)
[2021-06-17] MEDS ORDERED: SODIUM CHLORIDE 0.9% 500 ML 500 ML IV STA (01:08)
[2021-06-17] MEDS ORDERED: LORazepam 1 MG TAB PO STA (01:08)
[2021-06-17] MEDS ORDERED: ONDANSETRON 4 MG/2 ML VIAL IVP STA (01:09)
[2021-06-17] MEDS ORDERED: ONDANSETRON 4 MG/2 ML VIAL IVP PRN (01:09)
--- NOTE | 2021-06-17 01:10 | ED ---
Nausea/Vomiting/Diarrhea HPI - General Chief complaint: Abdominal Pain Stated complaint: Abdominal Pain, vomiting Time Seen by Provider: 06/17/21 01:08 Source: patient Mode of arrival: ambulatory Limitations: no limitations - Related Data Previous Rx's Medication Instructions Recorded Omeprazole [PriLOSEC] 40 mg PO DAILY #14 cap 06/10/21 Sucralfate [Carafate] 1 gm PO BID #30 tablet 06/10/21 Thiamine [Vitamin B-1] 100 mg PO BID-W/MEALS 30 Days #60 06/11/21 tab Allergies Allergy/AdvReac Type Severity Reaction Status Date / Time No Known Allergies Allergy Verified 06/17/21 01:01 Review of Systems ROS Statement: Those systems with pertinent positive or pertinent negative responses have been documented in the HPI. ROS Other: All systems not noted in ROS Statement are negative. Past Medical History Past Medical History: No Reported History Additional Past Medical History / Comment(s): pancreatitis and gastritis History of Any Multi-Drug Resistant Organisms: None Reported Past Surgical History: Cholecystectomy, Hernia Repair, Orthopedic Surgery Additional Past Surgical History / Comment(s): 2019 EGD/colonoscopy, r inguinal hernia repair, R wrist surgery for abscess, L wrist surgery for tendon repair, Past Anesthesia/Blood Transfusion Reactions: No Reported Reaction Past Psychological History: No Psychological Hx Reported Smoking Status: Never smoker Past Alcohol Use History: Occasional Past Drug Use History: None Reported - Past Family History Father Family Medical History: No Reported History Mother Family Medical History: No Reported History General Exam Limitations: no limitations Course Vital Signs 06/17/21 06/17/21 06/17/21 00:59 02:10 03:03 Temperature 98.3 F Pulse Rate 144 H 110 H 111 H Respiratory 22 18 18 Rate Blood Pressure 139/91 144/106 139/94 O2 Sat by Pulse 97 95 96 Oximetry 06/17/21 04:30 Temperature Pulse Rate 105 H Respiratory 18 Rate Blood Pressure O2 Sat by Pulse 96 Oximetry Medical Decision Making - Lab Data Result diagrams: 06/17/21 01:22 06/17/21 01:22 Lab Results 06/17/21 06/17/21 06/17/21 Range/Units 01:22 01:22 01:22 WBC 11.0 H (3.8-10.6) k/uL RBC 5.54 (4.30-5.90) m/uL Hgb 18.5 H D (13.0-17.5) gm/dL Hct 51.4 (39.0-53.0) % MCV 92.8 (80.0-100.0) fL MCH 33.3 (25.0-35.0) pg MCHC 35.9 (31.0-37.0) g/dL RDW 13.3 (11.5-15.5) % Plt Count 392 D (150-450) k/uL MPV 7.2 Neutrophils % 61 % Lymphocytes % 30 % Monocytes % 5 % Eosinophils % 1 % Basophils % 1 % Neutrophils # 6.7 (1.3-7.7) k/uL Lymphocytes # 3.3 (1.0-4.8) k/uL Monocytes # 0.5 (0-1.0) k/uL Eosinophils # 0.2 (0-0.7) k/uL Basophils # 0.1 (0-0.2) k/uL Hyperchromasia Slight Sodium 137 (137-145) mmol/L Potassium 3.2 L (3.5-5.1) mmol/L Chloride 95 L (98-107) mmol/L Carbon Dioxide 18 L (22-30) mmol/L Anion Gap 24 mmol/L BUN 8 L (9-20) mg/dL Creatinine 1.00 (0.66-1.25) mg/dL Est GFR (CKD-EPI)AfAm >90 (>60 ml/min/1.73 sqM) Est GFR (CKD-EPI)NonAf >90 (>60 ml/min/1.73 sqM) Glucose 166 H (74-99) mg/dL Calcium 10.6 H (8.4-10.2) mg/dL Phosphorus 3.1 (2.5-4.5) mg/dL Magnesium 1.5 L (1.6-2.3) mg/dL Total Bilirubin 1.2 (0.2-1.3) mg/dL AST 137 H (17-59) U/L ALT 86 H (4-49) U/L Alkaline Phosphatase 140 H (38-126) U/L Total Protein 9.1 H (6.3-8.2) g/dL Albumin 5.6 H (3.5-5.0) g/dL Lipase 425 H (23-300) U/L Urine Color Yellow Urine Appearance Clear (Clear) Urine pH 6.5 (5.0-8.0) Ur Specific Dixon 1.013 (1.001-1.035) Urine Protein Trace H (Negative) Urine Glucose (UA) Negative (Negative) Urine Ketones Trace H (Negative) Urine Blood Negative (Negative) Urine Nitrite Negative (Negative) Urine Bilirubin Negative (Negative) Urine Urobilinogen <2.0 (<2.0) mg/dL Ur Leukocyte Esterase Negative (Negative) Serum Alcohol 38 mg/dL Coronavirus (PCR) (Not Detectd) 06/17/21 Range/Units 02:38 WBC (3.8-10.6) k/uL RBC (4.30-5.90) m/uL Hgb (13.0-17.5) gm/dL Hct (39.0-53.0) % MCV (80.0-100.0) fL MCH (25.0-35.0) pg MCHC (31.0-37.0) g/dL RDW (11.5-15.5) % Plt Count (150-450) k/uL MPV Neutrophils % % Lymphocytes % % Monocytes % % Eosinophils % % Basophils % % Neutrophils # (1.3-7.7) k/uL Lymphocytes # (1.0-4.8) k/uL Monocytes # (0-1.0) k/uL Eosinophils # (0-0.7) k/uL Basophils # (0-0.2) k/uL Hyperchromasia Sodium (137-145) mmol/L Potassium (3.5-5.1) mmol/L Chloride (98-107) mmol/L Carbon Dioxide (22-30) mmol/L Anion Gap mmol/L BUN (9-20) mg/dL Creatinine (0.66-1.25) mg/dL Est GFR (CKD-EPI)AfAm (>60 ml/min/1.73 sqM) Est GFR (CKD-EPI)NonAf (>60 ml/min/1.73 sqM) Glucose (74-99) mg/dL Calcium (8.4-10.2) mg/dL Phosphorus (2.5-4.5) mg/dL Magnesium (1.6-2.3) mg/dL Total Bilirubin (0.2-1.3) mg/dL AST (17-59) U/L ALT (4-49) U/L Alkaline Phosphatase (38-126) U/L Total Protein (6.3-8.2) g/dL Albumin (3.5-5.0) g/dL Lipase (23-300) U/L Urine Color Urine Appearance (Clear) Urine pH (5.0-8.0) Ur Specific Dixon (1.001-1.035) Urine Protein (Negative) Urine Glucose (UA) (Negative) Urine Ketones (Negative) Urine Blood (Negative) Urine Nitrite (Negative) Urine Bilirubin (Negative) Urine Urobilinogen (<2.0) mg/dL Ur Leukocyte Esterase (Negative) Serum Alcohol mg/dL Coronavirus (PCR) Not Detected (Not Detectd) Disposition Clinical Impression: Acute pancreatitis, Abdominal pain, Alcoholic ketoacidosis, Vomiting, Elevated liver enzymes, Hypomagnesemia, Dehydration Disposition: ADMITTED IP TO THIS [facility] Condition: Fair Is patient prescribed a controlled substance at d/c from ED?: No Referrals: Merry Colunga MD [Primary Care Provider] - 1-2 days
[2021-06-17 01:37] LABS: Basophils # (A) 0.1 k/uL (0-0.2); Basophils % (A) 1 %; Eosinophils # (A) 0.2 k/uL (0-0.7); Eosinophils % (A) 1 %; HCT 51.4 % (39.0-53.0); Hyperchromasia Slight; Lymphocytes # (A) 3.3 k/uL (1.0-4.8); Lymphocytes % (A) 30 %; MCH 33.3 pg (25.0-35.0); MCHC 35.9 g/dL (31.0-37.0); MCV 92.8 fL (80.0-100.0); Mean Platelet Volume 7.2; Monocytes # (A) 0.5 k/uL (0-1.0); Monocytes % (A) 5 %; Neutrophils # (A) 6.7 k/uL (1.3-7.7); Neutrophils % (A) 61 %; Platelet Count 392 k/uL (150-450); RBC 5.54 m/uL (4.30-5.90); RDW 13.3 % (11.5-15.5)
[2021-06-17 01:38] LABS: Appearance,Urine Clear (Clear); Bilirubin,Urine Negative (Negative); Blood,Urine Negative (Negative); Color,Urine Yellow; Glucose,Urine (UA) Negative (Negative); Ketones,Urine Trace (Negative); Leukocyte Esterase,Urine Negative (Negative); Nitrite,Urine Negative (Negative); PH, Urine 6.5 (5.0-8.0); Protein,Urine Trace (Negative); Specific Gravity,Urine 1.013 (1.001-1.035); Urobilinogen,Urine <2.0 mg/dL (<2.0)
[2021-06-17 01:40] LABS: HGB 18.5 gm/dL (13.0-17.5)
[2021-06-17] MEDS ORDERED: HYDROmorphone 1 MG/ML 1 ML SYRINGE IVP STA (01:44)
[2021-06-17] MEDS ORDERED: diphenhydrAMINE 50 MG/ML 1 ML VIAL IVP STA (01:44)
[2021-06-17 01:54] LABS: ALT 86 U/L (4-49); AST 137 U/L (17-59); African American GFR (CKD) >90 (>60 ml/min/1.73 sqM); Albumin 5.6 g/dL (3.5-5.0); Alcohol 38 mg/dL; Alkaline Phosphatase 140 U/L (38-126); Anion Gap 24 mmol/L; Blood Urea Nitrogen 8 mg/dL (9-20); Calcium 10.6 mg/dL (8.4-10.2); Carbon Dioxide 18 mmol/L (22-30); Chloride 95 mmol/L (98-107); Glucose 166 mg/dL (74-99); Lipase 425 U/L (23-300); Magnesium 1.5 mg/dL (1.6-2.3); Non-African American GFR(CKD) >90 (>60 ml/min/1.73 sqM); Phosphorus 3.1 mg/dL (2.5-4.5); Potassium 3.2 mmol/L (3.5-5.1); Sodium 137 mmol/L (137-145); Total Bilirubin 1.2 mg/dL (0.2-1.3); Total Protein 9.1 g/dL (6.3-8.2)
[2021-06-17] MEDS ORDERED: LORazepam 2 MG/ML INJ IV STA (02:30)
[2021-06-17] MEDS ORDERED: POTASSIUM CHLORIDE 20 MEQ in WATER FOR INJECTION 1 100ML.BAG IVPB STA (02:36)
--- NOTE | 2021-06-17 04:23 | XR ---
EXAMINATION TYPE: XR KUB portable DATE OF EXAM: 06/17/2021 COMPARISON: NONE HISTORY: Abdominal pain TECHNIQUE: 2 views upright FINDINGS: There is no sign of intestinal obstruction or pneumoperitoneum. Fecal pattern is normal. Th ere are clips from cholecystectomy. IMPRESSION: Nonacute abdomen.
--- NOTE | 2021-06-17 04:25 | XR ---
EXAMINATION TYPE: XR chest 1V portable DATE OF EXAM: 06/17/2021 COMPARISON: 10/15/2020 HISTORY: Cough. Abdominal pain. TECHNIQUE: FINDINGS: Heart and mediastinum are normal. Lungs are clear. Diaphragm is normal. Bony thorax is inta ct. There is no pleural effusion. IMPRESSION: No active cardiopulmonary disease. Inspiration slightly improved compared to old exam..
[2021-06-17] MEDS ORDERED: POTASSIUM CHLORIDE 20 MEQ in WATER FOR INJECTION 1 100ML.BAG IVPB ONE (04:37)
[2021-06-17] MEDS: MAGNESIUM SULFATE-D5W PMX 1 GM in DEXTROSE/WATER 1 100ML.BAG IVPB SCH ×3 (04:51→14:53)
[2021-06-17] MEDS ORDERED: LORazepam 2 MG/ML INJ IV PRN ×3 (05:33→05:34)
[2021-06-17] MEDS ORDERED: NALOXONE 0.4 MG/ML 1 ML VIAL IV PRN (05:33)
[2021-06-17] MEDS ORDERED: THIAMINE 100 MG/ML 2 ML VIAL IM STA (05:34)
[2021-06-17] MEDS: HYDROmorphone 1 MG/ML 1 ML SYRINGE IVP PRN ×5 (05:43→21:31)
[2021-06-17] MEDS: SODIUM CHLORIDE 0.9% 1,000 ML IV SCH ×3 (05:54→21:29)
[2021-06-17] MEDS: PANTOPRAZOLE 40 MG/10 ML VIAL IV SCH (08:06)
[2021-06-17] MEDS: HEPARIN SODIUM,PORCINE/PF 5,000 UNIT/0.5 ML SYRINGE SQ SCH ×2 (17:09→21:30)
[2021-06-17] MEDS: THIAMINE 100 MG TAB PO SCH (17:10)
--- NOTE | 2021-06-17 22:58 | P.HPIM ---
History of Present Illness H&P Date: 06/17/21 Chief Complaint: Abdominal pain and nausea vomiting Patient is a 35-year-old male with a known history of alcohol abuse, prior history of pancreatitis and gastritis presents to ER with complaints of nausea vomiting abdominal pain. Abdominal pain is mainly epigastric region and across the left upper abdomen. Denied any complaints of hematemesis. No diarrhea. No fever no chills. No cough or sputum production. No complaints of chest pain. Patient had a prior admission due to acute pancreatitis. Chest x-ray showed no active cardiopulmonary disease. Inspiration slightly improved compared to old exam. Laboratory showed WBC 11.0 hemoglobin 18.5 and platelets 392 sodium 137 potassium 3.2 chloride 95 bicarb is 18 BUN 18 creatinine 1.0 and calcium 10.6 magnesium 1.5 AST 137 ALT 86 alk phos 149 lipase level is 425 UA negative for infection Serum alcohol level is 38 COVID-19 PCR not detected. KUB x-ray nonacute abdomen. Review of Systems Constitutional: Patient denies any fever or chills . No generalized weakness or weight loss. Abdomen: Abdominal pain and nausea vomiting. No diarrhea.. Cardiovascular: Patient denies any chest pain or short of breath no palpitations. Respiratory: patient denied any cough or sputum production. No shortness of breath Neurologic: Patient denied any numbness or tingling headache. Musculoskeletal: Patient denies any complaints of joint swelling or deformity. Skin: Negative Psychiatric: Negative Endocrine: No heat or cold intolerance. No recent weight gain. Genitourinary: No dysuria or hematuria. All other 14 point ROS negative except the above Past Medical History Past Medical History: No Reported History Additional Past Medical History / Comment(s): pancreatitis and gastritis History of Any Multi-Drug Resistant Organisms: None Reported Past Surgical History: Cholecystectomy, Hernia Repair, Orthopedic Surgery Additional Past Surgical History / Comment(s): 2019 EGD/colonoscopy, r inguinal hernia repair, R wrist surgery for abscess, L wrist surgery for tendon repair, Past Anesthesia/Blood Transfusion Reactions: No Reported Reaction Past Psychological History: No Psychological Hx Reported Smoking Status: Never smoker Past Alcohol Use History: Occasional Past Drug Use History: None Reported - Past Family History Father Family Medical History: No Reported History Mother Family Medical History: No Reported History Medications and Allergies Home Medications Medication Instructions Recorded Confirmed Type Omeprazole [PriLOSEC] 40 mg PO DAILY #14 cap 06/10/21 06/17/21 Rx Sucralfate [Carafate] 1 gm PO BID #30 tablet 06/10/21 06/17/21 Rx Thiamine [Vitamin B-1] 100 mg PO BID-W/MEALS 30 Days #60 06/11/21 06/17/21 Rx tab Allergies Allergy/AdvReac Type Severity Reaction Status Date / Time No Known Allergies Allergy Verified 06/17/21 06:57 Physical Exam Vitals: Vital Signs Temp Pulse Resp BP Pulse Ox 06/17/21 08:04 98.3 F 81 16 132/90 95 06/17/21 06:04 97.4 F L 06/17/21 05:42 93 18 130/90 96 06/17/21 04:30 105 H 18 96 06/17/21 03:03 111 H 18 139/94 96 06/17/21 02:10 110 H 18 144/106 95 06/17/21 00:59 98.3 F 144 H 22 139/91 97 Intake and Output 06/16/21 06/17/21 06/17/21 22:59 06:59 14:59 Other: Weight 77.111 kg PHYSICAL EXAMINATION: Patient is lying in the bed comfortably, no acute distress, awake alert and oriented.. HEENT: Normocephalic. Neck is supple. Pupils reactive. Nostrils clear. Oral cavity is moist. Neck reveals no JVD, carotid bruits, or thyromegaly. CHEST EXAMINATION: Trachea is central. Symmetrical expansion. Lung lion clear to auscultation and percussion. CARDIAC: Normal S1, S2 with no gallops. No murmurs ABDOMEN: Soft. Mild epigastric tenderness. No guarding or rigidity.Bowel sounds normal. No organomegaly. No abdominal bruits. Extremities: reveal no edema. No clubbing or cyanosis Neurologically awake, alert, oriented x3 with well-coordinated movements. No focal deficits noted Skin: No rash or skin lesions. Psychiatric: Cooperative. Nonsuicidal Musculoskeletal: No joint swelling or deformity. Normal range of motion. Results CBC & Chem 7: 06/17/21 01:22 06/17/21 01:22 Labs: Abnormal Lab Results - Last 24 Hours (Table) 06/17/21 06/17/21 06/17/21 Range/Units 01:22 01:22 01:22 WBC 11.0 H (3.8-10.6) k/uL Hgb 18.5 H D (13.0-17.5) gm/dL Potassium 3.2 L (3.5-5.1) mmol/L Chloride 95 L (98-107) mmol/L Carbon Dioxide 18 L (22-30) mmol/L BUN 8 L (9-20) mg/dL Glucose 166 H (74-99) mg/dL Calcium 10.6 H (8.4-10.2) mg/dL Magnesium 1.5 L (1.6-2.3) mg/dL AST 137 H (17-59) U/L ALT 86 H (4-49) U/L Alkaline Phosphatase 140 H (38-126) U/L Total Protein 9.1 H (6.3-8.2) g/dL Albumin 5.6 H (3.5-5.0) g/dL Lipase 425 H (23-300) U/L Urine Protein Trace H (Negative) Urine Ketones Trace H (Negative) Thrombosis Risk Factor Assmnt - DVT/VTE Prophylaxis DVT/VTE Prophylaxis: Pharmacologic Prophylaxis ordered Assessment and Plan Assessment: Acute recurrent alcoholic pancreatitis Alcoholic ketoacidosis Intractable nausea and vomiting Hypokalemia and hypomagnesemia Elevated liver enzymes Hypomagnesemia Dehydration volume depletion DVT prophylaxis with heparin subcu Plan: Patient will be continued IV hydration with normal saline and nothing by mouth. Continue with alcohol withdrawal protocol. Symptomatic management for nausea and vomiting and Protonix IV. Continue to follow closely. Time with Patient: Greater than 30
[2021-06-18] MEDS: HYDROmorphone 1 MG/ML 1 ML SYRINGE IVP PRN ×6 (01:27→21:53)
[2021-06-18] MEDS: LORazepam 2 MG/ML INJ IV PRN ×2 (02:52→15:02)
[2021-06-18] MEDS: SODIUM CHLORIDE 0.9% 1,000 ML IV SCH ×4 (05:39→21:54)
[2021-06-18 06:19] LABS: Basophils % (A) 1 %; Eosinophils # (A) 0.2 k/uL (0-0.7); Eosinophils % (A) 3 %; HCT 43.8 % (39.0-53.0); Lymphocytes # (A) 1.4 k/uL (1.0-4.8); Lymphocytes % (A) 25 %; MCH 33.3 pg (25.0-35.0); MCHC 34.6 g/dL (31.0-37.0); MCV 96.1 fL (80.0-100.0); Monocytes # (A) 0.3 k/uL (0-1.0); Monocytes % (A) 5 %; Neutrophils # (A) 3.7 k/uL (1.3-7.7); Neutrophils % (A) 66 %; Platelet Count 214 k/uL (150-450); RBC 4.56 m/uL (4.30-5.90); RDW 13.2 % (11.5-15.5); WBC 5.7 k/uL (3.8-10.6)
[2021-06-18 06:28] LABS: HGB 15.2 gm/dL (13.0-17.5)
[2021-06-18 06:30] LABS: ALT 72 U/L (4-49); AST 95 U/L (17-59); African American GFR (CKD) >90 (>60 ml/min/1.73 sqM); Albumin 4.3 g/dL (3.5-5.0); Albumin/Globulin Ratio 1.6; Alkaline Phosphatase 114 U/L (38-126); Anion Gap 13 mmol/L; Blood Urea Nitrogen 5 mg/dL (9-20); Calcium 7.9 mg/dL (8.4-10.2); Carbon Dioxide 20 mmol/L (22-30); Chloride 103 mmol/L (98-107); Globulin 2.7 g/dL; Glucose 91 mg/dL (74-99); Lipase 288 U/L (23-300); Non-African American GFR(CKD) >90 (>60 ml/min/1.73 sqM); Potassium 3.5 mmol/L (3.5-5.1); Sodium 136 mmol/L (137-145); Total Bilirubin 1.4 mg/dL (0.2-1.3)
[2021-06-18] MEDS: HEPARIN SODIUM,PORCINE/PF 5,000 UNIT/0.5 ML SYRINGE SQ SCH ×3 (07:48→21:54)
[2021-06-18] MEDS: PANTOPRAZOLE 40 MG/10 ML VIAL IV SCH (07:50)
[2021-06-18] MEDS: THIAMINE 100 MG TAB PO SCH ×2 (07:51→18:01)
[2021-06-18 11:48] VITALS: BMI 25.1
--- NOTE | 2021-06-18 16:03 | P.PN ---
Subjective Progress Note Date: 06/18/21 Patient is a 35-year-old male with a known history of alcohol abuse, prior history of pancreatitis and gastritis presents to ER with complaints of nausea vomiting abdominal pain. Abdominal pain is mainly epigastric region and across the left upper abdomen. Denied any complaints of hematemesis. No diarrhea. No fever no chills. No cough or sputum production. No complaints of chest pain. Patient had a prior admission due to acute pancreatitis. Chest x-ray showed no active cardiopulmonary disease. Inspiration slightly improved compared to old exam. Laboratory showed WBC 11.0 hemoglobin 18.5 and platelets 392 sodium 137 potassium 3.2 chloride 95 bicarb is 18 BUN 18 creatinine 1.0 and calcium 10.6 magnesium 1.5 AST 137 ALT 86 alk phos 149 lipase level is 425 UA negative for infection Serum alcohol level is 38 COVID-19 PCR not detected. KUB x-ray nonacute abdomen. 06/18/2021 Patient is seen and evaluated in follow-up today continues to have abdominal discomfort in the mid epigastric area and has had some associated nausea although states is feeling hungry and requesting a diet. Will start the patient on clear liquids and monitor and can tolerate and will advance once tolerating. Labs: WBC is 5.7, hemoglobin is 15.2, platelets are 214, sodium is 136, potassium is 3.5, creatinine 0.74, total bilirubin is 1.4, LFTs trending down, and lipase is 288 Review of systems: Constitutional: No reports of fatigue, fever, or chills Cardiovascular: No reports of chest pain or palpitations Respiratory: No reports of shortness of breath or cough GI: No reports of nausea, vomiting, or diarrhea : No reports of dysuria or retention Neurovascular: No reports of weakness or numbness All medications have been reviewed Active Medications Heparin Sodium (Porcine) (Heparin Sodium,Porcine/Pf 5,000 Unit/0.5 Ml Syringe) 5,000 unit SQ Q8HR SARAH Last Admin: 06/18/21 07:48 Dose: Not Given Documented by: Hydromorphone HCl (Hydromorphone 1 Mg/Ml 1 Ml Syringe) 1 mg IVP Q4HR PRN PRN Reason: Pain Last Admin: 06/18/21 13:54 Dose: 1 mg Documented by: Sodium Chloride (Saline 0.9%) 1,000 mls @ 130 mls/hr IV .Q7H42M [facility] Last Admin: 06/18/21 13:56 Dose: 130 mls/hr Documented by: Lorazepam (Lorazepam 2 Mg/Ml Inj) 0.5 mg IV Q6HR PRN PRN Reason: Anxiety Lorazepam (Lorazepam 2 Mg/Ml Inj) 1 mg IV Q2HR PRN PRN Reason: CIWA 8 or 9 Last Admin: 06/18/21 15:02 Dose: 1 mg Documented by: Lorazepam (Lorazepam 2 Mg/Ml Inj) 1 mg IV Q1HR PRN PRN Reason: CIWA 10 to 15 Lorazepam (Lorazepam 2 Mg/Ml Inj) 2 mg IV Q10M PRN PRN Reason: CIWA 16 or higher Stop: 06/19/21 05:34 Naloxone HCl (Naloxone 0.4 Mg/Ml 1 Ml Vial) 0.2 mg IV Q2M PRN PRN Reason: Opioid Reversal Ondansetron HCl (Ondansetron 4 Mg/2 Ml Vial) 4 mg IVP Q8HR PRN PRN Reason: Nausea And Vomiting Pantoprazole Sodium (Pantoprazole 40 Mg/10 Ml Vial) 40 mg IV DAILY [facility] Last Admin: 06/18/21 07:50 Dose: 40 mg Documented by: Thiamine HCl (Thiamine 100 Mg Tab) 100 mg PO BID-W/MEALS [facility] Last Admin: 06/18/21 07:51 Dose: 100 mg Documented by: PHYSICAL EXAMINATION: Patient is lying in the bed comfortably, no acute distress, awake alert and oriented.. HEENT: Normocephalic. Neck is supple. Pupils reactive. Nostrils clear. Oral cavity is moist. Neck reveals no JVD, carotid bruits, or thyromegaly. CHEST EXAMINATION: Trachea is central. Symmetrical expansion. Lung lion clear to auscultation and percussion. CARDIAC: Normal S1, S2 with no gallops. No murmurs ABDOMEN: Soft. Mild epigastric tenderness noted on palpation. No guarding or rigidity.Bowel sounds normal. No organomegaly. No abdominal bruits. Extremities: reveal no edema. No clubbing or cyanosis Neurologically awake, alert, oriented x3 with well-coordinated movements. No focal deficits noted Skin: No rash or skin lesions. Psychiatric: Cooperative. Non-suicidal Musculoskeletal: No joint swelling or deformity. Normal range of motion. Assessment: Acute recurrent alcoholic pancreatitis Alcoholic ketoacidosis Intractable nausea and vomiting Hypokalemia Elevated liver enzymes Hypomagnesemia Dehydration volume depletion DVT prophylaxis with heparin subcu GI prophylaxis Full code Plan: Patient will be continued IV hydration with normal saline and continues with abdominal discomfort although states is feeling hungry and will start with clear liquids and monitor for tolerance and advance slowly as tolerated. Lipase improved at 288 today. Magnesium was replaced although not redrawn and will repeat labs. Repeat potassium was 3.5. White blood count improved and is currently 5.7. Encouraged increased activity as tolerated and sitting up and out of the bed more often. Continue with alcohol withdrawal protocol. Symptomatic management for nausea and vomiting and Protonix IV. Continue to fo llow closely. Possible discharge in 24 hours. Objective - Vital Signs Vital signs: Vital Signs Temp 97.8 F 06/18/21 15:00 Pulse 90 06/18/21 15:00 Resp 18 06/18/21 15:00 BP 105/60 06/18/21 15:00 Pulse Ox 98 06/18/21 15:00 Intake & Output 06/17/21 06/18/21 06/18/21 18:59 06:59 18:59 Intake Total 420 Balance 420 Weight 77.111 kg 77.111 kg Intake: Oral 420 Other: Voiding Method Toilet Toilet Toilet # Voids 3 3 - Labs CBC & Chem 7: 06/18/21 05:39 06/18/21 05:39 Labs: Abnormal Lab Results - Last 24 Hours (Table) 06/18/21 Range/Units 05:39 Sodium 136 L (137-145) mmol/L Carbon Dioxide 20 L (22-30) mmol/L BUN 5 L (9-20) mg/dL Calcium 7.9 L (8.4-10.2) mg/dL Total Bilirubin 1.4 H (0.2-1.3) mg/dL AST 95 H (17-59) U/L ALT 72 H (4-49) U/L
[2021-06-18] MEDS: LORazepam 1 MG TAB PO PRN (22:47)
[2021-06-19] MEDS: HYDROmorphone 1 MG/ML 1 ML SYRINGE IVP PRN ×2 (05:50→09:47)
[2021-06-19 07:21] VITALS: BP 113/67; PULSE 98; RESP 17; TEMP 98
[2021-06-19 07:30] LABS: Basophils # (A) 0.1 k/uL (0-0.2); Basophils % (A) 1 %; Eosinophils # (A) 0.1 k/uL (0-0.7); Eosinophils % (A) 2 %; HCT 47.2 % (39.0-53.0); HGB 15.7 gm/dL (13.0-17.5); Lymphocytes # (A) 1.6 k/uL (1.0-4.8); Lymphocytes % (A) 24 %; MCH 33.6 pg (25.0-35.0); MCHC 33.3 g/dL (31.0-37.0); MCV 100.9 fL (80.0-100.0); Mean Platelet Volume 7.2; Monocytes # (A) 0.5 k/uL (0-1.0); Monocytes % (A) 7 %; Neutrophils # (A) 4.4 k/uL (1.3-7.7); Neutrophils % (A) 65 %; Platelet Count 218 k/uL (150-450); RBC 4.68 m/uL (4.30-5.90); RDW 12.4 % (11.5-15.5); WBC 6.8 k/uL (3.8-10.6)
[2021-06-19] MEDS: THIAMINE 100 MG TAB PO SCH (07:31)
[2021-06-19] MEDS: PANTOPRAZOLE 40 MG/10 ML VIAL IV SCH (07:31)
[2021-06-19] MEDS: HEPARIN SODIUM,PORCINE/PF 5,000 UNIT/0.5 ML SYRINGE SQ SCH (07:31)
[2021-06-19] MEDS: LORazepam 1 MG TAB PO PRN (07:31)
[2021-06-19 07:44] LABS: African American GFR (CKD) >90 (>60 ml/min/1.73 sqM); Anion Gap 12 mmol/L; Blood Urea Nitrogen 4 mg/dL (9-20); Calcium 8.4 mg/dL (8.4-10.2); Carbon Dioxide 20 mmol/L (22-30); Chloride 105 mmol/L (98-107); Glucose 92 mg/dL (74-99); Lipase 252 U/L (23-300); Magnesium 1.6 mg/dL (1.6-2.3); Non-African American GFR(CKD) >90 (>60 ml/min/1.73 sqM); Potassium 3.9 mmol/L (3.5-5.1); Sodium 137 mmol/L (137-145)
[2021-06-19] MEDS ORDERED: Magnesium Replacement Protocol 1 EACH MISC MISCELLANE PRN (08:47)
[2021-06-19] MEDS: MAGNESIUM SULFATE-D5W PMX 1 GM in DEXTROSE/WATER 1 100ML.BAG IVPB SCH ×2 (09:07→09:48)
[2021-06-19] MEDS: SODIUM CHLORIDE 0.9% 1,000 ML IV SCH (11:12)
--- NOTE | 2021-06-20 10:32 | P.DS ---
Providers Date of admission: 06/19/21 08:37 Expected date of discharge: 06/19/21 Attending physician: Carlos Roth Primary care physician: Merry Colunga [facility] Course: Final diagnosis Acute recurrent alcoholic pancreatitis Alcoholic ketoacidosis Intractable nausea and vomiting Hypokalemia, improved Elevated liver enzymes Hypomagnesemia, improved Dehydration volume depletion DVT prophylaxis GI prophylaxis Full code Discharge disposition Patient is being discharged in a stable condition with guarded prognosis to home. Patient will follow-up with Dr. Colunga upon discharge. Patient will be given a Librium taper for discharge. Total time taken is greater than 35 minutes. Hospital course Patient is a 35-year-old male with a known history of alcohol abuse, prior history of pancreatitis and gastritis presents to ER with complaints of nausea vomiting abdominal pain. Abdominal pain is mainly epigastric region and across the left upper abdomen. Denied any complaints of hematemesis. No diarrhea. No fever no chills. No cough or sputum production. No complaints of chest pain. Patient had a prior admission due to acute pancreatitis. Chest x-ray showed no active cardiopulmonary disease. Inspiration slightly impr jalil compared to old exam. Laboratory showed WBC 11.0 hemoglobin 18.5 and platelets 392 sodium 137 potassium 3.2 chloride 95 bicarb is 18 BUN 18 creatinine 1.0 and calcium 10.6 magnesium 1.5 AST 137 ALT 86 alk phos 149 lipase level is 425 UA negative for infection Serum alcohol level is 38 COVID-19 PCR not detected. KUB x-ray nonacute abdomen. 06/18/2021 Patient is seen and evaluated in follow-up today continues to have abdominal discomfort in the mid epigastric area and has had some associated nausea although states is feeling hungry and requesting a diet. Will start the patient on clear liquids and monitor and can tolerate and will advance once tolerating. 06/19/2021 Patient is seen in follow-up this morning no acute overnight issues. Patient tolerating diet and labs within normal limits and patient strongly encouraged to avoid alcohol use and will be discharged home today and instructed to follow-up with primary care provider and GI as needed in the outpatient setting. Patient continues with some mild abdominal discomfort although states is improved. Patient instructed to continue slowly advancing diet as tolerated in the outpatient setting. Again instructed the patient to avoid any alcohol intake and patient verbalized understanding. Librium taper provider upon discharge. Currently no reports of chest pain, shortness of breath, or palpitations. Patient is afebrile. No reports of nausea or vomiting and patient is tolerating diet. Patient is high risk for multiple hospitalizations related to this. Guarded prognosis. PHYSICAL EXAMINATION: Patient is lying in the bed comfortably, no acute distress, awake alert and oriented.. HEENT: Normocephalic. Neck is supple. Pupils reactive. Nostrils clear. Oral cavity is moist. Neck reveals no JVD, carotid bruits, or thyromegaly. CHEST EXAMINATION: Trachea is central. Symmetrical expansion. Lung lion clear to auscultation and percussion. CARDIAC: Normal S1, S2 with no gallops. No murmurs ABDOMEN: Soft. Mild epigastric tenderness noted on palpation. No guarding or rigidity.Bowel sounds normal. No organomegaly. No abdominal bruits. Extremities: reveal no edema. No clubbing or cyanosis Neurologically awake, alert, oriented x3 with well-coordinated movements. No focal deficits noted Skin: No rash or skin lesions. Psychiatric: Cooperative. Non-suicidal Musculoskeletal: No joint swelling or deformity. Normal range of motion. Please refer to medication reconciliation sheet for a list of medications. Patient Condition at Discharge: Fair Plan - Discharge Summary Discharge Rx Participant: No New Discharge Prescriptions: New chlordiazePOXIDE HCl [Librium] 25 mg PO TID 3 Days #12 capsule HYDROcodone/APAP 5-325MG [[facility] 5-325] 1 tab PO Q6HR PRN 3 Days #9 tab PRN Reason: Pain Continue Omeprazole [PriLOSEC] 40 mg PO DAILY #14 cap Sucralfate [Carafate] 1 gm PO BID #30 tablet Thiamine [Vitamin B-1] 100 mg PO BID-W/MEALS 30 Days #60 tab Discharge Medication List Omeprazole [PriLOSEC] 40 mg PO DAILY #14 cap 06/10/21 [Rx] Sucralfate [Carafate] 1 gm PO BID #30 tablet 06/10/21 [Rx] Thiamine [Vitamin B-1] 100 mg PO BID-W/MEALS 30 Days #60 tab 06/11/21 [Rx] HYDROcodone/APAP 5-325MG [[facility] 5-325] 1 tab PO Q6HR PRN 3 Days #9 tab 06/19/21 [Rx] chlordiazePOXIDE HCl [Librium] 25 mg PO TID 3 Days #12 capsule 06/19/21 [Rx] Follow up Appointment(s)/Referral(s): Merry Colunga MD [Primary Care Provider] - 1-2 days Activity/Diet/Wound Care/Special Instructions: Activity Limited until follow-up follow up with primary care provider on discharge Continue current diet and advance slowly as tolerated AVOID all alcohol intake Discharge/Stand Alone Forms: AA Meetings [place], Who Do I Call?, Outpatient Counseling, Work/School Release, Personal Inseam Trimming Machine Operator Discharge Disposition: HOME SELF-CARE
== END 2021-06-19 13:14 | disposition home or self-care (01) | DRG 439 ==
LOC: EC 00:47 → 6NMEDSUR 05:33 → OBSVTOIN 06-19 08:37
PROVIDERS: ADMIT Hospitalist; ATTEND Hospitalist
DX: K85.20 Alcohol induced acute pancreatitis without necrosis or infection (principal); E87.2 Acidosis; E83.42 Hypomagnesemia; E86.0 Dehydration; F10.10 Alcohol abuse, uncomplicated; E87.6 Hypokalemia; E86.9 Volume depletion, unspecified; R74.8 Abnormal levels of other serum enzymes; Y90.1 Blood alcohol level of 20-39 mg/100 ml; Z20.822 Contact with and (suspected) exposure to COVID-19; Z90.49 Acquired absence of other specified parts of digestive tract; Z98.890 Other specified postprocedural states; Z79.899 Other long term (current) drug therapy
CPT/HCPCS: 36415; 71045; 74018; 80048; 80053; 80320; 81003; 83690; 83735; 84100; 85025; 87635; 96361; 96365; 96366; 96375; 99285

== ENCOUNTER 2021-06-26 08:36 | Emergency (ER) | payer OTHER ==
[2021-06-26 08:43] VITALS: RESP 18; TEMP 99
[2021-06-26] MEDS ORDERED: KETOROLAC 15 MG/ML 1 ML VIAL IVP STA (08:57)
[2021-06-26] MEDS ORDERED: SODIUM CHLORIDE 0.9% 2,000 ML IV STA (08:57)
[2021-06-26] MEDS ORDERED: LORazepam 2 MG/ML INJ IV STA (08:58)
--- NOTE | 2021-06-26 08:59 | ED ---
Abdominal Pain HPI - General Chief Complaint: Abdominal Pain Stated Complaint: Vomiting, abd pain Time Seen by Provider: 06/26/21 08:44 Source: patient, RN notes reviewed Mode of arrival: ambulatory Limitations: no limitations - History of Present Illness Initial Comments: This a 36-year-old male presents emergency Department chief complaint of abdominal pain, nausea vomiting. Patient states started yesterday worsened today. Patient's had recurrent admissions for acute pancreatitis. She does admit to alcohol use a few days ago. Patient states pain is in his epigastric to mid abdomen no melanotic stools no dysuria no hematuria and no knee any he matemesis or coffee-ground emesis - Related Data Home Medications Medication Instructions Recorded Confirmed HYDROcodone/APAP 5-325MG [[place] 1 tab PO Q6H PRN 06/26/21 06/26/21 5-325] Omeprazole [PriLOSEC] 40 mg PO DAILY PRN 06/26/21 06/26/21 Sucralfate [Carafate] 1 gm PO BID PRN 06/26/21 06/26/21 Previous Rx's Medication Instructions Recorded Ondansetron Odt [Zofran Odt] 4 mg PO Q8HR PRN #10 tab 06/26/21 Allergies Allergy/AdvReac Type Severity Reaction Status Date / Time No Known Allergies Allergy Verified 06/26/21 09:45 Review of Systems ROS Statement: Those systems with pertinent positive or pertinent negative responses have been documented in the HPI. ROS Other: All systems not noted in ROS Statement are negative. Past Medical History Past Medical History: No Reported History Additional Past Medical History / Comment(s): pancreatitis and gastritis History of Any Multi-Drug Resistant Organisms: None Reported Past Surgical History: Cholecystectomy, Hernia Repair, Orthopedic Surgery Additional Past Surgical History / Comment(s): 2019 EGD/colonoscopy, r inguinal hernia repair, R wrist surgery for abscess, L wrist surgery for tendon repair, Past Anesthesia/Blood Transfusion Reactions: No Reported Reaction Past Psychological History: No Psychological Hx Reported Smoking Status: Never smoker Past Alcohol Use History: Occasional Past Drug Use History: None Reported - Past Family History Father Family Medical History: No Reported History Mother Family Medical History: No Reported History General Exam Limitations: no limitations General appearance: alert, in no apparent distress Head exam: Present: atraumatic, normocephalic, normal inspection Eye exam: Present: normal appearance, PERRL, EOMI. Absent: scleral icterus, conjunctival injection, periorbital swelling ENT exam: Present: normal exam, normal oropharynx, mucous membranes moist Neck exam: Present: normal inspection, full ROM. Absent: tenderness, meningismus, lymphadenopathy Respiratory exam: Present: normal lung sounds bilaterally. Absent: respiratory distress, wheezes, rales, rhonchi, stridor Cardiovascular Exam: Present: normal rhythm, tachycardia, normal heart sounds. Absent: systolic murmur, diastolic murmur, rubs, gallop, clicks GI/Abdominal exam: Present: soft, tenderness, normal bowel sounds. Absent: distended, guarding, rebound, rigid Course Vital Signs 06/26/21 06/26/21 08:40 10:43 Temperature 99 F Pulse Rate 128 H 101 H Respiratory 18 18 Rate Blood Pressure 149/103 142/96 O2 Sat by Pulse 96 98 Oximetry Medical Decision Making - Medical Decision Making 36-year-old male presented from it chief complaint of nausea vomiting. Patient has recurrent pancreatitis pain cardiac enzymes are within normals patient has chronically elevated LFTs. Patient feels greatly improved after IV fluids. Reynaldo reji still had some alcohol on board we discussed the use of alcohol in the symptoms. Patient had hypokalemia, hypomagnesemia. Patient did receive infusion, oral medications. He is advised to continue oral's magnesium [id number] return parameters were discussed. - Lab Data Result diagrams: 06/26/21 09:31 06/26/21 09:31 Lab Results 06/26/21 06/26/21 06/26/21 Range/Units 09:31 09:31 09:31 WBC 9.7 (3.8-10.6) k/uL RBC 5.20 (4.30-5.90) m/uL Hgb 17.4 (13.0-17.5) gm/dL Hct 48.8 (39.0-53.0) % MCV 93.8 D (80.0-100.0) fL MCH 33.5 (25.0-35.0) pg MCHC 35.7 (31.0-37.0) g/dL RDW 12.3 (11.5-15.5) % Plt Count 291 (150-450) k/uL MPV 7.4 Neutrophils % 78 % Lymphocytes % 12 % Monocytes % 8 % Eosinophils % 0 % Basophils % 1 % Neutrophils # 7.5 (1.3-7.7) k/uL Lymphocytes # 1.1 (1.0-4.8) k/uL Monocytes # 0.8 (0-1.0) k/uL Eosinophils # 0.0 (0-0.7) k/uL Basophils # 0.1 (0-0.2) k/uL Sodium 134 L (137-145) mmol/L Potassium 3.1 L (3.5-5.1) mmol/L Chloride 87 L (98-107) mmol/L Carbon Dioxide 26 (22-30) mmol/L Anion Gap 21 mmol/L BUN 15 (9-20) mg/dL Creatinine 0.88 (0.66-1.25) mg/dL Est GFR (CKD-EPI)AfAm >90 (>60 ml/min/1.73 sqM) Est GFR (CKD-EPI)NonAf >90 (>60 ml/min/1.73 sqM) Glucose 119 H (74-99) mg/dL Plasma Lactic Acid [place] (0.7-2.0) mmol/L Calcium 9.9 (8.4-10.2) mg/dL Magnesium 1.0 L (1.6-2.3) mg/dL Total Bilirubin 2.2 H (0.2-1.3) mg/dL AST 135 H (17-59) U/L ALT 96 H (4-49) U/L Alkaline Phosphatase 146 H (38-126) U/L Total Protein 8.6 H (6.3-8.2) g/dL Albumin 5.4 H (3.5-5.0) g/dL Amylase 77 (30-110) U/L Lipase 237 (23-300) U/L Urine Color [place] Urine Appearance Cloudy (Clear) Urine pH 6.0 (5.0-8.0) Ur Specific [place] 1.030 (1.001-1.035) Urine Protein 2+ H (Negative) Urine Glucose (UA) Trace H (Negative) Urine Ketones 2+ H (Negative) Urine Blood Negative (Negative) Urine Nitrite Negative (Negative) Urine Bilirubin 1+ H (Negative) Urine Urobilinogen 6.0 (<2.0) mg/dL Ur Leukocyte Esterase Small H (Negative) Urine RBC 1 (0-5) /hpf Urine WBC 12 H (0-5) /hpf Urine Bacteria Rare H (None) /hpf Cellular Casts 2 (0) /lpf Hyaline Casts 62 H (0-2) /lpf Urine Mucus Many H (None) /hpf Serum Alcohol 11 mg/dL 06/26/21 Range/Units 09:31 WBC (3.8-10.6) k/uL RBC (4.30-5.90) m/uL Hgb (13.0-17.5) gm/dL Hct (39.0-53.0) % MCV (80.0-100.0) fL MCH (25.0-35.0) pg MCHC (31.0-37.0) g/dL RDW (11.5-15.5) % Plt Count (150-450) k/uL MPV Neutrophils % % Lymphocytes % % Monocytes % % Eosinophils % % Basophils % % Neutrophils # (1.3-7.7) k/uL Lymphocytes # (1.0-4.8) k/uL Monocytes # (0-1.0) k/uL Eosinophils # (0-0.7) k/uL Basophils # (0-0.2) k/uL Sodium (137-145) mmol/L Potassium (3.5-5.1) mmol/L Chloride (98-107) mmol/L Carbon Dioxide (22-30) mmol/L Anion Gap mmol/L BUN (9-20) mg/dL Creatinine (0.66-1.25) mg/dL Est GFR (CKD-EPI)AfAm (>60 ml/min/1.73 sqM) Est GFR (CKD-EPI)NonAf (>60 ml/min/1.73 sqM) Glucose (74-99) mg/dL Plasma Lactic Acid [place] 3.0 H* (0.7-2.0) mmol/L Calcium (8.4-10.2) mg/dL Magnesium (1.6-2.3) mg/dL Total Bilirubin (0.2-1.3) mg/dL AST (17-59) U/L ALT (4-49) U/L Alkaline Phosphatase (38-126) U/L Total Protein (6.3-8.2) g/dL Albumin (3.5-5.0) g/dL Amylase (30-110) U/L Lipase (23-300) U/L Urine Color Urine Appearance (Clear) Urine pH (5.0-8.0) Ur Specific [place] (1.001-1.035) Urine Protein (Negative) Urine Glucose (UA) (Negative) Urine Ketones (Negative) Urine Blood (Negative) Urine Nitrite (Negative) Urine Bilirubin (Negative) Urine Urobilinogen (<2.0) mg/dL Ur Leukocyte Esterase (Negative) Urine RBC (0-5) /hpf Urine WBC (0-5) /hpf Urine Bacteria (None) /hpf Cellular Casts (0) /lpf Hyaline Casts (0-2) /lpf Urine Mucus (None) /hpf Serum Alcohol mg/dL Disposition Clinical Impression: Dehydration, Vomiting, Epigastric abdominal pain, Hypomagnesemia, Hypokalemia Disposition: HOME SELF-CARE Condition: Stable Instructions (If sedation given, give patient instructions): Abdominal Pain (ED) Additional Instructions: Please return to the Emergency Department if symptoms worsen or any other concerns. Prescriptions: Ondansetron Odt [Zofran Odt] 4 mg PO Q8HR PRN #10 tab PRN Reason: Nausea Is patient prescribed a controlled substance at d/c from ED?: No Referrals: Merry Colunga MD [Primary Care Provider] - 1-2 days Time of Disposition: 12:04
[2021-06-26 09:43] LABS: Basophils # (A) 0.1 k/uL (0-0.2); Basophils % (A) 1 %; Eosinophils % (A) 0 %; HCT 48.8 % (39.0-53.0); HGB 17.4 gm/dL (13.0-17.5); Lymphocytes # (A) 1.1 k/uL (1.0-4.8); Lymphocytes % (A) 12 %; MCH 33.5 pg (25.0-35.0); MCHC 35.7 g/dL (31.0-37.0); Mean Platelet Volume 7.4; Monocytes # (A) 0.8 k/uL (0-1.0); Monocytes % (A) 8 %; Neutrophils # (A) 7.5 k/uL (1.3-7.7); Neutrophils % (A) 78 %; Platelet Count 291 k/uL (150-450); RDW 12.3 % (11.5-15.5); WBC 9.7 k/uL (3.8-10.6)
[2021-06-26 09:53] LABS: ALT 96 U/L (4-49); AST 135 U/L (17-59); African American GFR (CKD) >90 (>60 ml/min/1.73 sqM); Albumin 5.4 g/dL (3.5-5.0); Alcohol 11 mg/dL; Alkaline Phosphatase 146 U/L (38-126); Amylase 77 U/L (30-110); Anion Gap 21 mmol/L; Blood Urea Nitrogen 15 mg/dL (9-20); Calcium 9.9 mg/dL (8.4-10.2); Carbon Dioxide 26 mmol/L (22-30); Chloride 87 mmol/L (98-107); Glucose 119 mg/dL (74-99); Lipase 237 U/L (23-300); Non-African American GFR(CKD) >90 (>60 ml/min/1.73 sqM); Potassium 3.1 mmol/L (3.5-5.1); Sodium 134 mmol/L (137-145); Total Bilirubin 2.2 mg/dL (0.2-1.3); Total Protein 8.6 g/dL (6.3-8.2)
[2021-06-26 10:01] LABS: Appearance,Urine Cloudy (Clear); Bacteria,Urine Rare /hpf; Bilirubin,Urine 1+ (Negative); Blood,Urine Negative (Negative); Cellular Casts,Urine 2 /lpf (0); Color,Urine Orange; Glucose,Urine (UA) Trace (Negative); Hyaline Casts,Urine 62 /lpf (0-2); Ketones,Urine 2+ (Negative); Leukocyte Esterase,Urine Small (Negative); Mucus,Urine Many /hpf; Nitrite,Urine Negative (Negative); Protein,Urine 2+ (Negative); RBC,Urine 1 /hpf (0-5); WBC,Urine 12 /hpf (0-5)
[2021-06-26 10:15] LABS: MCV 93.8 fL (80.0-100.0)
[2021-06-26] MEDS ORDERED: MAGNESIUM SULFATE-D5W PMX 1 GM in DEXTROSE/WATER 1 100ML.BAG IVPB ONE (10:30)
[2021-06-26] MEDS ORDERED: POTASSIUM CHLORIDE ER 20 MEQ TAB.ER PO STA (10:30)
[2021-06-26 10:47] VITALS: BP 142/96; PULSE 101
== END 2021-06-26 12:14 | disposition home or self-care (01) ==
LOC: EC 08:36
DX: E86.0 Dehydration (principal); E83.42 Hypomagnesemia; E87.6 Hypokalemia; R10.13 Epigastric pain
CPT/HCPCS: 36415; 80053; 82150; 83605; 83690; 83735; 85025; 81001; 87086; 99284; 96365; 96375 ×3; 96361; G0480; J2060; J3475; J1885; J1790; 80320

== ENCOUNTER 2021-06-30 21:34 | Inpatient (IN) | payer OTHER ==
[2021-06-30] MEDS ORDERED: ONDANSETRON 4 MG/2 ML VIAL IVP STA (21:51)
[2021-06-30] MEDS ORDERED: SODIUM CHLORIDE 0.9% 2,000 ML IV STA (21:51)
--- NOTE | 2021-06-30 21:51 | ED ---
General Adult HPI - General Chief complaint: Nausea/Vomiting/Diarrhea Stated complaint: Vomiting Source: patient Mode of arrival: ambulatory Limitations: no limitations - History of Present Illness Initial comments: 36-year-old male with past history of alcohol abuse, alcohol-induced pancreatitis and gastritis presents emergency department with nausea, vomiting and epigastric abdominal pain. Patient has been seen in the emergency department multiple times for similar complaint. Patient reports that he has significantly cut down on the amount that he is drinking and has not drank in the past couple of days. Patient presents tachycardic and vomiting. Denies hematemesis. No changes in his bowel or bladder habits. No fevers. States he has been rehab previously. No other alleviating, precipitating factors - Related Data Home Medications Medication Instructions Recorded Confirmed HYDROcodone/APAP 5-325MG [[place] 1 tab PO Q6H PRN 06/26/21 06/26/21 5-325] Omeprazole [PriLOSEC] 40 mg PO DAILY PRN 06/26/21 06/26/21 Sucralfate [Carafate] 1 gm PO BID PRN 06/26/21 06/26/21 Previous Rx's Medication Instructions Recorded Ondansetron Odt [Zofran Odt] 4 mg PO Q8HR PRN #10 tab 06/26/21 Allergies Allergy/AdvReac Type Severity Reaction Status Date / Time No Known Allergies Allergy Verified 06/30/21 21:49 Review of Systems ROS Statement: Those systems with pertinent positive or pertinent negative responses have been documented in the HPI. ROS Other: All systems not noted in ROS Statement are negative. Past Medical History Past Medical History: No Reported History Additional Past Medical History / Comment(s): pancreatitis and gastritis History of Any Multi-Drug Resistant Organisms: None Reported Past Surgical History: Cholecystectomy, Hernia Repair, Orthopedic Surgery Additional Past Surgical History / Comment(s): 2019 EGD/colonoscopy, r inguinal hernia repair, R wrist surgery for abscess, L wrist surgery for tendon repair, Past Anesthesia/Blood Transfusion Reactions: No Reported Reaction Past Psychological History: No Psychological Hx Reported Smoking Status: Never smoker Past Alcohol Use History: Occasional Past Drug Use History: None Reported - Past Family History Father Family Medical History: No Reported History Mother Family Medical History: No Reported History General Exam Limitations: no limitations Course Vital Signs 06/30/21 06/30/21 06/30/21 21:45 22:47 23:50 Temperature 97.7 F Pulse Rate 141 H 114 H 130 H Respiratory 22 18 42 H Rate Blood Pressure 123/75 136/95 145/87 O2 Sat by Pulse 98 98 96 Oximetry 06/30/21 23:57 Temperature Pulse Rate 124 H Respiratory 22 Rate Blood Pressure O2 Sat by Pulse 96 Oximetry EKG Findings - EKG Comments: EKG Findings:: EKG demonstrates a sinus tachycardia with a ventricular rate of 113. DC interval 154. QRS 96. QTC of 474. Some baseline artifact. No acute ST segment elevations or depressions Medical Decision Making - Medical Decision Making Upon arrival patient was placed into room 10. There are history and physical exam is performed. IV is established and the patient is given a 2 liter bolus of normal saline as well as 4 mg of morphine. Laboratory studies were conducted. Serum alcohol 283. Patient is reevaluated evaluated continues to be tachycardic. Recommend admission for anion gap metabolic acidosis and alcohol intoxication. Discussed with patient that he needs to quit drinking and seek rehab or risk dying. Patient understood. Patient will be admitted to the . He remained in stable condition awaiting a bed - Lab Data Result diagrams: 06/30/21 22:28 06/30/21 22:28 Lab Results 06/30/21 06/30/21 Range/Units 22:28 22:28 WBC 7.9 (3.8-10.6) k/uL RBC 5.90 (4.30-5.90) m/uL Hgb 19.5 H* (13.0-17.5) gm/dL Hct 54.5 H (39.0-53.0) % MCV 92.3 (80.0-100.0) fL MCH 33.0 (25.0-35.0) pg MCHC 35.8 (31.0-37.0) g/dL RDW 12.1 (11.5-15.5) % Plt Count 296 (150-450) k/uL MPV 7.3 Neutrophils % 70 % Lymphocytes % 20 % Monocytes % 6 % Eosinophils % 0 % Basophils % 1 % Neutrophils # 5.6 (1.3-7.7) k/uL Lymphocytes # 1.6 (1.0-4.8) k/uL Monocytes # 0.5 (0-1.0) k/uL Eosinophils # 0.0 (0-0.7) k/uL Basophils # 0.1 (0-0.2) k/uL Sodium 138 (137-145) mmol/L Potassium 3.5 (3.5-5.1) mmol/L Chloride 87 L (98-107) mmol/L Carbon Dioxide 18 L (22-30) mmol/L Anion Gap 33 mmol/L BUN 11 (9-20) mg/dL Creatinine 1.01 (0.66-1.25) mg/dL Est GFR (CKD-EPI)AfAm >90 (>60 ml/min/1.73 sqM) Est GFR (CKD-EPI)NonAf >90 (>60 ml/min/1.73 sqM) Glucose 188 H (74-99) mg/dL Calcium 10.3 H (8.4-10.2) mg/dL Total Bilirubin 1.3 (0.2-1.3) mg/dL AST 311 H (17-59) U/L ALT 123 H (4-49) U/L Alkaline Phosphatase 179 H (38-126) U/L Total Protein 9.6 H (6.3-8.2) g/dL Albumin 6.0 H (3.5-5.0) g/dL Lipase 491 H (23-300) U/L TSH 2.830 (0.465-4.680) mIU/L Serum Alcohol 283 H* mg/dL Disposition Clinical Impression: Alcoholic ketoacidosis, Dehydration, Alcohol-induced pancreatitis Disposition: ADMITTED IP TO THIS [facility] Condition: Serious Is patient prescribed a controlled substance at d/c from ED?: No Decision to Admit Reason: Admit from EC Decision Date: 06/30/21 Decision Time: 23:56
[2021-06-30] MEDS ORDERED: MORPHINE SULFATE 4 MG/ML SYRINGE IVP STA (22:27)
[2021-06-30 22:47] LABS: Basophils # (A) 0.1 k/uL (0-0.2); Basophils % (A) 1 %; Eosinophils % (A) 0 %; HCT 54.5 % (39.0-53.0); Lymphocytes # (A) 1.6 k/uL (1.0-4.8); Lymphocytes % (A) 20 %; MCHC 35.8 g/dL (31.0-37.0); MCV 92.3 fL (80.0-100.0); Mean Platelet Volume 7.3; Monocytes # (A) 0.5 k/uL (0-1.0); Monocytes % (A) 6 %; Neutrophils # (A) 5.6 k/uL (1.3-7.7); Neutrophils % (A) 70 %; Platelet Count 296 k/uL (150-450); RDW 12.1 % (11.5-15.5); WBC 7.9 k/uL (3.8-10.6)
[2021-06-30 22:52] LABS: HGB 19.5 gm/dL (13.0-17.5)
[2021-06-30 22:55] LABS: ALT 123 U/L (4-49); AST 311 U/L (17-59); African American GFR (CKD) >90 (>60 ml/min/1.73 sqM); Alkaline Phosphatase 179 U/L (38-126); Anion Gap 33 mmol/L; Blood Urea Nitrogen 11 mg/dL (9-20); Calcium 10.3 mg/dL (8.4-10.2); Carbon Dioxide 18 mmol/L (22-30); Chloride 87 mmol/L (98-107); Glucose 188 mg/dL (74-99); Lipase 491 U/L (23-300); Non-African American GFR(CKD) >90 (>60 ml/min/1.73 sqM); Potassium 3.5 mmol/L (3.5-5.1); Sodium 138 mmol/L (137-145); Total Bilirubin 1.3 mg/dL (0.2-1.3); Total Protein 9.6 g/dL (6.3-8.2)
[2021-06-30 23:10] LABS: Alcohol 283 mg/dL
[2021-06-30] MEDS ORDERED: LORazepam 2 MG/ML INJ IV STA (23:53)
[2021-06-30] MEDS ORDERED: NALOXONE 0.4 MG/ML 1 ML VIAL IV PRN (23:56)
[2021-06-30] MEDS ORDERED: LORazepam 2 MG/ML INJ IV PRN ×2 (23:59)
[2021-06-30] MEDS ORDERED: THIAMINE 100 MG/ML 2 ML VIAL IM STA (23:59)
[2021-07-01] MEDS: MORPHINE SULFATE 4 MG/ML SYRINGE IV PRN ×3 (00:38→10:09)
[2021-07-01] MEDS: SODIUM CHLORIDE 0.9% 1,000 ML IV SCH ×3 (00:39→14:57)
[2021-07-01] MEDS: PANTOPRAZOLE 40 MG/10 ML VIAL IV SCH ×3 (00:39→19:47)
[2021-07-01] MEDS: LORazepam 2 MG/ML INJ IV PRN ×6 (00:59→21:05)
[2021-07-01] MEDS: ONDANSETRON 4 MG/2 ML VIAL IVP PRN ×3 (01:00→17:03)
[2021-07-01] MEDS ORDERED: LORazepam 2 MG/ML INJ IV STA (02:45)
[2021-07-01] MEDS ORDERED: HYDROmorphone 0.5 MG/0.5 ML SYRINGE IVP STA (03:24)
[2021-07-01] MEDS: METOCLOPRAMIDE 5 MG/ML 2 ML VIAL IVP PRN ×3 (04:04→19:47)
[2021-07-01 05:08] LABS: Basophils # (A) 0.1 k/uL (0-0.2); Basophils % (A) 0 %; Eosinophils % (A) 0 %; HCT 50.4 % (39.0-53.0); HGB 16.9 gm/dL (13.0-17.5); Lymphocytes # (A) 0.8 k/uL (1.0-4.8); Lymphocytes % (A) 6 %; MCH 32.7 pg (25.0-35.0); MCHC 33.6 g/dL (31.0-37.0); Mean Platelet Volume 7.6; Monocytes # (A) 0.6 k/uL (0-1.0); Monocytes % (A) 5 %; Neutrophils # (A) 11.6 k/uL (1.3-7.7); Neutrophils % (A) 88 %; Platelet Count 250 k/uL (150-450); RBC 5.18 m/uL (4.30-5.90); RDW 12.2 % (11.5-15.5); WBC 13.2 k/uL (3.8-10.6)
[2021-07-01 05:22] LABS: African American GFR (CKD) >90 (>60 ml/min/1.73 sqM); Anion Gap 23 mmol/L; Blood Urea Nitrogen 11 mg/dL (9-20); Calcium 8.8 mg/dL (8.4-10.2); Carbon Dioxide 18 mmol/L (22-30); Chloride 92 mmol/L (98-107); Glucose 174 mg/dL (74-99); Non-African American GFR(CKD) >90 (>60 ml/min/1.73 sqM); Potassium 3.3 mmol/L (3.5-5.1); Sodium 133 mmol/L (137-145)
[2021-07-01 05:24] LABS: MCV 97.4 fL (80.0-100.0)
[2021-07-01] MEDS: THIAMINE 100 MG TAB PO SCH ×2 (08:06→17:00)
[2021-07-01] MEDS ORDERED: POTASSIUM CHLORIDE 20 MEQ in WATER FOR INJECTION 1 100ML.BAG IVPB STA (12:24)
[2021-07-01] MEDS ORDERED: Potassium Replacement Protocol 1 EACH MISC MISCELLANE PRN (13:09)
[2021-07-01] MEDS: HYDROcodone/APAP 7.5-325MG 1 EACH TAB PO PRN ×2 (13:10→19:46)
--- NOTE | 2021-07-01 13:10 | P.HPIM ---
History of Present Illness 36-year-old male came in with comments of epigastric abdominal pain does have known history of all call abuse and does drink about 1 pint of liquor every day. Patient doesn't have any significant withdrawals patient states his last alcohol use was about 2 days ago although patient has elevated serum alcohol level. In spite of extensive counseling, patient can use to drink. Patient is willing to go to alcohol rehabitation program. Patient does have any fever chills patient has mildly elevated lipase patient's serum sodium is 133 and the potassium is 3.3. Was having nausea as well denied any vomiting or diarrhea REVIEW OF SYSTEMS: CONSTITUTIONAL: No fever, no malaise, no fatigue. HEENT: No recent visual problems or hearing problems. Denied any sore throat. CARDIOVASCULAR: No chest pain, orthopnea, PND, no palpitations, no syncope. PULMONARY: No shortness of breath, no cough, no hemoptysis. GASTROINTESTINAL as mentioned in HPI NEUROLOGICAL: No headaches, no weakness, no numbness. HEMATOLOGICAL: Denies any bleeding or petechiae. GENITOURINARY: Denies any burning micturition, frequency, or urgency. MUSCULOSKELETAL/RHEUMATOLOGICAL: Denies any joint pain, swelling, or any muscle pain. ENDOCRINE: Denies any polyuria or polydipsia. The rest of the 14-point review of systems is negative. PHYSICAL EXAMINATION: GENERAL: The patient is alert and oriented x3, not in any acute distress. Well developed, well nourished. HEENT: Pupils are round and equally reacting to light. EOMI. No scleral icterus. No conjunctival pallor. Normocephalic, atraumatic. No pharyngeal erythema. No thyromegaly. CARDIOVASCULAR: S1 and S2 present. No murmurs, rubs, or gallops. PULMONARY: Chest is clear to auscultation, no wheezing or crackles. ABDOMEN: Subjective epigastric abdominal tenderness, normoactive bowel sounds. No palpable organomegaly. MUSCULOSKELETAL: No joint swelling or deformity. EXTREMITIES: No cyanosis, clubbing, or pedal edema. NEUROLOGICAL: Gross neurological examination did not reveal any focal deficits. SKIN: No rashes. Assessment and plan -Alcoholic gastritis: Patient was started on Protonix we'll increase it to twice a day counseling regarding alcohol use was provided -acute alcoholic hepatitis a corrected improve with cessation of alcohol -Alcohol withdrawal patient is on Ativan CIWA protocol -Hypovolemic hypernatremia continue with IV fluids -Tachycardia and it alcohol withdrawal -Natriuretic hypokalemia potassium will be replaced DVT prophylaxis: Past Medical History Past Medical History: No Reported History Additional Past Medical History / Comment(s): pancreatitis and gastritis History of Any Multi-Drug Resistant Organisms: None Reported Past Surgical History: Cholecystectomy, Hernia Repair, Orthopedic Surgery Additional Past Surgical History / Comment(s): 2019 EGD/colonoscopy, r inguinal hernia repair, R wrist surgery for abscess, L wrist surgery for tendon repair, Past Anesthesia/Blood Transfusion Reactions: No Reported Reaction Past Psychological History: No Psychological Hx Reported Additional Psychological History / Comment(s): He is independent. Smoking Status: Never smoker Past Alcohol Use History: Occasional Additional Past Alcohol Use History / Comment(s): 1/2 pint day Past Drug Use History: None Reported - Past Family History Father Family Medical History: No Reported History Mother Family Medical History: No Reported History Medications and Allergies Home Medications Medication Instructions Recorded Confirmed Type Ondansetron Odt [Zofran Odt] 4 mg PO Q8HR PRN #10 tab 06/26/21 07/01/21 Rx Allergies Allergy/AdvReac Type Severity Reaction Status Date / Time No Known Allergies Allergy Verified 06/30/21 21:49 Physical Exam Vitals: Vital Signs Temp Pulse Pulse Resp BP BP Pulse Ox 07/01/21 07:27 120 H 18 07/01/21 07:00 97.6 F 114 H 18 138/97 95 07/01/21 05:46 117 H 18 130/85 94 L 07/01/21 04:29 119 H 20 136/87 96 07/01/21 02:41 121 H 20 95 07/01/21 02:05 117 H 18 128/78 96 07/01/21 02:00 97.7 F 113 H 20 144/97 94 L 07/01/21 00:50 120 H 18 133/82 95 06/30/21 23:57 124 H 22 96 06/30/21 23:50 130 H 42 H 145/87 96 06/30/21 22:47 114 H 18 136/95 98 06/30/21 21:45 97.7 F 141 H 22 123/75 98 Intake and Output 06/30/21 07/01/21 07/01/21 22:59 06:59 14:59 Other: Weight 77.111 kg 77.111 kg Results CBC & Chem 7: 07/01/21 04:49 07/01/21 04:49 Labs: Abnormal Lab Results - Last 24 Hours (Table) 06/30/21 06/30/21 07/01/21 Range/Units 22:28 22:28 04:49 WBC 13.2 H (3.8-10.6) k/uL Hgb 19.5 H* (13.0-17.5) gm/dL Hct 54.5 H (39.0-53.0) % Neutrophils # 11.6 H (1.3-7.7) k/uL Lymphocytes # 0.8 L (1.0-4.8) k/uL Sodium (137-145) mmol/L Potassium (3.5-5.1) mmol/L Chloride 87 L (98-107) mmol/L Carbon Dioxide 18 L (22-30) mmol/L Glucose 188 H (74-99) mg/dL Calcium 10.3 H (8.4-10.2) mg/dL AST 311 H (17-59) U/L ALT 123 H (4-49) U/L Alkaline Phosphatase 179 H (38-126) U/L Total Protein 9.6 H (6.3-8.2) g/dL Albumin 6.0 H (3.5-5.0) g/dL Lipase 491 H (23-300) U/L Serum Alcohol 283 H* mg/dL 07/01/21 Range/Units 04:49 WBC (3.8-10.6) k/uL Hgb (13.0-17.5) gm/dL Hct (39.0-53.0) % Neutrophils # (1.3-7.7) k/uL Lymphocytes # (1.0-4.8) k/uL Sodium 133 L (137-145) mmol/L Potassium 3.3 L (3.5-5.1) mmol/L Chloride 92 L (98-107) mmol/L Carbon Dioxide 18 L (22-30) mmol/L Glucose 174 H (74-99) mg/dL Calcium (8.4-10.2) mg/dL AST (17-59) U/L ALT (4-49) U/L Alkaline Phosphatase (38-126) U/L Total Protein (6.3-8.2) g/dL Albumin (3.5-5.0) g/dL Lipase (23-300) U/L Serum Alcohol mg/dL Thrombosis Risk Factor Assmnt - Choose All That Apply Any of the Below Risk Factors Present?: No
[2021-07-01] MEDS ORDERED: POTASSIUM CHLORIDE 10 MEQ in WATER FOR INJECTION 1 100ML.BAG IVPB SCH (15:00)
[2021-07-02] MEDS: ONDANSETRON 4 MG/2 ML VIAL IVP PRN (01:04)
[2021-07-02] MEDS: LORazepam 2 MG/ML INJ IV PRN ×3 (01:04→08:10)
[2021-07-02] MEDS: HYDROcodone/APAP 7.5-325MG 1 EACH TAB PO PRN ×2 (02:41→09:51)
[2021-07-02] MEDS: SODIUM CHLORIDE 0.9% 1,000 ML IV SCH ×2 (04:13→11:00)
[2021-07-02] MEDS: METOCLOPRAMIDE 5 MG/ML 2 ML VIAL IVP PRN (05:07)
[2021-07-02] MEDS: THIAMINE 100 MG TAB PO SCH (08:10)
[2021-07-02] MEDS: PANTOPRAZOLE 40 MG/10 ML VIAL IV SCH (08:11)
[2021-07-02 09:54] LABS: African American GFR (CKD) 139.7 (60.0-200.0); Albumin 4.6 g/dL (3.8-4.9); Albumin/Globulin Ratio 2.19 (1.60-3.17); Anion Gap 15.5 mmol/L (10.00-18.00); Blood Urea Nitrogen 6.3 mg/dL (9.0-27.0); Calcium 8.8 mg/dL (8.7-10.3); Carbon Dioxide 23.5 mmol/L (20.0-27.5); Globulin 2.1 g/dL (1.6-3.3); Non-African American GFR(CKD) 120.6 (60.0-200.0); Potassium 3.1 mmol/L (3.5-5.5); Total Bilirubin 1.6 mg/dL (0.30-1.20); Total Protein 6.7 g/dL (6.2-8.2)
[2021-07-02] MEDS ORDERED: Potassium Replacement Protocol 1 EACH MISC MISCELLANE PRN (13:15)
[2021-07-02] MEDS: POTASSIUM CHLORIDE ER 20 MEQ TAB.ER PO SCH ×2 (13:49→14:33)
[2021-07-02 14:24] VITALS: BP 147/98; PULSE 92; RESP 18; TEMP 97.5
--- NOTE | 2021-07-04 11:16 | P.DS ---
Providers Date of admission: 06/30/21 23:56 Expected date of discharge: 07/02/21 Attending physician: Carlos Roth Primary care physician: Merry Colunga Hospital Course: Final diagnosis -Alcoholic gastritis -acute alcoholic hepatitis a corrected improve with cessation of alcohol -Alcohol withdrawal -Hypovolemic hypernatremia, improved -Tachycardia secondary to alcohol withdrawal -Natriuretic hypokalemia -DVT prophylaxis Discharge disposition Patient is being discharged in a stable condition with guarded prognosis to home. Patient will follow-up with in the outpatient setting upon discharge. Patient to continue librium taper and avoid all alcohol. Continue full liquid diet and advance slowly as tolerated. Total time taken is greater than 35 minutes. Hospital course 36-year-old male came in with comments of epigastric abdominal pain does have known history of alcohol abuse and does drink about 1 pint of liquor every day. Patient doesn't have any significant withdrawals patient states his last alcohol use was about 2 days ago although patient has elevated serum alcohol level. In spite of extensive counseling, patient can use to drink. Patient is willing to go to alcohol rehabitation program. Patient does have any fever chills patient has mildly elevated lipase patient's serum sodium is 133 and the potassium is 3.3. Was having nausea as well denied any vomiting or diarrhea 07/02/2021 Patient seen in follow up and did receive ativan this morning and per nursing staff was requesting. Patient not in acute withdrawal at this time. Patient is tolerating diet and denies nausea vomiting. Patient with abdominal tenderness although no worse. Patient discussed with about rehab for alcohol and is considering it although states is not ready yet. Patient to follow up with [facility] and AA in the outpatient setting. Patient given librium taper and pepcid on discharge. Patient has zofran at home. Currently no reports of chest pain, palpitations, or shortness of breath. Patient is afebrile. No reports of nausea or vomiting noted. Patient tolerating diet. Patient will be discharged home today. Guarded prognosis as patient is high risk for readmissions secondary to alcohol use. PHYSICAL EXAMINATION: GENERAL: The patient is alert and oriented x3, not in any acute distress. Well developed, well nourished. HEENT: Pupils are round and equally reacting to light. EOMI. No scleral icterus. No conjunctival pallor. Normocephalic, atraumatic. No pharyngeal erythema. No thyromegaly. CARDIOVASCULAR: S1 and S2 present. No murmurs, rubs, or gallops. PULMONARY: Chest is clear to auscultation, no wheezing or crackles. ABDOMEN: Subjective epigastric abdominal tenderness, normoactive bowel sounds. No palpable organomegaly. MUSCULOSKELETAL: No joint swelling or deformity. EXTREMITIES: No cyanosis, clubbing, or pedal edema. NEUROLOGICAL: Gross neurological examination did not reveal any focal deficits. SKIN: No rashes. Please refer to medication reconciliation sheet for a list of medications. Patient Condition at Discharge: Stable Plan - Discharge Summary New Discharge Prescriptions: New HYDROcodone/APAP 7.5-325MG [[place] 7.5-325] 1 each PO Q6HR PRN #9 tab PRN Reason: Pain Thiamine [Vitamin B-1] 100 mg PO BID-W/MEALS 30 Days #60 tab chlordiazePOXIDE HCl [Librium] 25 mg PO TID 3 Days #12 capsule Continue Ondansetron Odt [Zofran ODT] 4 mg PO Q8HR PRN #10 tab PRN Reason: Nausea Discharge Medication List Ondansetron Odt [Zofran ODT] 4 mg PO Q8HR PRN #10 tab 06/26/21 [Rx] HYDROcodone/APAP 7.5-325MG [[place] 7.5-325] 1 each PO Q6HR PRN #9 tab 07/02/21 [Rx] Thiamine [Vitamin B-1] 100 mg PO BID-W/MEALS 30 Days #60 tab 07/02/21 [Rx] chlordiazePOXIDE HCl [Librium] 25 mg PO TID 3 Days #12 capsule 07/02/21 [Rx] Follow up Appointment(s)/Referral(s): Merry Colunga MD [Primary Care Provider] - 1-2 days Activity/Diet/Wound Care/Special Instructions: Activity Limited until follow-up Continue current fall liquid diet and slowly advance as tolerated Continue taking medications as prescribed Continue with potassium rich diet AVOID ALL ALCOHOL INTAKE Follow-up with primary care provider as discussed follow up GI in the outpatient setting Discharge Disposition: HOME SELF-CARE
== END 2021-07-02 14:59 | disposition home or self-care (01) | DRG 391 ==
LOC: EC 21:34 → 6NMEDSUR 23:56 → OBSVTOIN 07-02 09:08
PROVIDERS: ADMIT Hospitalist; ATTEND Hospitalist
PROC: HZ2ZZZZ Detoxification Services for Substance Abuse Treatment (ICD-10-PCS; principal; 2021-07-02)
DX: K29.20 Alcoholic gastritis without bleeding (principal); K85.20 Alcohol induced acute pancreatitis without necrosis or infection; F10.239 Alcohol dependence with withdrawal, unspecified; E87.2 Acidosis; E87.0 Hyperosmolality and hypernatremia; Z20.822 Contact with and (suspected) exposure to COVID-19; R00.0 Tachycardia, unspecified; E87.6 Hypokalemia; K70.10 Alcoholic hepatitis without ascites; E86.0 Dehydration; E86.1 Hypovolemia; Z71.41 Alcohol abuse counseling and surveillance of alcoholic; Z87.19 Personal history of other diseases of the digestive system; Z90.49 Acquired absence of other specified parts of digestive tract
CPT/HCPCS: 36415; 80048; 80053; 80320; 83690; 84443; 85025; 87635; 93005; 96361; 96374; 96375; 99285

== ENCOUNTER 2021-07-19 02:39 | Observation (INO) | payer OTHER ==
[2021-07-19] MEDS ORDERED: LORazepam 2 MG/ML INJ IV STA (03:08)
[2021-07-19] MEDS ORDERED: SODIUM CHLORIDE 0.9% 1,000 ML IV STA ×2 (03:08)
[2021-07-19] MEDS ORDERED: SODIUM CHLORIDE 0.9% 500 ML 500 ML IV STA (03:08)
--- NOTE | 2021-07-19 03:09 | ED ---
Alcohol HPI - General Chief Complaint: Abdominal Pain Stated Complaint: Vomiting, Nausea Time Seen by Provider: 07/19/21 02:40 Source: patient, RN notes reviewed, old records reviewed Mode of arrival: ambulatory Limitations: physical limitation - History of Present Illness Initial Comments: This is a 36-year-old male to the emergency department for evaluation patient presents today for evaluation in regards to nausea vomiting diarrhea weakness with history of alcohol abuse please has recurrent pancreatitis or significant dehydration. No new complaints of chest pain or shortness breath patient has been drinking for the last few days MD Complaint: alcohol withdrawal Last Drink: just [employer] Previous Visits for Alcohol Intoxication?: Yes Recent Trauma: No Associated Symptoms: nausea, vomiting, abdominal pain Treatments Prior to Arrival: none Chronic Alcohol Use: Yes - Related Data Home Medications Medication Instructions Recorded Confirmed Omeprazole Magnesium [PriLOSEC OTC] 20 mg PO DAILY PRN 07/19/21 07/19/21 Allergies Allergy/AdvReac Type Severity Reaction Status Date / Time No Known Allergies Allergy Verified 07/19/21 07:50 Review of Systems ROS Statement: Those systems with pertinent positive or pertinent negative responses have been documented in the HPI. ROS Other: All systems not noted in ROS Statement are negative. Past Medical History Past Medical History: No Reported History Additional Past Medical History / Comment(s): pancreatitis and gastritis History of Any Multi-Drug Resistant Organisms: None Reported Past Surgical History: Cholecystectomy, Hernia Repair, Orthopedic Surgery Additional Past Surgical History / Comment(s): 2019 EGD/colonoscopy, r inguinal hernia repair, R wrist surgery for abscess, L wrist surgery for tendon repair, Past Anesthesia/Blood Transfusion Reactions: No Reported Reaction Past Psychological History: No Psychological Hx Reported Smoking Status: Never smoker Past Alcohol Use History: Abuse Past Drug Use History: None Reported - Past Family History Father Family Medical History: No Reported History Mother Family Medical History: No Reported History General Exam Limitations: physical limitation General appearance: alert, anxious, in distress Head exam: Present: atraumatic, normocephalic, normal inspection Eye exam: Present: normal appearance, PERRL, EOMI. Absent: scleral icterus, conjunctival injection, periorbital swelling ENT exam: Present: normal exam, mucous membranes dry Neck exam: Present: normal inspection. Absent: tenderness, meningismus, lymphadenopathy Respiratory exam: Present: normal lung sounds bilaterally. Absent: respiratory distress, wheezes, rales, rhonchi, stridor Cardiovascular Exam: Present: normal rhythm, tachycardia, normal heart sounds. Absent: systolic murmur, diastolic murmur, rubs, gallop, clicks GI/Abdominal exam: Present: soft, normal bowel sounds. Absent: distended, tenderness, guarding, rebound, rigid Extremities exam: Present: normal inspection, full ROM, normal capillary refill. Absent: tenderness, pedal edema, joint swelling, calf tenderness Back exam: Present: normal inspection Neurological exam: Present: alert, oriented X3, CN II-XII intact Psychiatric exam: Present: normal affect, normal mood Skin exam: Present: warm, dry, intact, normal color. Absent: rash Course Vital Signs 07/19/21 07/19/21 07/19/21 02:40 04:28 07:48 Temperature 98.1 F 97.7 F Pulse Rate 139 H 94 Pulse Rate [ 84 Pulse Oximetery ] Respiratory 18 16 16 Rate Blood Pressure 136/69 122/77 Blood Pressure 115/74 [Left Arm] O2 Sat by Pulse 96 96 93 L Oximetry 07/19/21 07/19/21 14:00 19:52 Temperature 97.0 F L 98.8 F Pulse Rate 84 Pulse Rate [ 78 Pulse Oximetery ] Respiratory 18 16 Rate Blood Pressure 131/82 Blood Pressure 133/75 [Left Arm] O2 Sat by Pulse 95 97 Oximetry - Reevaluation(s) Reevaluation #1: Medical record is reviewed Patient symptoms are significant improved Patient informed of results and questions answered Medical Decision Making - Medical Decision Making 36 male to the emergency department today. Patient presents today for evaluation regards to recurrent alcoholic ketosis, patient will be admitted for supportive care hydration nausea vomiting medication - Lab Data Result diagrams: 07/19/21 02:57 07/19/21 02:57 Lab Results 07/19/21 07/19/21 Range/Units 02:57 02:57 WBC 8.9 (3.8-10.6) k/uL RBC 4.68 (4.30-5.90) m/uL Hgb 15.7 (13.0-17.5) gm/dL Hct 44.7 (39.0-53.0) % MCV 95.5 (80.0-100.0) fL MCH 33.5 (25.0-35.0) pg MCHC 35.1 (31.0-37.0) g/dL RDW 12.4 (11.5-15.5) % Plt Count 333 (150-450) k/uL MPV 7.8 Neutrophils % 70 % Lymphocytes % 20 % Monocytes % 7 % Eosinophils % 1 % Basophils % 1 % Neutrophils # 6.2 (1.3-7.7) k/uL Lymphocytes # 1.8 (1.0-4.8) k/uL Monocytes # 0.6 (0-1.0) k/uL Eosinophils # 0.1 (0-0.7) k/uL Basophils # 0.1 (0-0.2) k/uL Sodium 135 L (137-145) mmol/L Potassium 3.3 L (3.5-5.1) mmol/L Chloride 93 L (98-107) mmol/L Carbon Dioxide 19 L (22-30) mmol/L Anion Gap 23 mmol/L BUN 9 (9-20) mg/dL Creatinine 0.71 (0.66-1.25) mg/dL Est GFR (CKD-EPI)AfAm >90 (>60 ml/min/1.73 sqM) Est GFR (CKD-EPI)NonAf >90 (>60 ml/min/1.73 sqM) Glucose 96 (74-99) mg/dL Calcium 9.5 (8.4-10.2) mg/dL Phosphorus 2.5 (2.5-4.5) mg/dL Magnesium 1.5 L (1.6-2.3) mg/dL Total Bilirubin 2.1 H (0.2-1.3) mg/dL AST 112 H (17-59) U/L ALT 91 H (4-49) U/L Alkaline Phosphatase 136 H (38-126) U/L Total Protein 8.2 (6.3-8.2) g/dL Albumin 5.3 H (3.5-5.0) g/dL Lipase 261 (23-300) U/L Serum Alcohol 15 mg/dL Disposition Clinical Impression: Dehydration, Alcohol withdrawal, Hypomagnesemia, Hypokalemia, Vomiting, [place] holic ketoacidosis Disposition: ADMITTED IP TO THIS HOSP Condition: Fair Is patient prescribed a controlled substance at d/c from ED?: No
[2021-07-19 04:22] LABS: Basophils # (A) 0.1 k/uL (0-0.2); Basophils % (A) 1 %; Eosinophils # (A) 0.1 k/uL (0-0.7); Eosinophils % (A) 1 %; HCT 44.7 % (39.0-53.0); HGB 15.7 gm/dL (13.0-17.5); Lymphocytes # (A) 1.8 k/uL (1.0-4.8); Lymphocytes % (A) 20 %; MCH 33.5 pg (25.0-35.0); MCHC 35.1 g/dL (31.0-37.0); MCV 95.5 fL (80.0-100.0); Mean Platelet Volume 7.8; Monocytes # (A) 0.6 k/uL (0-1.0); Monocytes % (A) 7 %; Neutrophils # (A) 6.2 k/uL (1.3-7.7); Neutrophils % (A) 70 %; Platelet Count 333 k/uL (150-450); RBC 4.68 m/uL (4.30-5.90); RDW 12.4 % (11.5-15.5); WBC 8.9 k/uL (3.8-10.6)
[2021-07-19] MEDS ORDERED: HYDROmorphone 1 MG/ML 1 ML SYRINGE IVP STA (05:12)
[2021-07-19 05:13] LABS: ALT 91 U/L (4-49); AST 112 U/L (17-59); African American GFR (CKD) >90 (>60 ml/min/1.73 sqM); Albumin 5.3 g/dL (3.5-5.0); Alcohol 15 mg/dL; Alkaline Phosphatase 136 U/L (38-126); Anion Gap 23 mmol/L; Blood Urea Nitrogen 9 mg/dL (9-20); Calcium 9.5 mg/dL (8.4-10.2); Carbon Dioxide 19 mmol/L (22-30); Chloride 93 mmol/L (98-107); Glucose 96 mg/dL (74-99); Lipase 261 U/L (23-300); Magnesium 1.5 mg/dL (1.6-2.3); Non-African American GFR(CKD) >90 (>60 ml/min/1.73 sqM); Phosphorus 2.5 mg/dL (2.5-4.5); Potassium 3.3 mmol/L (3.5-5.1); Sodium 135 mmol/L (137-145); Total Bilirubin 2.1 mg/dL (0.2-1.3); Total Protein 8.2 g/dL (6.3-8.2)
[2021-07-19] MEDS ORDERED: NALOXONE 0.4 MG/ML 1 ML VIAL IV PRN (05:45)
[2021-07-19] MEDS ORDERED: PROCHLORPERAZINE INJ 10 MG/2 ML VIAL IVP STA (05:45)
[2021-07-19] MEDS ORDERED: THIAMINE 100 MG/ML 2 ML VIAL IM STA (05:45)
[2021-07-19] MEDS ORDERED: ONDANSETRON 4 MG/2 ML VIAL IVP PRN (05:45)
[2021-07-19] MEDS ORDERED: DIAZEPAM 5 MG/ML 2 ML INJ IVP STA (05:45)
[2021-07-19] MEDS ORDERED: LORazepam 2 MG/ML INJ IV PRN (05:45)
[2021-07-19] MEDS ORDERED: PROCHLORPERAZINE INJ 10 MG/2 ML VIAL IVP PRN (05:45)
[2021-07-19] MEDS: MAGNESIUM SULFATE-D5W PMX 1 GM in DEXTROSE/WATER 1 100ML.BAG IVPB SCH ×2 (06:09→10:08)
[2021-07-19] MEDS: DEXTROSE 5%-0.45% NACL 1,000 ML IV SCH ×2 (06:09→22:19)
[2021-07-19] MEDS: MORPHINE SULFATE 4 MG/ML SYRINGE IV PRN ×5 (07:07→19:55)
[2021-07-19] MEDS: SODIUM CHLORIDE 0.9% 1,000 ML IV SCH ×2 (07:18→11:25)
[2021-07-19] MEDS: POTASSIUM CHLORIDE 10 MEQ in WATER FOR INJECTION 1 100ML.BAG IVPB SCH ×4 (07:57→14:59)
[2021-07-19] MEDS: PANTOPRAZOLE 40 MG/10 ML VIAL IV SCH (08:00)
[2021-07-19] MEDS: LORazepam 2 MG/ML INJ IV PRN ×3 (12:16→22:18)
[2021-07-19] MEDS ORDERED: PANTOPRAZOLE 40 MG TABLET PO PRN (12:27)
[2021-07-19] MEDS: THIAMINE 100 MG TAB PO SCH (16:46)
[2021-07-20] MEDS: MORPHINE SULFATE 4 MG/ML SYRINGE IV PRN ×6 (00:52→22:03)
[2021-07-20] MEDS: SODIUM CHLORIDE 0.9% 1,000 ML IV SCH ×4 (01:53→17:52)
[2021-07-20] MEDS: LORazepam 2 MG/ML INJ IV PRN ×4 (03:18→19:38)
[2021-07-20] MEDS: PANTOPRAZOLE 40 MG/10 ML VIAL IV SCH (07:39)
[2021-07-20] MEDS: THIAMINE 100 MG TAB PO SCH ×2 (07:39→17:47)
[2021-07-20] MEDS: DEXTROSE 5%-0.45% NACL 1,000 ML IV SCH (07:40)
[2021-07-20 10:38] LABS: Basophils # (A) 0.05 X 10*3/uL (0.00-0.10); Eosinophils # (A) 0.17 X 10*3/uL (0.04-0.35); Eosinophils % (A) 3.4 %; HCT 38.5 % (39.6-50.0); HGB 12.7 g/dL (13.0-17.0); Lymphocytes % (A) 26.1 %; MCH 33.3 pg (27.0-32.0); Mean Platelet Volume 10.4 fL (9.5-12.2); Monocytes # (A) 0.43 X 10*3/uL (0.20-1.00); Monocytes % (A) 8.6 %; Neutrophils # (A) 3.02 X 10*3/uL (1.80-7.70); Neutrophils % (A) 60.5 %; Platelet Count 194 X 10*3/uL (140-440); RBC 3.81 X 10*6/uL (4.40-5.60); RDW 12.2 % (11.5-14.5); WBC 4.99 X 10*3/uL (4.50-10.00)
[2021-07-20 10:46] LABS: Albumin 4.4 g/dL (3.8-4.9); Albumin/Globulin Ratio 2.25 (1.60-3.17); Anion Gap 16.1 mmol/L (10.00-18.00); BUN/Creat Ratio 9.77 Ratio (12.00-20.00); Blood Urea Nitrogen 6.3 mg/dL (9.0-27.0); Calcium 8.7 mg/dL (8.7-10.3); Carbon Dioxide 20.1 mmol/L (20.0-27.5); Globulin 1.9 g/dL (1.6-3.3); Magnesium 2.2 mg/dL (1.5-2.4); Non-African American GFR(CKD) 125.1 (60.0-200.0); Phosphorus 2.6 mg/dL (2.4-5.1); Potassium 3.7 mmol/L (3.5-5.5); Total Bilirubin 1.1 mg/dL (0.30-1.20); Total Protein 6.3 g/dL (6.2-8.2)
[2021-07-20 13:39] VITALS: BMI 25.1
--- NOTE | 2021-07-20 14:12 | P.HPIM ---
History of Present Illness H&P Date: 07/19/21 Chief Complaint: Abdominal pain/nausea/vomiting 36-year-old male to the emergency department for evaluation patient presents today for evaluation in regards to nausea vomiting diarrhea weakness with history of alcohol abuse please has recurrent pancreatitis or significant de hydration. No new complaints of chest pain or shortness breath patient has been drinking for the last few days Workup in ED reveals WBC of 8.9, hemoglobin 15.7 and platelet count of 333, sodium 135, potassium 3.3, BUN/creatinine of 9/0.71; AST/ALT elevated at 112/91; lipase of 261; serum alcohol level of 15 Review of Systems REVIEW OF SYSTEMS: CONSTITUTIONAL: No fever, no malaise, no fatigue. HEENT: No recent visual problems or hearing problems. Denied any sore throat. CARDIOVASCULAR: No chest pain, orthopnea, PND, no palpitations, no syncope. PULMONARY: No shortness of breath, no cough, no hemoptysis. GASTROINTESTINAL: No diarrhea, no nausea, no vomiting, no abdominal pain. NEUROLOGICAL: No headaches, no weakness, no numbness. HEMATOLOGICAL: Denies any bleeding or petechiae. GENITOURINARY: Denies any burning micturition, frequency, or urgency. MUSCULOSKELETAL/RHEUMATOLOGICAL: Denies any joint pain, swelling, or any muscle pain. ENDOCRINE: Denies any polyuria or polydipsia. The rest of the 14-point review of systems is negative. Past Medical History Past Medical History: No Reported History Additional Past Medical History / Comment(s): ETOH abuse/withdrawls, alchoholic ketoacidosis, pancreatitis, gastritis, History of Any Multi-Drug Resistant Organisms: None Reported Past Surgical History: Cholecystectomy, Hernia Repair, Orthopedic Surgery Additional Past Surgical History / Comment(s): 2019 EGD/colonoscopy, r inguinal hernia repair, R wrist surgery for abscess, L wrist surgery for tendon repair, Past Anesthesia/Blood Transfusion Reactions: No Reported Reaction Smoking Status: Never smoker - Past Family History Father Family Medical History: Hypertension Mother Family Medical History: No Reported History Additional Family Medical History / Comment(s): Mother is healthy Medications and Allergies Home Medications Medication Instructions Recorded Confirmed Type Omeprazole Magnesium [PriLOSEC OTC] 20 mg PO DAILY PRN 07/19/21 07/19/21 History Allergies Allergy/AdvReac Type Severity Reaction Status Date / Time No Known Allergies Allergy Verified 07/19/21 07:50 Physical Exam Vitals: Vital Signs Temp Pulse Pulse Resp BP BP Pulse Ox 07/19/21 07:48 97.7 F 84 16 115/74 93 L 07/19/21 04:28 94 16 122/77 96 07/19/21 02:40 98.1 F 139 H 18 136/69 96 Intake and Output 07/18/21 07/19/21 07/19/21 22:59 06:59 14:59 Other: # Voids 1 Weight 77.111 kg 77.111 kg PHYSICAL EXAMINATION: GENERAL: The patient is alert and oriented x3, not in any acute distress. Well developed, well nourished. HEENT: Pupils are round and equally reacting to light. EOMI. No scleral icterus. No conjunctival pallor. Normocephalic, atraumatic. No pharyngeal erythema. No thyromegaly. CARDIOVASCULAR: S1 and S2 present. No murmurs, rubs, or gallops. PULMONARY: Chest is clear to auscultation, no wheezing or crackles. ABDOMEN: Soft, nontender, nondistended, normoactive bowel sounds. No palpable organomegaly. MUSCULOSKELETAL: No joint swelling or deformity. EXTREMITIES: No cyanosis, clubbing, or pedal edema. NEUROLOGICAL: Gross neurological examination did not reveal any focal deficits. SKIN: No rashes. Results CBC & Chem 7: 07/20/21 03:56 07/20/21 03:50 Labs: Abnormal Lab Results - Last 24 Hours (Table) 07/19/21 Range/Units 02:57 Sodium 135 L (137-145) mmol/L Potassium 3.3 L (3.5-5.1) mmol/L Chloride 93 L (98-107) mmol/L Carbon Dioxide 19 L (22-30) mmol/L Magnesium 1.5 L (1.6-2.3) mg/dL Total Bilirubin 2.1 H (0.2-1.3) mg/dL AST 112 H (17-59) U/L ALT 91 H (4-49) U/L Alkaline Phosphatase 136 H (38-126) U/L Albumin 5.3 H (3.5-5.0) g/dL Thrombosis Risk Factor Assmnt - Choose All That Apply Any of the Below Risk Factors Present?: No Other Risk Factors: No Other congenital or acquired thrombophilia - If yes, enter type in comment: No Thrombosis Risk Factor Assessment Level: Very Low Risk Assessment and Plan Assessment: 1. Alcoholic ketoacidosis/dehydration; continue with IV fluids in form of normal saline at rate of 135 mL an hour; we will monitor strict RENETTA's - Monitor renal function and electrolytes and lactic acid levels 2. Alcohol withdrawal; patient has been placed on CIWA protocol with Ativan; we will start on scheduled dose of Librium if needed - Vitamin supplementation with thiamine and folic acid 3. Intractable nausea/vomiting/dehydration; we will continue with IV fluids in form of normal saline at a rate of 1 35 mL an hour; symptomatic treatment for nausea and vomiting; we will monitor renal function and electrolytes 4. Electrolyte imbalance/hypomagnesemia; supplemented with IV magnesium sulfate in ED; we will monitor electrolytes closely and supplement as needed 5. Gastroesophageal reflux disease; continue with Protonix 40 mg daily DVT prophylaxis; SCDs CODE STATUS; full code
[2021-07-21] MEDS: MORPHINE SULFATE 4 MG/ML SYRINGE IV PRN ×4 (01:38→14:12)
[2021-07-21] MEDS: LORazepam 2 MG/ML INJ IV PRN (05:03)
[2021-07-21] MEDS: DEXTROSE 5%-0.45% NACL 1,000 ML IV SCH ×2 (06:06→10:00)
[2021-07-21] MEDS: SODIUM CHLORIDE 0.9% 1,000 ML IV SCH ×3 (06:12→22:15)
[2021-07-21] MEDS: PANTOPRAZOLE 40 MG/10 ML VIAL IV SCH (08:12)
[2021-07-21] MEDS: THIAMINE 100 MG TAB PO SCH ×2 (08:12→16:52)
[2021-07-21 08:51] LABS: Basophils # (A) 0.04 X 10*3/uL (0.00-0.10); Basophils % (A) 0.6 %; Eosinophils # (A) 0.26 X 10*3/uL (0.04-0.35); HCT 41.7 % (39.6-50.0); HGB 13.8 g/dL (13.0-17.0); Lymphocytes # (A) 1.83 X 10*3/uL (0.90-5.00); Lymphocytes % (A) 27.8 %; MCH 32.9 pg (27.0-32.0); MCHC 33.1 g/dL (32.0-37.0); MCV 99.5 fL (80.0-97.0); Mean Platelet Volume 10.4 fL (9.5-12.2); Monocytes # (A) 0.51 X 10*3/uL (0.20-1.00); Monocytes % (A) 7.8 %; Neutrophils # (A) 3.92 X 10*3/uL (1.80-7.70); Neutrophils % (A) 59.5 %; Platelet Count 207 X 10*3/uL (140-440); RBC 4.19 X 10*6/uL (4.40-5.60); WBC 6.58 X 10*3/uL (4.50-10.00)
[2021-07-21 09:34] LABS: African American GFR (CKD) 148.9 (60.0-200.0); Anion Gap 16.4 mmol/L (10.00-18.00); BUN/Creat Ratio 10.67 Ratio (12.00-20.00); Blood Urea Nitrogen 6.4 mg/dL (9.0-27.0); Carbon Dioxide 18.6 mmol/L (20.0-27.5); Non-African American GFR(CKD) 128.4 (60.0-200.0); Potassium 3.8 mmol/L (3.5-5.5)
[2021-07-21] MEDS: HYDROcodone/APAP 5-325MG 1 EACH TAB PO PRN ×2 (16:52→22:55)
--- NOTE | 2021-07-21 18:04 | P.PN ---
Subjective Progress Note Date: 07/20/21 36-year-old male to the emergency department for evaluation patient presents today for evaluation in regards to nausea vomiting diarrhea weakness with history of alcohol abuse please has recurrent pancreatitis or significant dehydration. No new complaints of chest pain or shortness breath patient has been drinking for the last few days Workup in ED reveals WBC of 8.9, hemoglobin 15.7 and platelet count of 333, sodium 135, potassium 3.3, BUN/creatinine of 9/0.71; AST/ALT elevated at 112/91; lipase of 261; serum alcohol level of 15 Objective - Vital Signs Vital signs: Vital Signs Temp 98.1 F 07/20/21 08:00 Pulse 72 07/20/21 08:00 Resp 18 07/20/21 08:00 BP 126/84 07/20/21 08:00 Pulse Ox 97 07/20/21 08:00 Intake & Output 07/19/21 07/20/21 07/20/21 18:59 06:59 18:59 Weight 77.111 kg 77.111 kg Other: # Voids 1 2 - Exam GENERAL: The patient is alert and oriented x3, not in any acute distress. Well developed, well nourished. HEENT: Pupils are round and equally reacting to light. EOMI. No scleral icterus. No conjunctival pallor. Normocephalic, atraumatic. No pharyngeal erythema. No thyromegaly. CARDIOVASCULAR: S1 and S2 present. No murmurs, rubs, or gallops. PULMONARY: Chest is clear to auscultation, no wheezing or crackles. ABDOMEN: Soft, nontender, nondistended, normoactive bowel sounds. No palpable organomegaly. MUSCULOSKELETAL: No joint swelling or deformity. EXTREMITIES: No cyanosis, clubbing, or pedal edema. NEUROLOGICAL: Gross neurological examination did not reveal any focal deficits. SKIN: No rashes. - Labs CBC & Chem 7: 07/21/21 04:48 07/21/21 04:48 Labs: Abnormal Lab Results - Last 24 Hours (Table) 07/20/21 07/20/21 Range/Units 03:50 03:56 RBC 3.81 L (4.40-5.60) X 10*6/uL Hgb 12.7 L (13.0-17.0) g/dL Hct 38.5 L (39.6-50.0) % MCV 101.0 H (80.0-97.0) fL MCH 33.3 H (27.0-32.0) pg BUN 6.3 L (9.0-27.0) mg/dL BUN/Creatinine Ratio 9.77 L (12.00-20.00) Ratio Glucose 120 H (70-110) mg/dL AST 85 H (14-35) U/L ALT 69 H (10-49) U/L Assessment and Plan Assessment: 1. Alcoholic ketoacidosis/dehydration; continue with IV fluids in form of normal saline at rate of 135 mL an hour; we will monitor strict RENETTA's - Monitor renal function and electrolytes and lactic acid levels 2. Alcohol withdrawal; patient has been placed on CIWA protocol with Ativan; we will start on scheduled dose of Librium if needed - Vitamin supplementation with thiamine and folic acid 3. Intractable nausea/vomiting/dehydration; we will continue with IV fluids in form of normal saline at a rate of 1 35 mL an hour; symptomatic treatment for nausea and vomiting; we will monitor renal function and electrolytes 4. Electrolyte imbalance/hypomagnesemia; supplemented with IV magnesium sulfate in ED; we will monitor electrolytes closely and supplement as needed 5. Gastroesophageal reflux disease; continue with Protonix 40 mg daily DVT prophylaxis; SCDs CODE STATUS; full code
--- NOTE | 2021-07-21 18:12 | P.PN ---
Subjective Progress Note Date: 07/21/21 Principal diagnosis: Alcoholic ketoacidosis/dehydration/Alcohol withdrawal Electrolyte imbalance/hypomagnesemia Intractable nausea/vomiting/dehydration 36-year-old male to the emergency department for evaluation patient presents today for evaluation in regards to nausea vomiting diarrhea weakness with history of alcohol abuse please has recurrent pancreatitis or significant dehydration. No new complaints of chest pain or shortness breath patient has been drinking for the last few days Workup in ED reveals WBC of 8.9, hemoglobin 15.7 and platelet count of 333, sodium 135, potassium 3.3, BUN/creatinine of 9/0.71; AST/ALT elevated at 112/91; lipase of 261; serum alcohol level of 15 07/21/2021 Patient continues to complain of abdominal pain requiring morphine every 3-4 hours Vital signs are reviewed with temperature of 98.2, pulse 72, respirations 17 and blood pressure 119/79 Lab review reveals sodium of 136, potassium 3.8, BUN/creatinine of 6.4/0.6; WBC 6.5, hemoglobin 13.8 and platelet count of 207 Patient remains on IV fluids; CIWA protocol with Ativan; remains on thiamine and folic acid - We will plan to back off on IV morphine; order oral [place] for pain control; add Protonix 40 mg daily; check stat lipase Objective - Vital Signs Vital signs: Vital Signs Temp 98.2 F 07/21/21 06:33 Pulse 72 07/21/21 06:33 Resp 17 07/21/21 06:33 BP 119/79 07/21/21 06:33 Pulse Ox 94 L 07/21/21 06:33 Intake & Output 07/20/21 07/21/21 07/21/21 18:59 06:59 18:59 Weight 77.111 kg Other: # Voids 3 - Exam GENERAL: The patient is alert and oriented x3, not in any acute distress. Well developed, well nourished. HEENT: Pupils are round and equally reacting to light. EOMI. No scleral icterus. No conjunctival pallor. Normocephalic, atraumatic. No pharyngeal erythema. No thyromegaly. CARDIOVASCULAR: S1 and S2 present. No murmurs, rubs, or gallops. PULMONARY: Chest is clear to auscultation, no wheezing or crackles. ABDOMEN: Soft, nontender, nondistended, normoactive bowel sounds. No palpable organomegaly. MUSCULOSKELETAL: No joint swelling or deformity. EXTREMITIES: No cyanosis, clubbing, or pedal edema. NEUROLOGICAL: Gross neurological examination did not reveal any focal deficits. SKIN: No rashes. - Labs CBC & Chem 7: 07/21/21 04:48 07/21/21 04:48 Labs: Abnormal Lab Results - Last 24 Hours (Table) 07/21/21 07/21/21 Range/Units 04:48 04:48 RBC 4.19 L (4.40-5.60) X 10*6/uL MCV 99.5 H (80.0-97.0) fL MCH 32.9 H (27.0-32.0) pg Carbon Dioxide 18.6 L (20.0-27.5) mmol/L BUN 6.4 L (9.0-27.0) mg/dL BUN/Creatinine Ratio 10.67 L (12.00-20.00) Ratio Assessment and Plan Assessment: 1. Alcoholic ketoacidosis/dehydration; continue with IV fluids in form of normal saline at rate of 135 mL an hour; we will monitor strict RENETTA's - Monitor renal function and electrolytes and lactic acid levels 2. Alcohol withdrawal; patient has been placed on CIWA protocol with Ativan; we will start on scheduled dose of Librium if needed - Vitamin supplementation with thiamine and folic acid 3. Intractable nausea/vomiting/dehydration; we will continue with IV fluids in form of normal saline at a rate of 1 35 mL an hour; symptomatic treatment for nausea and vomiting; we will monitor renal function and electrolytes 4. Electrolyte imbalance/hypomagnesemia; supplemented with IV magnesium sulfate in ED; we will monitor electrolytes closely and supplement as needed 5. Gastroesophageal reflux disease; continue with Protonix 40 mg daily DVT prophylaxis; SCDs CODE STATUS; full code
[2021-07-21] MEDS ORDERED: MORPHINE SULFATE 4 MG/ML SYRINGE IV PRN (18:13)
[2021-07-22] MEDS: DEXTROSE 5%-0.45% NACL 1,000 ML IV SCH ×2 (00:24→12:15)
[2021-07-22] MEDS: SODIUM CHLORIDE 0.9% 1,000 ML IV SCH ×2 (04:17→12:15)
[2021-07-22 08:42] VITALS: BP 146/95; PULSE 85; RESP 18; TEMP 97.9
[2021-07-22] MEDS ORDERED: PANTOPRAZOLE SODIUM 40 MG GRANULE PKT PO SCH (08:45)
[2021-07-22] MEDS: HYDROcodone/APAP 5-325MG 1 EACH TAB PO PRN (09:16)
[2021-07-22] MEDS: THIAMINE 100 MG TAB PO SCH (09:17)
[2021-07-22 10:34] LABS: Basophils # (A) 0.06 X 10*3/uL (0.00-0.10); Basophils % (A) 0.7 %; Eosinophils % (A) 3.4 %; HCT 46.1 % (39.6-50.0); HGB 15.5 g/dL (13.0-17.0); Lymphocytes % (A) 26.1 %; MCHC 33.6 g/dL (32.0-37.0); MCV 98.1 fL (80.0-97.0); Mean Platelet Volume 10.5 fL (9.5-12.2); Monocytes # (A) 0.72 X 10*3/uL (0.20-1.00); Monocytes % (A) 8.2 %; Neutrophils # (A) 5.37 X 10*3/uL (1.80-7.70); Platelet Count 224 X 10*3/uL (140-440); RDW 12.1 % (11.5-14.5)
[2021-07-22 11:12] LABS: African American GFR (CKD) 139.7 (60.0-200.0); Anion Gap 19.5 mmol/L (10.00-18.00); BUN/Creat Ratio 14.43 Ratio (12.00-20.00); Blood Urea Nitrogen 10.1 mg/dL (9.0-27.0); Calcium 10.2 mg/dL (8.7-10.3); Carbon Dioxide 20.5 mmol/L (20.0-27.5); Non-African American GFR(CKD) 120.6 (60.0-200.0); Potassium 3.7 mmol/L (3.5-5.5)
--- NOTE | 2021-07-22 23:31 | DS ---
DISCHARGE SUMMARY FINAL DIAGNOSES: 1. Acute alcoholic ketoacidosis with dehydration, alcohol withdrawal. 2. Acute delirium tremens. 3. Electrolytes abnormality. 4. Hypomagnesium. 5. Intractable nausea and vomiting, possibly acute gastritis. 6. Anemia, macrocytic. 7. Elevated amylase and lipase, possible mild pancreatitis. 8. FULL CODE. DISCHARGE DISPOSITION: The patient will be discharged in stable condition with guarded prognosis. HISTORY OF PRESENT ILLNESS: This 36-year-old gentleman with past medical history of multiple medical problems, admitted with significant alcohol intoxication and delirium tremens and evidence of mild pancreatitis as evidenced by elevated lipase. Patient treated symptomatically, improved significantly. On exam, vitals are stable. Cardiovascular S1, S2. Abdomen soft. Nervous system: No focal deficits. DISCHARGE ADVICE AND MEDICATIONS: 1. Diet is cardiac diet. 2. Activity limited until follow up. 3. Follow up with primary physician, Dr. Merry Colunga in 1-2 days with CBC and BMP. 4. Acute alcohol cessation with AA as well as rehab. MEDICATIONS: 1. Folic acid 1 mg daily. 2. Librium 25 mg t.i.d. p.r.n. 3. Multivitamins 1 p.o. daily. 4. Thiamine 100 mg p.o. daily. MMODL / IJN: [id number] /
== END 2021-07-22 14:04 | disposition home or self-care (01) ==
LOC: EC 02:39 → 4SSUR 05:45
PROVIDERS: ADMIT Hospitalist; ATTEND Hospitalist
DX: F10.231 Alcohol dependence with withdrawal delirium (principal); F10.221 Alcohol dependence with intoxication delirium; E86.0 Dehydration; E83.42 Hypomagnesemia; E87.6 Hypokalemia; E87.2 Acidosis; R74.8 Abnormal levels of other serum enzymes; R19.7 Diarrhea, unspecified; Z20.822 Contact with and (suspected) exposure to COVID-19; D53.9 Nutritional anemia, unspecified; Y90.0 Blood alcohol level of less than 20 mg/100 ml; K21.9 Gastro-esophageal reflux disease without esophagitis; K40.90 Unilateral inguinal hernia, without obstruction or gangrene, not specified as recurrent; Z79.899 Other long term (current) drug therapy; Z90.49 Acquired absence of other specified parts of digestive tract; Z71.41 Alcohol abuse counseling and surveillance of alcoholic; Z82.49 Family history of ischemic heart disease and other diseases of the circulatory system
CPT/HCPCS: 99285; 96376 ×4; 96361 ×3; 82075; 96365; 96366; 96367; 96375; 36415; 80053 ×2; 80048 ×2; 83690 ×3; 83735 ×2; 84100 ×2; 85025 ×4; 87635; G0378 ×4; G0480; J2060 ×3; J2270 ×3; J0780; J1170; J3475; J3480; C9113 ×3; 80320